=== PATIENT | female | born 1950 | race Caucasian/White ===

== ENCOUNTER 2016-07-23 08:52 | Day surgery (SDC) | payer BC ==
[~2016-07-23] VITALS: Ht 165.1 cm; Wt 85.9 kg
[2016-07-23 09:09] VITALS: BP 115/55; PULSE 66; RESP 20; TEMP 98.4; O2SAT 100
[2016-07-23] MEDS ORDERED: SODIUM CHLORIDE 5 ML FLUSH PRN IVF (09:30)
[2016-07-23] MEDS ORDERED: SODIUM CHLOR 0.9% 1000 ML IV SCH (09:30)
[2016-07-23] MEDS ORDERED: ONDA1TAB16 PO (09:32)
[2016-07-23] MEDS ORDERED: ENAL10TA PO (09:32)
[2016-07-23] MEDS ORDERED: THYR15 PO (09:32)
[2016-07-23] MEDS ORDERED: METF1000 PO (09:32)
[2016-07-23] MEDS ORDERED: CARV12.52 PO (09:32)
[2016-07-23] MEDS ORDERED: GLIM4TAB PO (09:32)
[2016-07-23] MEDS ORDERED: LANTUS2P SQ (09:32)
[2016-07-23] MEDS ORDERED: FURO1TAB60 PO (09:32)
[2016-07-23] MEDS ORDERED: CHLO12TA2 PO (09:32)
[2016-07-23] MEDS ORDERED: K-TA10TA PO (09:32)
[2016-07-23] MEDS ORDERED: OXYC15TA PO (09:32)
[2016-07-23] MEDS ORDERED: ESTR2TAB4 PO (09:32)
[2016-07-23] MEDS ORDERED: renexa PO (09:32)
[2016-07-23] MEDS ORDERED: DEXTROSE 50% IN WATER 50 ML SYRINGE ONE (10:13)
[2016-07-23] MEDS ORDERED: fentaNYL CITRATE 250 MCG/5 ML AMP ONE (10:22)
--- NOTE | 2016-07-23 12:23 | RADRPT ---
EXAM DATE/TIME: 07/23/2016 10:57 [facility] COMPARISON: No previous studies available for comparison. EXTERNAL COMPARISON : [facility], PET/CT Tumor, July 11, 2016CT Abdomen, TLI, 07/10/16. INDICATIONS : Liver mass. MEDICAL HISTORY : Carcinoma, pancreas. Anal cancer. Hypertension. CHF. Diabetic. SURGICAL HISTORY : Appendectomy. Hysterectomy. Anal tumor excision. ENCOUNTER: Initial ACUITY: 1 day PAIN SCORE: 3/10 LOCATION: Liver. AREA EVALUATED: Liver. FINDINGS/CONCLUSION: I was unsuccessful in localizing the lesion anteriorly in the left lobe of the liver for biopsy on [facility]. Enzo Richmond MD FACR on July 23, 2016 at 11:51 Board Certified Radiologist. This report was verified electronically.
--- NOTE | 2016-07-23 12:39 | RADRPT ---
EXAM DATE/TIME: 07/23/2016 10:47 [facility] COMPARISON: No previous studies available for comparison. INDICATIONS : Hypermetabolic liver lesion. ORAL CONTRAST: No oral contrast ingested. RADIATION DOSE: 30.95 CTDIvol (mGy) MEDICAL HISTORY : Pancreatic cancer, diabetes, hypertension SURGICAL HISTORY : Thyroidectomy. Hysterectomy. Appendectomy. ENCOUNTER: Initial ACUITY: 1 day PAIN SCALE: 0/10 LOCATION: Bilateral abdomen TECHNIQUE: Volumetric scanning of the abdomen was performed. Using automated exposure control and adjustment of the mA and/or kV according to patient size, radiation dose was kept as low as reasonably achievable to obtain optimal diagnostic quality images. FINDINGS: An attempt was made to localize the PET positive lesion anteriorly in the liver by CT and ultrasound. I was unsuccessful in locating this. Biliary stent remains in good position. Moderate splenic artery calcifications are evident. CONCLUSION: I can not localize the lesion by CT or ultrasound for biopsy. Enzo Richmond MD FACR on July 23, 2016 at 11:29 Board Certified Radiologist. This report was verified electronically.
[2016-07-23] MEDS ORDERED: SODIUM CHLORIDE 5 ML FLUSH BID IVF SCH (21:00)
[2016-07-24] MEDS ORDERED: RANO500 PO (18:36)
== END 2016-07-23 11:30 | disposition home or self-care (01) ==
LOC: HRAD 08:52 → HRIP 08:54 → EDSTATUS 09:00 → HRAD 11:30
PROVIDERS: ATTEND Internal Medicine
DX: R16.0 Hepatomegaly, not elsewhere classified (principal); I10 Essential (primary) hypertension; E11.9 Type 2 diabetes mellitus without complications
CPT/HCPCS: 74150; 76705; J3010

== ENCOUNTER 2016-07-25 06:06 | Day surgery (SDC) | payer BC ==
[~2016-07-25] VITALS: Ht 165.1 cm; Wt 86.8 kg
[~2016-07-25 06:06] MED LIST: CARV12.52 PO; CHLO12TA2 PO; ENAL10TA PO; ESTR2TAB4 PO; FURO1TAB60 PO; GLIM4TAB PO; K-TA10TA PO; LANTUS2P SQ; METF1000 PO; ONDA1TAB16 PO; OXYC15TA PO; RANO500 PO; THYR15 PO
[2016-07-25 06:50] VITALS: BP 120/51; PULSE 64; RESP 20; TEMP 98.2; O2SAT 94
[2016-07-25] MEDS ORDERED: VANCOMYCIN 1000 MG/NS 250 ML - implanted port/tunneled catheter IV SCH ×2 (07:30)
[2016-07-25] MEDS ORDERED: SODIUM CHLORIDE 0.9% 1000 ML IV SCH (07:30)
[2016-07-25] MEDS ORDERED: CHLORHEXIDINE GLUCONATE 2 % 1 PACK (2 CLOTHS) TOPICAL SCH (07:30)
[2016-07-25] MEDS ORDERED: ACETAMINOPHEN 325 MG TAB PO ONE (08:15)
[2016-07-25] MEDS ORDERED: LORazepam 2 MG/ML VIAL ONE ×2 (08:27→08:52)
[2016-07-25] MEDS ORDERED: fentaNYL CITRATE 250 MCG/5 ML AMP ONE (08:27)
[2016-07-25] MEDS ORDERED: LIDOCAINE 1%/EPINEPHrine 1:100,000 SOLN 20 ML VIAL ONE (08:45)
--- NOTE | 2016-07-25 09:23 | PD.RAD ---
Post Procedure Progress Note Pre Procedure Diagnosis: (1) Pancreatic cancer Post Procedure Diagnosis: (1) Pancreatic cancer Procedure Date: Jul 25, 2016 Supervising Radiologist: Sergei Zamudio Proceduralist/Assist: Anabel Jefferson, RT(R), Gayla Coh RT(R) Anesthesia: Local, Conscious Sedation Plan of Activity Patient to Unit: ROPU Patient Condition: Good See PACS Report for procedural detail/treatment Central Venous Access Device Procedure 1 Right Internal Jugular Tunneled Central Line Placement dual lumen Occitan: 9 Sergei Zamudio MD Jul 25, 2016 09:23
[2016-07-25 09:30] VITALS: BP 105/62; PULSE 65; RESP 18; TEMP 97.8; O2SAT 92
[2016-07-25] MEDS ORDERED: SODIUM CHLORIDE 0.9% FLUSH 5 ML FLUSH IVF PRN (09:30)
[2016-07-25 09:45] VITALS: BP 94/56; PULSE 67; RESP 16; O2SAT 93
[2016-07-25 10:15] VITALS: BP 101/51; PULSE 72; RESP 16; O2SAT 94
--- NOTE | 2016-07-25 10:39 | RADRPT ---
EXAM DATE/TIME: 07/25/2016 08:31 [facility] COMPARISON: No previous studies available for comparison. INDICATIONS : Patient with pancreatic cancer in need of Colbert catheter placement. MEDICAL HISTORY : CAD, HTN, HLD, CHF, Anal cancer, Peripheral neuropathy, Hypothyroidism, MO, Diabetes, Osteoarthritis, Pancreatic mass SURGICAL HISTORY : Cardiac cath, Pancreatic stent, Appendectomy, Colonoscopy, Thyroidectomy, Angioplasty X3, Athrectomy, Hysterectomy, Adenoidectomy ENCOUNTER: Initial ACUITY: 2 months PAIN SCORE: 5/10 LOCATION: Abdomen FLUORO TIME: 0.4 minutes SEDATION TIME: 30 minutes ACCESS: Right internal jugular vein SEDATION: 1.) 2.5 mg lorazepam (Ativan) IV 2.) 175 mcg fentanyl (Sublimaze) IV Prophylactic antibiotics were administered with appropriate pre-procedure timing. Vancomycin within 2 hours of procedure, Ancef (or alternative) within 1 hour of procedure. DEVICE: 1. 9F Dual lumen Colbert catheter PROCEDURE : 1. Ultrasound-guided puncture of the prescribed vein. 2. Fluoroscopic guidance. 3. Colbert catheter placement 4. Conscious sedation with continuous EKG and oximetry monitoring. The risks, benefits and alternatives to the procedure were explained and verbal and written consent w as obtained. The site was prepped in sterile fashion. Full sterile technique was used, including ca p, mask, sterile gloves and gown and a large sterile sheet. Hand hygiene and 2% chlorhexidine Betadi ne was utilized per protocol for cutaneous antisepsis with appropriate dry time for site. The skin a nd subcutaneous tissues were infiltrated with local anesthetic solution. With ultrasound and fluoroscopic guidance a dermatotomy was created in the supraclavicular region. A micropuncture set was used to access to the prescribed vein and serial dilatation was performed to a ccept a Colbert catheter. A subcutaneous tunnel was created and in antegrade fashion the catheter wa s pulled through the tunnel, cut to the appropriate length and place through the sheath. The cathete r was locked with heparin and sutured in place. Conscious sedation was performed with the prescribed dosages and duration as above. The patient tole rated the procedure well and there were no complications. EKG and oximetry remained stable throughou t the procedure. The patient was sent to post anesthesia recovery in stable condition. CONCLUSION: Uncomplicated Colbert catheter placement as above. Sergei Zamudio MD on July 25, 2016 at 10:37 Board Certified Radiologist. This report was verified electronically.
[2016-07-25 10:45] VITALS: BP 97/48; PULSE 76; RESP 16; O2SAT 94
[2016-07-26] MEDS ORDERED: SODIUM CHLORIDE 0.9% FLUSH 5 ML FLUSH IVF SCH (09:00)
== END 2016-07-25 11:30 | disposition home or self-care (01) ==
LOC: HRIP 06:06 → HROP 06:06
PROVIDERS: ATTEND Internal Medicine
DX: Z45.2 Encounter for adjustment and management of vascular access device (principal); C25.9 Malignant neoplasm of pancreas, unspecified; I25.10 Atherosclerotic heart disease of native coronary artery without angina pectoris; I10 Essential (primary) hypertension; E78.5 Hyperlipidemia, unspecified; E03.9 Hypothyroidism, unspecified; I50.9 Heart failure, unspecified; I25.2 Old myocardial infarction
CPT/HCPCS: 36558; 76937; 77001; C1751; J1642; J2060; J3010; J3370; J7030; J7050

== ENCOUNTER 2016-08-02 09:02 | Day surgery (SDC) | payer BC ==
[~2016-08-02] VITALS: Ht 167.6 cm; Wt 86.6 kg
[2016-08-02 09:21] VITALS: BP 125/62; PULSE 76; RESP 20; TEMP 99; O2SAT 93
[2016-08-02] MEDS ORDERED: SODIUM CHLOR 0.9% 1000 ML INJ 1,000 ML IV SCH (09:45)
--- NOTE | 2016-08-02 10:36 | RADRPT ---
EXAM DATE/TIME: 08/02/2016 10:08 [facility] COMPARISON: CT ABDOMEN W/O CONTRAST, July 23, 2016, 10:47. BROCK CATHETER PLACEMENT W/US, RIGHT, July, 8:31. INDICATIONS : check catheter position. MEDICAL HISTORY : Hypermetabolic liver mass. SURGICAL HISTORY : None. ENCOUNTER: Initial ACUITY: 1 day PAIN SCORE: 0/10 LOCATION: Right chest FINDINGS: A single AP erect portable view of the chest was obtained. This again demonstrates a right central ve nous catheter in place with the tip projected over the superior vena cava. There is no pneumothorax. There is mild patchy opacity at the left lung base. The left costophrenic angle appears blunted. The heart size is at the upper limits of normal with atherosclerotic changes in the aorta. There is no pe rihilar edema. The bony thorax is intact with mild scoliosis. CONCLUSION: 1. Right central venous line remains in place with the tip projected over the superior vena cava. 2. Mild patchy opacity at the left lung base with possible small left effusion. Jose Huerta MD on August 02, 2016 at 10:32 Board Certified Radiologist. This report was verified electronically.
== END 2016-08-02 11:00 | disposition home or self-care (01) ==
LOC: HROP 09:02 → HRIP 09:09 → HROP 11:00
PROVIDERS: ATTEND Internal Medicine
DX: Z45.2 Encounter for adjustment and management of vascular access device (principal); C25.9 Malignant neoplasm of pancreas, unspecified; R91.8 Other nonspecific abnormal finding of lung field
CPT/HCPCS: 71010

== ENCOUNTER 2016-08-16 16:42 | Inpatient (IN) | payer MEDICARE, BC ==
[~2016-08-16] VITALS: Ht 165.1 cm; Wt 82.4 kg
[2016-08-16] VITALS (11 sets, daily range): BP systolic 119–175; BP diastolic 67–92; PULSE 83–159; RESP 16–20; TEMP 98–98.8; O2SAT 97–100
[2016-08-16] MEDS ORDERED: SODIUM CHLORIDE 0.9% FLUSH 5 ML FLUSH IVF PRN (17:00)
[2016-08-16] MEDS ORDERED: SODIUM CHLORID 0.9% 500 ML INJ 500 ML IV ONE (17:00)
[2016-08-16] MEDS ORDERED: ONDANSETRON HCL 4 MG/2 ML VIAL IV PUSH ONE (17:00)
[2016-08-16] MEDS ORDERED: MORPHINE SULFATE 4 MG/ML INJ IV PUSH ONE (17:00)
[2016-08-16] MEDS ORDERED: DILTIAZEM HCL 25 MG/5 ML VIAL IV ONE (17:30)
[2016-08-16 17:38] LABS: WHITE BLOOD COUNT 0.5 TH/MM3 (4.0-11.0)
[2016-08-16 17:39] LABS: HEMATOCRIT 28.9 % (35.0-46.0); HEMO FLAGS AUTO DIFF; MEAN CELL VOLUME 95.7 FL (80.0-100.0); MEAN CORPUSCULAR HEMOGLOBIN 31.7 PG (27.0-34.0); MEAN CORPUSCULAR HGB CONC 33.1 % (32.0-36.0); PLATELET COUNT 42 TH/MM3 (150-450); RED BLOOD COUNT 3.02 MIL/MM3 (4.00-5.30); RED CELL DISTRIBUTION WIDTH 13.7 % (11.6-17.2)
[2016-08-16 17:43] LABS: ALKALINE PHOSPHATASE 90 U/L (45-117); ALT (GPT) 82 U/L (10-53); ANION GAP 17 MEQ/L (5-15); AST (GOT) 122 U/L (15-37); BLOOD UREA NITROGEN 33 MG/DL (7-18); CHLORIDE 95 MEQ/L (98-107); GLOMERULAR FILTRATION RATE 39 ML/MIN (>89); POTASSIUM 4.2 MEQ/L (3.5-5.1); SODIUM (NA) 132 MEQ/L (136-145); TOTAL BILIRUBIN ADULT 0.7 MG/DL (0.2-1.0)
[2016-08-16 18:04] LABS: BANDS 4 % (0-6); CORRECTED NUCLEATED RBC 4 /100 WBC (0-0); POLYS (SEG NEUTROPHILS) 24 % (16-70); WBC DIFF SAMPLE 25
[2016-08-16 18:05] LABS: PLATELET ESTIMATE SMEAR LOW (NORMAL); PLATELET MORPHOLOGY NORMAL (NORMAL); SCAN/DIFF FINAL DIFF MANUAL
[2016-08-16 18:09] LABS: NEUTROPHIL # MANUAL DIFF 0.1 TH/MM3 (1.8-7.7)
[2016-08-16] MEDS ORDERED: BISACODYL 10 MG SUPP PR PRN (18:30)
[2016-08-16] MEDS ORDERED: MAGNESIUM HYDROXIDE SUSP 30 ML CUP PO PRN (18:30)
[2016-08-16] MEDS ORDERED: ACETAMINOPHEN 325 MG TAB PO PRN (18:30)
[2016-08-16] MEDS ORDERED: GLUCAGON 1 MG/ML VIAL OTHER PRN (18:30)
[2016-08-16] MEDS ORDERED: ONDANSETRON HCL 4 MG/2 ML VIAL IVP PRN (18:30)
[2016-08-16] MEDS ORDERED: SENNOSIDES 8.6 MG TAB PO PRN (18:30)
[2016-08-16] MEDS ORDERED: DEXTROSE 50% IN WATER 50 ML VIAL(D50) IV PUSH PRN (18:30)
--- NOTE | 2016-08-16 18:43 | HHI.HP ---
HPI Service [facility] Primary Care Physician Raj Alonso Mai, MD Admission Diagnosis atrial fibrillation with rvr Diagnoses: Chief Complaint: intractable nausea/ vomiting, failure to thrive , palpitations, sob Travel History International Travel<30 Days: No Contact w/Intl Traveler <30 Da: No Traveled to Known Affected Are: No History of Present Illness 65-year-old female who has a history of pancreatic cancer who presents to the emergency department with generalized weakness that's been worsening over the past week, constant, described as difficulty exerting herself and difficulty eating and drinking. She also has intractable nausea and vomiting and is not able to keep anything down. She has a lot of pain in her mouth and in her throat and has ulcerations due to the chemotherapy so she's having difficulties with any PO intake. She was not able to take her meds. She does have a history of congestive heart failure and is followed by Dr. Maher. She's never been told she has atrial fibrillation before. She however feels palpitations at times but is not bothering her much. she also has sob associated. No chest pain. She had chemotherapy last on Saturday and then Saturday and Saturday she went into the infusion clinic and has been getting IV hydration but she's not feeling any better. She follows with Dr. Trinidad for her chemotherapy. 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 Anoscopy thousand and 10 Allergies: Coded Allergies: Versed (Verified Allergy, Severe, Hallucinations, 08/16/16) Tetracycline (Verified Allergy, Intermediate, Edema, 08/16/16) Ativan (Verified Allergy, Unknown, Irritation, 08/16/16) CRABBY Penicillin (Verified Allergy, Unknown, gi upset, 08/16/16) Nitroglycerin (Verified Adverse Reaction, Unknown, severe headache, ) resolved only with demerol Uncoded Allergies: all fenofibrate (Allergy, Severe, rhabdomyolysis, 07/23/16) all statin drugs (Allergy, Severe, rhabdomyolysis, 07/23/16) glue on tape and bandages (Allergy, Intermediate, Itching, 07/23/16) nylon and silk (Allergy, Intermediate, Rash, 07/23/16) skin inflames, festers and weeps, will not granulate stainless steel (Allergy, Intermediate, Rash, 07/23/16) lactose and whey (Allergy, Unknown, 07/23/16) pollen (Allergy, Unknown, 07/23/16) topical iodine, cortisone,antibiotics (Allergy, Unknown, scalds, blisters, 07/23/16) Family History Says she is adopted and doesn't know biological parents/siblings Social History Has a h/o smoking cigarettes quit in 1994. No illicit drug use or EtOH use. Physical Exam Vital Signs Vital Signs Date Time Temp Pulse Resp B/P Pulse Ox O2 Delivery O2 Flow Rate FiO2 08/16/16 18:11 112 18 135/75 100 Room Air 08/16/16 17:57 126 16 133/87 100 Room Air 08/16/16 17:32 83 08/16/16 17:19 146 16 149/92 99 Room Air 08/16/16 17:18 97 Room Air 08/16/16 16:57 98.0 159 20 158/84 100 08/16/16 16:48 98.2 157 18 175/89 98 Physical Exam GENERAL: This is a very pleasant 65 yo F, well-nourished, well-developed patient, in no apparent distress. SKIN: Pale. No rashes, ecchymoses or lesions. Cool and dry. HEAD: Atraumatic. Normocephalic. No temporal or scalp tenderness. EYES: Pupils equal round and reactive. Extraocular motions intact. No scleral icterus. No injection or drainage. ENT: Nose without bleeding, purulent drainage or septal hematoma. Throat without erythema, tonsillar hypertrophy or exudate. Uvula midline. Airway patent. NECK: Trachea midline. No JVD or lymphadenopathy. Supple, nontender, no meningeal signs. CARDIOVASCULAR: Irregular rate and rhythm without murmurs, gallops, or rubs. RESPIRATORY decreased breath sounds.No wheezes, rales, or rhonchi. GASTROINTESTINAL: Abdomen soft, non-tender, nondistended. No hepato-splenomegaly , or palpable masses. No guarding. MUSCULOSKELETAL: Extremities without clubbing, cyanosis. Trace LE edema. No joint tenderness, effusion, or edema noted. No calf tenderness. Negative Homans sign bilaterally. NEUROLOGICAL: Awake and alert. Cranial nerves II through XII intact. Motor and sensory grossly within normal limits. Five out of 5 muscle strength in all muscle groups. Normal speech. Laboratory Laboratory Tests Test 08/16/16 17:00 White Blood Count 0.5 Red Blood Count 3.02 Hemoglobin 9.6 Hematocrit 28.9 Mean Corpuscular Volume 95.7 Mean Corpuscular Hemoglobin 31.7 Mean Corpuscular Hemoglobin 33.1 Concent Red Cell Distribution Width 13.7 Platelet Count 42 Mean Platelet Volume 9.8 Neutrophils (%) (Auto) Lymphocytes (%) (Auto) Monocytes (%) (Auto) Eosinophils (%) (Auto) Basophils (%) (Auto) Neutrophils # (Auto) Lymphocytes # (Auto) Monocytes # (Auto) Eosinophils # (Auto) Basophils # (Auto) CBC Comment AUTO DIFF Differential Total Cells 25 Counted Neutrophils % (Manual) 24 Band Neutrophils % 4 Lymphocytes % 52 Monocytes % 20 Neutrophils # (Manual) 0.1 Nucleated Red Blood Cells 4 Differential Comment FINAL DIFF MANUAL Platelet Estimate LOW Platelet Morphology Comment NORMAL Red Cell Morphology Comment NORMAL Sodium Level 132 Potassium Level 4.2 Chloride Level 95 Carbon Dioxide Level 20.0 Anion Gap 17 Blood Urea Nitrogen 33 Creatinine 1.35 Estimat Glomerular Filtration 39 Rate Random Glucose 438 Calcium Level 8.2 Total Bilirubin 0.7 Aspartate Amino Transf 122 (AST/SGOT) Alanine Aminotransferase 82 (ALT/SGPT) Alkaline Phosphatase 90 B-Type Natriuretic Peptide 893 Total Protein 6.5 Albumin 1.9 Result Diagram: 08/16/16 1700 08/16/16 170 Assessment and Plan Assessment and Plan Very pleasant 65 yo female with PMH of pancreatic cancer, CHF came with complaints of sob, nausea, vomiting, failure to thrive Afib with RVR Intractable nausea/vomiting. Stomatitis. Dysphagia. Failure to thrive. Pancreatic cancer on chemo follows with Dr Coe hem/onc. Pancytopenia. but normal temp. No need of abx. Will place patient on neutropenic isolation RITCHIE on CKD CHF Received cardizem bolus in the ED. Started on cardizem drip. Place on cardizem drip. Turn cardizem drip off if HR < 90 sustained. Turn on cardizem drip if HR sustained > 110. Add cardizem PO Monitor on telemetry Patient with very low platelets of 42 and at high risk of bleeding. Avoid any anticoagulation. Dr Coe also consulted her hem/onc doctor. Consult her cardiology doctor Gunnar Keep K > 4 and Mag> 2 . Monitor lytes and replace. Gently IVF as patient with CHF doesn't appear with exacerbation at this time. consider 2D ECHO Will also check A1c pain meds per pain scale will add IV pain meds Will also consult GI for dysphagia BS in 400s on admission, say sshe was not able to take PO meds. On ISS continue home long acting insulin. Accuchecks. Chronic medical conditions appears coronary artery disease, diabetes type 2, heart attack/AL, hypothyroidism, peripheral neuropathy, arthritis. Restart home meds. Hold lasix DVT ppx with SCD/TEDs as PLT 42 on admission Code Status full code Discussed Condition With Patient, family at bedside, nurse, ED physician Physician Certification 2 Midnight Certification Type: Admission for Inpatient Services Order for Inpatient Services The services are ordered in accordance with Medicare regulations or non- Medicare payer requirements, as applicable. In the case of services not specified as inpatient-only, they are appropriately provided as inpatient services in accordance with the 2-midnight benchmark. Estimated LOS (days): 3 days is the estimated time the patient will need to remain in the hospital, assuming treatment plan goals are met and no additional complications. Post-Hospital Plan: Home Oanh Garner MD Aug 16, 2016 18:43
[2016-08-16] MEDS ORDERED: CHLORPHENIRAMINE 12 MG PO SCH (18:45)
--- NOTE | 2016-08-16 19:16 | PD ---
HPI Chief Complaint: GI Complaint Time Seen by Provider: 16:59 Travel History International Travel<30 days: No Contact w/Intl Traveler<30days: No Traveled to known affect area: No History of Present Illness HPI This is a 65-year-old female who has a history of pancreatic cancer who presents to the emergency department with generalized weakness that's been worsening over the past week, constant, described as difficulty exerting herself and difficulty eating and drinking. She's had some vomiting. She has a lot of pain in her mouth and in her throat and has ulcerations due to the chemotherapy so she's having difficulty keeping her medications down. She does have a history of congestive heart failure and is followed by Dr. Maher. She's never been told she has atrial fibrillation before. She had chemotherapy last on Saturday and then Saturday and Saturday she went into the infusion clinic and has been getting IV hydration but she's not feeling any better. She follows with Dr. Trinidad for her chemotherapy. PFS Past Medical History Cancer: Yes (pancreatic) Cardiovascular Problems: Yes Chemotherapy: Yes Diabetes: Yes Patient Takes Glucophage: No Endocrine: Yes (diabetes, pancreatic cancer) Gastrointestinal Disorders: No Genitourinary: No Hepatitis: No Hiatal Hernia: No Hypertension: Yes Immune Disorder: No Musculoskeletal: Yes (arthritis) Neurologic: Yes (diabetic neuropathy) Psychiatric: No Reproductive: No Respiratory: No Thyroid Disease: Yes (Thyroidectomy) Tetanus Vaccination: Unknown Past Surgical History Abdominal Surgery: Yes (total hysterectomy, appendectomy) AICD: No Cardiac Surgery: No Ear Surgery: No Endocrine Surgery: Yes (Thyroid) Eye Surgery: Yes (bilateral cataract) Genitourinary Surgery: No Gynecologic Surgery: Yes (hysterectomy) Joint Replacement: No Oral Surgery: No Pacemaker: No Thoracic Surgery: No Other Surgery: Yes Social History Alcohol Use: No Tobacco Use: No Substance Use: No Allergies-Medications (Allergen,Severity, Reaction): Coded Allergies: Versed (Verified Allergy, Severe, Hallucinations, 08/16/16) Tetracycline (Verified Allergy, Intermediate, Edema, 08/16/16) Ativan (Verified Allergy, Unknown, Irritation, 08/16/16) CRABBY Penicillin (Verified Allergy, Unknown, gi upset, 08/16/16) Nitroglycerin (Verified Adverse Reaction, Unknown, severe headache, ) resolved only with demerol Uncoded Allergies: all fenofibrate (Allergy, Severe, rhabdomyolysis, 07/23/16) all statin drugs (Allergy, Severe, rhabdomyolysis, 07/23/16) glue on tape and bandages (Allergy, Intermediate, Itching, 07/23/16) nylon and silk (Allergy, Intermediate, Rash, 07/23/16) skin inflames, festers and weeps, will not granulate stainless steel (Allergy, Intermediate, Rash, 07/23/16) lactose and whey (Allergy, Unknown, 07/23/16) pollen (Allergy, Unknown, 07/23/16) topical iodine, cortisone,antibiotics (Allergy, Unknown, scalds, blisters, 07/23/16) Reported Meds & Prescriptions Reported Meds & Active Scripts Active Reported Ranexa ER 12 HR (Ranolazine) 500 Mg Tab 500 Mg PO BID Chlorpheniramine 12 HR (Chlorpheniramine Maleate) 12 Mg Tab 12 Mg PO Q12H Ondansetron (Ondansetron HCl) 4 Mg Tab 4 Mg PO Q4HR PRN Oxycodone (Oxycodone HCl) 15 Mg Tab 15 Mg PO Q6H PRN Estrace (Estradiol) 2 Mg Tab 2 Mg PO DAILY K-Tab (Potassium Chloride) 10 Meq Tab 10 Meq PO DAILY Lasix (Furosemide) 40 Mg Tab 40 Mg PO DAILY Enalapril (Enalapril Maleate) 10 Mg Tab 10 Mg PO DAILY Carvedilol 12.5 Mg Tab 12.5 Mg PO BID Glimepiride 4 Mg Tab 4 Mg PO BIDAC Metformin (Metformin HCl) 1,000 Mg Tab 1,000 Mg PO BIDPC With meals Lantus Inj (Insulin Glargine) 100 Unit/Ml Inj 30 Units SQ HS [place] Thyroid (Thyroid) 15 Mg Tab 45 Mg PO BID Review of Systems Except as stated in HPI: all other systems reviewed are Neg Physical Exam Narrative GENERAL: Unwell-appearing. SKIN: Warm and dry. HEAD: Atraumatic. Normocephalic. EYES: Pupils equal and round. No injection or drainage. ENT: Dry mucous membranes with ulcerations along the base of the tongue NECK: Trachea midline. CARDIOVASCULAR: Tachycardic. No murmur appreciated. RESPIRATORY: Clear to auscultation. Breath sounds equal bilaterally. GASTROINTESTINAL: Abdomen soft, non-tender, nondistended. MUSCULOSKELETAL: No obvious deformities. NEUROLOGICAL: Awake and alert. No obvious cranial nerve deficits. Moving all extremities. PSYCHIATRIC: Appropriate mood and affect; insight and judgment normal. Data Data Last Documented VS Vital Signs Date Time Temp Pulse Resp B/P Pulse Ox O2 Delivery O2 Flow Rate FiO2 08/16/16 18:11 112 18 135/75 100 Room Air 08/16/16 16:57 98.0 Orders Complete Blood Count With Diff (08/16/16 16:59) Comprehensive Metabolic Panel (08/16/16 16:59) Iv Access Insert/Monitor (08/16/16 16:59) Ecg Monitoring (08/16/16 16:59) Oximetry (08/16/16 16:59) Sodium Chloride 0.9% Flush (Ns Flush) (08/16/16 17:00) Electrocardiogram (08/16/16 ) B-Type Natriuretic Peptide (08/16/16 16:59) Sodium Chlorid 0.9% 500 Ml Inj (Ns 500 M (08/16/16 17:00) Morphine Inj (Morphine Inj) (08/16/16 17:00) Ondansetron Inj (Zofran Inj) (08/16/16 17:00) Diltiazem Inj (Cardizem Inj) (08/16/16 17:30) Vital Signs (Adult) Q15MX4,Q4H (08/16/16 18:11) Shift Boss / Telemetry NOHEMI.Q8H (08/16/16 18:11) Cardiac Rhythm NOHEMI.Q8H (08/16/16 18:11) ^ Notify Dr: Other (08/16/16 18:11) Diltiazem Inj (Cardizem Inj) (08/16/16 18:15) Admit Order (Ed Use Only) (08/16/16 18:23) Labs Laboratory Tests Test 08/16/16 17:00 White Blood Count 0.5 TH/MM3 Red Blood Count 3.02 MIL/MM3 Hemoglobin 9.6 GM/DL Hematocrit 28.9 % Mean Corpuscular Volume 95.7 FL Mean Corpuscular Hemoglobin 31.7 PG Mean Corpuscular Hemoglobin 33.1 % Concent Red Cell Distribution Width 13.7 % Platelet Count 42 TH/MM3 Mean Platelet Volume 9.8 FL Neutrophils (%) (Auto) % Lymphocytes (%) (Auto) % Monocytes (%) (Auto) % Eosinophils (%) (Auto) % Basophils (%) (Auto) % Neutrophils # (Auto) TH/MM3 Lymphocytes # (Auto) TH/MM3 Monocytes # (Auto) TH/MM3 Eosinophils # (Auto) TH/MM3 Basophils # (Auto) TH/MM3 CBC Comment AUTO DIFF Differential Total Cells 25 Counted Neutrophils % (Manual) 24 % Band Neutrophils % 4 % Lymphocytes % 52 % Monocytes % 20 % Neutrophils # (Manual) 0.1 TH/MM3 Nucleated Red Blood Cells 4 /100 WBC Differential Comment FINAL DIFF MANUAL Platelet Estimate LOW Platelet Morphology Comment NORMAL Red Cell Morphology Comment NORMAL Sodium Level 132 MEQ/L Potassium Level 4.2 MEQ/L Chloride Level 95 MEQ/L Carbon Dioxide Level 20.0 MEQ/L Anion Gap 17 MEQ/L Blood Urea Nitrogen 33 MG/DL Creatinine 1.35 MG/DL Estimat Glomerular Filtration 39 ML/MIN Rate Random Glucose 438 MG/DL Calcium Level 8.2 MG/DL Total Bilirubin 0.7 MG/DL Aspartate Amino Transf 122 U/L (AST/SGOT) Alanine Aminotransferase 82 U/L (ALT/SGPT) Alkaline Phosphatase 90 U/L B-Type Natriuretic Peptide 893 PG/ML Total Protein 6.5 GM/DL Albumin 1.9 GM/DL [facility] Medical Decision Making Medical Screen Exam Complete: Yes Emergency Medical Condition: Yes Interpretation(s) EKG: Atrial fibrillation with RVR ANC is 140 Thrombocytopenia Hyponatremia Anion gap 17 BNP is a 93 Glucose is 438 Differential Diagnosis Dehydration, chemotherapy related vomiting, sepsis, anemia, thrombocytopenia Narrative Course This is a 65-year-old female who has a history congestive heart failure and pancreatic cancer on chemotherapy who presents to the emergency department with malaise and weakness. She is placed in a monitor and an IV was established. She was found to be in atrial fibrillation with RVR which is a new diagnosis for her. She was given 20 mg of diltiazem and started on a diltiazem infusion. Fluids were held as her BNP was elevated and she does have some pitting edema in the lower extremities. Patient was given pain control. She'll be admitted to the hospital for cardiac management and symptomatic management in that she can't keep down any of her home medications. Physician Communication Physician Communication Discussed with Dr. Carmichael Diagnosis Primary Impression: Atrial fibrillation with RVR Admitting Information Admitting Physician Requests: Admit Marilu Pollock MD Aug 16, 2016 19:16
[2016-08-16] MEDS: SODIUM CHLOR 0.9% 1000 ML INJ 1,000 ML IV SCH (20:02)
[2016-08-16] MEDS ORDERED: NALOXONE HCL 0.4 MG/ML AMP IV PRN (20:15)
[2016-08-16] MEDS ORDERED: HYDROmorphone HCL 2 MG TAB PO PRN (20:15)
[2016-08-16] MEDS: DILTIAZEM HCL 30 MG TAB PO SCH (21:18)
[2016-08-16] MEDS: INSULIN DETEMIR 100 UNITS/ML VIAL SQ SCH (21:18)
[2016-08-16] MEDS: SODIUM CHLORIDE 0.9% FLUSH 5 ML FLUSH FLUSH SCH (21:19)
[2016-08-16] MEDS: NYSTAT/DIPHENHY/LIDO MOUTHWASH (Adult) 120ML SWISH-SWAL SCH (21:19)
[2016-08-16] MEDS: INSULIN ASPART SUPPLEMENTAL SCALE SQ SCH (21:19)
[2016-08-16 22:17] LABS: HEMOGLOBIN A1a 1.4 %; HEMOGLOBIN A1b 2.7 %; HEMOGLOBIN Ao 76.7 %; HEMOGLOBIN LA1C 4.8 %; HEMOGLOBIN P3 7.7 %
[2016-08-16] MEDS: HYDROmorphone HCL PF 1 MG/ML VIAL IV PRN (23:32)
[2016-08-16] MEDS: SODIUM CHLORIDE 0.9% FLUSH 5 ML FLUSH FLUSH PRN (23:33)
[2016-08-17] VITALS (23 sets, daily range): BP systolic 119–126; BP diastolic 56–72; PULSE 87–130; RESP 16–20; TEMP 98–99; O2SAT 96–100
[2016-08-17] MEDS: PROCHLORPERAZINE 25 MG SUPP PR PRN (00:15)
[2016-08-17] MEDS: DILTIAZEM INJ 125 MG in SODIUM CHLORIDE 0.9% INJ 100 ML IV SCH ×3 (02:48→15:51)
[2016-08-17] MEDS: HYDROmorphone HCL PF 1 MG/ML VIAL IV PRN ×7 (03:26→21:30)
[2016-08-17 04:50] LABS: HEMATOCRIT 25.9 % (35.0-46.0); MEAN CELL VOLUME 94.2 FL (80.0-100.0); PLATELET COUNT 45 TH/MM3 (150-450); RED BLOOD COUNT 2.75 MIL/MM3 (4.00-5.30); RED CELL DISTRIBUTION WIDTH 13.7 % (11.6-17.2); WHITE BLOOD COUNT 0.8 TH/MM3 (4.0-11.0)
[2016-08-17 05:16] LABS: BICARBONATE 26.3 MEQ/L (21.0-32.0); MAGNESIUM 1.7 MG/DL (1.5-2.5); POTASSIUM 3.5 MEQ/L (3.5-5.1)
[2016-08-17 05:46] LABS: HEMO FLAGS AUTO DIFF
[2016-08-17] MEDS: SODIUM CHLOR 0.9% 1000 ML INJ 1,000 ML IV SCH ×3 (06:06→16:54)
[2016-08-17] MEDS: THYROID 15 MG TAB PO SCH ×2 (06:07→15:20)
[2016-08-17] MEDS: INSULIN ASPART SUPPLEMENTAL SCALE SQ SCH ×4 (06:52→21:00)
[2016-08-17 07:15] LABS: BANDS 22 % (0-6); CORRECTED NUCLEATED RBC 6 /100 WBC (0-0); METAMYELOCYTES 4 % (0-1); MYELOCYTES 6 % (0-0); POLYS (SEG NEUTROPHILS) 10 % (16-70); WBC DIFF SAMPLE 51
[2016-08-17 07:23] LABS: PLATELET ESTIMATE SMEAR LOW (NORMAL); PLATELET MORPHOLOGY NORMAL (NORMAL); SCAN/DIFF FINAL DIFF MANUAL
[2016-08-17 07:24] LABS: DOHLE BODIES PRESENT (NONE SEEN); TOXIC GRANULATION 1+ (NORMAL)
[2016-08-17 07:30] LABS: NEUTROPHIL # MANUAL DIFF 0.3 TH/MM3 (1.8-7.7)
[2016-08-17] MEDS: SODIUM CHLORIDE 0.9% FLUSH 5 ML FLUSH FLUSH SCH ×2 (09:00→21:30)
[2016-08-17] MEDS: NYSTAT/DIPHENHY/LIDO MOUTHWASH (Adult) 120ML SWISH-SWAL SCH ×4 (09:08→21:00)
[2016-08-17] MEDS: DILTIAZEM HCL 30 MG TAB PO SCH ×4 (09:08→21:30)
--- NOTE | 2016-08-17 10:09 | HHI.PR ---
Subjective Remarks Still with palpitations. on cardizem drip HR in 110s. Wean off cardizem drip. Plan for EGD postponed. Patient feesl tired. No n/v/d/. Says she was able to keep down jello. No fever or chills. Objective Vitals Vital Signs Date Time Temp Pulse Resp B/P Pulse Ox O2 Delivery O2 Flow Rate FiO2 08/17/16 08:00 117 08/17/16 06:00 102 08/17/16 05:00 103 08/17/16 04:00 110 08/17/16 03:00 99.0 108 16 119/68 100 08/17/16 03:00 99.0 108 16 119/68 100 08/17/16 03:00 112 08/17/16 02:00 120 08/17/16 01:00 116 08/17/16 00:00 130 08/17/16 00:00 113 08/16/16 23:30 98.8 108 18 125/72 100 08/16/16 21:23 99 08/16/16 21:00 87 18 119/67 99 Room Air 08/16/16 19:00 101 18 168/73 99 08/16/16 18:11 112 18 135/75 100 Room Air 08/16/16 17:57 126 16 133/87 100 Room Air 08/16/16 17:32 83 08/16/16 17:19 146 16 149/92 99 Room Air 08/16/16 17:18 97 Room Air 08/16/16 16:57 98.0 159 20 158/84 100 08/16/16 16:48 98.2 157 18 175/89 98 I/O 08/16/16 08/16/16 08/16/16 08/17/16 08/17/16 08/17/16 07:00 15:00 23:00 07:00 15:00 23:00 Intake Total 1432 ml Output Total 1 ml Balance 1431 ml Intake Oral 480 ml IV Total 952 ml Output Stool Total 1 ml # Voids 1 Result Diagram: 08/17/1640908/17/16409 Objective Remarks GENERAL: This is a very pleasant 65 yo F, well-nourished, well-developed patient, in no apparent distress. SKIN: Pale. No rashes, ecchymoses or lesions. Cool and dry. HEAD: Atraumatic. Normocephalic. No temporal or scalp tenderness. EYES: Pupils equal round and reactive. Extraocular motions intact. No scleral icterus. No injection or drainage. ENT: Nose without bleeding, purulent drainage or septal hematoma. Throat without erythema, tonsillar hypertrophy or exudate. Uvula midline. Airway patent. NECK: Trachea midline. No JVD or lymphadenopathy. Supple, nontender, no meningeal signs. CARDIOVASCULAR: Irregular rate and rhythm without murmurs, gallops, or rubs. RESPIRATORY decreased breath sounds.No wheezes, rales, or rhonchi. GASTROINTESTINAL: Abdomen soft, non-tender, nondistended. No hepato-splenomegaly , or palpable masses. No guarding. MUSCULOSKELETAL: Extremities without clubbing, cyanosis. Trace LE edema. No joint tenderness, effusion, or edema noted. No calf tenderness. Negative Homans sign bilaterally. NEUROLOGICAL: Awake and alert. Cranial nerves II through XII intact. Motor and sensory grossly within normal limits. Five out of 5 muscle strength in all muscle groups. Normal speech. A/P Assessment and Plan Very pleasant 65 yo female with PMH of pancreatic cancer, CHF came with complaints of sob, nausea, vomiting, failure to thrive Afib with RVR Intractable nausea/vomiting. Stomatitis. Dysphagia. Failure to thrive. Pancreatic cancer on chemo follows with Dr Coe hem/onc. Swallow evaluation. Pancytopenia. but normal temp. No need of abx. Will place patient on neutropenic isolation Severe protein calorie malnutrition. Prealbumin of 4. As above. Benefits Counselor consulted. RITCHIE on CKD CHF Received cardizem bolus in the ED. Started on cardizem drip. Place on cardizem drip. Turn cardizem drip off if HR < 90 sustained. Turn on cardizem drip if HR sustained > 110. Add cardizem PO Monitor on telemetry Patient with very low platelets of 42 and at high risk of bleeding. Avoid any anticoagulation. Dr Coe also consulted her hem/onc doctor. Consult her cardiology doctor Gunnar Keep K > 4 and Mag> 2 . Monitor lytes and replace. Gently IVF as patient with CHF doesn't appear with exacerbation at this time. consider 2D ECHO Will also check A1c pain meds per pain scale will add IV pain meds Consult GI for dysphagia. Hols EGD 08/17 as patient still on cardizem drip. BS in 400s on admission, say she was not able to take PO meds. On ISS continue home long acting insulin. Accuchecks. Chronic medical conditions appears at baseline coronary artery disease, diabetes type 2, heart attack/[place], hypothyroidism, peripheral neuropathy, arthritis. Restart home meds. Hold lasix DVT ppx with SCD/TEDs as PLT 42 on admission Code Status full code Discussed Condition With Patient, family at bedside, nurse, GI service. Oanh Garner MD Aug 17, 2016 10:09
--- NOTE | 2016-08-17 12:32 | PD.CONS ---
HPI History of Present Illness This is a 65 year old female who came to the ER for evaluation of shortness of breath, generalized weakness, and was found to have atrial fibrillation with RVR. She was placed on a Cardizem drip. She is still in A. fib although her rate has decreased from the 110's to high 80's, 90's. GI was consulted for severe odynophagia. She has a history of unresectable pancreatic adenocarcinoma. She was diagnosed in May 2018 by EUS with fine-needle biopsy. Pathology came back as invasive moderately differentiated adenocarcinoma. A PET scan in June 2016 revealed multiple nodules in the lungs. She is followed by Dr. Coe and has been receiving Abraxane and Gemzar. She last had this on August 06. She reports that after this dose she became very ill severe generalized weakness and she felt as if she was dehydrated. She has been having odynophagia since that time and reports that it has progressively been worsening and is now to the point that she is having a hard time taking even liquids. She denies any liquids or solids actually getting stuck in her esophagus but states that she has a severe pain when she tries to swallow anything. She also reports that she has sores on the inside of her mouth and that these are painful. She was started on Magic mouthwash and she states that this helps a little she still having significant discomfort with swallowing. She has associated nausea/vomiting. She also reports some epigastric discomfort described as a dull ache. She has lost about 25 lbs since April. She is followed by Dr. Phipps and reports that her last EGD was within the past two months. PFSH Past Medical History Pancreatic cancer, digestive heart failure, coronary artery disease, diabetes type 2, heart attack/[place], hypothyroidism, peripheral neuropathy, arthritis Unresectable pancreatic adenocarcinoma, stage IV Arthritis Congestive heart failure Coronary artery disease/TX Diabetes Hypothyroidism. 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 Coded Allergies: Versed (Verified Allergy, Severe, Hallucinations, 08/16/16) Tetracycline (Verified Allergy, Intermediate, Edema, 08/16/16) Ativan (Verified Allergy, Unknown, Irritation, 08/16/16) CRABBY Penicillin (Verified Allergy, Unknown, gi upset, 08/16/16) Nitroglycerin (Verified Adverse Reaction, Unknown, severe headache, ) resolved only with demerol Uncoded Allergies: all fenofibrate (Allergy, Severe, rhabdomyolysis, 07/23/16) all statin drugs (Allergy, Severe, rhabdomyolysis, 07/23/16) glue on tape and bandages (Allergy, Intermediate, Itching, 07/23/16) nylon and silk (Allergy, Intermediate, Rash, 07/23/16) skin inflames, festers and weeps, will not granulate stainless steel (Allergy, Intermediate, Rash, 07/23/16) lactose and whey (Allergy, Unknown, 07/23/16) pollen (Allergy, Unknown, 07/23/16) topical iodine, cortisone,antibiotics (Allergy, Unknown, scalds, blisters, 07/23/16) Medications Allergies Coded Allergies Type Severity Reaction Last Updated Verified Versed Allergy Severe Hallucinations 08/16/16 Yes Tetracycline Allergy Intermediate Edema 08/16/16 Yes Ativan Allergy Unknown Irritation 08/16/16 Yes Penicillin Allergy Unknown gi upset 08/16/16 Yes Nitroglycerin Adverse Reaction Unknown severe headache 08/16/16 Yes Uncoded Allergies Type Severity Reaction Last Updated Verified all fenofibrate Allergy Severe rhabdomyolysis 07/23/16 all statin drugs Allergy Severe rhabdomyolysis 07/23/16 glue on tape and bandages Allergy Intermediate Itching 07/23/16 nylon and silk Allergy Intermediate Rash 07/23/16 stainless steel Allergy Intermediate Rash 07/23/16 lactose and whey Allergy Unknown 07/23/16 pollen Allergy Unknown 07/23/16 topical iodine, cortisone,antibiotics Allergy Unknown scalds, blisters Active Scripts Medications Dose Route/Sig Days Date Category Dose Instructions Ranexa ER 12 HR (Ranolazine) 500 Mg Tab 500 Mg PO BID 07/24/16 Reported Chlorpheniramine 12 HR (Chlorpheniramine Maleate) 12 Mg Tab 12 Mg PO Q12H 07/23/16 Reported Ondansetron (Ondansetron HCl) 4 Mg Tab 4 Mg PO Q4HR PRN 07/23/16 Reported Oxycodone (Oxycodone HCl) 15 Mg Tab 15 Mg PO Q6H PRN 07/23/16 Reported Estrace (Estradiol) 2 Mg Tab 2 Mg PO DAILY 07/23/16 Reported K-Tab (Potassium Chloride) 10 Meq Tab 10 Meq PO DAILY 07/23/16 Reported Lasix (Furosemide) 40 Mg Tab 40 Mg PO DAILY 07/23/16 Reported Enalapril (Enalapril Maleate) 10 Mg Tab 10 Mg PO DAILY 07/23/16 Reported Carvedilol 12.5 Mg Tab 12.5 Mg PO BID 07/23/16 Reported Glimepiride 4 Mg Tab 4 Mg PO BIDAC 07/23/16 Reported Metformin (Metformin HCl) 1,000 Mg Tab 1,000 Mg PO BIDPC 07/23/16 Reported With meals Lantus Inj (Insulin Glargine) 100 Unit/Ml Inj 30 Units SQ HS 07/23/16 Reported [place] Thyroid (Thyroid) 15 Mg Tab 45 Mg PO BID 07/23/16 Reported Family History Says she is adopted and doesn't know biological parents/siblings Social History Has a h/o smoking cigarettes quit in 1994. No illicit drug use or EtOH use. Review of Systems Constitutional: COMPLAINS OF: Fatigue, Weight loss Ears, nose, mouth, throat: COMPLAINS OF: Hoarseness Respiratory: COMPLAINS OF: Shortness of breath, DENIES: Cough Cardiovascular: DENIES: Syncope Gastrointestinal: COMPLAINS OF: Abdominal pain, Nausea, Vomiting, Odynophagia, Heartburn, DENIES: Diarrhea, Difficulty Swallowing Musculoskeletal: COMPLAINS OF: Back pain Integumentary: DENIES: Abnormal pigmentation Hematologic/lymphatic: COMPLAINS OF: Bruising Neurologic: DENIES: Headache Psychiatric: DENIES: Confusion GI Exam Vitals I&O Vital Signs Date Time Temp Pulse Resp B/P Pulse Ox O2 Delivery O2 Flow Rate FiO2 08/17/16 12:02 94 08/17/16 11:18 98.0 95 18 120/70 98 08/17/16 11:15 95 08/17/16 08:00 117 08/17/16 06:00 102 08/17/16 05:00 103 08/17/16 04:00 110 08/17/16 03:00 99.0 108 16 119/68 100 08/17/16 03:00 99.0 108 16 119/68 100 08/17/16 03:00 112 08/17/16 02:00 120 08/17/16 01:00 116 08/17/16 00:00 130 08/17/16 00:00 113 2/23/17 23:30 98.8 108 18 125/72 100 08/16/16 21:23 99 08/16/16 21:00 87 18 119/67 99 Room Air 08/16/16 19:00 101 18 168/73 99 08/16/16 18:11 112 18 135/75 100 Room Air 08/16/16 17:57 126 16 133/87 100 Room Air 08/16/16 17:32 83 08/16/16 17:19 146 16 149/92 99 Room Air 08/16/16 17:18 97 Room Air 08/16/16 16:57 98.0 159 20 158/84 100 08/16/16 16:48 98.2 157 18 175/89 98 I/O 08/16/16 08/16/16 08/16/16 08/17/16 08/17/16 08/17/16 07:00 15:00 23:00 07:00 15:00 23:00 Intake Total 1432 ml Output Total 1 ml Balance 1431 ml Intake Oral 480 ml IV Total 952 ml Output Stool Total 1 ml # Voids 1 Laboratory Test 08/16/16 08/17/16 17:00 04:10 White Blood Count 0.5 TH/MM3 0.8 TH/MM3 Red Blood Count 3.02 MIL/MM3 2.75 MIL/MM3 Hemoglobin 9.6 GM/DL 8.8 GM/DL Hematocrit 28.9 % 25.9 % Mean Corpuscular Volume 95.7 FL 94.2 FL Mean Corpuscular Hemoglobin 31.7 PG 32.0 PG Mean Corpuscular Hemoglobin 33.1 % 34.0 % Concent Red Cell Distribution Width 13.7 % 13.7 % Platelet Count 42 TH/MM3 45 TH/MM3 Mean Platelet Volume 9.8 FL 9.3 FL Neutrophils (%) (Auto) % % Lymphocytes (%) (Auto) % % Monocytes (%) (Auto) % % Eosinophils (%) (Auto) % % Basophils (%) (Auto) % % Neutrophils # (Auto) TH/MM3 TH/MM3 Lymphocytes # (Auto) TH/MM3 TH/MM3 Monocytes # (Auto) TH/MM3 TH/MM3 Eosinophils # (Auto) TH/MM3 TH/MM3 Basophils # (Auto) TH/MM3 TH/MM3 CBC Comment AUTO DIFF AUTO DIFF Differential Total Cells 25 51 Counted Neutrophils % (Manual) 24 % 10 % Band Neutrophils % 4 % 22 % Lymphocytes % 52 % 27 % Monocytes % 20 % 31 % Neutrophils # (Manual) 0.1 TH/MM3 0.3 TH/MM3 Nucleated Red Blood Cells 4 /100 WBC 6 /100 WBC Differential Comment FINAL DIFF FINAL DIFF MANUAL MANUAL Platelet Estimate LOW LOW Platelet Morphology Comment NORMAL NORMAL Red Cell Morphology Comment NORMAL Sodium Level 132 MEQ/L 137 MEQ/L Potassium Level 4.2 MEQ/L 3.5 MEQ/L Chloride Level 95 MEQ/L 101 MEQ/L Carbon Dioxide Level 20.0 MEQ/L 26.3 MEQ/L Anion Gap 17 MEQ/L 10 MEQ/L Blood Urea Nitrogen 33 MG/DL 30 MG/DL Creatinine 1.35 MG/DL 1.19 MG/DL Estimat Glomerular Filtration 39 ML/MIN 45 ML/MIN Rate Random Glucose 438 MG/DL 250 MG/DL Hemoglobin A1c 7.6 % Calcium Level 8.2 MG/DL 7.7 MG/DL Total Bilirubin 0.7 MG/DL Aspartate Amino Transf 122 U/L (AST/SGOT) Alanine Aminotransferase 82 U/L (ALT/SGPT) Alkaline Phosphatase 90 U/L B-Type Natriuretic Peptide 893 PG/ML Total Protein 6.5 GM/DL Albumin 1.9 GM/DL Prealbumin 4 MG/DL Metamyelocytes 4 % Myelocytes 6 % Toxic Granulation 1+ Dohle Bodies PRESENT Magnesium Level 1.7 MG/DL Physical Examination HEENT: Normocephalic; atraumatic; no jaundice mild stomatitis NECK: Neck is supple, no JVD, no lymphadenopathy. CHEST: CTA CARDIAC: Irregular, on cardizem rate. ABDOMEN: Soft, nondistended, mild epigastric discomfort no hepatosplenomegaly; bowel sounds are present in all four quadrants. EXTREMITIES: No clubbing, cyanosis, or edema. SKIN: Normal; no rash; no jaundice. 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 Assessment and Plan Plan ASSESSMENT: - Severe odynophagia, nausea/vomiting. Pt currently receiving chemotherapy for pancreatic cancer (last dose 08/06). Pt has had pain in her esophagus/mouth since last chemotherapy dose. this has progressively worsening since that time and she is now having severe odynophagia- having a hard time taking even liquids. She is followed by Dr. Phipps for GI, last egd a few months ago. She will need further evaluation with EGD, but patient is not clear at this time for procedure- d/w Dr. Garner. Magic mouthwash. - Pancytopenia, likely secondary to chemotherapy. WBC 0.8, HH 8.8/25.9, Plt 45. - Stomatitis. - Metastatic pancreatic cancer. Dx May 2016. A PET scan in June 2016 revealed multiple nodules in the lungs. She is followed by Dr. Coe and has been receiving Abraxane and Gemzar. She last had this on August 06. - Atrial fibrillation with RVR. On cardizem gtt. Rate 90's. - RITCHIE, Hypothyroidism, peripheral neuropathy, CAD, CHF per primary PLAN: - Clear liquids, as tolerated - Cont. Magic Mouthwash - Add Protonix 40mg IV BID - Add Carafate 1 gram po TID-AC - Consider adding Nystatin if no improvement - Will need EGD once medically cleared - Supportive care - Further recommendations to follow based on results of above - Pt seen and examined by Dr. Downing and myself and this note is written on his behalf Gris Roberts Aug 17, 2016 12:32
[2016-08-17] MEDS ORDERED: FILGRASTIM INJ 480 MCG in DEXTROSE 5% IN WATER INJ 48.4 ML IV SCH ×2 (15:00)
[2016-08-17] MEDS: SUCRALFATE 1 GM/10 ML CUP PO SCH ×2 (15:20→21:30)
[2016-08-17] MEDS: PANTOPRAZOLE SODIUM 40 MG VIAL IV PUSH SCH ×2 (15:21→21:30)
[2016-08-17] MEDS: FLUCONAZOLE 100 MG PREMIX BAG 50 ML IV SCH (15:50)
--- NOTE | 2016-08-17 17:16 | EKG ---
Date Performed: 08/16/2016 Time Performed: 17:18:59 PTAGE: 65 years EKG: ATRIAL FIBRILLATION WITH RAPID VENTRICULAR RESPONSE MARKED LEFT AXIS DEVIATION POSSIBLE ANT ERIOR MYOCARDIAL INFARCTION ABNORMAL ECG NO PREVIOUS TRACING DOCTOR: Ev Johnson Interpretating Date/Time 08/17/2016 17:14:49
--- NOTE | 2016-08-17 18:02 | MB ---
cc: RUBINA MCKEON MD DATE OF CONSULTATION 08/17/16 HISTORY OF PRESENT ILLNESS Ms. Concepcion is a 65 year old white female, patient of Dr. Maher, with history of pancreatic cancer treated with chemotherapy. She has had generalized weakness including lower extremity weakness. She has had difficulty walking over the last week. She has been fatigued. She had difficult eating and drinking. She has nausea, vomiting, peripheral edema and mild dyspnea. She has not had any angina. She has not been able to take her medications. She complains of occasional palpitations. She had chemotherapy this week and also obtained IV hydration. PAST MEDICAL HISTORY 1. Pancreatic cancer 2. Congestive heart failure 3. Coronary artery disease 4. Type 2 diabetes mellitus 5. Myocardial infarction 6. Hypothyroidism 7. Peripheral neuropathy. 8. Arthritis 9. History of PTCA and stenting 10. Appendectomy 11. Tonsillectomy 12. thyroidectomy 13. Hysterectomy 14. Adenoidectomy 15. Squamous cell carcinoma of the anus ALLERGIES VERSED TETRACYCLINE ATIVAN PENICILLIN NITROGLYCERINE - SEVERE HEADACHE FENOFIBRATE STATIN MULTIPLE NON-MEDICAL ALLERGENS FAMILY HISTORY The patient is adopted and does not know her biologic parents. SOCIAL HISTORY The patient quit smoking in 1994. She drinks alcohol socially. REVIEW OF SYSTEMS Otherwise negative PHYSICAL EXAMINATION VITAL SIGNS: Blood pressure 126/72, pulse 95 and irregular. HEENT: Negative, 2+ carotid upstrokes, no bruits. LUNGS: Clear with decreased breath sounds HEART: irregular with no murmurs, rubs or gallops ABDOMEN: Soft, no bruits. EXTREMITIES: Without 1+ pitting pretibial edema, 1+ distal pulses. NEUROLOGIC: Grossly nonfocal. CARDIOLOGY STUDIES Electrocardiogram was reviewed and showed atrial fibrillation with rapid ventricular response, left axis, delayed R wave progression in precordial lead and mild interventricular conduction delay. telemetry shows atrial fibrillation with better controlled ventricular response. LABORATORY DATA Hemoglobin 8.8, potassium 3.5, creatinine 1.2, AST 122, ALT 82, BNP 893. DIAGNOSES 1. Atrial fibrillation with rapid ventricular response 2. Congestive heart failure, chronic, mild exacerbation 3. Pancreatic cancer, on chemotherapy 4. Coronary artery disease, history of coronary intervention 5. Diabetes mellitus DISPOSITION Ms. Concepcion will continue therapy with Diltiazem for rate control. Short- acting Diltiazem can be switched to long-acting Diltiazem. Her BNP was mildly elevated, but at this time there does not appear to be significant congestive heart failure exacerbation. We will obtain echocardiogram to evaluate her left ventricular function. I recommend to closely monitor her renal function. GI has been consulted for her nausea, vomiting and odynophagia. She will be monitored on telemetry. She will be scheduled for followup with Dr. Maher, her primary driller operator, in his office after discharge. MD CORAL Davis/ /4:09 PM /5:39 PM TORIE
[2016-08-17] MEDS: INSULIN DETEMIR 100 UNITS/ML VIAL SQ SCH (21:31)
[2016-08-18] VITALS (25 sets, daily range): BP systolic 106–126; BP diastolic 53–84; PULSE 76–92; RESP 18; TEMP 98.4–98.9; O2SAT 96–98
[2016-08-18] MEDS: HYDROmorphone HCL PF 1 MG/ML VIAL IV PRN ×7 (00:29→23:41)
[2016-08-18 05:23] LABS: HEMATOCRIT 27.7 % (35.0-46.0); MEAN CORPUSCULAR HEMOGLOBIN 32.1 PG (27.0-34.0); MEAN CORPUSCULAR HGB CONC 33.8 % (32.0-36.0); PLATELET COUNT 97 TH/MM3 (150-450); RED BLOOD COUNT 2.91 MIL/MM3 (4.00-5.30); RED CELL DISTRIBUTION WIDTH 13.8 % (11.6-17.2)
[2016-08-18] MEDS: THYROID 15 MG TAB PO SCH ×2 (05:27→16:26)
[2016-08-18] MEDS: DILTIAZEM INJ 125 MG in SODIUM CHLORIDE 0.9% INJ 100 ML IV SCH (05:27)
[2016-08-18] MEDS: SUCRALFATE 1 GM/10 ML CUP PO SCH ×4 (05:27→19:56)
[2016-08-18 05:47] LABS: MAGNESIUM 1.6 MG/DL (1.5-2.5); POTASSIUM 3.7 MEQ/L (3.5-5.1)
[2016-08-18 06:00] LABS: HEMO FLAGS AUTO DIFF
[2016-08-18 06:19] LABS: CALCIUM-PROTEIN CORRECTED 8.1 MG/DL (8.5-10.1)
[2016-08-18] MEDS: INSULIN ASPART SUPPLEMENTAL SCALE SQ SCH ×4 (06:19→20:06)
--- NOTE | 2016-08-18 06:39 | MB ---
cc: ELAINE MOONEY AWAIS DATE OF CONSULTATION: 08/17/2016 DATE OF : 1950 REASON FOR CONSULTATION: Patient with a history of unresectable pancreatic adenocarcinoma currently getting chemotherapy, presents with generalized weakness, dehydration, nausea and atrial fibrillation with rapid ventricular response. CHIEF COMPLAINT Weakness, nausea and oral pain. HISTORY OF PRESENT ILLNESS Presenting then is 55-year-old female who has a diagnosis of unresectable pancreatic adenocarcinoma. She was diagnosed with this malignancy in late 2015. She had presented with abnormal liver functions and jaundice. She was found to have a ill-defined mass in the head of the pancreas. She underwent MRCP the mass was 4.8 but 4.1 cm. The pancreatic duct was dilated. She underwent stenting of the pancreatic duct. She subsequently had an endoscopic ultrasound which confirmed this mass and subsequently a PET CT scan showed locally advanced disease. She also had adenopathy in the retroperitoneum as well as suspicious nodes in the in the lung. An attempt was CT-guided biopsy in mid June 2016 was unsuccessful, this was a liver biopsy. There was an intensive uptake of the second portal liver. On the PET CT scan. The patient is currently getting chemotherapy consisting of Abraxane and Gemzar. She has received one cycle of this treatment. She now presents with persistent nausea, dehydration, decreased oral intake oral sores. She was found to be in atrial fibrillation with rapid ventricular response in the emergency department and has been placed on Diltiazem. Cardiology has been consulted. She denies any fevers or chills. No cough or congestion. She does not have any abdominal pain. No diarrhea. She denies any lower extremity pain. REVIEW OF SYSTEMS A comprehensive 14-point review of systems was completed which is negative except as described in the HPI. PAST MEDICAL HISTORY 1. Advanced pancreatic adenocarcinoma 2. osteoarthritis 3. congestive heart failure 4. coronary artery disease 5. diabetes type 2 6. Hypothyroidism 7. peripheral neuropathy. PAST SURGICAL HISTORY Liver biopsy endoscopic ultrasound with biopsy angioplasty x3. Colonoscopy Cataract removal 2007 Squamous cell carcinoma of the anal rim is stage I in 1993 hysterectomy 1993 MEDICATIONS: [place] thyroid 40 mg p.o. b.i.d. Cardizem 30 mg p.o. q.i.d. Levemir injection 30 units Subcu q.h.s. Dilaudid 2 mg tablet p.o. q.4 h p.r.n. Roxicodone 50 mg tablet p.o. q.6 h p.r.n. Tylenol 650 1 tablet p.o. q.4 h p.r.n. Zofran 4 mg IV q.6 h p.r.n. Compazine 25 mg q.12 h p.r.n. Dulcolax 10 mg p.o. daily p.r.n. milk of magnesia 30 cc p.o. q.12 h Senna 17.2 mg p.o. q.12 h Diltiazem GTT. ALLERGIES ATIVAN PENICILLIN TETRACYCLINE VERSED FENOFIBRATE STATIN DRUGS K2 LACTOSE WHEY NYLON SILK POLLEN STAINLESS STEEL TOPICAL IODINE CORTISONE MULTIPLE ANTIBIOTICS. PHYSICAL EXAMINATION VITAL SIGNS: Blood pressure is 126/72, pulse is in the 90s, temperature is 98, respiratory rate is 18. IN GENERAL: Acutely ill patient in no apparent distress. Appears pale. HEAD, EYES, EARS, NOSE, AND THROAT: Pupils are equal, round, reactive to light. EOMI. No oral thrush is noted. There is grade 1 mucositis, oral pharyngeal erythema. NECK: The neck is supple. No JVD, no bruits. No lymphadenopathy. CHEST: The chest is clear to auscultation bilaterally. CARDIAC: S1-S2, tachycardiac. ABDOMEN: The abdomen is soft, nontender, nondistended. Bowel sounds are present. EXTREMITIES: Without any edema, erythema or cyanosis. SKIN: Without any petechiae lesion or bruises. NEUROLOGIC: No focal deficits. PSYCHIATRIC: Mood and affect is appropriate. LABORATORY DATA WBC is 0.8, hemoglobin is 8.8, platelet count is 45. Sodium is 137, potassium 3.5, chloride is 101, CO2 is 26.3, BUN is 30, creatinine is 1.19, magnesium is 1.7. BNP is 893, total protein is 6.5, albumin is 1.9. IMAGING STUDIES Chest x-ray was reviewed miles opacity in the left lung with a small effusion. No other acute findings. ASSESSMENT/PLAN This is a 65-year-old female with a diagnosis of advanced pancreatic adenocarcinoma who is currently getting chemotherapy consisting of cisplatin and Gemzar are she has completed one cycle of this treatment. She now presents with; 1. Nausea, vomiting and dehydration. I agree with antiemetics. She is currently on Zofran and Compazine continue IV hydration. 2. Atrial fibrillation with rapid ventricular response likely precipitated by acute dehydration and nausea and vomiting. She is currently on cardiogram GTT. Appreciate cardiology recommendations 3. Severe neutropenia with WBC of 0.8. We will continue daily Neupogen injections. I would have a low threshold for starting her on antibiotic, if she has a fever, or develops increased lethargy, I would recommend starting her on IV cefepime. Blood cultures to be drawn. 4. Anemia. Hemoglobin is 8.8, transfuse packed red blood cells to keep hemoglobin greater than 7.5, premedicate with Tylenol and Benadryl. 5. Thrombocytopenia with platelet count of 45,000 secondary to chemotherapy. Continue to monitor, no need for transfusion at this point. Transfusion threshold is platelet count of less then 10,000. 6. Acute renal failure. I suspect this is prerenal. continue IV hydration. 7. Severe malnutrition with albumin of 1.90. Obtain nutrition consult. supplement her diet with protein supplements such as Ensure or Boost t.i.d. with meals. Encourage oral intake. Thank you for allowing me to participate in the care of this patient. My colleague Dr. Mooney will see this patient over the weekend. MD ROBERTO Wood/marni /10:12 PM /6:08 AM TORIE
[2016-08-18] MEDS ORDERED: POTASSIUM PHOSPHATE INJ 15 MMOL in SODIUM CHLORIDE 0.9% INJ 150 ML IV ONE (09:00)
[2016-08-18] MEDS: PANTOPRAZOLE SODIUM 40 MG VIAL IV PUSH SCH ×2 (09:26→19:56)
[2016-08-18] MEDS: NYSTAT/DIPHENHY/LIDO MOUTHWASH (Adult) 120ML SWISH-SWAL SCH ×4 (09:26→20:07)
[2016-08-18] MEDS: DILTIAZEM HCL 30 MG TAB PO SCH ×4 (09:26→19:56)
[2016-08-18] MEDS: SODIUM CHLORIDE 0.9% FLUSH 5 ML FLUSH FLUSH SCH ×2 (09:27→19:56)
[2016-08-18] MEDS: SODIUM CHLOR 0.9% 1000 ML INJ 1,000 ML IV SCH ×2 (10:23→20:07)
[2016-08-18 11:01] LABS: BANDS 32 % (0-6); BLASTS 2 % (0-0); CORRECTED NUCLEATED RBC 8 /100 WBC (0-0); DOHLE BODIES PRESENT (NONE SEEN); EOSINOPHILS 3 % (0-4); METAMYELOCYTES 4 % (0-1); MYELOCYTES 3 % (0-0); NEUTROPHIL # MANUAL DIFF 3.9 TH/MM3 (1.8-7.7); POLYS (SEG NEUTROPHILS) 37 % (16-70); PROMYELOCYTES 1 % (0-0); TOXIC GRANULATION 2+ (NORMAL); WBC DIFF SAMPLE 100
[2016-08-18 11:02] LABS: PLATELET ESTIMATE SMEAR LOW (NORMAL); PLATELET MORPHOLOGY ENLARGED (NORMAL); SCAN/DIFF FINAL DIFF MANUAL
--- NOTE | 2016-08-18 11:02 | HHI.GIFU ---
Subjective Remarks Sitting on edge of bed. Feeling much better. States she still has intermittent painful swallowing, but much improved and is now able to get some purees down. States that she would like to have PEG tube placed at time of EGD for nutritional supplementation when she is not able to eat. Objective Vitals I&O Vital Signs Date Time Temp Pulse Resp B/P Pulse Ox O2 Delivery O2 Flow Rate FiO2 08/18/16 10:00 92 08/18/16 09:59 98.9 92 18 120/70 98 08/18/16 08:15 85 08/18/16 08:15 Room Air 08/18/16 06:00 88 08/18/16 05:00 86 08/18/16 04:00 98.9 84 18 118/67 96 08/18/16 04:00 Room Air 08/18/16 04:00 84 08/18/16 03:00 92 08/18/16 02:00 87 08/18/16 01:00 84 08/18/16 00:00 Room Air 08/18/16 00:00 83 08/18/16 00:00 98.6 84 18 106/53 97 08/17/16 23:00 87 08/17/16 22:00 93 08/17/16 21:00 92 08/17/16 20:00 88 08/17/16 20:00 99.0 88 20 124/56 98 08/17/16 18:02 95 08/17/16 17:06 98 08/17/16 16:38 96 08/17/16 15:34 98.0 95 18 126/72 98 08/17/16 15:10 93 08/17/16 14:50 95 08/17/16 13:31 92 08/17/16 12:02 94 08/17/16 11:18 98.0 95 18 120/70 98 08/17/16 11:15 95 I/O 08/17/16 08/17/16 08/17/16 08/18/16 08/18/16 08/18/16 07:00 15:00 23:00 07:00 15:00 23:00 Intake Total 1432 ml 2200 ml 1500 ml 100 ml Output Total 1 ml 1000 ml 900 ml Balance 1431 ml 1200 ml 600 ml 100 ml Intake Oral 480 ml 1100 ml 400 ml IV Total 952 ml 1100 ml 1100 ml 100 ml Output Urine Total 1000 ml 900 ml Stool Total 1 ml # Voids 3 # Bowel Movements 0 Laboratory Laboratory Tests Test 08/18/16 04:35 White Blood Count 5.0 Red Blood Count 2.91 Hemoglobin 9.4 Hematocrit 27.7 Mean Corpuscular Volume 95.0 Mean Corpuscular Hemoglobin 32.1 Mean Corpuscular Hemoglobin 33.8 Concent Red Cell Distribution Width 13.8 Platelet Count 97 Mean Platelet Volume 10.2 Neutrophils (%) (Auto) Lymphocytes (%) (Auto) Monocytes (%) (Auto) Eosinophils (%) (Auto) Basophils (%) (Auto) Neutrophils # (Auto) Lymphocytes # (Auto) Monocytes # (Auto) Eosinophils # (Auto) Basophils # (Auto) CBC Comment AUTO DIFF Sodium Level 141 Potassium Level 3.7 Chloride Level 105 Carbon Dioxide Level 27.0 Anion Gap 9 Blood Urea Nitrogen 29 Creatinine 1.11 Estimat Glomerular Filtration 49 Rate Random Glucose 203 Calcium Level 7.3 Protein Corrected Calcium 8.1 Phosphorus Level 1.2 Magnesium Level 1.6 B-Type Natriuretic Peptide 229 Total Protein 5.7 Physical Exam HEENT: Normocephalic; atraumatic; no jaundice. CHEST: CTA CARDIAC: Irregular, rate controlled ABDOMEN: Soft, nondistended, mild epigastric tenderness; no hepatosplenomegaly ; bowel sounds are present in all four quadrants. EXTREMITIES: No clubbing, cyanosis, or edema. SKIN: Normal; no rash; no jaundice. MEDICAL TRANSCRIPTION EDITOR: No focal deficits; alert and oriented times three. Assessment and Plan Plan ASSESSMENT: - Severe odynophagia, nausea/vomiting. Pt currently receiving chemotherapy for pancreatic cancer (last dose 08/06). Pt has had pain in her esophagus/mouth since last chemotherapy dose. this has progressively worsening since that time and she is now having severe odynophagia- having a hard time taking even liquids. She is followed by Dr. Phipps for GI, last egd a few months ago. Much improved with Magic Mouthwash, PPI, Carafate. She would like to have PEG tube placed at time of EGD for nutritional supplementation when she is not able to eat. D/W Dr. Garner, medically clear for procedure. - Pancytopenia, likely secondary to chemotherapy. WBC 11.1, HH 12.5/37, Plt 182. - Stomatitis. Magic mouthwash. - Metastatic pancreatic cancer. Dx May 2016. A PET scan in June 2016 revealed multiple nodules in the lungs. She is followed by Dr. Coe and has been receiving Abraxane and Gemzar. She last had this on August 06. - Atrial fibrillation with RVR. On cardizem gtt- down to 5mg. Rate 80's. - RITCHIE, Hypothyroidism, peripheral neuropathy, CAD, CHF per primary PLAN: - Plan for egd +/- dilatation with peg tube placement Saturday - Obtain consents - Puree diet as tolerated - NPO after MN Saturday night - Vanco financial service professional to EGD (allergy to PCN) - Cont. Magic Mouthwash - Cont. PPI - Cont. Carafate - Cont. Diflucan - Supportive care - D/W Dr. Garner, medically clear for endoscopy - Further recommendations to follow based on results of above - Pt seen and examined by Dr. Downing and myself and this note is written on his behalf Gris Roberts Aug 18, 2016 11:02
[2016-08-18] MEDS ORDERED: LORazepam 2 MG/ML VIAL IV PUSH SCH (11:15)
[2016-08-18] MEDS ORDERED: VANCOMYCIN INJ 500 MG in SODIUM CHLORIDE 0.9% INJ 100 ML IV SCH (11:15)
[2016-08-18] MEDS: ONDANSETRON HCL 4 MG/2 ML VIAL IVP SCH ×3 (12:00→23:41)
--- NOTE | 2016-08-18 12:21 | PD.ONC.PN ---
Subjective Subjective Remarks Afebrile overnight. The patient states she feels much better than she did on admission. Her RN her heart rate has been under control. She remains in Afib. She is asking about having a PEG tube placed for when she cannot eat in the future. Objective Data Date Time Temp Pulse Resp B/P Pulse Ox O2 Delivery O2 Flow Rate FiO2 08/18/16 12:06 80 08/18/16 11:39 90 08/18/16 10:00 92 08/18/16 09:59 98.9 92 18 120/70 98 08/18/16 08:15 85 08/18/16 08:15 Room Air 08/18/16 06:00 88 08/18/16 05:00 86 08/18/16 04:00 98.9 84 18 118/67 96 08/18/16 04:00 Room Air 08/18/16 04:00 84 08/18/16 03:00 92 08/18/16 02:00 87 08/18/16 01:00 84 08/18/16 00:00 Room Air 08/18/16 00:00 83 08/18/16 00:00 98.6 84 18 106/53 97 08/17/16 23:00 87 08/17/16 22:00 93 08/17/16 21:00 92 08/17/16 20:00 88 08/17/16 20:00 99.0 88 20 124/56 98 08/17/16 18:02 95 08/17/16 17:06 98 08/17/16 16:38 96 08/17/16 15:34 98.0 95 18 126/72 98 08/17/16 15:10 93 08/17/16 14:50 95 08/17/16 13:31 92 08/18/16 08/18/16 08/18/16 07:00 15:00 23:00 Intake Total 1500 ml 100 ml Output Total 900 ml Balance 600 ml 100 ml Result Diagram: 08/18/16 0435 08/18/16 0435 Laboratory Results Laboratory Tests Test 08/18/16 04:35 White Blood Count 5.0 TH/MM3 Red Blood Count 2.91 MIL/MM3 Hemoglobin 9.4 GM/DL Hematocrit 27.7 % Mean Corpuscular Volume 95.0 FL Mean Corpuscular Hemoglobin 32.1 PG Mean Corpuscular Hemoglobin 33.8 % Concent Red Cell Distribution Width 13.8 % Platelet Count 97 TH/MM3 Mean Platelet Volume 10.2 FL Neutrophils (%) (Auto) % Lymphocytes (%) (Auto) % Monocytes (%) (Auto) % Eosinophils (%) (Auto) % Basophils (%) (Auto) % Neutrophils # (Auto) TH/MM3 Lymphocytes # (Auto) TH/MM3 Monocytes # (Auto) TH/MM3 Eosinophils # (Auto) TH/MM3 Basophils # (Auto) TH/MM3 CBC Comment AUTO DIFF Differential Total Cells 100 Counted Neutrophils % (Manual) 37 % Band Neutrophils % 32 % Lymphocytes % 7 % Monocytes % 11 % Eosinophils % 3 % Neutrophils # (Manual) 3.9 TH/MM3 Metamyelocytes 4 % Myelocytes 3 % Promyelocytes 1 % Nucleated Red Blood Cells 8 /100 WBC Differential Comment FINAL DIFF MANUAL Blastocytes 2 % Toxic Granulation 2+ Dohle Bodies PRESENT Platelet Estimate LOW Platelet Morphology Comment ENLARGED Sodium Level 141 MEQ/L Potassium Level 3.7 MEQ/L Chloride Level 105 MEQ/L Carbon Dioxide Level 27.0 MEQ/L Anion Gap 9 MEQ/L Blood Urea Nitrogen 29 MG/DL Creatinine 1.11 MG/DL Estimat Glomerular Filtration 49 ML/MIN Rate Random Glucose 203 MG/DL Calcium Level 7.3 MG/DL Protein Corrected Calcium 8.1 MG/DL Phosphorus Level 1.2 MG/DL Magnesium Level 1.6 MG/DL B-Type Natriuretic Peptide 229 PG/ML Total Protein 5.7 GM/DL Administered Medications Medications (Trade) Dose Ordered Sig/Marilyn Route PRN Reason Start Time Stop Time Status Last Admin Dose Admin Diltiazem HCl 125 mg/Sodium Chloride 125 ml @ 0 mls/hr TITRATE IV 08/16/16 18:15 08/18/16 05:27 Sodium Chloride (NS 1000 ml Inj) 1,000 ml @ 100 mls/hr Q10H IV 08/16/16 18:23 08/17/16 16:54 IV Flush (NS Flush) 2 ml UNSCH PRN FLUSH FLUSH AFTER USING IV ACCESS 08/16/16 18:30 08/16/16 23:33 IV Flush (NS Flush) 2 ml BID FLUSH 08/16/16 21:00 08/18/16 09:27 Prochlorperazine (Compazine Supp) 25 mg Q12H PRN NM NAUSEA OR VOMITING 08/16/16 18:30 08/17/16 00:15 Diltiazem HCl (Cardizem) 30 mg QID PO 08/16/16 21:00 08/18/16 09:26 Insulin Detemir (Levemir Inj) 30 units HS SQ 08/16/16 21:00 08/17/16 21:31 Thyroid ([place] Thyroid) 45 mg BIDAC PO 08/17/16 07:00 08/18/16 05:27 Hydromorphone HCl (Dilaudid Pf Inj) 1 mg Q3H PRN IV BREAKTHROUGH PAIN 08/16/16 20:15 08/18/16 09:37 Multi-Ingredient Mouthwash/Gargle (Magic Mouthwash Adult Liq) 5 ml QID SWISH-SWAL 08/16/16 21:00 08/18/16 09:26 Pantoprazole Sodium (Protonix Inj) 40 mg Q12HR IV PUSH 08/17/16 12:45 08/18/16 09:26 Sucralfate 1 gm 1 gm ACHS PO 08/17/16 16:00 08/18/16 10:47 Filgrastim 480 mcg/Dextrose 50.0 ml @ 100 mls/hr DAILY@14 IV 08/17/16 15:00 08/17/16 15:49 Fluconazole/ Sodium Chloride 50 ml @ 50 mls/hr Q24H IV 08/17/16 15:00 08/17/16 15:50 Potassium Phosphate/Sodium Chloride (Potassium Phosphate Inj/NS Inj) 155 ml @ 38.75 mls/ hr ONCE ONCE IV 08/18/16 09:00 08/18/16 12:59 08/18/16 09:26 Objective Remarks GENERAL: Chronically ill appearing female, sitting on edge of bed in no distress. SKIN: Warm and dry. HEAD: Normocephalic. Lots of hair on bedding and in floor. EYES: No injection or drainage. NECK: Supple, trachea midline. CARDIOVASCULAR: +S1/S2. RESPIRATORY: Breath sounds equal bilaterally. No accessory muscle use. GASTROINTESTINAL: Abdomen soft, non-distended. EXTREMITIES: Bilateral 2+ pedal edema NEUROLOGICAL: No obvious focal deficit. Awake, alert, and oriented x3. Assessment/Plan Problem List: (1) Pancreatic cancer Status: Acute Plan: -- Being treated as an outpatient with Gemcitabine and Abraxane. -- Last dose of chemo was on 08/15/16 -- No longer neutropenic. -- Nausea under control Hx/ Workup: Ms. Concepcion was diagnosed with unresectable pancreatic adenocarcinoma Patient with a history of unresectable pancreatic adenocarcinoma in late 2015. A PET CT scan showed locally advanced disease with adenopathy in the retroperitoneum, focal uptake in the liver as well as some suspicious appearing nodes in the lung. She has recently completed cycle one of Gemzar and Abraxane. (2) Atrial fibrillation with RVR Status: Acute Plan: -- On diltiazem -- Rate controlled -- Cardiology following (3) Dysphagia Status: Acute Plan: -- Able to eat thickened/ pureed foods. -- GI consulted -- Plan for EGD on Saturday Assessment 65-year-old female with past medical history of unresectable pancreatic cancer admitted for dehydration, weakness and nausea/vomiting. Plan 1. Continue supportive care with anti-emetics, pain medications 2. GI to do endoscopy on Saturday 3. Pt no longer neutropenic; D/C Neupogen 4. Continue anti-arrhythmic medications per cardiology. 5. Labs in am. Attending Statement The exam, history, and the medical decision-making described in the above note were completed with the assistance of the mid-level provider. I reviewed and agree with the findings presented. I attest that I had a [id number] encounter with the patient on the same day, and personally performed and documented my assessment and findings in the medical record. Pt seen and examined. Noted response to thickened liquid, still vickers when swallow. Feel better from Afib RVR. EGD and PEG tube placement plan for Saturday. Continue support. Alopecia on going decline offer to have hair shave by nursing. Neutropenia resolved. Mild CRI follow. Tyra Chow Aug 18, 2016 12:21 Nasima Martino MD Aug 18, 2016 18:10
[2016-08-18] MEDS ORDERED: ONDANSETRON HCL 4 MG/2 ML VIAL IVP SCH (14:00)
--- NOTE | 2016-08-18 15:56 | HHI.PR ---
Subjective Remarks Last shortness of breath today. No palpitations denies chest pain able to eat applesauce today, less pain with swallowing. Plan for EGD on Saturday. Denies cough, no fever or chills. Did not have a bowel movement. Nausea vomiting subsided subsided, able to tolerate applesauce Objective Vitals Vital Signs Date Time Temp Pulse Resp B/P Pulse Ox O2 Delivery O2 Flow Rate FiO2 08/18/16 14:28 80 08/18/16 13:33 98.8 84 18 120/80 98 08/18/16 13:10 81 08/18/16 12:06 80 08/18/16 11:39 90 08/18/16 10:00 92 08/18/16 09:59 98.9 92 18 120/70 98 08/18/16 08:15 85 08/18/16 08:15 Room Air 08/18/16 06:00 88 08/18/16 05:00 86 08/18/16 04:00 98.9 84 18 118/67 96 08/18/16 04:00 Room Air 08/18/16 04:00 84 08/18/16 03:00 92 08/18/16 02:00 87 08/18/16 01:00 84 08/18/16 00:00 Room Air 08/18/16 00:00 83 08/18/16 00:00 98.6 84 18 106/53 97 08/17/16 23:00 87 08/17/16 22:00 93 08/17/16 21:00 92 08/17/16 20:00 88 08/17/16 20:00 99.0 88 20 124/56 98 08/17/16 18:02 95 08/17/16 17:06 98 08/17/16 16:38 96 I/O 08/17/16 08/17/16 08/17/16 08/18/16 08/18/16 08/18/16 06:59 14:59 22:59 06:59 14:59 22:59 Intake Total 1432 ml 2200 ml 1500 ml 100 ml Output Total 1 ml 1000 ml 900 ml Balance 1431 ml 1200 ml 600 ml 100 ml Intake Oral 480 ml 1100 ml 400 ml IV Total 952 ml 1100 ml 1100 ml 100 ml Output Urine Total 1000 ml 900 ml Stool Total 1 ml # Voids 3 # Bowel Movements 0 Result Diagram: 08/18/1643408/18/16434 Objective Remarks GENERAL: This is a very pleasant 65 yo F, well-nourished, well-developed patient, in no apparent distress. SKIN: Pale. No rashes, ecchymoses or lesions. Cool and dry. HEAD: Atraumatic. Normocephalic. No temporal or scalp tenderness. EYES: Pupils equal round and reactive. Extraocular motions intact. No scleral icterus. No injection or drainage. ENT: Nose without bleeding, purulent drainage or septal hematoma. Throat without erythema, tonsillar hypertrophy or exudate. Uvula midline. Airway patent. NECK: Trachea midline. No JVD or lymphadenopathy. Supple, nontender, no meningeal signs. CARDIOVASCULAR: Irregular rate and rhythm without murmurs, gallops, or rubs. RESPIRATORY decreased breath sounds.No wheezes, rales, or rhonchi. GASTROINTESTINAL: Abdomen soft, non-tender, nondistended. No hepato-splenomegaly , or palpable masses. No guarding. MUSCULOSKELETAL: Extremities without clubbing, cyanosis. Trace LE edema. No joint tenderness, effusion, or edema noted. No calf tenderness. Negative Homans sign bilaterally. NEUROLOGICAL: Awake and alert. Cranial nerves II through XII intact. Motor and sensory grossly within normal limits. Five out of 5 muscle strength in all muscle groups. Normal speech. A/P Assessment and Plan Very pleasant 65 yo female with PMH of pancreatic cancer, CHF came with complaints of sob, nausea, vomiting, failure to thrive Afib with RVR on admission. HR in 80s now Intractable nausea/vomiting. Stomatitis. Dysphagia. Failure to thrive. Pancreatic cancer on chemo follows with Dr Coe hem/onc. Swallow evaluation. Pancytopenia. but normal temp. No need of abx. Will place patient on neutropenic isolation Severe protein calorie malnutrition. Prealbumin of 4. As above. Kiln Cleaner consulted. RITCHIE on CKD CHF Received cardizem bolus in the ED. Started on cardizem drip. Place on cardizem drip. Turn cardizem drip off if HR < 90 sustained. Turn on cardizem drip if HR sustained > 110.Continue cardizem PO. Monitor on telemetry Patient with very low platelets of 42 and at high risk of bleeding. Avoid any anticoagulation. Dr Coe also consulted her hem/onc doctor. Consult her cardiology doctor Gunnar Keep K > 4 and Mag> 2 . Monitor lytes and replace. Gently IVF as patient with CHF doesn't appear with exacerbation at this time. consider 2D ECHO Will also check A1c pain meds per pain scale will add IV pain meds Consult GI for dysphagia.Plan for EGD on Saturday BS in 400s on admission, say she was not able to take PO meds. On ISS continue home long acting insulin. Accuchecks. Chronic medical conditions appears at baseline coronary artery disease, diabetes type 2, heart attack/[place], hypothyroidism, peripheral neuropathy, arthritis. Restart home meds. Hold lasix DVT ppx with SCD/TEDs as PLT 42 on admission Code Status full code Discussed Condition With Patient, family at bedside, nurse, GI service. Plan fopr EGD on Saturday . Patient is also asking for PEG tube. Oanh Garner MD Aug 18, 2016 15:56
[2016-08-18] MEDS: FLUCONAZOLE 100 MG PREMIX BAG 50 ML IV SCH (16:32)
[2016-08-18] MEDS: INSULIN DETEMIR 100 UNITS/ML VIAL SQ SCH (19:56)
[2016-08-18] MEDS: HYDROmorphone HCL 2 MG TAB PO PRN (20:06)
[2016-08-19] VITALS (24 sets, daily range): BP systolic 120–146; BP diastolic 56–80; PULSE 80–124; RESP 18–20; TEMP 98–98.8; O2SAT 96–100
[2016-08-19] MEDS: HYDROmorphone HCL PF 1 MG/ML VIAL IV PRN ×6 (03:15→23:29)
[2016-08-19 04:41] LABS: AUTOMATED NEUTROPHIL # 8.5 TH/MM3 (1.8-7.7); BASOPHIL % 0.2 % (0.0-2.0); EOSINOPHIL # 0.1 TH/MM3 (0-0.4); EOSINOPHIL % 0.7 % (0.0-4.0); HEMATOCRIT 26.1 % (35.0-46.0); LYMPH % 9.5 % (9.0-44.0); MEAN CELL VOLUME 95.7 FL (80.0-100.0); MEAN CORPUSCULAR HEMOGLOBIN 32.7 PG (27.0-34.0); MEAN CORPUSCULAR HGB CONC 34.1 % (32.0-36.0); MONO % 8.9 % (0.0-8.0); NEUT % 80.7 % (16.0-70.0); PLATELET COUNT 128 TH/MM3 (150-450); RED BLOOD COUNT 2.72 MIL/MM3 (4.00-5.30); RED CELL DISTRIBUTION WIDTH 14.1 % (11.6-17.2); WHITE BLOOD COUNT 10.6 TH/MM3 (4.0-11.0)
[2016-08-19 04:58] LABS: HEMO FLAGS AUTO DIFF
[2016-08-19 05:23] LABS: BICARBONATE 25.5 MEQ/L (21.0-32.0); POTASSIUM 3.7 MEQ/L (3.5-5.1)
[2016-08-19 05:43] LABS: CALCIUM-PROTEIN CORRECTED 7.3 MG/DL (8.5-10.1)
[2016-08-19] MEDS: ONDANSETRON HCL 4 MG/2 ML VIAL IVP SCH ×4 (05:58→23:29)
[2016-08-19] MEDS: SODIUM CHLOR 0.9% 1000 ML INJ 1,000 ML IV SCH ×3 (05:58→23:30)
[2016-08-19] MEDS: HYDROmorphone HCL 2 MG TAB PO PRN ×4 (05:58→23:29)
[2016-08-19] MEDS: SUCRALFATE 1 GM/10 ML CUP PO SCH ×4 (05:58→20:41)
[2016-08-19] MEDS: INSULIN ASPART SUPPLEMENTAL SCALE SQ SCH ×4 (05:59→20:47)
[2016-08-19] MEDS: THYROID 15 MG TAB PO SCH ×2 (05:59→16:23)
[2016-08-19 06:12] LABS: BANDS 4 % (0-6); METAMYELOCYTES 8 % (0-1); MYELOCYTES 6 % (0-0); NEUTROPHIL # MANUAL DIFF 9.4 TH/MM3 (1.8-7.7); POLYS (SEG NEUTROPHILS) 66 % (16-70); PROMYELOCYTES 5 % (0-0); WBC DIFF SAMPLE 100
[2016-08-19 06:13] LABS: PLATELET ESTIMATE SMEAR LOW (NORMAL); PLATELET MORPHOLOGY NORMAL (NORMAL); SCAN/DIFF FINAL DIFF MANUAL
[2016-08-19] MEDS ORDERED: CALCIUM CARBONATE 500 MG CHEWABLE TAB CHEW PRN (07:30)
--- NOTE | 2016-08-19 07:42 | HHI.PR ---
Subjective Remarks Paged by the nurse. Patient with critical level of Calcium, protein corrected. Replace by IV with Ca Gluconate. Patient denies palpitation, chest pain. Patient at the margin of the bed, says she feels improved. No n/v. C/o constipation. Less pain when she swallows, she is tolerating thick nectar diet. No fever or chills. denies chest pain. Still with epigastric pain. Patient with worsening LE edema. Objective Vitals Vital Signs Date Time Temp Pulse Resp B/P Pulse Ox O2 Delivery O2 Flow Rate FiO2 08/19/16 07:00 98.0 102 20 134/72 100 08/19/16 07:00 98 08/19/16 06:00 96 08/19/16 05:00 96 08/19/16 04:00 Room Air 08/19/16 04:00 86 08/19/16 04:00 98.1 86 18 121/56 98 08/19/16 03:00 86 08/19/16 02:00 82 08/19/16 01:00 80 08/19/16 00:00 Room Air 08/19/16 00:00 80 08/19/16 00:00 98.5 80 18 120/69 96 08/18/16 23:00 76 08/18/16 22:00 90 08/18/16 21:00 85 08/18/16 20:00 98.8 81 18 123/62 97 08/18/16 20:00 Room Air 08/18/16 20:00 81 08/18/16 19:59 96 21 08/18/16 18:18 88 08/18/16 17:21 81 08/18/16 16:19 98.4 88 18 126/84 96 08/18/16 16:14 88 08/18/16 15:57 82 08/18/16 14:28 80 08/18/16 13:33 98.8 84 18 120/80 98 08/18/16 13:10 81 08/18/16 12:06 80 08/18/16 11:39 90 08/18/16 10:00 92 08/18/16 09:59 98.9 92 18 120/70 98 08/18/16 08:15 85 08/18/16 08:15 Room Air I/O 2/25/17 2/08/18/16 08/19/16 08/19/16 08/19/16 06:59 14:59 22:59 06:59 14:59 22:59 Intake Total 1500 ml 100 ml 2240 ml 1900 ml Output Total 900 ml 1100 ml Balance 600 ml 100 ml 2240 ml 800 ml Intake Oral 400 ml 1000 ml 900 ml IV Total 1100 ml 100 ml 1240 ml 1000 ml Output Urine Total 900 ml 1100 ml # Voids 3 # Bowel Movements 0 0 Result Diagram: 08/19/1640108/19/16401 Objective Remarks GENERAL: This is a very pleasant 65 yo F, well-nourished, well-developed patient, in no apparent distress. SKIN: Pale. No rashes, ecchymoses or lesions. Cool and dry. HEAD: Atraumatic. Normocephalic. No temporal or scalp tenderness. EYES: Pupils equal round and reactive. Extraocular motions intact. No scleral icterus. No injection or drainage. ENT: Nose without bleeding, purulent drainage or septal hematoma. Throat without erythema, tonsillar hypertrophy or exudate. Uvula midline. Airway patent. NECK: Trachea midline. No JVD or lymphadenopathy. Supple, nontender, no meningeal signs. CARDIOVASCULAR: Irregular rate and rhythm without murmurs, gallops, or rubs. RESPIRATORY Decreased breath sounds.No wheezes, rales, or rhonchi. GASTROINTESTINAL: Abdomen soft, non-tender, nondistended. No hepato-splenomegaly , or palpable masses. No guarding. MUSCULOSKELETAL: Extremities without clubbing, cyanosis. 3+ LE edema. No joint tenderness, effusion, or edema noted. No calf tenderness. Negative Homans sign bilaterally. NEUROLOGICAL: Awake and alert. Cranial nerves II through XII intact. Motor and sensory grossly within normal limits. Five out of 5 muscle strength in all muscle groups. Normal speech. A/P Assessment and Plan Very pleasant 65 yo female with PMH of pancreatic cancer, CHF came with complaints of sob, nausea, vomiting, failure to thrive Afib with RVR on admission. HR in 80s now Intractable nausea/vomiting. Stomatitis. Dysphagia. Failure to thrive. Pancreatic cancer on chemo follows with Dr Coe hem/onc. Swallow evaluation. Pancytopenia. but normal temp. No need of abx. Will place patient on neutropenic isolation Severe protein calorie malnutrition. Prealbumin of 4. As above. Hitch Technician consulted. RITCHIE on CKD. Improving CHF Hypocalcemia with protein corrected calcium of 7.2 ( on 08/19) .Give calcium gluconate IV. Start tums 500 mg po bid Worsening 3+ LE edema. Hypoalbuminemia. Patient with low albumin of 1.9 . Will give one dose of lasix IV anf IV albumin. Will monitor kidney function Received cardizem bolus in the ED. Started on cardizem drip. Place on cardizem drip. Turn cardizem drip off if HR < 90 sustained. Turn on cardizem drip if HR sustained > 110.Continue cardizem PO. Monitor on telemetry Patient with very low platelets of 42 and at high risk of bleeding. Avoid any anticoagulation. Dr Coe also consulted her hem/onc doctor. Consult her cardiology doctor Gunnar Keep K > 4 and Mag> 2 . Monitor lytes and replace. Gently IVF as patient with CHF doesn't appear with exacerbation at this time. consider 2D ECHO Will also check A1c pain meds per pain scale will add IV pain meds Consult GI for dysphagia.Plan for EGD on Saturday BS in 400s on admission, say she was not able to take PO meds. On ISS continue home long acting insulin. Accuchecks. Chronic medical conditions appears at baseline coronary artery disease, diabetes type 2, heart attack/[place], hypothyroidism, peripheral neuropathy, arthritis. Restart home meds. PO lasix held DVT ppx with SCD/TEDs as PLT 42 on admission Code Status full code Discussed Condition With Patient, family at bedside, nurse, GI service. Plan fopr EGD on Saturday . Patient is also asking for PEG tube. Oanh Garner MD Aug 19, 2016 07:42
[2016-08-19] MEDS ORDERED: CALCIUM GLUCONATE INJ 1 GM in SODIUM CHLORIDE 0.9% INJ 100 ML IV ONE (08:00)
[2016-08-19] MEDS: DILTIAZEM HCL 30 MG TAB PO SCH ×4 (08:59→20:41)
[2016-08-19] MEDS: CALCIUM CARBONATE 500 MG CHEWABLE TAB CHEW SCH ×2 (08:59→20:42)
[2016-08-19] MEDS: PANTOPRAZOLE SODIUM 40 MG VIAL IV PUSH SCH ×2 (09:00→20:42)
[2016-08-19] MEDS: SODIUM CHLORIDE 0.9% FLUSH 5 ML FLUSH FLUSH SCH ×2 (09:01→20:42)
[2016-08-19] MEDS: NYSTAT/DIPHENHY/LIDO MOUTHWASH (Adult) 120ML SWISH-SWAL SCH ×4 (09:02→20:43)
[2016-08-19] MEDS ORDERED: ALBUMIN HUMAN 25% 25 GM/100 ML BAGP IV ONE (13:00)
[2016-08-19] MEDS ORDERED: FUROSEMIDE 40 MG/4 ML VIAL IV PUSH ONE (13:00)
[2016-08-19] MEDS: FLUCONAZOLE 100 MG PREMIX BAG 50 ML IV SCH (14:22)
--- NOTE | 2016-08-19 15:15 | HHI.GIFU ---
Subjective Remarks doing ok, no new complains, still not eating well, Objective Vitals I&O Vital Signs Date Time Temp Pulse Resp B/P Pulse Ox O2 Delivery O2 Flow Rate FiO2 08/19/16 14:00 98 08/19/16 13:00 102 08/19/16 12:00 92 08/19/16 11:00 98.3 105 20 125/80 98 08/19/16 11:00 88 08/19/16 10:04 98 21 08/19/16 10:00 93 08/19/16 09:00 106 08/19/16 08:00 93 08/19/16 07:00 98.0 102 20 134/72 100 08/19/16 07:00 98 08/19/16 06:00 96 08/19/16 05:00 96 08/19/16 04:00 Room Air 08/19/16 04:00 86 08/19/16 04:00 98.1 86 18 121/56 98 08/19/16 03:00 86 08/19/16 02:00 82 08/19/16 01:00 80 08/19/16 00:00 Room Air 08/19/16 00:00 80 08/19/16 00:00 98.5 80 18 120/69 96 08/18/16 23:00 76 08/18/16 22:00 90 08/18/16 21:00 85 08/18/16 20:00 98.8 81 18 123/62 97 08/18/16 20:00 Room Air 08/18/16 20:00 81 08/18/16 19:59 96 21 08/18/16 18:18 88 08/18/16 17:21 81 08/18/16 16:19 98.4 88 18 126/84 96 08/18/16 16:14 88 08/18/16 15:57 82 I/O 08/18/16 08/18/16 08/18/16 08/19/16 08/19/16 08/19/16 07:00 15:00 23:00 07:00 15:00 23:00 Intake Total 1500 ml 100 ml 2240 ml 1900 ml Output Total 900 ml 1100 ml Balance 600 ml 100 ml 2240 ml 800 ml Intake Oral 400 ml 1000 ml 900 ml IV Total 1100 ml 100 ml 1240 ml 1000 ml Output Urine Total 900 ml 1100 ml # Voids 3 # Bowel Movements 0 0 Laboratory Laboratory Tests Test 08/19/16 04:02 White Blood Count 10.6 Red Blood Count 2.72 Hemoglobin 8.9 Hematocrit 26.1 Mean Corpuscular Volume 95.7 Mean Corpuscular Hemoglobin 32.7 Mean Corpuscular Hemoglobin 34.1 Concent Red Cell Distribution Width 14.1 Platelet Count 128 Mean Platelet Volume 9.5 Neutrophils (%) (Auto) 80.7 Lymphocytes (%) (Auto) 9.5 Monocytes (%) (Auto) 8.9 Eosinophils (%) (Auto) 0.7 Basophils (%) (Auto) 0.2 Neutrophils # (Auto) 8.5 Lymphocytes # (Auto) 1.0 Monocytes # (Auto) 0.9 Eosinophils # (Auto) 0.1 Basophils # (Auto) 0.0 CBC Comment AUTO DIFF Differential Total Cells 100 Counted Neutrophils % (Manual) 66 Band Neutrophils % 4 Lymphocytes % 7 Monocytes % 4 Neutrophils # (Manual) 9.4 Metamyelocytes 8 Myelocytes 6 Promyelocytes 5 Differential Comment FINAL DIFF MANUAL Platelet Estimate LOW Platelet Morphology Comment NORMAL Red Cell Morphology Comment NORMAL Sodium Level 138 Potassium Level 3.7 Chloride Level 103 Carbon Dioxide Level 25.5 Anion Gap 10 Blood Urea Nitrogen 23 Creatinine 0.96 Estimat Glomerular Filtration 58 Rate Random Glucose 206 Calcium Level 6.5 Protein Corrected Calcium 7.3 Total Protein 5.4 Physical Exam HEENT: Normocephalic; atraumatic; no jaundice. CHEST: CTA CARDIAC: Irregular, rate controlled ABDOMEN: Soft, nondistended, mild epigastric tenderness; no hepatosplenomegaly ; bowel sounds are present in all four quadrants. EXTREMITIES: No clubbing, cyanosis, or edema. SKIN: Normal; no rash; no jaundice. LAW FIRM CONSULTANT: No focal deficits; alert and oriented times three. Assessment and Plan Plan ASSESSMENT: - Severe odynophagia, nausea/vomiting. Pt currently receiving chemotherapy for pancreatic cancer (last dose 08/06). Pt has had pain in her esophagus/mouth since last chemotherapy dose. this has progressively worsening since that time and she is now having severe odynophagia- having a hard time taking even liquids. She is followed by Dr. Phipps for GI, last egd a few months ago. Much improved with Magic Mouthwash, PPI, Carafate. She would like to have PEG tube placed at time of EGD for nutritional supplementation when she is not able to eat. D/W Dr. Garner, medically clear for procedure. - Pancytopenia, likely secondary to chemotherapy. WBC 11.1, HH 12.5/37, Plt 182. - Stomatitis. Magic mouthwash. - Metastatic pancreatic cancer. Dx May 2016. A PET scan in June 2016 revealed multiple nodules in the lungs. She is followed by Dr. Coe and has been receiving Abraxane and Gemzar. She last had this on August 06. - Atrial fibrillation with RVR. On cardizem gtt- down to 5mg. Rate 80's. - RITCHIE, Hypothyroidism, peripheral neuropathy, CAD, CHF per primary 2-- doing ok tolerating some liquid diet but not able to eat well. PLAN: - Plan for egd +/- dilatation with possible peg tube placement Saturday - Obtain consents - Puree diet as tolerated - NPO after MN Saturday night - Vanco construction executive to EGD (allergy to PCN) - Cont. Magic Mouthwash - Cont. PPI - Cont. Carafate - Cont. Diflucan - Supportive care - D/W Dr. Garner, medically clear for endoscopy Daniel Downing MD Aug 19, 2016 15:15
[2016-08-19] MEDS: INSULIN DETEMIR 100 UNITS/ML VIAL SQ SCH (20:42)
[2016-08-20] VITALS (22 sets, daily range): BP systolic 121–148; BP diastolic 68–82; PULSE 80–131; RESP 17–20; TEMP 98.1–99.9; O2SAT 97–100
[2016-08-20] MEDS: HYDROmorphone HCL PF 1 MG/ML VIAL IV PRN ×2 (03:39→20:56)
[2016-08-20 06:09] LABS: AUTOMATED NEUTROPHIL # 7.6 TH/MM3 (1.8-7.7); BASOPHIL % 0.2 % (0.0-2.0); EOSINOPHIL % 0.3 % (0.0-4.0); HEMATOCRIT 27.1 % (35.0-46.0); LYMPH % 8.3 % (9.0-44.0); LYMPHOCYTE # 0.8 TH/MM3 (1.0-4.8); MEAN CELL VOLUME 95.4 FL (80.0-100.0); MEAN CORPUSCULAR HEMOGLOBIN 31.5 PG (27.0-34.0); MEAN CORPUSCULAR HGB CONC 33.1 % (32.0-36.0); MONO % 9.8 % (0.0-8.0); NEUT % 81.4 % (16.0-70.0); PLATELET COUNT 149 TH/MM3 (150-450); RED BLOOD COUNT 2.84 MIL/MM3 (4.00-5.30); RED CELL DISTRIBUTION WIDTH 14.2 % (11.6-17.2); WHITE BLOOD COUNT 9.4 TH/MM3 (4.0-11.0)
[2016-08-20 06:10] LABS: HEMO FLAGS AUTO DIFF
[2016-08-20] MEDS: THYROID 15 MG TAB PO SCH ×2 (06:10→16:49)
[2016-08-20] MEDS: ONDANSETRON HCL 4 MG/2 ML VIAL IVP SCH ×3 (06:11→18:40)
[2016-08-20] MEDS: SUCRALFATE 1 GM/10 ML CUP PO SCH ×4 (06:11→20:55)
[2016-08-20 06:43] LABS: BICARBONATE 28.1 MEQ/L (21.0-32.0); CALCIUM-PROTEIN CORRECTED 7.7 MG/DL (8.5-10.1); MAGNESIUM 1.2 MG/DL (1.5-2.5); POTASSIUM 3.2 MEQ/L (3.5-5.1); TOTAL BILIRUBIN ADULT 0.4 MG/DL (0.2-1.0)
[2016-08-20] MEDS: INSULIN ASPART SUPPLEMENTAL SCALE SQ SCH ×4 (06:45→21:21)
[2016-08-20] MEDS: NYSTAT/DIPHENHY/LIDO MOUTHWASH (Adult) 120ML SWISH-SWAL SCH ×4 (07:45→21:50)
[2016-08-20] MEDS: PANTOPRAZOLE SODIUM 40 MG VIAL IV PUSH SCH ×2 (07:45→20:55)
[2016-08-20] MEDS: PROCHLORPERAZINE 25 MG SUPP PR PRN (07:46)
[2016-08-20] MEDS: SODIUM CHLORIDE 0.9% FLUSH 5 ML FLUSH FLUSH SCH ×2 (07:46→20:57)
[2016-08-20] MEDS: DILTIAZEM HCL 30 MG TAB PO SCH ×4 (07:46→20:56)
[2016-08-20] MEDS: CALCIUM CARBONATE 500 MG CHEWABLE TAB CHEW SCH ×2 (07:47→20:57)
[2016-08-20 08:09] LABS: BANDS 23 % (0-6); CORRECTED NUCLEATED RBC 1 /100 WBC (0-0); METAMYELOCYTES 9 % (0-1); MYELOCYTES 7 % (0-0); NEUTROPHIL # MANUAL DIFF 8.1 TH/MM3 (1.8-7.7); POLYS (SEG NEUTROPHILS) 47 % (16-70); WBC DIFF SAMPLE 100
[2016-08-20 08:10] LABS: PLATELET ESTIMATE SMEAR NORMAL (NORMAL); PLATELET MORPHOLOGY NORMAL (NORMAL); SCAN/DIFF FINAL DIFF MANUAL
[2016-08-20] MEDS: SODIUM CHLOR 0.9% 1000 ML INJ 1,000 ML IV SCH (09:51)
[2016-08-20] MEDS ORDERED: PROPOFOL 200 MG/20 ML AMP IV ONE (12:10)
[2016-08-20] MEDS ORDERED: VANCOMYCIN 500 MG VIAL IV ONE (12:20)
[2016-08-20] MEDS ORDERED: POTASSIUM PHOSPHATE INJ 30 MMOL in SODIUM CHLOR 0.9% 250 ML INJ 250 ML IV ONE ×5 (12:30→20:00)
[2016-08-20] MEDS ORDERED: ALBUMIN HUMAN 25% 25 GM/100 ML BAGP IV ONE ×2 (12:30→13:00)
[2016-08-20] MEDS ORDERED: POTASSIUM CHLORIDE 25 MEQ EFFERVESCENT TAB PO ONE (12:30)
[2016-08-20] MEDS ORDERED: FUROSEMIDE 40 MG/4 ML VIAL IV PUSH ONE (12:30)
[2016-08-20] MEDS ORDERED: POTASSIUM CHLOR 20 MEQ PREMIX 100 ML IV SCH (12:30)
--- NOTE | 2016-08-20 12:34 | HHI.PR ---
Subjective Remarks With LE edema. Says she fels much better after lasix yesterday. Patient reports sob has improved, feels very tired. No palpitations. She was nauseated in the morning and vomited once. She is NPO at this time as plan for EGD. No fever or chills. No palpitations, lightheadedness. Objective Vitals Vital Signs Date Time Temp Pulse Resp B/P Pulse Ox O2 Delivery O2 Flow Rate FiO2 08/20/16 11:00 99.4 90 20 147/72 100 08/20/16 11:00 108 08/20/16 11:00 99.4 90 20 147/72 100 08/20/16 10:00 97 08/20/16 09:00 107 08/20/16 08:00 92 08/20/16 07:15 99 Room Air 08/20/16 07:15 108 08/20/16 07:15 98.1 99 17 138/70 99 08/20/16 06:00 100 08/20/16 05:00 90 08/20/16 04:00 92 08/20/16 04:00 98.9 92 18 148/82 99 08/20/16 03:00 86 08/20/16 02:00 80 08/20/16 01:00 82 08/20/16 00:00 97 08/20/16 00:00 Room Air 08/20/16 00:00 98.4 97 20 121/77 97 08/19/16 23:00 110 08/19/16 22:00 84 08/19/16 21:00 106 08/19/16 20:00 112 08/19/16 20:00 98.5 112 20 146/70 98 08/19/16 18:00 124 08/19/16 17:00 100 08/19/16 16:00 116 08/19/16 15:00 92 08/19/16 15:00 98.8 103 18 130/71 98 08/19/16 14:00 98 08/19/16 13:00 102 I/O 08/19/16 08/19/16 08/19/16 08/20/16 08/20/16 08/20/16 07:00 15:00 23:00 07:00 15:00 23:00 Intake Total 1900 ml 6457 ml 1900 ml Output Total 1100 ml 1650 ml 1700 ml Balance 800 ml 4807 ml 200 ml Intake Oral 900 ml 900 ml 900 ml IV Total 1000 ml 5557 ml 1000 ml Output Urine Total 1100 ml 1650 ml 1700 ml # Bowel Movements 0 0 Result Diagram: 08/20/1650908/20/16509 Objective Remarks GENERAL: This is a very pleasant 65 yo F, well-nourished, well-developed patient, in no apparent distress. SKIN: Pale. No rashes, ecchymoses or lesions. Cool and dry. HEAD: Atraumatic. Normocephalic. No temporal or scalp tenderness. EYES: Pupils equal round and reactive. Extraocular motions intact. No scleral icterus. No injection or drainage. ENT: Nose without bleeding, purulent drainage or septal hematoma. Throat without erythema, tonsillar hypertrophy or exudate. Uvula midline. Airway patent. NECK: Trachea midline. No JVD or lymphadenopathy. Supple, nontender, no meningeal signs. CARDIOVASCULAR: Irregular rate and rhythm without murmurs, gallops, or rubs. RESPIRATORY Decreased breath sounds.No wheezes, rales, or rhonchi. GASTROINTESTINAL: Abdomen soft, non-tender, nondistended. No hepato-splenomegaly , or palpable masses. No guarding. MUSCULOSKELETAL: Extremities without clubbing, cyanosis. 3+ LE edema. No joint tenderness, effusion, or edema noted. No calf tenderness. Negative Homans sign bilaterally. NEUROLOGICAL: Awake and alert. Cranial nerves II through XII intact. Motor and sensory grossly within normal limits. Five out of 5 muscle strength in all muscle groups. Normal speech. A/P Assessment and Plan Very pleasant 65 yo female with PMH of pancreatic cancer, CHF came with complaints of sob, nausea, vomiting, failure to thrive Afib with RVR on admission. HR in 80s now Intractable nausea/vomiting. Stomatitis. Dysphagia. Failure to thrive. Pancreatic cancer on chemo follows with Dr Coe hem/onc. Swallow evaluation. Pancytopenia. but normal temp. No need of abx. Will place patient on neutropenic isolation Severe protein calorie malnutrition. Prealbumin of 4. As above. Spray Unit Feeder consulted. RITCHIE on CKD. Improving CHF Hypocalcemia with protein corrected calcium of 7.2 ( on 08/19) .Give calcium gluconate IV. Start tums 500 mg po bid Worsening 3+ LE edema. Hypoalbuminemia. Patient with low albumin of 1.9 . Will give one dose of lasix IV anf IV albumin. Will monitor kidney function. 08/20 give another dose of Lasix 40 IV and albumin today. Kidney function improved. Patient also with hypokalemia, hypophosphatemia and hypomagnesemia. Replaced by IF. Monitor and replce as indicated.Likely refeeding sdr. Still with hypocalcemia will give another Ca gluconate IV continue PO calcium carbonate PO. Plan for EGD 08/20 Received cardizem bolus in the ED. Started on cardizem drip. Place on cardizem drip. Turn cardizem drip off if HR < 90 sustained. Turn on cardizem drip if HR sustained > 110. Off cardizem drip. Continue cardizem PO, HR controlled. Monitor on telemetry. Monitor on telemetry Patient with very low platelets of 42 and at high risk of bleeding. Avoid any anticoagulation. Dr Coe also consulted her hem/onc doctor. Consult her cardiology doctor Gunnar Keep K > 4 and Mag> 2 . Monitor lytes and replace. Gently IVF as patient with CHF doesn't appear with exacerbation at this time. Will also check A1c pain meds per pain scale will add IV pain meds Consult GI for dysphagia.Plan for EGD on Saturday BS in 400s on admission, say she was not able to take PO meds. On ISS continue home long acting insulin. Accuchecks. Chronic medical conditions appears at baseline coronary artery disease, diabetes type 2, heart attack/AK, hypothyroidism, peripheral neuropathy, arthritis. Restart home meds. PO lasix held DVT ppx with SCD/TEDs as PLT 42 on admission Code Status full code Discussed Condition With Patient, family at bedside, nurse, GI service. Plan for EGD 08/20 . Patient is also asking/considering PEG tube. Oanh Garner MD Aug 20, 2016 12:34
--- NOTE | 2016-08-20 12:45 | PD.PROCEDR ---
GI Procedure REFERRING PHYSICIAN JENIFER PROCEDURE PERFORMED EGD with G J-tube placement INDICATION FOR PROCEDURE Nausea vomiting, pancreatic cancer PROCEDURE: The procedure, risks and benefits were discussed with Ms. Concepcion and informed consent was obtained. Anesthesia sedated her with Diprivan. She was placed in the left lateral decubitus position. EGD: The Pentax videoscope was introduced through the oropharynx and advanced to the second portion of the duodenum under direct visualization. Retroflexion was performed in the stomach. FINDINGS: The esophagus this was normal The stomach this was normal The duodenum this was normal Following the evaluation of the stomach and the duodenum the stomach was insufflated with air and the area of PEG placement was identified through indentation and transillumination the area was prepped and draped in usual fashion 5 cc of lidocaine were injected locally a small incision was made then an Angiocath was passed into the stomach through which a guidewire was passed this was retrieved with the scope into that a PEG tube was attached and pulled into place and thereafter secured in usual fashion then a Bard J-tube this was placed through the G-tube and positioned into the duodenum under endoscopic guidance The patient tolerated procedure well and there are no immediate complications ESTIMATED BLOOD LOSS: None SPECIMENS REMOVED: None COMPLICATIONS: None IMPRESSION: Normal EGD Successful GJ tube placement PLAN: 1. May use PEG tube for medications today 2. May start feeding tomorrow 3. May obtain nutritional consult for tube feeding 4. Flush tube with 50 cc of water every 4-6 hours 5. Always flush tube after feedings 6. Apply abdominal binder as necessary 7. Clamp G-tube after use and flush. Anmol Berrios MD Aug 20, 2016 12:45
[2016-08-20] MEDS ORDERED: CALCIUM GLUCONATE INJ 1 GM in SODIUM CHLORIDE 0.9% INJ 100 ML IV ONE (13:00)
[2016-08-20] MEDS: MAGNESIUM SULFATE 1 GM PREMIX 100 ML IV SCH ×2 (13:34→15:11)
--- NOTE | 2016-08-20 14:21 | PD.ONC.PN ---
Subjective Subjective Remarks Afebrile overnight. Patient having pain at site of PEG tube placement. She would like some ice to wet her lips and mouth. Objective Data Date Time Temp Pulse Resp B/P Pulse Ox O2 Delivery O2 Flow Rate FiO2 08/20/16 12:47 98.1 102 16 131/67 95 08/20/16 11:00 99.4 90 20 147/72 100 08/20/16 11:00 108 08/20/16 11:00 99.4 90 20 147/72 100 08/20/16 10:00 97 08/20/16 09:00 107 08/20/16 08:00 92 08/20/16 07:15 99 Room Air 08/20/16 07:15 108 08/20/16 07:15 98.1 99 17 138/70 99 08/20/16 06:00 100 08/20/16 05:00 90 08/20/16 04:00 92 08/20/16 04:00 98.9 92 18 148/82 99 08/20/16 03:00 86 08/20/16 02:00 80 08/20/16 01:00 82 08/20/16 00:00 97 08/20/16 00:00 Room Air 08/20/16 00:00 98.4 97 20 121/77 97 08/19/16 23:00 110 08/19/16 22:00 84 08/19/16 21:00 106 08/19/16 20:00 112 08/19/16 20:00 98.5 112 20 146/70 98 08/19/16 18:00 124 08/19/16 17:00 100 08/19/16 16:00 116 08/19/16 15:00 92 08/19/16 15:00 98.8 103 18 130/71 98 08/20/16 08/20/16 08/20/16 07:00 15:00 23:00 Intake Total 1900 ml 700 ml Output Total 1700 ml Balance 200 ml 700 ml Result Diagram: 08/20/16 0510 08/20/16 0510 Laboratory Results Laboratory Tests Test 08/20/16 05:10 White Blood Count 9.4 TH/MM3 Red Blood Count 2.84 MIL/MM3 Hemoglobin 9.0 GM/DL Hematocrit 27.1 % Mean Corpuscular Volume 95.4 FL Mean Corpuscular Hemoglobin 31.5 PG Mean Corpuscular Hemoglobin 33.1 % Concent Red Cell Distribution Width 14.2 % Platelet Count 149 TH/MM3 Mean Platelet Volume 8.7 FL Neutrophils (%) (Auto) 81.4 % Lymphocytes (%) (Auto) 8.3 % Monocytes (%) (Auto) 9.8 % Eosinophils (%) (Auto) 0.3 % Basophils (%) (Auto) 0.2 % Neutrophils # (Auto) 7.6 TH/MM3 Lymphocytes # (Auto) 0.8 TH/MM3 Monocytes # (Auto) 0.9 TH/MM3 Eosinophils # (Auto) 0.0 TH/MM3 Basophils # (Auto) 0.0 TH/MM3 CBC Comment AUTO DIFF Differential Total Cells 100 Counted Neutrophils % (Manual) 47 % Band Neutrophils % 23 % Lymphocytes % 8 % Monocytes % 6 % Neutrophils # (Manual) 8.1 TH/MM3 Metamyelocytes 9 % Myelocytes 7 % Nucleated Red Blood Cells 1 /100 WBC Differential Comment FINAL DIFF MANUAL Atypical Lymphocytes % Platelet Estimate NORMAL Platelet Morphology Comment NORMAL Basophilic Stippling FAINT Sodium Level 140 MEQ/L Potassium Level 3.2 MEQ/L Chloride Level 105 MEQ/L Carbon Dioxide Level 28.1 MEQ/L Anion Gap 7 MEQ/L Blood Urea Nitrogen 14 MG/DL Creatinine 0.94 MG/DL Estimat Glomerular Filtration 60 ML/MIN Rate Random Glucose 195 MG/DL Calcium Level 6.7 MG/DL Protein Corrected Calcium 7.7 MG/DL Phosphorus Level 1.1 MG/DL Magnesium Level 1.2 MG/DL Total Bilirubin 0.4 MG/DL Aspartate Amino Transf 27 U/L (AST/SGOT) Alanine Aminotransferase 38 U/L (ALT/SGPT) Alkaline Phosphatase 96 U/L Total Protein 5.2 GM/DL Albumin 1.8 GM/DL Administered Medications Medications (Trade) Dose Ordered Sig/Marilyn Route PRN Reason Start Time Stop Time Status Last Admin Dose Admin Diltiazem HCl 125 mg/Sodium Chloride 125 ml @ 0 mls/hr TITRATE IV 08/16/16 18:15 08/18/16 05:27 Sodium Chloride (NS 1000 ml Inj) 1,000 ml @ 100 mls/hr Q10H IV 08/16/16 18:23 08/20/16 09:51 IV Flush (NS Flush) 2 ml UNSCH PRN FLUSH FLUSH AFTER USING IV ACCESS 08/16/16 18:30 2/23/17 23:33 IV Flush (NS Flush) 2 ml BID FLUSH 08/16/16 21:00 08/20/16 07:46 Prochlorperazine (Compazine Supp) 25 mg Q12H PRN MA NAUSEA OR VOMITING 08/16/16 18:30 08/20/16 07:46 Diltiazem HCl (Cardizem) 30 mg QID PO 08/16/16 21:00 08/20/16 13:34 Insulin Detemir (Levemir Inj) 30 units HS SQ 08/16/16 21:00 08/19/16 20:42 Oxycodone HCl (Roxicodone) 15 mg Q6H PRN PO PAIN 1-5 08/16/16 18:45 08/20/16 06:10 Thyroid ([place] Thyroid) 45 mg BIDAC PO 08/17/16 07:00 08/20/16 06:10 Hydromorphone HCl (Dilaudid Pf Inj) 1 mg Q3H PRN IV BREAKTHROUGH PAIN 08/16/16 20:15 08/20/16 03:39 Hydromorphone HCl (Dilaudid) 2 mg Q4H PRN PO PAIN SCALE 6 TO 10 08/16/16 20:15 08/19/16 23:29 Multi-Ingredient Mouthwash/Gargle (Magic Mouthwash Adult Liq) 5 ml QID SWISH-SWAL 08/16/16 21:00 08/20/16 13:50 Pantoprazole Sodium (Protonix Inj) 40 mg Q12HR IV PUSH 08/17/16 12:45 08/20/16 07:45 Sucralfate 1 gm 1 gm ACHS PO 08/17/16 16:00 08/20/16 06:11 Fluconazole/ Sodium Chloride (Diflucan 100 Mg Premix Bag) 50 ml @ 50 mls/hr Q24H IV 08/17/16 15:00 08/19/16 14:22 Ondansetron HCl (Zofran Inj) 4 mg Q6H IVP 08/18/16 12:00 08/20/16 13:33 Calcium Carbonate 500 mg 500 mg Q12HR CHEW 08/19/16 09:00 08/19/16 20:42 Potassium Phosphate 30 mmol/ Sodium Chloride 260 ml @ 43.333 mls/ hr ONCE ONCE IV 08/20/16 12:30 08/20/16 18:29 08/20/16 13:51 Magnesium Sulfate/ Dextrose (Magnesium Sulfate 1 Gm Premix) 100 ml @ 100 mls/hr Q1H IV 08/20/16 13:00 08/20/16 14:59 08/20/16 13:34 Objective Remarks GENERAL: Middle aged female, sitting up on toilet next to bed. SKIN: Warm and dry. HEAD: Normocephalic. EYES: No injection or drainage. NECK: Supple, trachea midline. CARDIOVASCULAR: +S1/S2 RESPIRATORY: Breath sounds equal bilaterally. No accessory muscle use. GASTROINTESTINAL: Abdomen soft, non-tender, nondistended. PEG tube in place, clamped EXTREMITIES: No cyanosis MUSCULOSKELETAL: Adequate muscle tone. NEUROLOGICAL: No obvious focal deficit. Awake, alert, and oriented x3. Assessment/Plan Problem List: (1) Pancreatic cancer Status: Acute Plan: --diagnosed with unresectable pancreatic adenocarcinoma in late 2015. --PET CT scan showed locally advanced disease with adenopathy in the retroperitoneum, focal uptake in the liver as well as some suspicious appearing nodes in the lung. --recently completed cycle one of Gemzar and Abraxane on 08/15/16 (2) Atrial fibrillation with RVR Status: Acute Plan: -- On diltiazem -- Rate controlled -- Cardiology following (3) Dysphagia Status: Acute Plan: -- Able to eat thickened/ pureed foods. -- s/p PEG tube placement 08/20--java application developer recommends Glucerna 1.5-goal rate of 60 ml/hr, once GI clears to start using PEG tube Assessment 65-year-old female with unresectable pancreatic cancer admitted for dehydration , weakness and nausea/vomiting. Plan 1. s/p PEG tube placement, start tube feeds once cleared to start using PEG tube by GI 2. continue supportive care 3. monitor CBC Attending Statement The exam, history, and the medical decision-making described in the above note were completed with the assistance of the mid-level provider. I reviewed and agree with the findings presented. I attest that I had a [id number] encounter with the patient on the same day, and personally performed and documented my assessment and findings in the medical record. Remains weak. Poor oral intake. Start PEG tubes. replace electrolytes. Marilynn Jimenez Aug 20, 2016 14:21 Mauricio Coe MD Aug 20, 2016 22:49
[2016-08-20] MEDS: FLUCONAZOLE 100 MG PREMIX BAG 50 ML IV SCH (15:12)
[2016-08-20] MEDS: HYDROmorphone HCL 2 MG TAB PO PRN (16:49)
--- NOTE | 2016-08-20 18:24 | PD.CARD.PN ---
Subjective Subjective Remarks C/o abdominal discomfort, no CP, mild LE edema, no SOB Objective Medications Current Medications Medications (Trade) Dose Ordered Sig/Marilyn Route Start Time Stop Time Status Last Admin Diltiazem HCl 125 mg/Sodium Chloride 125 ml @ 0 mls/hr TITRATE IV 08/16/16 18:15 08/18/16 05:27 (NS 1000 ml Inj) 1,000 ml @ 100 mls/hr Q10H IV 08/16/16 18:23 08/20/16 09:51 (NS Flush) 2 ml UNSCH PRN FLUSH 08/16/16 18:30 08/16/16 23:33 (NS Flush) 2 ml BID FLUSH 08/16/16 21:00 08/20/16 07:46 (Tylenol) 650 mg Q4H PRN PO 08/16/16 18:30 (Compazine Supp) 25 mg Q12H PRN MS 08/16/16 18:30 08/20/16 07:46 (Dulcolax Supp) 10 mg DAILY PRN MS 08/16/16 18:30 (Milk Of Magnesia Liq) 30 ml Q12H PRN PO 08/16/16 18:30 (Senokot) 17.2 mg Q12H PRN PO 08/16/16 18:30 (Cardizem) 30 mg QID PO 08/16/16 21:00 08/20/16 13:34 (D50w (Vial) Inj) 25 ml UNSCH PRN IV PUSH 08/16/16 18:30 (Glucagon Inj) 1 mg UNSCH PRN OTHER 08/16/16 18:30 (Levemir Inj) 30 units HS SQ 08/16/16 21:00 08/19/16 20:42 (Roxicodone) 15 mg Q6H PRN PO 08/16/16 18:45 08/20/16 06:10 (Arjay Thyroid) 45 mg BIDAC PO 08/17/16 07:00 08/20/16 16:49 (Dilaudid Pf Inj) 1 mg Q3H PRN IV 08/16/16 20:15 08/20/16 03:39 (Dilaudid) 2 mg Q4H PRN PO 08/16/16 20:15 08/20/16 16:49 (Narcan Inj) 0.4 mg UNSCH PRN IV 08/16/16 20:15 (Magic Mouthwash Adult Liq) 5 ml QID SWISH-SWAL 08/16/16 21:00 08/20/16 13:50 (Protonix Inj) 40 mg Q12HR IV PUSH 08/17/16 12:45 08/20/16 07:45 Sucralfate 1 gm 1 gm ACHS PO 08/17/16 16:00 08/20/16 16:49 (Diflucan 100 Mg Premix Bag) 50 ml @ 50 mls/hr Q24H IV 08/17/16 15:00 08/20/16 15:12 (Zofran Inj) 4 mg Q6H IVP 08/18/16 12:00 08/20/16 13:33 (Tums Chew) 500 mg Q12HR CHEW 08/19/16 09:00 08/19/16 20:42 Calcium Carbonate 500 mg 500 mg Q2H PRN CHEW 08/19/16 07:30 (Potassium Phosphate Inj/NS 250 ml Inj) 260 ml @ 43.333 mls/ hr ONCE ONCE IV 08/20/16 12:30 08/20/16 18:29 08/20/16 13:51 Magnesium Oxide 400 mg 400 mg DAILY@11 PO 08/21/16 11:00 (Potassium Phosphate Inj/NS 250 ml Inj) 260 ml @ 43.333 mls/ hr ONCE ONCE IV 08/20/16 20:00 08/21/16 01:59 Vital Signs / I&O Vital Signs Date Time Temp Pulse Resp B/P Pulse Ox O2 Delivery O2 Flow Rate FiO2 08/20/16 16:00 97 08/20/16 15:00 98.6 102 20 124/81 97 08/20/16 15:00 131 08/20/16 14:00 100 08/20/16 13:10 115 18 120/65 95 08/20/16 12:55 99 18 126/67 94 08/20/16 12:47 98.1 102 16 131/67 95 08/20/16 11:00 99.4 90 20 147/72 100 08/20/16 11:00 108 08/20/16 11:00 99.4 90 20 147/72 100 08/20/16 10:00 97 08/20/16 09:00 107 08/20/16 08:00 92 08/20/16 07:15 99 Room Air 08/20/16 07:15 108 08/20/16 07:15 98.1 99 17 138/70 99 08/20/16 06:00 100 08/20/16 05:00 90 08/20/16 04:00 92 08/20/16 04:00 98.9 92 18 148/82 99 08/20/16 03:00 86 08/20/16 02:00 80 08/20/16 01:00 82 08/20/16 00:00 97 08/20/16 00:00 Room Air 08/20/16 00:00 98.4 97 20 121/77 97 08/19/16 23:00 110 08/19/16 22:00 84 08/19/16 21:00 106 08/19/16 20:00 112 08/19/16 20:00 98.5 112 20 146/70 98 I/O 08/19/16 08/19/16 08/19/16 08/20/16 08/20/16 08/20/16 07:00 15:00 23:00 07:00 15:00 23:00 Intake Total 1900 ml 6457 ml 1900 ml 700 ml Output Total 1100 ml 1650 ml 1700 ml Balance 800 ml 4807 ml 200 ml 700 ml Intake Oral 900 ml 900 ml 900 ml IV Total 1000 ml 5557 ml 1000 ml Other 700 ml Output Urine Total 1100 ml 1650 ml 1700 ml # Voids 2 1 # Bowel Movements 0 0 2 Physical Exam GENERAL: SKIN: Warm and dry. HEAD: Normocephalic. EYES: No scleral icterus. No injection or drainage. NECK: Supple, trachea midline. No JVD or lymphadenopathy. CARDIOVASCULAR: iregular rate and rhythm without murmurs, gallops, or rubs. RESPIRATORY: Breath sounds equal bilaterally. No accessory muscle use. GASTROINTESTINAL: Abdomen soft MUSCULOSKELETAL: No cyanosis, mild edema. Laboratory Laboratory Tests Test 08/20/16 05:10 White Blood Count 9.4 TH/MM3 Red Blood Count 2.84 MIL/MM3 Hemoglobin 9.0 GM/DL Hematocrit 27.1 % Mean Corpuscular Volume 95.4 FL Mean Corpuscular Hemoglobin 31.5 PG Mean Corpuscular Hemoglobin 33.1 % Concent Red Cell Distribution Width 14.2 % Platelet Count 149 TH/MM3 Mean Platelet Volume 8.7 FL Neutrophils (%) (Auto) 81.4 % Lymphocytes (%) (Auto) 8.3 % Monocytes (%) (Auto) 9.8 % Eosinophils (%) (Auto) 0.3 % Basophils (%) (Auto) 0.2 % Neutrophils # (Auto) 7.6 TH/MM3 Lymphocytes # (Auto) 0.8 TH/MM3 Monocytes # (Auto) 0.9 TH/MM3 Eosinophils # (Auto) 0.0 TH/MM3 Basophils # (Auto) 0.0 TH/MM3 CBC Comment AUTO DIFF Differential Total Cells 100 Counted Neutrophils % (Manual) 47 % Band Neutrophils % 23 % Lymphocytes % 8 % Monocytes % 6 % Neutrophils # (Manual) 8.1 TH/MM3 Metamyelocytes 9 % Myelocytes 7 % Nucleated Red Blood Cells 1 /100 WBC Differential Comment FINAL DIFF MANUAL Atypical Lymphocytes % Platelet Estimate NORMAL Platelet Morphology Comment NORMAL Basophilic Stippling FAINT Sodium Level 140 MEQ/L Potassium Level 3.2 MEQ/L Chloride Level 105 MEQ/L Carbon Dioxide Level 28.1 MEQ/L Anion Gap 7 MEQ/L Blood Urea Nitrogen 14 MG/DL Creatinine 0.94 MG/DL Estimat Glomerular Filtration 60 ML/MIN Rate Random Glucose 195 MG/DL Calcium Level 6.7 MG/DL Protein Corrected Calcium 7.7 MG/DL Phosphorus Level 1.1 MG/DL Magnesium Level 1.2 MG/DL Total Bilirubin 0.4 MG/DL Aspartate Amino Transf 27 U/L (AST/SGOT) Alanine Aminotransferase 38 U/L (ALT/SGPT) Alkaline Phosphatase 96 U/L Total Protein 5.2 GM/DL Albumin 1.8 GM/DL Assessment and Plan Problem List: (1) Atrial fibrillation with RVR (2) Pancreatic cancer (3) CAD (coronary artery disease) (4) CHF (congestive heart failure) Assessment and Plan Edema improved. Rate controlled, continue diltiazem. Had EGD today, well tolerated. Continue monitoring on telemetry. Problem Qualifiers (1) CHF (congestive heart failure): Kishore Fiore MD Aug 20, 2016 18:24
[2016-08-20] MEDS: INSULIN DETEMIR 100 UNITS/ML VIAL SQ SCH (20:56)
[2016-08-21] VITALS (29 sets, daily range): BP systolic 118–158; BP diastolic 66–86; PULSE 84–124; RESP 16; TEMP 98.3–99.7; O2SAT 94–100
[2016-08-21] MEDS: SODIUM CHLOR 0.9% 1000 ML INJ 1,000 ML IV SCH ×3 (00:18→18:23)
[2016-08-21] MEDS: ONDANSETRON HCL 4 MG/2 ML VIAL IVP SCH ×5 (00:18→23:01)
[2016-08-21] MEDS: HYDROmorphone HCL PF 1 MG/ML VIAL IV PRN ×6 (00:27→22:33)
[2016-08-21] MEDS: SUCRALFATE 1 GM/10 ML CUP PO SCH ×4 (05:43→22:32)
[2016-08-21] MEDS: THYROID 15 MG TAB PO SCH ×2 (05:44→14:45)
[2016-08-21] MEDS: INSULIN ASPART SUPPLEMENTAL SCALE SQ SCH ×4 (06:11→22:31)
[2016-08-21 06:14] LABS: AUTOMATED NEUTROPHIL # 6.5 TH/MM3 (1.8-7.7); BASOPHIL % 0.2 % (0.0-2.0); EOSINOPHIL % 0.1 % (0.0-4.0); LYMPH % 6.3 % (9.0-44.0); LYMPHOCYTE # 0.5 TH/MM3 (1.0-4.8); MEAN CELL VOLUME 93.8 FL (80.0-100.0); MEAN CORPUSCULAR HEMOGLOBIN 32.3 PG (27.0-34.0); MEAN CORPUSCULAR HGB CONC 34.4 % (32.0-36.0); MONO % 14.2 % (0.0-8.0); NEUT % 79.2 % (16.0-70.0); PLATELET COUNT 140 TH/MM3 (150-450); RED BLOOD COUNT 2.66 MIL/MM3 (4.00-5.30); WHITE BLOOD COUNT 8.2 TH/MM3 (4.0-11.0)
[2016-08-21 06:26] LABS: BICARBONATE 30.2 MEQ/L (21.0-32.0); MAGNESIUM 1.1 MG/DL (1.5-2.5)
[2016-08-21 06:29] LABS: POTASSIUM 2.7 MEQ/L (3.5-5.1)
[2016-08-21 06:31] LABS: HEMO FLAGS AUTO DIFF
[2016-08-21] MEDS ORDERED: POTASSIUM CHLORIDE 25 MEQ EFFERVESCENT TAB PO ONE (06:45)
[2016-08-21] MEDS ORDERED: MAGNESIUM SULFATE 1 GM PREMIX 100 ML IV ONE ×2 (06:45→16:45)
[2016-08-21 07:39] LABS: BANDS 22 % (0-6); DOHLE BODIES PRESENT (NONE SEEN); METAMYELOCYTES 2 % (0-1); MYELOCYTES 5 % (0-0); NEUTROPHIL # MANUAL DIFF 6.9 TH/MM3 (1.8-7.7); POLYS (SEG NEUTROPHILS) 55 % (16-70); TOXIC GRANULATION 1+ (NORMAL); WBC DIFF SAMPLE 100
[2016-08-21 07:40] LABS: CALCIUM-PROTEIN CORRECTED 6.7 MG/DL (8.5-10.1); PLATELET ESTIMATE SMEAR LOW (NORMAL); PLATELET MORPHOLOGY NORMAL (NORMAL); SCAN/DIFF FINAL DIFF MANUAL
--- NOTE | 2016-08-21 07:51 | HHI.PR ---
Subjective Remarks With severe electrolyte abnormalities, replaced by IV and GJ tube. Plan to start tube feeding today. Patient says she feels much better today. Has LE edema. Denies chest pain or palpitations. No n/v/d/c. Tolerates. Objective Vitals Vital Signs Date Time Temp Pulse Resp B/P Pulse Ox O2 Delivery O2 Flow Rate FiO2 08/21/16 06:00 122 08/21/16 05:00 98 08/21/16 04:00 102 08/21/16 03:30 99.1 101 144/78 97 08/21/16 03:00 110 08/21/16 02:00 94 08/21/16 01:00 116 08/21/16 00:40 99.7 96 142/66 98 08/21/16 00:00 102 08/20/16 23:00 109 08/20/16 22:00 94 08/20/16 21:00 112 08/20/16 20:00 108 08/20/16 19:00 99.9 111 144/68 100 08/20/16 19:00 Room Air 08/20/16 19:00 114 08/20/16 18:00 106 08/20/16 17:00 116 08/20/16 16:00 97 08/20/16 15:00 98.6 102 20 124/81 97 08/20/16 15:00 131 08/20/16 14:00 100 08/20/16 13:10 115 18 120/65 95 08/20/16 12:55 99 18 126/67 94 08/20/16 12:47 98.1 102 16 131/67 95 08/20/16 11:00 99.4 90 20 147/72 100 08/20/16 11:00 108 08/20/16 11:00 99.4 90 20 147/72 100 08/20/16 10:00 97 08/20/16 09:00 107 08/20/16 08:00 92 I/O 08/20/16 08/20/16 08/20/16 08/21/16 08/21/16 08/21/16 07:00 15:00 23:00 07:00 15:00 23:00 Intake Total 1900 ml 700 ml 2921 ml 680 ml Output Total 1700 ml 2300 ml 1150 ml Balance 200 ml 700 ml 621 ml -470 ml Intake Oral 900 ml 120 ml 480 ml IV Total 1000 ml 2501 ml Tube Irrigant 200 ml Other 700 ml 300 ml Output Urine Total 1700 ml 2300 ml 1150 ml # Voids 2 1 # Bowel Movements 0 2 Result Diagram: 08/21/1644408/21/16444 Objective Remarks GENERAL: This is a very pleasant 65 yo F, well-nourished, well-developed patient, in no apparent distress. SKIN: Pale. No rashes, ecchymoses or lesions. Cool and dry. HEAD: Atraumatic. Normocephalic. No temporal or scalp tenderness. EYES: Pupils equal round and reactive. Extraocular motions intact. No scleral icterus. No injection or drainage. ENT: Nose without bleeding, purulent drainage or septal hematoma. Throat without erythema, tonsillar hypertrophy or exudate. Uvula midline. Airway patent. NECK: Trachea midline. No JVD or lymphadenopathy. Supple, nontender, no meningeal signs. CARDIOVASCULAR: Irregular rate and rhythm without murmurs, gallops, or rubs. RESPIRATORY Decreased breath sounds.No wheezes, rales, or rhonchi. GASTROINTESTINAL: Abdomen soft, non-tender, nondistended. No hepato-splenomegaly , or palpable masses. No guarding. MUSCULOSKELETAL: Extremities without clubbing, cyanosis. 3+ LE edema. No joint tenderness, effusion, or edema noted. No calf tenderness. Negative Homans sign bilaterally. NEUROLOGICAL: Awake and alert. Cranial nerves II through XII intact. Motor and sensory grossly within normal limits. Five out of 5 muscle strength in all muscle groups. Normal speech. Procedures S/p EGD and GJ tube placement by Dr Berrios 08/20 A/P Assessment and Plan Very pleasant 65 yo female with PMH of pancreatic cancer, CHF came with complaints of sob, nausea, vomiting, failure to thrive Intractable nausea/vomiting. Stomatitis. Dysphagia. Failure to thrive. Pancreatic cancer on chemo follows with Dr Coe hem/onc. Swallow evaluation. Pancytopenia. but normal temp. No need of abx. Will place patient on neutropenic isolation Severe protein calorie malnutrition. Prealbumin of 4. As above. Contract Agent consulted. RITCHIE on CKD. Improved . DC IVF CHF Sevre electrolytes deficiency. Hypokalemia, hypomagnesemia, hypocalcemia. hypophosphatemia. Monitor and replace. Refeeding sdr Hypocalcemia with protein corrected calcium of 7.2 ( on 08/19) .Give calcium gluconate IV. Start tums 500 mg po bid Worsening 3+ LE edema. Hypoalbuminemia. Patient with low albumin of 1.9 . Will give one dose of lasix IV and IV albumin. Will monitor kidney function. 08/20 give another dose of Lasix 40 IV and albumin today. Kidney function improved. Patient also with hypokalemia, hypophosphatemia and hypomagnesemia. Replaced by IF. Monitor and replce as indicated.Likely refeeding sdr. Still with hypocalcemia will give another Ca gluconate IV continue PO calcium carbonate PO. 08/21 Still with hypocalcemia will give another Ca gluconate IV continue PO calcium carbonate PO. S/p EGD and GJ tube placement by Dr Berrios 08/20 Consulted GI for dysphagia. S/p EGD on Sunday 08/20 with normal EGD and s/p successful GJ tube placement Consult dietary for feeding tube recommendations Flush tube with 50 cc of water every 4-6 hours. Always flush tube after feedings. Apply abdominal binder as necessary. Clamp G-tube after use and flush. Afib with RVR on admission. HR in 80s now Received cardizem bolus in the ED. Started on cardizem drip. Place on cardizem drip. Turn cardizem drip off if HR < 90 sustained. Turn on cardizem drip if HR sustained > 110. Off cardizem drip. Continue cardizem PO, HR controlled. Monitor on telemetry. Monitor on telemetry Patient with very low platelets of 42 and at high risk of bleeding. Avoid any anticoagulation. Dr Coe also consulted her hem/onc doctor. Consult her cardiology doctor Gunnar Keep K > 4 and Mag> 2 . Monitor lytes and replace. DC IVF, kidney function improved, not with chf exacerbation Pain meds per pain scale will add IV pain meds With Diabetes uncontrolled, A1c 7.6. BS in 400s on admission, say she was not able to take PO meds. On ISS continue home long acting insulin. Accuchecks. Chronic medical conditions appears at baseline coronary artery disease, diabetes type 2, heart attack/[place], hypothyroidism, peripheral neuropathy, arthritis. Restart home meds. PO lasix held DVT ppx with SCD/TEDs as PLT 42 on admission Code Status full code Discussed Condition With Patient, nurse, GI service. Oanh Garner MD Aug 21, 2016 07:51
[2016-08-21] MEDS ORDERED: FUROSEMIDE 40 MG/4 ML VIAL IV PUSH ONE (08:00)
[2016-08-21] MEDS ORDERED: POTASSIUM CL 40 MEQ/30 ML LIQ UDC PO ONE (08:00)
[2016-08-21] MEDS ORDERED: ALBUMIN HUMAN 25% 25 GM/100 ML BAGP IV ONE (08:00)
[2016-08-21] MEDS: MAGNESIUM SULFATE 1 GM PREMIX 100 ML IV SCH ×2 (09:00→13:14)
[2016-08-21] MEDS: PANTOPRAZOLE SODIUM 40 MG VIAL IV PUSH SCH ×2 (09:35→22:31)
[2016-08-21] MEDS: CALCIUM CARBONATE 500 MG CHEWABLE TAB CHEW SCH ×2 (09:36→22:32)
[2016-08-21] MEDS: DILTIAZEM HCL 30 MG TAB PO SCH ×4 (09:36→22:32)
[2016-08-21] MEDS: MAGNESIUM OXIDE 400 MG TAB PO SCH ×2 (09:36→22:32)
[2016-08-21] MEDS: SODIUM CHLORIDE 0.9% FLUSH 5 ML FLUSH FLUSH SCH ×2 (09:36→21:00)
[2016-08-21] MEDS: NYSTAT/DIPHENHY/LIDO MOUTHWASH (Adult) 120ML SWISH-SWAL SCH ×4 (09:36→22:33)
[2016-08-21] MEDS: POTASSIUM CHLOR 20 MEQ PREMIX 100 ML IV SCH ×2 (09:38→11:48)
[2016-08-21] MEDS ORDERED: CALCIUM GLUCONATE INJ 1 GM in SODIUM CHLORIDE 0.9% INJ 100 ML IV ONE (10:00)
[2016-08-21] MEDS ORDERED: MAGNESIUM OXIDE 400 MG TAB PO SCH (11:00)
--- NOTE | 2016-08-21 12:09 | PD.ONC.PN ---
Subjective Subjective Remarks Tmax 99.7 overnight. Patient feeling tired today. She still has some pain in her left abdomen at site of GJ tube placement. Objective Data Date Time Temp Pulse Resp B/P Pulse Ox O2 Delivery O2 Flow Rate FiO2 08/21/16 11:04 98.3 106 16 118/69 100 08/21/16 09:00 105 08/21/16 08:01 98 Room Air 08/21/16 08:01 99.7 95 16 158/69 98 08/21/16 08:00 112 08/21/16 07:00 105 08/21/16 06:00 122 08/21/16 05:00 98 08/21/16 04:00 102 08/21/16 03:30 99.1 101 144/78 97 08/21/16 03:00 110 08/21/16 02:00 94 08/21/16 01:00 116 08/21/16 00:40 99.7 96 142/66 98 08/21/16 00:00 102 08/20/16 23:00 109 08/20/16 22:00 94 08/20/16 21:00 112 08/20/16 20:00 108 08/20/16 19:00 99.9 111 144/68 100 08/20/16 19:00 Room Air 08/20/16 19:00 114 08/20/16 18:00 106 08/20/16 17:00 116 08/20/16 16:00 97 08/20/16 15:00 98.6 102 20 124/81 97 08/20/16 15:00 131 08/20/16 14:00 100 08/20/16 13:10 115 18 120/65 95 08/20/16 12:55 99 18 126/67 94 08/20/16 12:47 98.1 102 16 131/67 95 Result Diagram: 08/21/16 0445 08/21/16 0445 Laboratory Results Laboratory Tests Test 08/21/16 04:45 White Blood Count 8.2 TH/MM3 Red Blood Count 2.66 MIL/MM3 Hemoglobin 8.6 GM/DL Hematocrit 25.0 % Mean Corpuscular Volume 93.8 FL Mean Corpuscular Hemoglobin 32.3 PG Mean Corpuscular Hemoglobin 34.4 % Concent Red Cell Distribution Width 14.0 % Platelet Count 140 TH/MM3 Mean Platelet Volume 8.5 FL Neutrophils (%) (Auto) 79.2 % Lymphocytes (%) (Auto) 6.3 % Monocytes (%) (Auto) 14.2 % Eosinophils (%) (Auto) 0.1 % Basophils (%) (Auto) 0.2 % Neutrophils # (Auto) 6.5 TH/MM3 Lymphocytes # (Auto) 0.5 TH/MM3 Monocytes # (Auto) 1.2 TH/MM3 Eosinophils # (Auto) 0.0 TH/MM3 Basophils # (Auto) 0.0 TH/MM3 CBC Comment AUTO DIFF Differential Total Cells 100 Counted Neutrophils % (Manual) 55 % Band Neutrophils % 22 % Lymphocytes % 4 % Monocytes % 12 % Neutrophils # (Manual) 6.9 TH/MM3 Metamyelocytes 2 % Myelocytes 5 % Differential Comment FINAL DIFF MANUAL Toxic Granulation 1+ Dohle Bodies PRESENT Platelet Estimate LOW Platelet Morphology Comment NORMAL Sodium Level 140 MEQ/L Potassium Level 2.7 MEQ/L Chloride Level 103 MEQ/L Carbon Dioxide Level 30.2 MEQ/L Anion Gap 7 MEQ/L Blood Urea Nitrogen 10 MG/DL Creatinine 0.86 MG/DL Estimat Glomerular Filtration 66 ML/MIN Rate Random Glucose 121 MG/DL Calcium Level 5.7 MG/DL Protein Corrected Calcium 6.7 MG/DL Phosphorus Level 3.4 MG/DL Magnesium Level 1.1 MG/DL Total Protein 4.9 GM/DL Administered Medications Medications (Trade) Dose Ordered Sig/Marilyn Route PRN Reason Start Time Stop Time Status Last Admin Dose Admin Diltiazem HCl 125 mg/Sodium Chloride 125 ml @ 0 mls/hr TITRATE IV 08/16/16 18:15 08/18/16 05:27 Sodium Chloride (NS 1000 ml Inj) 1,000 ml @ 100 mls/hr Q10H IV 08/16/16 18:23 08/21/16 09:36 IV Flush (NS Flush) 2 ml UNSCH PRN FLUSH FLUSH AFTER USING IV ACCESS 08/16/16 18:30 08/16/16 23:33 IV Flush (NS Flush) 2 ml BID FLUSH 08/16/16 21:00 08/21/16 09:36 Prochlorperazine (Compazine Supp) [address] NAUSEA OR VOMITING 08/16/16 18:30 08/20/16 07:46 Diltiazem HCl (Cardizem) 30 mg QID PO 08/16/16 21:00 08/21/16 09:36 Insulin Detemir (Levemir Inj) 30 units HS SQ 08/16/16 21:00 08/20/16 20:56 Oxycodone HCl (Roxicodone) 15 mg Q6H PRN PO PAIN 1-5 08/16/16 18:45 08/20/16 06:10 Thyroid ([place]andler Thyroid) 45 mg BIDAC PO 08/17/16 07:00 08/21/16 05:44 Hydromorphone HCl (Dilaudid Pf Inj) 1 mg Q3H PRN IV BREAKTHROUGH PAIN 08/16/16 20:15 08/21/16 09:45 Hydromorphone HCl (Dilaudid) 2 mg Q4H PRN PO PAIN SCALE 6 TO 10 08/16/16 20:15 08/20/16 16:49 Multi-Ingredient Mouthwash/Gargle (Magic Mouthwash Adult Liq) 5 ml QID SWISH-SWAL 08/16/16 21:00 08/21/16 09:36 Pantoprazole Sodium (Protonix Inj) 40 mg Q12HR IV PUSH 08/17/16 12:45 08/21/16 09:35 Sucralfate 1 gm 1 gm ACHS PO 08/17/16 16:00 08/21/16 11:48 Fluconazole/ Sodium Chloride (Diflucan 100 Mg Premix Bag) 50 ml @ 50 mls/hr Q24H IV 08/17/16 15:00 08/20/16 15:12 Ondansetron HCl (Zofran Inj) 4 mg Q6H IVP 08/18/16 12:00 08/21/16 11:48 Calcium Carbonate (Tums Chew) 500 mg Q12HR CHEW 08/19/16 09:00 08/21/16 09:36 Magnesium Oxide (Mag-Ox) 400 mg BID PO 08/21/16 09:00 08/26/16 08:59 08/21/16 09:36 Objective Remarks GENERAL: Pleasant female, lying supine in bed. SKIN: Warm and dry. HEAD: Normocephalic. EYES: No injection or drainage. NECK: Supple, trachea midline. CARDIOVASCULAR: +S1/S2 RESPIRATORY: Breath sounds equal bilaterally. No accessory muscle use. GASTROINTESTINAL: Abdomen soft, non-tender, nondistended. GJ tube clamped. abdominal binder in place. EXTREMITIES: No cyanosis MUSCULOSKELETAL: Adequate muscle tone. NEUROLOGICAL: No obvious focal deficit. Awake, alert, and oriented x3. Assessment/Plan Problem List: (1) Pancreatic cancer Status: Acute Plan: --diagnosed with unresectable pancreatic adenocarcinoma in late 2015. --PET CT scan showed locally advanced disease with adenopathy in the retroperitoneum, focal uptake in the liver as well as some suspicious appearing nodes in the lung. --recently completed cycle one of Gemzar and Abraxane on 08/15/16 (2) Atrial fibrillation with RVR Status: Acute Plan: -- On Cardizem -- Cardiology following (3) Dysphagia Status: Acute Plan: -- Able to eat thickened/ pureed foods. -- s/p PEG tube placement 08/20--filling hand recommends Glucerna 1.5-goal rate of 60 ml/hr, once GI clears to start using PEG tube Assessment 65-year-old female with unresectable pancreatic cancer admitted for dehydration , weakness and nausea/vomiting. Plan 1. continue supportive care 2. monitor CBC, CMP 3. start tube feeding per dietary and GI Attending Statement The exam, history, and the medical decision-making described in the above note were completed with the assistance of the mid-level provider. I reviewed and agree with the findings presented. I attest that I had a [id number] encounter with the patient on the same day, and personally performed and documented my assessment and findings in the medical record. Nausea better. Has pain around the feeding tube site. Improvement in oral ulcers. Malnutritioned, Starting tube feeds. Able to tolerate soft foods/ liquids today. Start Megace. Marilynn Jimenez Aug 21, 2016 12:09 Mauricio Coe MD Aug 21, 2016 23:43
--- NOTE | 2016-08-21 14:21 | HHI.GIFU ---
Subjective Remarks Patient is sitting up on edge of bed, reports pain in the lUQ area due to PEG tube, but PEG has been used with no problem, site looks good. Patient reports nausea, but no vomiting. (Екатерина Rivas) Objective Vitals I&O Vital Signs Date Time Temp Pulse Resp B/P Pulse Ox O2 Delivery O2 Flow Rate FiO2 08/21/16 13:15 94 21 08/21/16 13:00 112 08/21/16 12:00 98 08/21/16 11:04 98.3 106 16 118/69 100 08/21/16 11:00 124 08/21/16 10:00 124 08/21/16 09:00 105 08/21/16 08:01 98 Room Air 08/21/16 08:01 99.7 95 16 158/69 98 08/21/16 08:00 112 08/21/16 07:00 105 08/21/16 06:00 122 08/21/16 05:00 98 08/21/16 04:00 102 08/21/16 03:30 99.1 101 144/78 97 08/21/16 03:00 110 08/21/16 02:00 94 08/21/16 01:00 116 08/21/16 00:40 99.7 96 142/66 98 08/21/16 00:00 102 08/20/16 23:00 109 08/20/16 22:00 94 08/20/16 21:00 112 08/20/16 20:00 108 08/20/16 19:00 99.9 111 144/68 100 08/20/16 19:00 Room Air 08/20/16 19:00 114 08/20/16 18:00 106 08/20/16 17:00 116 08/20/16 16:00 97 08/20/16 15:00 98.6 102 20 124/81 97 08/20/16 15:00 131 I/O 08/20/16 08/20/16 08/20/16 08/21/16 08/21/16 08/21/16 07:00 15:00 23:00 07:00 15:00 23:00 Intake Total 1900 ml 700 ml 2921 ml 680 ml Output Total 1700 ml 2300 ml 1150 ml Balance 200 ml 700 ml 621 ml -470 ml Intake Oral 900 ml 120 ml 480 ml IV Total 1000 ml 2501 ml Tube Irrigant 200 ml Other 700 ml 300 ml Output Urine Total 1700 ml 2300 ml 1150 ml # Voids 2 1 # Bowel Movements 0 2 Laboratory Laboratory Tests Test 08/21/16 04:45 White Blood Count 8.2 Red Blood Count 2.66 Hemoglobin 8.6 Hematocrit 25.0 Mean Corpuscular Volume 93.8 Mean Corpuscular Hemoglobin 32.3 Mean Corpuscular Hemoglobin 34.4 Concent Red Cell Distribution Width 14.0 Platelet Count 140 Mean Platelet Volume 8.5 Neutrophils (%) (Auto) 79.2 Lymphocytes (%) (Auto) 6.3 Monocytes (%) (Auto) 14.2 Eosinophils (%) (Auto) 0.1 Basophils (%) (Auto) 0.2 Neutrophils # (Auto) 6.5 Lymphocytes # (Auto) 0.5 Monocytes # (Auto) 1.2 Eosinophils # (Auto) 0.0 Basophils # (Auto) 0.0 CBC Comment AUTO DIFF Differential Total Cells 100 Counted Neutrophils % (Manual) 55 Band Neutrophils % 22 Lymphocytes % 4 Monocytes % 12 Neutrophils # (Manual) 6.9 Metamyelocytes 2 Myelocytes 5 Differential Comment FINAL DIFF MANUAL Toxic Granulation 1+ Dohle Bodies PRESENT Platelet Estimate LOW Platelet Morphology Comment NORMAL Sodium Level 140 Potassium Level 2.7 Chloride Level 103 Carbon Dioxide Level 30.2 Anion Gap 7 Blood Urea Nitrogen 10 Creatinine 0.86 Estimat Glomerular Filtration 66 Rate Random Glucose 121 Calcium Level 5.7 Protein Corrected Calcium 6.7 Phosphorus Level 3.4 Magnesium Level 1.1 Total Protein 4.9 Physical Exam HEENT: Normocephalic; atraumatic; no jaundice. CHEST: CTA CARDIAC: Irregular, rate controlled ABDOMEN: Soft, nondistended, mild epigastric tenderness; no hepatosplenomegaly ; bowel sounds are present in all four quadrants. PEG EXTREMITIES: No clubbing, cyanosis, or edema. SKIN: Normal; no rash; no jaundice. [employer]HICLE: No focal deficits; alert and oriented times three. (Екатерина Rivas) Assessment and Plan Plan ASSESSMENT: - Severe odynophagia, nausea/vomiting. S/P EGD/PEG (08/20/16), tolerating ok, some nausea and pain, eating small amount by mouth Pt currently receiving chemotherapy for pancreatic cancer (last dose 08/06). Pt has had pain in her esophagus/mouth since last chemotherapy dose. this has progressively worsening since that time and she is now having severe odynophagia- having a hard time taking even liquids. - Pancytopenia, likely secondary to chemotherapy. - Stomatitis. Improving Magic mouthwash. - Metastatic pancreatic cancer. Dx May 2016. A PET scan in June 2016 revealed multiple nodules in the lungs. She is followed by Dr. Coe and has been receiving Abraxane and Gemzar. She last had this on August 06. - Atrial fibrillation with RVR. rate improving - RITCHIE, Hypothyroidism, peripheral neuropathy, CAD, CHF per primary PLAN: - Puree diet as tolerated - TF per dietary recommendation (Glucerna 1.5-goal rate of 60 ml/hr to provide 2160) - Cont. Magic Mouthwash - Cont. PPI - Cont. Carafate - Cont. Diflucan - Supportive care - Patient seen and examined by Dr. Berrios and myself and this note is written on his behalf. (Екатерина Rivas) Physician Comments Patient seen and examined Agree with above Continue with current supportive care Monitor labs Continue with current pain management pain should dissipate over the next 2-4 days PEG site clean Continue to use PEG (Anmol Berrios MD) Екатерина Rivas Aug 21, 2016 14:21 Anmol Berrios MD Aug 21, 2016 20:02
[2016-08-21] MEDS: FLUCONAZOLE 100 MG PREMIX BAG 50 ML IV SCH (14:43)
--- NOTE | 2016-08-21 16:10 | PD.CARD.PN ---
Subjective Subjective Remarks No CP or SOB, still c/o abd pain Objective Medications Current Medications Medications (Trade) Dose Ordered Sig/Marilyn Route Start Time Stop Time Status Last Admin Diltiazem HCl 125 mg/Sodium Chloride 125 ml @ 0 mls/hr TITRATE IV 08/16/16 18:15 08/18/16 05:27 (NS 1000 ml Inj) 1,000 ml @ 100 mls/hr Q10H IV 08/16/16 18:23 08/21/16 09:36 (NS Flush) 2 ml UNSCH PRN FLUSH 08/16/16 18:30 08/16/16 23:33 (NS Flush) 2 ml BID FLUSH 08/16/16 21:00 08/21/16 09:36 (Tylenol) 650 mg Q4H PRN PO 08/16/16 18:30 (Compazine Supp) 25 mg Q12H PRN LA 08/16/16 18:30 08/20/16 07:46 (Dulcolax Supp) 10 mg DAILY PRN LA 08/16/16 18:30 (Milk Of Magnesia Liq) 30 ml Q12H PRN PO 08/16/16 18:30 (Senokot) 17.2 mg Q12H PRN PO 08/16/16 18:30 (Cardizem) 30 mg QID PO 08/16/16 21:00 08/21/16 13:14 (D50w (Vial) Inj) 25 ml UNSCH PRN IV PUSH 08/16/16 18:30 (Glucagon Inj) 1 mg UNSCH PRN OTHER 08/16/16 18:30 (Levemir Inj) 30 units HS SQ 08/16/16 21:00 08/20/16 20:56 (Roxicodone) 15 mg Q6H PRN PO 08/16/16 18:45 08/20/16 06:10 ([place] Thyroid) 45 mg BIDAC PO 08/17/16 07:00 08/21/16 14:45 (Dilaudid Pf Inj) 1 mg Q3H PRN IV 08/16/16 20:15 08/21/16 13:19 (Dilaudid) 2 mg Q4H PRN PO 08/16/16 20:15 08/20/16 16:49 (Narcan Inj) 0.4 mg UNSCH PRN IV 08/16/16 20:15 (Magic Mouthwash Adult Liq) 5 ml QID SWISH-SWAL 08/16/16 21:00 08/21/16 13:14 (Protonix Inj) 40 mg Q12HR IV PUSH 08/17/16 12:45 08/21/16 09:35 Sucralfate 1 gm 1 gm ACHS PO 08/17/16 16:00 08/21/16 11:48 (Diflucan 100 Mg Premix Bag) 50 ml @ 50 mls/hr Q24H IV 08/17/16 15:00 08/21/16 14:43 (Zofran Inj) 4 mg Q6H IVP 08/18/16 12:00 08/21/16 11:48 (Tums Chew) 500 mg Q12HR CHEW 08/19/16 09:00 08/21/16 09:36 (Tums Chew) 500 mg Q2H PRN CHEW 08/19/16 07:30 (Mag-Ox) 400 mg BID PO 08/21/16 09:00 08/26/16 08:59 08/21/16 09:36 Vital Signs / I&O Vital Signs Date Time Temp Pulse Resp B/P Pulse Ox O2 Delivery O2 Flow Rate FiO2 08/21/16 15:00 98.6 84 16 144/86 100 08/21/16 15:00 112 08/21/16 14:00 102 08/21/16 13:15 94 21 08/21/16 13:00 112 08/21/16 12:00 98 08/21/16 11:04 98.3 106 16 118/69 100 08/21/16 11:00 124 08/21/16 10:00 124 08/21/16 09:00 105 08/21/16 08:01 98 Room Air 08/21/16 08:01 99.7 95 16 158/69 98 08/21/16 08:00 112 08/21/16 07:00 105 08/21/16 06:00 122 08/21/16 05:00 98 08/21/16 04:00 102 08/21/16 03:30 99.1 101 144/78 97 08/21/16 03:00 110 08/21/16 02:00 94 08/21/16 01:00 116 08/21/16 00:40 99.7 96 142/66 98 08/21/16 00:00 102 08/20/16 23:00 109 08/20/16 22:00 94 08/20/16 21:00 112 08/20/16 20:00 108 08/20/16 19:00 99.9 111 144/68 100 08/20/16 19:00 Room Air 08/20/16 19:00 114 08/20/16 18:00 106 08/20/16 17:00 116 I/O 08/20/16 08/20/16 08/20/16 08/21/16 08/21/16 08/21/16 07:00 15:00 23:00 07:00 15:00 23:00 Intake Total 1900 ml 700 ml 2921 ml 680 ml Output Total 1700 ml 2300 ml 1150 ml Balance 200 ml 700 ml 621 ml -470 ml Intake Oral 900 ml 120 ml 480 ml IV Total 1000 ml 2501 ml Tube Irrigant 200 ml Other 700 ml 300 ml Output Urine Total 1700 ml 2300 ml 1150 ml # Voids 2 1 # Bowel Movements 0 2 Physical Exam GENERAL: SKIN: Warm and dry. HEAD: Normocephalic. EYES: No scleral icterus. No injection or drainage. NECK: Supple, trachea midline. No JVD or lymphadenopathy. CARDIOVASCULAR: iregular rate and rhythm without murmurs, gallops, or rubs. RESPIRATORY: Breath sounds equal bilaterally. No accessory muscle use. GASTROINTESTINAL: Abdomen soft MUSCULOSKELETAL: No cyanosis, mild edema. Laboratory Laboratory Tests Test 08/21/16 04:45 White Blood Count 8.2 TH/MM3 Red Blood Count 2.66 MIL/MM3 Hemoglobin 8.6 GM/DL Hematocrit 25.0 % Mean Corpuscular Volume 93.8 FL Mean Corpuscular Hemoglobin 32.3 PG Mean Corpuscular Hemoglobin 34.4 % Concent Red Cell Distribution Width 14.0 % Platelet Count 140 TH/MM3 Mean Platelet Volume 8.5 FL Neutrophils (%) (Auto) 79.2 % Lymphocytes (%) (Auto) 6.3 % Monocytes (%) (Auto) 14.2 % Eosinophils (%) (Auto) 0.1 % Basophils (%) (Auto) 0.2 % Neutrophils # (Auto) 6.5 TH/MM3 Lymphocytes # (Auto) 0.5 TH/MM3 Monocytes # (Auto) 1.2 TH/MM3 Eosinophils # (Auto) 0.0 TH/MM3 Basophils # (Auto) 0.0 TH/MM3 CBC Comment AUTO DIFF Differential Total Cells 100 Counted Neutrophils % (Manual) 55 % Band Neutrophils % 22 % Lymphocytes % 4 % Monocytes % 12 % Neutrophils # (Manual) 6.9 TH/MM3 Metamyelocytes 2 % Myelocytes 5 % Differential Comment FINAL DIFF MANUAL Toxic Granulation 1+ Dohle Bodies PRESENT Platelet Estimate LOW Platelet Morphology Comment NORMAL Sodium Level 140 MEQ/L Potassium Level 2.7 MEQ/L Chloride Level 103 MEQ/L Carbon Dioxide Level 30.2 MEQ/L Anion Gap 7 MEQ/L Blood Urea Nitrogen 10 MG/DL Creatinine 0.86 MG/DL Estimat Glomerular Filtration 66 ML/MIN Rate Random Glucose 121 MG/DL Calcium Level 5.7 MG/DL Protein Corrected Calcium 6.7 MG/DL Phosphorus Level 3.4 MG/DL Magnesium Level 1.1 MG/DL Total Protein 4.9 GM/DL Assessment and Plan Problem List: (1) Atrial fibrillation with RVR (2) Pancreatic cancer (3) CAD (coronary artery disease) (4) CHF (congestive heart failure) Assessment and Plan Edema improving. A fib rate controlled, continue diltiazem. C/o abd pain, GI following. Continue monitoring on telemetry. Problem Qualifiers (1) CHF (congestive heart failure): Kishore Fiore MD Aug 21, 2016 16:10
[2016-08-21] MEDS: INSULIN DETEMIR 100 UNITS/ML VIAL SQ SCH (22:33)
[2016-08-22] VITALS (17 sets, daily range): BP systolic 117–129; BP diastolic 76–78; PULSE 96–131; RESP 18–20; TEMP 98.1–98.7; O2SAT 98–100
[2016-08-22] MEDS: PROCHLORPERAZINE 25 MG SUPP PR PRN (02:42)
[2016-08-22] MEDS: HYDROmorphone HCL PF 1 MG/ML VIAL IV PRN ×4 (02:43→23:40)
[2016-08-22] MEDS: THYROID 15 MG TAB PO SCH ×2 (05:58→16:00)
[2016-08-22] MEDS: ONDANSETRON HCL 4 MG/2 ML VIAL IVP SCH ×4 (05:59→23:40)
[2016-08-22] MEDS: SODIUM CHLOR 0.9% 1000 ML INJ 1,000 ML IV SCH ×2 (05:59→14:23)
[2016-08-22] MEDS: SUCRALFATE 1 GM/10 ML CUP PO SCH ×4 (05:59→21:30)
[2016-08-22] MEDS: INSULIN ASPART SUPPLEMENTAL SCALE SQ SCH ×4 (06:23→21:00)
[2016-08-22] MEDS: MEGESTROL ACETATE SUSP 400 MG/10 ML CUP PO SCH (09:00)
[2016-08-22] MEDS: CALCIUM CARBONATE 500 MG CHEWABLE TAB CHEW SCH ×2 (09:51→21:31)
[2016-08-22] MEDS: HYDROmorphone HCL 2 MG TAB PO PRN ×2 (09:52→21:32)
[2016-08-22] MEDS: DILTIAZEM HCL 30 MG TAB PO SCH ×4 (09:52→21:32)
[2016-08-22] MEDS: MAGNESIUM OXIDE 400 MG TAB PO SCH ×2 (09:52→21:32)
[2016-08-22] MEDS: PANTOPRAZOLE SODIUM 40 MG VIAL IV PUSH SCH ×2 (09:53→21:31)
[2016-08-22] MEDS: NYSTAT/DIPHENHY/LIDO MOUTHWASH (Adult) 120ML SWISH-SWAL SCH ×4 (09:54→21:33)
[2016-08-22] MEDS: SODIUM CHLORIDE 0.9% FLUSH 5 ML FLUSH FLUSH SCH ×2 (09:54→21:31)
[2016-08-22 11:05] LABS: AUTOMATED NEUTROPHIL # 7.8 TH/MM3 (1.8-7.7); BASOPHIL % 0.1 % (0.0-2.0); EOSINOPHIL % 0.1 % (0.0-4.0); HEMATOCRIT 24.5 % (35.0-46.0); LYMPHOCYTE # 0.6 TH/MM3 (1.0-4.8); MEAN CELL VOLUME 94.4 FL (80.0-100.0); MEAN CORPUSCULAR HEMOGLOBIN 32.4 PG (27.0-34.0); MEAN CORPUSCULAR HGB CONC 34.4 % (32.0-36.0); MONO % 12.3 % (0.0-8.0); NEUT % 81.5 % (16.0-70.0); PLATELET COUNT 147 TH/MM3 (150-450); RED BLOOD COUNT 2.59 MIL/MM3 (4.00-5.30); RED CELL DISTRIBUTION WIDTH 14.2 % (11.6-17.2); WHITE BLOOD COUNT 9.5 TH/MM3 (4.0-11.0)
[2016-08-22 11:08] LABS: HEMO FLAGS AUTO DIFF
--- NOTE | 2016-08-22 11:13 | HHI.PR ---
Subjective Remarks At the margin of the bed. Says she feel tolerated and she did have diarrhea today. LE edema is getting worse. Has some sob, no n/v. Denies chest pain or palpitations. No fever or chills, no cough. Objective Vitals Vital Signs Date Time Temp Pulse Resp B/P Pulse Ox O2 Delivery O2 Flow Rate FiO2 08/22/16 06:00 102 08/22/16 05:00 100 08/22/16 04:00 100 08/22/16 03:00 98.1 117 129/76 100 08/22/16 03:00 123 08/22/16 02:00 112 08/22/16 01:00 96 08/22/16 00:00 112 08/21/16 23:00 110 08/21/16 23:00 98.6 101 145/78 99 08/21/16 22:00 112 08/21/16 21:00 100 08/21/16 20:00 120 08/21/16 19:00 Room Air 08/21/16 19:00 98.4 99 146/83 97 08/21/16 19:00 114 08/21/16 18:00 109 08/21/16 17:00 114 08/21/16 16:00 95 08/21/16 15:00 98.6 84 16 144/86 100 08/21/16 15:00 112 08/21/16 14:00 102 08/21/16 13:15 94 21 08/21/16 13:00 112 08/21/16 12:00 98 I/O 08/21/16 08/21/16 08/21/16 08/22/16 08/22/16 08/22/16 07:00 15:00 23:00 07:00 15:00 23:00 Intake Total 680 ml 350 ml 1540 ml Output Total 1150 ml 2300 ml Balance -470 ml -1950 ml 1540 ml Intake Oral 480 ml 350 ml 240 ml IV Total 1000 ml Tube Irrigant 200 ml 300 ml Output Urine Total 1150 ml 2300 ml # Bowel Movements 2 Result Diagram: 08/21/165 08/21/165 Objective Remarks GENERAL: This is a very pleasant 65 yo F, well-nourished, well-developed patient, in no apparent distress. SKIN: Pale. No rashes, ecchymoses or lesions. Cool and dry. HEAD: Atraumatic. Normocephalic. No temporal or scalp tenderness. EYES: Pupils equal round and reactive. Extraocular motions intact. No scleral icterus. No injection or drainage. ENT: Nose without bleeding, purulent drainage or septal hematoma. Throat without erythema, tonsillar hypertrophy or exudate. Uvula midline. Airway patent. NECK: Trachea midline. No JVD or lymphadenopathy. Supple, nontender, no meningeal signs. CARDIOVASCULAR: Irregular rate and rhythm without murmurs, gallops, or rubs. RESPIRATORY Decreased breath sounds.No wheezes, rales, or rhonchi. GASTROINTESTINAL: Abdomen soft, non-tender, nondistended. No hepato-splenomegaly , or palpable masses. No guarding. MUSCULOSKELETAL: Extremities without clubbing, cyanosis. 3+ LE edema. No joint tenderness, effusion, or edema noted. No calf tenderness. Negative Homans sign bilaterally. NEUROLOGICAL: Awake and alert. Cranial nerves II through XII intact. Motor and sensory grossly within normal limits. Five out of 5 muscle strength in all muscle groups. Normal speech. Procedures S/p EGD and GJ tube placement by Dr Berrios 08/20 A/P Assessment and Plan Very pleasant 65 yo female with PMH of pancreatic cancer, CHF came with complaints of sob, nausea, vomiting, failure to thrive Intractable nausea/vomiting. Stomatitis. Dysphagia. Failure to thrive. Pancreatic cancer on chemo follows with Dr Coe hem/onc. Swallow evaluation. Pancytopenia. but normal temp. No need of abx. Will place patient on neutropenic isolation Severe protein calorie malnutrition. Prealbumin of 4. As above. Thread Grinder consulted. RITCHIE on CKD. Improved . DC IVF CHF Sevre electrolytes deficiency. Hypokalemia, hypomagnesemia, hypocalcemia. hypophosphatemia. Monitor and replace. Refeeding sdr Hypocalcemia with protein corrected calcium of 7.2 ( on 08/19) .Give calcium gluconate IV. Start tums 500 mg po bid Worsening 3+ LE edema. Hypoalbuminemia. Patient with low albumin of 1.9 . Will give one dose of lasix IV and IV albumin. Will monitor kidney function. 08/20 give another dose of Lasix 40 IV and albumin today. Kidney function improved. Patient also with hypokalemia, hypophosphatemia and hypomagnesemia. Replaced by IF. Monitor and replce as indicated.Likely refeeding sdr. Still with hypocalcemia will give another Ca gluconate IV continue PO calcium carbonate PO. 08/21 Still with hypocalcemia will give another Ca gluconate IV continue PO calcium carbonate PO. S/p EGD and GJ tube placement by Dr Berrios 08/20 Consulted GI for dysphagia. S/p EGD on Sunday 08/20 with normal EGD and s/p successful GJ tube placement Consult dietary for feeding tube recommendations Flush tube with 50 cc of water every 4-6 hours. Always flush tube after feedings. Apply abdominal binder as necessary. Clamp G-tube after use and flush. 08/22: Patient with increased LE edema and sob. Will check CXR. Will start lasix and albumin IV scheduled. Afib with RVR on admission. HR in 80s now Received cardizem bolus in the ED. Started on cardizem drip. Place on cardizem drip. Turn cardizem drip off if HR < 90 sustained. Turn on cardizem drip if HR sustained > 110. Off cardizem drip. Continue cardizem PO, HR controlled. Monitor on telemetry. Monitor on telemetry Patient with very low platelets of 42 and at high risk of bleeding. Avoid any anticoagulation. Dr Coe also consulted her hem/onc doctor. Consult her cardiology doctor Gunnar Keep K > 4 and Mag> 2 . Monitor lytes and replace. DC IVF, kidney function improved, not with chf exacerbation Pain meds per pain scale will add IV pain meds With Diabetes uncontrolled, A1c 7.6. BS in 400s on admission, say she was not able to take PO meds. On ISS continue home long acting insulin. Accuchecks. Chronic medical conditions appears at baseline coronary artery disease, diabetes type 2, heart attack/AL, hypothyroidism, peripheral neuropathy, arthritis. Restart home meds. PO lasix held DVT ppx with SCD/TEDs as PLT 42 on admission Code Status full code Discussed Condition With Patient, nurse, GI service. Oanh Garner MD Aug 22, 2016 11:13
[2016-08-22] MEDS ORDERED: POTASSIUM CHLORIDE 25 MEQ EFFERVESCENT TAB PO ONE (11:15)
[2016-08-22 11:26] LABS: BICARBONATE 24.1 MEQ/L (21.0-32.0); MAGNESIUM 1.1 MG/DL (1.5-2.5); POTASSIUM 3.4 MEQ/L (3.5-5.1); TOTAL BILIRUBIN ADULT 0.4 MG/DL (0.2-1.0)
--- NOTE | 2016-08-22 11:27 | PD.ONC.PN ---
Subjective Subjective Remarks Afebrile overnight. Patient continues to have some pain in her stomach. TF have not yet been started. Pain is controlled when she receives PO pain meds. She is passing gas and stool. Objective Data Date Time Temp Pulse Resp B/P Pulse Ox O2 Delivery O2 Flow Rate FiO2 08/22/16 06:00 102 08/22/16 05:00 100 08/22/16 04:00 100 08/22/16 03:00 98.1 117 129/76 100 08/22/16 03:00 123 08/22/16 02:00 112 08/22/16 01:00 96 08/22/16 00:00 112 08/21/16 23:00 110 08/21/16 23:00 98.6 101 145/78 99 08/21/16 22:00 112 08/21/16 21:00 100 08/21/16 20:00 120 08/21/16 19:00 Room Air 08/21/16 19:00 98.4 99 146/83 97 08/21/16 19:00 114 08/21/16 18:00 109 08/21/16 17:00 114 08/21/16 16:00 95 08/21/16 15:00 98.6 84 16 144/86 100 08/21/16 15:00 112 08/21/16 14:00 102 08/21/16 13:15 94 21 08/21/16 13:00 112 08/21/16 12:00 98 08/22/16 08/22/16 08/22/16 07:00 15:00 23:00 Intake Total 1540 ml Balance 1540 ml Result Diagram: 08/22/16 1030 08/21/16 0445 Laboratory Results Laboratory Tests Test 08/22/16 10:30 White Blood Count 9.5 TH/MM3 Red Blood Count 2.59 MIL/MM3 Hemoglobin 8.4 GM/DL Hematocrit 24.5 % Mean Corpuscular Volume 94.4 FL Mean Corpuscular Hemoglobin 32.4 PG Mean Corpuscular Hemoglobin 34.4 % Concent Red Cell Distribution Width 14.2 % Platelet Count 147 TH/MM3 Mean Platelet Volume 8.1 FL Neutrophils (%) (Auto) 81.5 % Lymphocytes (%) (Auto) 6.0 % Monocytes (%) (Auto) 12.3 % Eosinophils (%) (Auto) 0.1 % Basophils (%) (Auto) 0.1 % Neutrophils # (Auto) 7.8 TH/MM3 Lymphocytes # (Auto) 0.6 TH/MM3 Monocytes # (Auto) 1.2 TH/MM3 Eosinophils # (Auto) 0.0 TH/MM3 Basophils # (Auto) 0.0 TH/MM3 CBC Comment AUTO DIFF Administered Medications Medications (Trade) Dose Ordered Sig/Marilyn Route PRN Reason Start Time Stop Time Status Last Admin Dose Admin Diltiazem HCl 125 mg/Sodium Chloride 125 ml @ 0 mls/hr TITRATE IV 08/16/16 18:15 08/18/16 05:27 Sodium Chloride (NS 1000 ml Inj) 1,000 ml @ 100 mls/hr Q10H IV 08/16/16 18:23 08/22/16 05:59 IV Flush (NS Flush) 2 ml UNSCH PRN FLUSH FLUSH AFTER USING IV ACCESS 08/16/16 18:30 08/16/16 23:33 IV Flush (NS Flush) 2 ml BID FLUSH 08/16/16 21:00 08/22/16 09:54 Prochlorperazine (Compazine Supp) 25 mg Q12H PRN NM NAUSEA OR VOMITING 08/16/16 18:30 08/22/16 02:42 Diltiazem HCl (Cardizem) 30 mg QID PO 08/16/16 21:00 08/22/16 09:52 Insulin Detemir (Levemir Inj) 30 units HS SQ 08/16/16 21:00 08/21/16 22:33 Oxycodone HCl (Roxicodone) 15 mg Q6H PRN PO PAIN 1-5 08/16/16 18:45 08/20/16 06:10 Thyroid ([place] Thyroid) 45 mg BIDAC PO 08/17/16 07:00 08/22/16 05:58 Hydromorphone HCl (Dilaudid Pf Inj) 1 mg Q3H PRN IV BREAKTHROUGH PAIN 08/16/16 20:15 08/22/16 02:43 Hydromorphone HCl (Dilaudid) 2 mg Q4H PRN PO PAIN SCALE 6 TO 10 08/16/16 20:15 08/22/16 09:52 Multi-Ingredient Mouthwash/Gargle (Magic Mouthwash Adult Liq) 5 ml QID SWISH-SWAL 08/16/16 21:00 08/22/16 09:54 Pantoprazole Sodium (Protonix Inj) 40 mg Q12HR IV PUSH 08/17/16 12:45 08/22/16 09:53 Sucralfate 1 gm 1 gm ACHS PO 08/17/16 16:00 08/22/16 05:59 Fluconazole/ Sodium Chloride (Diflucan 100 Mg Premix Bag) 50 ml @ 50 mls/hr Q24H IV 08/17/16 15:00 08/21/16 14:43 Ondansetron HCl (Zofran Inj) 4 mg Q6H IVP 08/18/16 12:00 08/22/16 05:59 Calcium Carbonate (Tums Chew) 500 mg Q12HR CHEW 08/19/16 09:00 08/22/16 09:51 Magnesium Oxide (Mag-Ox) 400 mg BID PO 08/21/16 09:00 08/26/16 08:59 08/22/16 09:52 Megestrol Acetate (Megace Liq) 400 mg DAILY PO 08/22/16 09:00 08/22/16 09:00 Objective Remarks GENERAL: Pleasant female, lying in bed in nad. SKIN: Warm and dry. HEAD: Normocephalic. EYES: No injection or drainage. NECK: Supple, trachea midline. CARDIOVASCULAR: +S1/S2 RESPIRATORY: Breath sounds equal bilaterally. No accessory muscle use. GASTROINTESTINAL: Abdomen with GJ tube clamped, mildly distended. +bowel sounds EXTREMITIES: No cyanosis MUSCULOSKELETAL: Adequate muscle tone. NEUROLOGICAL: No obvious focal deficit. Awake, alert, and oriented x3. Assessment/Plan Problem List: (1) Pancreatic cancer Status: Acute Plan: --diagnosed with unresectable pancreatic adenocarcinoma in late 2015. --PET CT scan showed locally advanced disease with adenopathy in the retroperitoneum, focal uptake in the liver as well as some suspicious appearing nodes in the lung. --recently completed cycle one of Gemzar and Abraxane on 08/15/16 (2) Atrial fibrillation with RVR Status: Acute Plan: -- On Cardizem -- Cardiology following (3) Dysphagia Status: Acute Plan: -- Able to eat thickened/ pureed foods. 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 Plan 1. plan for follow up in clinic once discharged 2. supportive care 3. tube feeding per GI Attending Statement The exam, history, and the medical decision-making described in the above note were completed with the assistance of the mid-level provider. I reviewed and agree with the findings presented. I attest that I had a [id number] encounter with the patient on the same day, and personally performed and documented my assessment and findings in the medical record. Marilynn Jimenez Aug 22, 2016 11:27 Mauricio Coe MD Aug 22, 2016 23:47
[2016-08-22 11:29] LABS: CALCIUM-PROTEIN CORRECTED 6.1 MG/DL (8.5-10.1)
[2016-08-22 11:47] LABS: BANDS 17 % (0-6); CORRECTED NUCLEATED RBC 1 /100 WBC (0-0); METAMYELOCYTES 1 % (0-1); MYELOCYTES 3 % (0-0); NEUTROPHIL # MANUAL DIFF 8.1 TH/MM3 (1.8-7.7); PLATELET ESTIMATE SMEAR LOW (NORMAL); PLATELET MORPHOLOGY NORMAL (NORMAL); POLYS (SEG NEUTROPHILS) 64 % (16-70); SCAN/DIFF FINAL DIFF MANUAL; WBC DIFF SAMPLE 100
[2016-08-22] MEDS: POTASSIUM CHLORIDE 25 MEQ EFFERVESCENT TAB PO SCH ×2 (12:10→21:33)
[2016-08-22] MEDS: ALBUMIN HUMAN 25% 25 GM/100 ML BAGP IV SCH ×2 (12:11→23:39)
[2016-08-22] MEDS: FLUCONAZOLE 100 MG PREMIX BAG 50 ML IV SCH (14:52)
--- NOTE | 2016-08-22 16:49 | HHI.GIFU ---
Subjective Remarks Patient is sitting up in chair feeling better, still with some abdomen pain, some nausea, but no vomiting, she tells she is getting TF through gravity ( Екатерина Rivas) Objective Vitals I&O Vital Signs Date Time Temp Pulse Resp B/P Pulse Ox O2 Delivery O2 Flow Rate FiO2 08/22/16 12:25 18 08/22/16 06:00 102 08/22/16 05:00 100 08/22/16 04:00 100 08/22/16 03:00 98.1 117 129/76 100 08/22/16 03:00 123 08/22/16 02:00 112 08/22/16 01:00 96 08/22/16 00:00 112 08/21/16 23:00 110 08/21/16 23:00 98.6 101 145/78 99 08/21/16 22:00 112 08/21/16 21:00 100 08/21/16 20:00 120 08/21/16 19:00 Room Air 08/21/16 19:00 98.4 99 146/83 97 08/21/16 19:00 114 08/21/16 18:00 109 08/21/16 17:00 114 I/O 08/21/16 08/21/16 08/21/16 08/22/16 08/22/16 08/22/16 07:00 15:00 23:00 07:00 15:00 23:00 Intake Total 680 ml 350 ml 1540 ml Output Total 1150 ml 2300 ml Balance -470 ml -1950 ml 1540 ml Intake Oral 480 ml 350 ml 240 ml IV Total 1000 ml Tube Irrigant 200 ml 300 ml Output Urine Total 1150 ml 2300 ml # Bowel Movements 2 Laboratory Laboratory Tests Test 08/22/16 10:30 White Blood Count 9.5 Red Blood Count 2.59 Hemoglobin 8.4 Hematocrit 24.5 Mean Corpuscular Volume 94.4 Mean Corpuscular Hemoglobin 32.4 Mean Corpuscular Hemoglobin 34.4 Concent Red Cell Distribution Width 14.2 Platelet Count 147 Mean Platelet Volume 8.1 Neutrophils (%) (Auto) 81.5 Lymphocytes (%) (Auto) 6.0 Monocytes (%) (Auto) 12.3 Eosinophils (%) (Auto) 0.1 Basophils (%) (Auto) 0.1 Neutrophils # (Auto) 7.8 Lymphocytes # (Auto) 0.6 Monocytes # (Auto) 1.2 Eosinophils # (Auto) 0.0 Basophils # (Auto) 0.0 CBC Comment AUTO DIFF Differential Total Cells 100 Counted Neutrophils % (Manual) 64 Band Neutrophils % 17 Lymphocytes % 6 Monocytes % 9 Neutrophils # (Manual) 8.1 Metamyelocytes 1 Myelocytes 3 Nucleated Red Blood Cells 1 Differential Comment FINAL DIFF MANUAL Platelet Estimate LOW Platelet Morphology Comment NORMAL Sodium Level 137 Potassium Level 3.4 Chloride Level 103 Carbon Dioxide Level 24.1 Anion Gap 10 Blood Urea Nitrogen 8 Creatinine 0.80 Estimat Glomerular Filtration 72 Rate Random Glucose 85 Calcium Level 5.3 Protein Corrected Calcium 6.1 Phosphorus Level 1.5 Magnesium Level 1.1 Total Bilirubin 0.4 Aspartate Amino Transf 34 (AST/SGOT) Alanine Aminotransferase 27 (ALT/SGPT) Alkaline Phosphatase 115 Total Protein 5.0 Albumin 2.0 Physical Exam HEENT: Normocephalic; atraumatic; no jaundice. CHEST: CTA CARDIAC: Irregular, rate controlled ABDOMEN: Soft, nondistended, mild epigastric tenderness; no hepatosplenomegaly ; bowel sounds are present in all four quadrants. PEG EXTREMITIES: No clubbing, cyanosis, or edema. SKIN: Normal; no rash; no jaundice. SPECIAL EDUCATION PROFESSIONAL: No focal deficits; alert and oriented times three. (Екатерина Rivas) Assessment and Plan Plan ASSESSMENT: - Severe odynophagia, nausea/vomiting. S/P EGD/PEG (08/20/16), tolerating ok, some nausea and pain, eating small amount by mouth Pt currently receiving chemotherapy for pancreatic cancer (last dose 08/06). Pt has had pain in her esophagus/mouth since last chemotherapy dose. this has progressively worsening since that time and she is now having severe odynophagia- having a hard time taking even liquids. - Pancytopenia, likely secondary to chemotherapy. - Stomatitis. Improving Magic mouthwash. - Metastatic pancreatic cancer. Dx May 2016. A PET scan in June 2016 revealed multiple nodules in the lungs. She is followed by Dr. Coe and has been receiving Abraxane and Gemzar. She last had this on August 06. - Atrial fibrillation with RVR. rate improving - RITCHIE, Hypothyroidism, peripheral neuropathy, CAD, CHF per primary PLAN: - Puree diet as tolerated - TF per dietary recommendation (Glucerna 1.5-goal rate of 60 ml/hr to provide 2160) - Cont. Magic Mouthwash - Cont. PPI - Cont. Carafate - Cont. Diflucan - Gi will sign off, please reconsult as needed - Patient seen and examined by Dr. Berrios and myself and this note is written on his behalf. (Екатерина Rivas) Physician Comments Patient seen and examined Agree with above Continue with current supportive care Monitor labs GI will sign off at this point please reconsult as needed (Anmol Berrios MD) Екатериан Rivas Aug 22, 2016 16:49 Anmol Berrios MD Aug 22, 2016 17:06
--- NOTE | 2016-08-22 17:49 | PD.CARD.PN ---
Subjective Subjective Remarks No CP or SOB, abd pain improving Objective Medications Current Medications Medications (Trade) Dose Ordered Sig/Marilyn Route Start Time Stop Time Status Last Admin Diltiazem HCl 125 mg/Sodium Chloride 125 ml @ 0 mls/hr TITRATE IV 08/16/16 18:15 08/18/16 05:27 (NS 1000 ml Inj) 1,000 ml @ 100 mls/hr Q10H IV 08/16/16 18:23 08/22/16 14:23 (NS Flush) 2 ml UNSCH PRN FLUSH 08/16/16 18:30 08/16/16 23:33 (NS Flush) 2 ml BID FLUSH 08/16/16 21:00 08/22/16 09:54 (Tylenol) 650 mg Q4H PRN PO 08/16/16 18:30 (Compazine Supp) 25 mg Q12H PRN NM 08/16/16 18:30 08/22/16 02:42 (Dulcolax Supp) 10 mg DAILY PRN NM 08/16/16 18:30 (Milk Of Magnesia Liq) 30 ml Q12H PRN PO 08/16/16 18:30 (Senokot) 17.2 mg Q12H PRN PO 08/16/16 18:30 (Cardizem) 30 mg QID PO 08/16/16 21:00 08/22/16 13:30 (D50w (Vial) Inj) 25 ml UNSCH PRN IV PUSH 08/16/16 18:30 (Glucagon Inj) 1 mg UNSCH PRN OTHER 08/16/16 18:30 (Levemir Inj) 30 units HS SQ 08/16/16 21:00 08/21/16 22:33 (Roxicodone) 15 mg Q6H PRN PO 08/16/16 18:45 08/20/16 06:10 ([place] Thyroid) 45 mg BIDAC PO 08/17/16 07:00 08/22/16 05:58 (Dilaudid Pf Inj) 1 mg Q3H PRN IV 08/16/16 20:15 08/22/16 14:52 (Dilaudid) 2 mg Q4H PRN PO 08/16/16 20:15 08/22/16 09:52 (Narcan Inj) 0.4 mg UNSCH PRN IV 08/16/16 20:15 (Magic Mouthwash Adult Liq) 5 ml QID SWISH-SWAL 08/16/16 21:00 08/22/16 13:30 (Protonix Inj) 40 mg Q12HR IV PUSH 08/17/16 12:45 08/22/16 09:53 Sucralfate 1 gm 1 gm ACHS PO 08/17/16 16:00 08/22/16 12:11 (Diflucan 100 Mg Premix Bag) 50 ml @ 50 mls/hr Q24H IV 08/17/16 15:00 08/22/16 14:52 (Zofran Inj) 4 mg Q6H IVP 08/18/16 12:00 08/22/16 12:10 (Tums Chew) 500 mg Q12HR CHEW 08/19/16 09:00 08/22/16 09:51 (Tums Chew) 500 mg Q2H PRN CHEW 08/19/16 07:30 (Mag-Ox) 400 mg BID PO 08/21/16 09:00 08/26/16 08:59 08/22/16 09:52 (Megace Liq) 400 mg DAILY PO 08/22/16 09:00 08/22/16 09:00 (Albumin 25% Inj) 25 gm Q12H IV 08/22/16 11:15 08/22/16 12:11 (Lasix Inj) 40 mg BID@09,18 IV PUSH 08/22/16 18:00 (K-Lyte Cl Eff) 25 meq Q12HR PO 08/22/16 11:15 08/22/16 12:10 Vital Signs / I&O Vital Signs Date Time Temp Pulse Resp B/P Pulse Ox O2 Delivery O2 Flow Rate FiO2 08/22/16 12:25 18 08/22/16 06:00 102 08/22/16 05:00 100 08/22/16 04:00 100 08/22/16 03:00 98.1 117 129/76 100 08/22/16 03:00 123 08/22/16 02:00 112 08/22/16 01:00 96 08/22/16 00:00 112 08/21/16 23:00 110 08/21/16 23:00 98.6 101 145/78 99 08/21/16 22:00 112 08/21/16 21:00 100 08/21/16 20:00 120 08/21/16 19:00 Room Air 08/21/16 19:00 98.4 99 146/83 97 08/21/16 19:00 114 08/21/16 18:00 109 I/O 08/21/16 08/21/16 08/21/16 08/22/16 08/22/16 08/22/16 07:00 15:00 23:00 07:00 15:00 23:00 Intake Total 680 ml 350 ml 1540 ml Output Total 1150 ml 2300 ml Balance -470 ml -1950 ml 1540 ml Intake Oral 480 ml 350 ml 240 ml IV Total 1000 ml Tube Irrigant 200 ml 300 ml Output Urine Total 1150 ml 2300 ml # Bowel Movements 2 Physical Exam GENERAL: SKIN: Warm and dry. HEAD: Normocephalic. EYES: No scleral icterus. No injection or drainage. NECK: Supple, trachea midline. No JVD or lymphadenopathy. CARDIOVASCULAR: iregular rate and rhythm without murmurs, gallops, or rubs. RESPIRATORY: Breath sounds equal bilaterally. No accessory muscle use. GASTROINTESTINAL: Abdomen soft MUSCULOSKELETAL: No cyanosis, mild edema. Laboratory Laboratory Tests Test 08/22/16 10:30 White Blood Count 9.5 TH/MM3 Red Blood Count 2.59 MIL/MM3 Hemoglobin 8.4 GM/DL Hematocrit 24.5 % Mean Corpuscular Volume 94.4 FL Mean Corpuscular Hemoglobin 32.4 PG Mean Corpuscular Hemoglobin 34.4 % Concent Red Cell Distribution Width 14.2 % Platelet Count 147 TH/MM3 Mean Platelet Volume 8.1 FL Neutrophils (%) (Auto) 81.5 % Lymphocytes (%) (Auto) 6.0 % Monocytes (%) (Auto) 12.3 % Eosinophils (%) (Auto) 0.1 % Basophils (%) (Auto) 0.1 % Neutrophils # (Auto) 7.8 TH/MM3 Lymphocytes # (Auto) 0.6 TH/MM3 Monocytes # (Auto) 1.2 TH/MM3 Eosinophils # (Auto) 0.0 TH/MM3 Basophils # (Auto) 0.0 TH/MM3 CBC Comment AUTO DIFF Differential Total Cells 100 Counted Neutrophils % (Manual) 64 % Band Neutrophils % 17 % Lymphocytes % 6 % Monocytes % 9 % Neutrophils # (Manual) 8.1 TH/MM3 Metamyelocytes 1 % Myelocytes 3 % Nucleated Red Blood Cells 1 /100 WBC Differential Comment FINAL DIFF MANUAL Platelet Estimate LOW Platelet Morphology Comment NORMAL Sodium Level 137 MEQ/L Potassium Level 3.4 MEQ/L Chloride Level 103 MEQ/L Carbon Dioxide Level 24.1 MEQ/L Anion Gap 10 MEQ/L Blood Urea Nitrogen 8 MG/DL Creatinine 0.80 MG/DL Estimat Glomerular Filtration 72 ML/MIN Rate Random Glucose 85 MG/DL Calcium Level 5.3 MG/DL Protein Corrected Calcium 6.1 MG/DL Phosphorus Level 1.5 MG/DL Magnesium Level 1.1 MG/DL Total Bilirubin 0.4 MG/DL Aspartate Amino Transf 34 U/L (AST/SGOT) Alanine Aminotransferase 27 U/L (ALT/SGPT) Alkaline Phosphatase 115 U/L Total Protein 5.0 GM/DL Albumin 2.0 GM/DL Assessment and Plan Problem List: (1) Atrial fibrillation with RVR (2) Pancreatic cancer (3) CAD (coronary artery disease) (4) CHF (congestive heart failure) Assessment and Plan A fib rate controlled, continue diltiazem. GI following. Abd pain improving. Continue monitoring on telemetry. Increase activity. Problem Qualifiers (1) CHF (congestive heart failure): iKshore Fiore MD Aug 22, 2016 17:49
[2016-08-22] MEDS: FUROSEMIDE 40 MG/4 ML VIAL IV PUSH SCH (19:10)
[2016-08-22] MEDS: INSULIN DETEMIR 100 UNITS/ML VIAL SQ SCH (21:31)
[2016-08-23] VITALS (29 sets, daily range): BP systolic 111–149; BP diastolic 66–94; PULSE 96–148; RESP 18–28; TEMP 97.8–98.9; O2SAT 95–100
[2016-08-23] MEDS: SODIUM CHLOR 0.9% 1000 ML INJ 1,000 ML IV SCH ×3 (00:23→20:23)
[2016-08-23] MEDS: THYROID 15 MG TAB PO SCH ×2 (05:02→16:19)
[2016-08-23] MEDS: SUCRALFATE 1 GM/10 ML CUP PO SCH ×4 (05:02→20:54)
[2016-08-23] MEDS: ONDANSETRON HCL 4 MG/2 ML VIAL IVP SCH ×3 (05:03→17:53)
[2016-08-23] MEDS: INSULIN ASPART SUPPLEMENTAL SCALE SQ SCH ×4 (05:06→20:54)
[2016-08-23 06:42] LABS: AUTOMATED NEUTROPHIL # 7.8 TH/MM3 (1.8-7.7); BASOPHIL % 0.3 % (0.0-2.0); EOSINOPHIL % 0.1 % (0.0-4.0); HEMATOCRIT 23.1 % (35.0-46.0); LYMPH % 9.4 % (9.0-44.0); LYMPHOCYTE # 0.9 TH/MM3 (1.0-4.8); MEAN CELL VOLUME 94.8 FL (80.0-100.0); MEAN CORPUSCULAR HEMOGLOBIN 32.5 PG (27.0-34.0); MEAN CORPUSCULAR HGB CONC 34.3 % (32.0-36.0); MONO % 11.4 % (0.0-8.0); NEUT % 78.8 % (16.0-70.0); PLATELET COUNT 152 TH/MM3 (150-450); RED BLOOD COUNT 2.44 MIL/MM3 (4.00-5.30); RED CELL DISTRIBUTION WIDTH 14.4 % (11.6-17.2); WHITE BLOOD COUNT 9.9 TH/MM3 (4.0-11.0)
[2016-08-23 06:43] LABS: HEMO FLAGS AUTO DIFF
[2016-08-23] MEDS: HYDROmorphone HCL PF 1 MG/ML VIAL IV PRN ×5 (06:50→19:52)
[2016-08-23 06:56] LABS: BICARBONATE 24.8 MEQ/L (21.0-32.0); POTASSIUM 3.6 MEQ/L (3.5-5.1)
[2016-08-23] MEDS ORDERED: POTASSIUM PHOSPHATE INJ 30 MMOL in SODIUM CHLOR 0.9% 250 ML INJ 250 ML IV ONE (08:00)
[2016-08-23] MEDS: SODIUM CHLORIDE 0.9% FLUSH 5 ML FLUSH FLUSH SCH ×2 (09:00→20:53)
[2016-08-23] MEDS: MAGNESIUM SULFATE 1 GM PREMIX 100 ML IV SCH ×2 (09:00→09:15)
[2016-08-23 09:12] LABS: BANDS 12 % (0-6); EOSINOPHILS 1 % (0-4); METAMYELOCYTES 3 % (0-1); MYELOCYTES 3 % (0-0); NEUTROPHIL # MANUAL DIFF 8.1 TH/MM3 (1.8-7.7); PLATELET ESTIMATE SMEAR NORMAL (NORMAL); PLATELET MORPHOLOGY NORMAL (NORMAL); POLYS (SEG NEUTROPHILS) 64 % (16-70); SCAN/DIFF FINAL DIFF MANUAL; WBC DIFF SAMPLE 100
[2016-08-23] MEDS: FUROSEMIDE 40 MG/4 ML VIAL IV PUSH SCH ×2 (09:16→17:52)
[2016-08-23] MEDS: MEGESTROL ACETATE SUSP 400 MG/10 ML CUP PO SCH (09:17)
[2016-08-23] MEDS: PANTOPRAZOLE SODIUM 40 MG VIAL IV PUSH SCH ×2 (09:17→20:54)
[2016-08-23] MEDS: POTASSIUM CHLORIDE 25 MEQ EFFERVESCENT TAB PO SCH ×2 (09:17→20:55)
[2016-08-23] MEDS: MAGNESIUM OXIDE 400 MG TAB PO SCH ×2 (09:17→20:55)
[2016-08-23] MEDS: DILTIAZEM HCL 30 MG TAB PO SCH (09:17)
[2016-08-23] MEDS: CALCIUM CARBONATE 500 MG CHEWABLE TAB CHEW SCH ×2 (09:17→20:55)
[2016-08-23] MEDS: NYSTAT/DIPHENHY/LIDO MOUTHWASH (Adult) 120ML SWISH-SWAL SCH ×4 (09:18→20:54)
--- NOTE | 2016-08-23 12:23 | PD.ONC.PN ---
Subjective Subjective Remarks Afebrile overnight. Patient had tube feeds started yesterday. This am she vomited some of her tube feeds, but states she feels a bit better now, and is tolerating the tube feeds at 40cc/hr. Objective Data Date Time Temp Pulse Resp B/P Pulse Ox O2 Delivery O2 Flow Rate FiO2 08/23/16 10:00 118 08/23/16 09:00 106 08/23/16 08:15 98 08/23/16 07:45 135 08/23/16 07:45 99 Room Air 08/23/16 07:45 98.7 133 18 136/87 99 08/23/16 07:20 18 08/23/16 06:00 139 08/23/16 05:00 148 08/23/16 04:00 98.9 132 20 121/84 96 08/23/16 04:00 Room Air 08/23/16 04:00 135 08/23/16 03:00 116 08/23/16 02:00 120 08/23/16 01:00 136 08/23/16 00:00 Room Air 08/23/16 00:00 98.6 120 20 129/78 100 08/23/16 00:00 128 08/22/16 23:00 104 08/22/16 22:32 20 08/22/16 22:00 130 08/22/16 21:00 118 08/22/16 20:00 98.6 128 20 128/78 98 08/22/16 20:00 Room Air 08/22/16 20:00 131 08/22/16 19:00 124 08/22/16 18:11 106 08/22/16 17:00 116 08/22/16 16:40 98.6 127 18 128/76 100 08/22/16 16:40 119 08/23/16 08/23/16 08/23/16 06:59 14:59 22:59 Intake Total 2370 ml Output Total 1200 ml 550 ml Balance 1170 ml -550 ml Result Diagram: 08/23/160 08/23/16 0440 Laboratory Results Laboratory Tests Test 08/23/16 08/23/16 04:40 08:55 White Blood Count 9.9 TH/MM3 Red Blood Count 2.44 MIL/MM3 Hemoglobin 7.9 GM/DL Hematocrit 23.1 % Mean Corpuscular Volume 94.8 FL Mean Corpuscular Hemoglobin 32.5 PG Mean Corpuscular Hemoglobin 34.3 % Concent Red Cell Distribution Width 14.4 % Platelet Count 152 TH/MM3 Mean Platelet Volume 8.1 FL Neutrophils (%) (Auto) 78.8 % Lymphocytes (%) (Auto) 9.4 % Monocytes (%) (Auto) 11.4 % Eosinophils (%) (Auto) 0.1 % Basophils (%) (Auto) 0.3 % Neutrophils # (Auto) 7.8 TH/MM3 Lymphocytes # (Auto) 0.9 TH/MM3 Monocytes # (Auto) 1.1 TH/MM3 Eosinophils # (Auto) 0.0 TH/MM3 Basophils # (Auto) 0.0 TH/MM3 CBC Comment AUTO DIFF Differential Total Cells 100 Counted Neutrophils % (Manual) 64 % Band Neutrophils % 12 % Lymphocytes % 8 % Monocytes % 9 % Eosinophils % 1 % Neutrophils # (Manual) 8.1 TH/MM3 Metamyelocytes 3 % Myelocytes 3 % Differential Comment FINAL DIFF MANUAL Platelet Estimate NORMAL Platelet Morphology Comment NORMAL Red Cell Morphology Comment NORMAL Sodium Level 139 MEQ/L Potassium Level 3.6 MEQ/L Chloride Level 106 MEQ/L Carbon Dioxide Level 24.8 MEQ/L Anion Gap 8 MEQ/L Blood Urea Nitrogen 9 MG/DL Creatinine 0.80 MG/DL Estimat Glomerular Filtration 72 ML/MIN Rate Random Glucose 46 MG/DL Calcium Level 5.2 MG/DL Protein Corrected Calcium 6.0 MG/DL Phosphorus Level 1.3 MG/DL Magnesium Level 1.0 MG/DL Total Protein 5.1 GM/DL Blood Type O POSITIVE Antibody Screen NEGATIVE Crossmatch Leukocyte-Reduced Red Blood Cells Blood Bank Comment Administered Medications Medications (Trade) Dose Ordered Sig/Marilyn Route PRN Reason Start Time Stop Time Status Last Admin Dose Admin Diltiazem HCl 125 mg/Sodium Chloride 125 ml @ 0 mls/hr TITRATE IV 08/16/16 18:15 08/18/16 05:27 Sodium Chloride (NS 1000 ml Inj) 1,000 ml @ 100 mls/hr Q10H IV 08/16/16 18:23 08/23/16 10:23 IV Flush (NS Flush) 2 ml UNSCH PRN FLUSH FLUSH AFTER USING IV ACCESS 08/16/16 18:30 08/16/16 23:33 IV Flush (NS Flush) 2 ml BID FLUSH 08/16/16 21:00 08/23/16 09:00 Prochlorperazine (Compazine Supp) 25 mg Q12H PRN TN NAUSEA OR VOMITING 08/16/16 18:30 08/22/16 02:42 Diltiazem HCl (Cardizem) 30 mg QID PO 08/16/16 21:00 08/23/16 09:17 Dextrose (D50w (Vial) Inj) 25 ml UNSCH PRN IV PUSH HYPOGLYCEMIA-SEE COMMENTS 08/16/16 18:30 08/23/16 05:03 Insulin Detemir (Levemir Inj) 30 units HS SQ 08/16/16 21:00 08/22/16 21:31 Oxycodone HCl (Roxicodone) 15 mg Q6H PRN PO PAIN 1-5 08/16/16 18:45 08/20/16 06:10 Thyroid ([place] Thyroid) 45 mg BIDAC PO 08/17/16 07:00 08/23/16 05:02 Hydromorphone HCl (Dilaudid Pf Inj) 1 mg Q3H PRN IV BREAKTHROUGH PAIN 08/16/16 20:15 08/23/16 09:24 Hydromorphone HCl (Dilaudid) 2 mg Q4H PRN PO PAIN SCALE 6 TO 10 08/16/16 20:15 08/22/16 21:32 Multi-Ingredient Mouthwash/Gargle (Magic Mouthwash Adult Liq) 5 ml QID SWISH-SWAL 08/16/16 21:00 08/23/16 09:18 Pantoprazole Sodium (Protonix Inj) 40 mg Q12HR IV PUSH 08/17/16 12:45 08/23/16 09:17 Sucralfate 1 gm 1 gm ACHS PO 08/17/16 16:00 08/23/16 05:02 Fluconazole/ Sodium Chloride (Diflucan 100 Mg Premix Bag) 50 ml @ 50 mls/hr Q24H IV 08/17/16 15:00 08/22/16 14:52 Ondansetron HCl (Zofran Inj) 4 mg Q6H IVP 08/18/16 12:00 08/23/16 05:03 Calcium Carbonate (Tums Chew) 500 mg Q12HR CHEW 08/19/16 09:00 08/23/16 09:17 Magnesium Oxide (Mag-Ox) 400 mg BID PO 08/21/16 09:00 08/26/16 08:59 08/23/16 09:17 Megestrol Acetate (Megace Liq) 400 mg DAILY PO 08/22/16 09:00 08/23/16 09:17 Albumin Human (Albumin 25% Inj) 25 gm Q12H IV 08/22/16 11:15 08/22/16 23:39 Furosemide (Lasix Inj) 40 mg BID@,18 IV PUSH 08/22/16 18:00 08/23/16 09:16 Potassium Bicarb/ Potassium Chloride 25 meq 25 meq Q12HR PO 08/22/16 11:15 08/23/16 09:17 Potassium Phosphate/Sodium Chloride (Potassium Phosphate Inj/NS 250 ml Inj) 260 ml @ 43.333 mls/ hr ONCE ONCE IV 08/23/16 08:00 08/23/16 13:59 08/23/16 11:06 Objective Remarks GENERAL: Middle aged female, sitting up in bed in [facility]. SKIN: Warm and dry. HEAD: Normocephalic. EYES: No injection or drainage. NECK: Supple, trachea midline. CARDIOVASCULAR: +S1/S2 RESPIRATORY: Breath sounds equal bilaterally. No accessory muscle use. GASTROINTESTINAL: Abdomen mildly distended. receiving TF @ 40cc/hour EXTREMITIES: No cyanosis MUSCULOSKELETAL: Adequate muscle tone. NEUROLOGICAL: awake and alert, normal speech. Assessment/Plan Problem List: (1) Pancreatic cancer Status: Acute Plan: --diagnosed with unresectable pancreatic adenocarcinoma in late 2015. --PET CT scan showed locally advanced disease with adenopathy in the retroperitoneum, focal uptake in the liver as well as some suspicious appearing nodes in the lung. --recently completed cycle one of Gemzar and Abraxane on 08/15/16 (2) Atrial fibrillation with RVR Status: Acute Plan: -- On PO Cardizem -- Cardiology following (3) Dysphagia Status: Acute Plan: -- Able to eat thickened/ pureed foods. -- s/p G-J tube placement 08/20--currently on Glucerna 1.5-goal @ 40cc/hour Assessment 65-year-old female with unresectable pancreatic cancer admitted for dehydration , weakness and nausea/vomiting. Plan 1. continue tube feeds 2. supportive care Attending Statement The exam, history, and the medical decision-making described in the above note were completed with the assistance of the mid-level provider. I reviewed and agree with the findings presented. I attest that I had a [id number] encounter with the patient on the same day, and personally performed and documented my assessment and findings in the medical record. C/o pain around the PEG site Acute Anemia/weakness: Transfuse 2 units of pRBC Hyomagnesemia/Hypophosphatemia: replace Mag and Phos Hypocalcemia: replace calcium Afib with rate in the 120s today: inform cardiology and adjust Cardizem. O2 sats ok/no dyspnea. consider CTA to r/o PTE which could be driving Afib with RVR. get doppler U/S LE Transition to Oral pain meds d/w Marilynn Patiño Aug 23, 2016 12:20 Mauricio Coe MD Aug 23, 2016 21:13
[2016-08-23] MEDS ORDERED: DILTIAZEM HCL 30 MG TAB PO SCH (13:00)
[2016-08-23] MEDS: ALBUMIN HUMAN 25% 25 GM/100 ML BAGP IV SCH ×2 (13:08→23:35)
[2016-08-23] MEDS: SODIUM CHLORIDE 0.9% FLUSH 5 ML FLUSH FLUSH PRN ×2 (13:09→17:53)
--- NOTE | 2016-08-23 15:06 | HHI.PR ---
Subjective Remarks Follow up for dysphagia, atrial fibrillation with RVR, pancreatic cancer. Patient is currently doing well. Tolerating PEG tube feeds well. No fever or chills. Her heart rate continues to be above 100. Denies any chest pain, shortness of breath. Objective Vitals Vital Signs Date Time Temp Pulse Resp B/P Pulse Ox O2 Delivery O2 Flow Rate FiO2 08/23/16 14:09 119 08/23/16 13:30 97.9 128 18 111/72 97 08/23/16 13:29 118 08/23/16 13:24 18 08/23/16 13:24 18 08/23/16 12:31 97.8 133 18 130/83 98 08/23/16 12:30 143 08/23/16 12:16 98.1 128 18 117/66 99 08/23/16 11:25 137 08/23/16 11:25 98.9 145 18 116/66 95 08/23/16 10:00 118 08/23/16 09:00 106 08/23/16 08:15 98 08/23/16 07:45 135 08/23/16 07:45 99 Room Air 08/23/16 07:45 98.7 133 18 136/87 99 08/23/16 06:00 139 08/23/16 05:00 148 08/23/16 04:00 98.9 132 20 121/84 96 08/23/16 04:00 Room Air 08/23/16 04:00 135 08/23/16 03:00 116 08/23/16 02:00 120 08/23/16 01:00 136 08/23/16 00:00 Room Air 08/23/16 00:00 98.6 120 20 129/78 100 08/23/16 00:00 128 08/22/16 23:00 104 08/22/16 22:32 20 08/22/16 22:00 130 08/22/16 21:00 118 08/22/16 20:00 98.6 128 20 128/78 98 08/22/16 20:00 Room Air 08/22/16 20:00 131 08/22/16 19:00 124 08/22/16 18:11 106 08/22/16 17:00 116 08/22/16 16:40 98.6 127 18 128/76 100 08/22/16 16:40 119 I/O 08/22/16 08/22/16 08/22/16 08/23/16 08/23/16 08/23/16 07:00 15:00 23:00 07:00 15:00 23:00 Intake Total 1540 ml 720 ml 2370 ml Output Total 0 ml 1200 ml 550 ml Balance 1540 ml 720 ml 1170 ml -550 ml Intake Oral 240 ml 720 ml 720 ml IV Total 1000 ml 1200 ml Tube Feeding 400 ml Tube Irrigant 300 ml 50 ml Output Urine Total 1200 ml Emesis 550 ml Tube Feeding Residual Discard 0 ml # Voids 3 3 # Bowel Movements 2 2 0 Result Diagram: 08/23/1643908/23/16439 Objective Remarks GENERAL: Alert, oriented 3, NAD. SKIN: Warm and dry. HEAD: Normocephalic. EYES: No scleral icterus. No injection or drainage. NECK: Supple, trachea midline. No JVD or lymphadenopathy. CARDIOVASCULAR: Regular rate and rhythm without murmurs, gallops, or rubs. RESPIRATORY: Breath sounds equal bilaterally. No accessory muscle use. GASTROINTESTINAL: Abdomen soft, somewhat tender to palpation on the upper left quadrant, nondistended. MUSCULOSKELETAL: No cyanosis. 2+ edema in lower extremities. BACK: Nontender without obvious deformity. No CVA tenderness. Procedures S/p EGD and GJ tube placement by Dr Berrios 08/20 A/P Assessment and Plan Ms. Concepcion is a 65-year-old female with a history of unresectable pancreatic cancer who presented to the emergency department on 08/16/2016 with generalized weakness and dysphagia. She complained off intractable nausea and vomiting. She was found to have atrial fibrillation with RVR in the emergency department. - Pancreatic cancer, unresectable - Intractable nausea and vomiting - Dysphagia - Failure to thrive - s/p G-J tube placement 08/20--currently on Glucerna 1.5-goal @ 40cc/hour. - Oncology following. - Discussed with patient about hospice, palliative care. 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 At this point, she is not ready to discuss hospice. - Atrial fibrillation with RVR - [id number] score 3 (female, age 65, DM). - Continue Cardizem drip and Cardizem 60 mg every 6 hours. We'll try to wean off Cardizem drip. - Start metoprolol 25 mg twice a day. - Patient needs anticoagulation. Patient's platelet count has improved from 42K on 08/16/2016 to 152K on 08/23/2016. - Will discuss with patient as well as cardiology regarding anticoagulation. Apixaban 5 mg twice a day would be an option. - Acute kidney injury - improved Creatinine 1.35 --> 0.80. - Diabetes mellitus - Currently on Levemir 30 units daily at bedtime, sliding scale insulin. - Patient's blood glucose has been mostly below 100 in the last 24 hours. - Reduce Levemir to 20 units daily at bedtime. - Hypothyroidism - continue [place] thyroid 45 mg by mouth twice a day. Full code. SCDs. Ana Le DO Aug 23, 2016 3:05 pm
--- NOTE | 2016-08-23 15:08 | PD.CARD.PN ---
Subjective Subjective Remarks No CP or SOB, still c/o abd pain Objective Medications Current Medications Medications (Trade) Dose Ordered Sig/Marilyn Route Start Time Stop Time Status Last Admin Diltiazem HCl 125 mg/Sodium Chloride 125 ml @ 0 mls/hr TITRATE IV 08/16/16 18:15 08/18/16 05:27 (NS 1000 ml Inj) 1,000 ml @ 100 mls/hr Q10H IV 08/16/16 18:23 08/23/16 10:23 (NS Flush) 2 ml UNSCH PRN FLUSH 08/16/16 18:30 08/23/16 13:09 (NS Flush) 2 ml BID FLUSH 08/16/16 21:00 08/23/16 09:00 (Tylenol) 650 mg Q4H PRN PO 08/16/16 18:30 08/23/16 12:13 (Compazine Supp) 25 mg Q12H PRN ME 08/16/16 18:30 08/22/16 02:42 (Dulcolax Supp) 10 mg DAILY PRN ME 08/16/16 18:30 (Milk Of Magnesia Liq) 30 ml Q12H PRN PO 08/16/16 18:30 (Senokot) 17.2 mg Q12H PRN PO 08/16/16 18:30 (D50w (Vial) Inj) 25 ml UNSCH PRN IV PUSH 08/16/16 18:30 08/23/16 05:03 (Glucagon Inj) 1 mg UNSCH PRN OTHER 08/16/16 18:30 (Levemir Inj) 30 units HS SQ 08/16/16 21:00 08/22/16 21:31 (Roxicodone) 15 mg Q6H PRN PO 08/16/16 18:45 08/20/16 06:10 ([place] Thyroid) 45 mg BIDAC PO 08/17/16 07:00 08/23/16 05:02 (Dilaudid Pf Inj) 1 mg Q3H PRN IV 08/16/16 20:15 08/23/16 13:09 (Dilaudid) 2 mg Q4H PRN PO 08/16/16 20:15 08/22/16 21:32 (Narcan Inj) 0.4 mg UNSCH PRN IV 2/23/17 20:15 (Magic Mouthwash Adult Liq) 5 ml QID SWISH-SWAL 08/16/16 21:00 08/23/16 13:07 (Protonix Inj) 40 mg Q12HR IV PUSH 08/17/16 12:45 08/23/16 09:17 Sucralfate 1 gm 1 gm ACHS PO 08/17/16 16:00 08/23/16 13:08 (Diflucan 100 Mg Premix Bag) 50 ml @ 50 mls/hr Q24H IV 08/17/16 15:00 08/22/16 14:52 (Zofran Inj) 4 mg Q6H IVP 08/18/16 12:00 08/23/16 13:08 (Tums Chew) 500 mg Q12HR CHEW 08/19/16 09:00 08/23/16 09:17 (Tums Chew) 500 mg Q2H PRN CHEW 08/19/16 07:30 (Mag-Ox) 400 mg BID PO 08/21/16 09:00 08/26/16 08:59 08/23/16 09:17 (Megace Liq) 400 mg DAILY PO 08/22/16 09:00 08/23/16 09:17 (Albumin 25% Inj) 25 gm Q12H IV 08/22/16 11:15 08/23/16 13:08 (Lasix Inj) 40 mg BID@09,18 IV PUSH 08/22/16 18:00 08/23/16 09:16 (K-Lyte Cl Eff) 25 meq Q12HR PO 08/22/16 11:15 08/23/16 09:17 (Cardizem) 60 mg Q6HR PO 08/23/16 18:00 (Lopressor) 25 mg Q12HR PEG 08/23/16 21:00 Vital Signs / I&O Vital Signs Date Time Temp Pulse Resp B/P Pulse Ox O2 Delivery O2 Flow Rate FiO2 08/23/16 14:09 119 08/23/16 13:30 97.9 128 18 111/72 97 08/23/16 13:29 118 08/23/16 13:24 18 08/23/16 13:24 18 08/23/16 12:31 97.8 133 18 130/83 98 08/23/16 12:30 143 08/23/16 12:16 98.1 128 18 117/66 99 08/23/16 11:25 137 08/23/16 11:25 98.9 145 18 116/66 95 08/23/16 10:00 118 08/23/16 09:00 106 08/23/16 08:15 98 08/23/16 07:45 135 08/23/16 07:45 99 Room Air 08/23/16 07:45 98.7 133 18 136/87 99 08/23/16 06:00 139 08/23/16 05:00 148 08/23/16 04:00 98.9 132 20 121/84 96 08/23/16 04:00 Room Air 08/23/16 04:00 135 08/23/16 03:00 116 08/23/16 02:00 120 08/23/16 01:00 136 08/23/16 00:00 Room Air 08/23/16 00:00 98.6 120 20 129/78 100 08/23/16 00:00 128 08/22/16 23:00 104 08/22/16 22:32 20 08/22/16 22:00 130 08/22/16 21:00 118 08/22/16 20:00 98.6 128 20 128/78 98 08/22/16 20:00 Room Air 08/22/16 20:00 131 08/22/16 19:00 124 08/22/16 18:11 106 08/22/16 17:00 116 08/22/16 16:40 98.6 127 18 128/76 100 08/22/16 16:40 119 I/O 08/22/16 08/22/16 08/22/16 08/23/16 08/23/16 08/23/16 07:00 15:00 23:00 07:00 15:00 23:00 Intake Total 1540 ml 720 ml 2370 ml Output Total 0 ml 1200 ml 550 ml Balance 1540 ml 720 ml 1170 ml -550 ml Intake Oral 240 ml 720 ml 720 ml IV Total 1000 ml 1200 ml Tube Feeding 400 ml Tube Irrigant 300 ml 50 ml Output Urine Total 1200 ml Emesis 550 ml Tube Feeding Residual Discard 0 ml # Voids 3 3 # Bowel Movements 2 2 0 Physical Exam GENERAL: SKIN: Warm and dry. HEAD: Normocephalic. EYES: No scleral icterus. No injection or drainage. NECK: Supple, trachea midline. No JVD or lymphadenopathy. CARDIOVASCULAR: irregular rate and rhythm without murmurs, gallops, or rubs. RESPIRATORY: Breath sounds equal bilaterally. No accessory muscle use. GASTROINTESTINAL: Abdomen soft MUSCULOSKELETAL: No cyanosis, mild edema. Laboratory Laboratory Tests Test 08/23/16 08/23/16 04:40 08:55 White Blood Count 9.9 TH/MM3 Red Blood Count 2.44 MIL/MM3 Hemoglobin 7.9 GM/DL Hematocrit 23.1 % Mean Corpuscular Volume 94.8 FL Mean Corpuscular Hemoglobin 32.5 PG Mean Corpuscular Hemoglobin 34.3 % Concent Red Cell Distribution Width 14.4 % Platelet Count 152 TH/MM3 Mean Platelet Volume 8.1 FL Neutrophils (%) (Auto) 78.8 % Lymphocytes (%) (Auto) 9.4 % Monocytes (%) (Auto) 11.4 % Eosinophils (%) (Auto) 0.1 % Basophils (%) (Auto) 0.3 % Neutrophils # (Auto) 7.8 TH/MM3 Lymphocytes # (Auto) 0.9 TH/MM3 Monocytes # (Auto) 1.1 TH/MM3 Eosinophils # (Auto) 0.0 TH/MM3 Basophils # (Auto) 0.0 TH/MM3 CBC Comment AUTO DIFF Differential Total Cells 100 Counted Neutrophils % (Manual) 64 % Band Neutrophils % 12 % Lymphocytes % 8 % Monocytes % 9 % Eosinophils % 1 % Neutrophils # (Manual) 8.1 TH/MM3 Metamyelocytes 3 % Myelocytes 3 % Differential Comment FINAL DIFF MANUAL Platelet Estimate NORMAL Platelet Morphology Comment NORMAL Red Cell Morphology Comment NORMAL Sodium Level 139 MEQ/L Potassium Level 3.6 MEQ/L Chloride Level 106 MEQ/L Carbon Dioxide Level 24.8 MEQ/L Anion Gap 8 MEQ/L Blood Urea Nitrogen 9 MG/DL Creatinine 0.80 MG/DL Estimat Glomerular Filtration 72 ML/MIN Rate Random Glucose 46 MG/DL Calcium Level 5.2 MG/DL Protein Corrected Calcium 6.0 MG/DL Phosphorus Level 1.3 MG/DL Magnesium Level 1.0 MG/DL Total Protein 5.1 GM/DL Blood Type O POSITIVE Antibody Screen NEGATIVE Crossmatch Leukocyte-Reduced Red Blood Cells Blood Bank Comment Assessment and Plan Problem List: (1) Atrial fibrillation with RVR (2) Pancreatic cancer (3) CAD (coronary artery disease) (4) CHF (congestive heart failure) Assessment and Plan A fib rate increased, increase PO diltiazem and titrate, wean off IV diltiazem. GI following. Abdominal pain improving, PEG in place. Continue monitoring on telemetry. Increase activity. Problem Qualifiers (1) CHF (congestive heart failure): Kishore Fiore MD Aug 23, 2016 15:08
[2016-08-23] MEDS: FLUCONAZOLE 100 MG PREMIX BAG 50 ML IV SCH (15:42)
[2016-08-23] MEDS: DILTIAZEM HCL 60 MG TAB PO SCH (17:52)
[2016-08-23] MEDS: METOPROLOL TARTRATE 25 MG TAB PEG SCH (20:56)
[2016-08-23] MEDS ORDERED: INSULIN DETEMIR 100 UNITS/ML VIAL SQ SCH (21:00)
[2016-08-23] MEDS ORDERED: CALCIUM CHLORIDE INJ 1 GM in DEXTROSE 5% IN WATER 100ML INJ 100 ML IV ONE ×2 (22:00)
[2016-08-23] MEDS ORDERED: POTASSIUM CHLORIDE 25 MEQ EFFERVESCENT TAB PO ONE (22:15)
[2016-08-23] MEDS ORDERED: FUROSEMIDE 40 MG/4 ML VIAL IV PUSH ONE (22:15)
[2016-08-24] VITALS (15 sets, daily range): BP systolic 108–129; BP diastolic 55–85; PULSE 79–118; RESP 18–20; TEMP 97.9–98.7; O2SAT 95–96
[2016-08-24] MEDS: ONDANSETRON HCL 4 MG/2 ML VIAL IVP SCH ×3 (00:18→10:55)
[2016-08-24] MEDS: DILTIAZEM HCL 60 MG TAB PO SCH ×3 (00:18→10:55)
[2016-08-24] MEDS ORDERED: ENOXAPARIN SODIUM 80 MG/0.8 ML SYRINGE SQ ONE (00:30)
--- NOTE | 2016-08-24 00:34 | RADRPT ---
EXAM DATE/TIME: 08/24/2016 00:19 [facility] COMPARISON: CHEST SINGLE AP, August 02, 2016, 10:08. INDICATIONS : Shortness of breath. MEDICAL HISTORY : Hypermetabolic liver mass. SURGICAL HISTORY : None. ENCOUNTER: Initial ACUITY: 1 day PAIN SCORE: 0/10 LOCATION: Bilateral chest FINDINGS: Diffuse parenchymal opacity present, mainly on the right. Cardiac contours are grossly stable with fatoumata rderline heart size. CONCLUSION: Diffuse right lung infiltrate Jono Torres MD on August 24, 2016 at 0:32 Board Certified Radiologist. This report was verified electronically.
[2016-08-24] MEDS: HYDROmorphone HCL PF 1 MG/ML VIAL IV PRN ×6 (00:39→16:39)
[2016-08-24 01:42] LABS: AUTOMATED NEUTROPHIL # 13.1 TH/MM3 (1.8-7.7); BASOPHIL % 0.3 % (0.0-2.0); HEMATOCRIT 31.9 % (35.0-46.0); LYMPH % 6.2 % (9.0-44.0); LYMPHOCYTE # 0.9 TH/MM3 (1.0-4.8); MEAN CELL VOLUME 90.6 FL (80.0-100.0); MEAN CORPUSCULAR HEMOGLOBIN 30.3 PG (27.0-34.0); MEAN CORPUSCULAR HGB CONC 33.4 % (32.0-36.0); MONO % 5.5 % (0.0-8.0); PLATELET COUNT 172 TH/MM3 (150-450); RED BLOOD COUNT 3.52 MIL/MM3 (4.00-5.30); RED CELL DISTRIBUTION WIDTH 16.9 % (11.6-17.2); WHITE BLOOD COUNT 14.9 TH/MM3 (4.0-11.0)
[2016-08-24 01:43] LABS: HEMO FLAGS AUTO DIFF
[2016-08-24 02:08] LABS: BICARBONATE 27.2 MEQ/L (21.0-32.0); POTASSIUM 4.7 MEQ/L (3.5-5.1); TOTAL BILIRUBIN ADULT 0.7 MG/DL (0.2-1.0)
[2016-08-24 02:13] LABS: CALCIUM-PROTEIN CORRECTED 7.3 MG/DL (8.5-10.1)
[2016-08-24] MEDS ORDERED: LEVOFLOXACIN ORAL SOLN 2500 MG/100 ML BOTTLE TUBE ONE (02:15)
[2016-08-24 02:21] LABS: PLATELET ESTIMATE SMEAR NORMAL (NORMAL); PLATELET MORPHOLOGY NORMAL (NORMAL); SCAN/DIFF AUTO DIFF CONFIRMED
[2016-08-24 02:22] LABS: TOXIC GRANULATION 1+ (NORMAL)
[2016-08-24] MEDS ORDERED: CALCIUM GLUCONATE 10% 1 GM/10 ML VIAL IV PUSH ONE (04:30)
[2016-08-24 04:50] LABS: MAGNESIUM 1.4 MG/DL (1.5-2.5)
[2016-08-24] MEDS ORDERED: CALCIUM GLUCONATE INJ 2 GM in DEXTROSE 5% IN WATER 100ML INJ 100 ML IV ONE ×2 (05:00)
[2016-08-24] MEDS: INSULIN ASPART SUPPLEMENTAL SCALE SQ SCH ×3 (06:38→16:06)
[2016-08-24] MEDS: THYROID 15 MG TAB PO SCH ×2 (06:38→15:33)
[2016-08-24] MEDS: SUCRALFATE 1 GM/10 ML CUP PO SCH ×3 (06:38→15:23)
[2016-08-24] MEDS ORDERED: MAGNESIUM SULFATE 1 GM PREMIX 100 ML IV ONE (08:00)
[2016-08-24] MEDS: MEGESTROL ACETATE SUSP 400 MG/10 ML CUP PO SCH (08:37)
[2016-08-24] MEDS: CALCIUM CARBONATE 500 MG CHEWABLE TAB CHEW SCH (08:38)
[2016-08-24] MEDS: MAGNESIUM OXIDE 400 MG TAB PO SCH (08:38)
[2016-08-24] MEDS: POTASSIUM CHLORIDE 25 MEQ EFFERVESCENT TAB PO SCH (08:38)
[2016-08-24] MEDS: PANTOPRAZOLE SODIUM 40 MG VIAL IV PUSH SCH (08:39)
[2016-08-24] MEDS: SODIUM CHLORIDE 0.9% FLUSH 5 ML FLUSH FLUSH SCH (08:40)
[2016-08-24] MEDS: FUROSEMIDE 40 MG/4 ML VIAL IV PUSH SCH (08:40)
[2016-08-24] MEDS: NYSTAT/DIPHENHY/LIDO MOUTHWASH (Adult) 120ML SWISH-SWAL SCH ×2 (08:42→13:00)
[2016-08-24] MEDS: METOPROLOL TARTRATE 25 MG TAB PEG SCH (08:55)
[2016-08-24] MEDS ORDERED: LEVOFLOXACIN ORAL SOLN 2500 MG/100 ML BOTTLE TUBE SCH (09:00)
[2016-08-24] MEDS: HYDROmorphone HCL 2 MG TAB PO PRN ×2 (10:55→15:53)
[2016-08-24] MEDS: ALBUMIN HUMAN 25% 25 GM/100 ML BAGP IV SCH (11:06)
--- NOTE | 2016-08-24 13:06 | RADRPT ---
EXAM DATE/TIME: 08/24/2016 11:32 [facility] COMPARISON: No previous studies available for comparison. INDICATIONS : Bilateral leg swelling. MEDICAL HISTORY : Carcinoma, pancreas. Myocardial infarction. Hypercholesterolemia. Squamous cell carcinoma. CHF. Thyr oid disease. Odynophagia. Chest pain. Afib. HTN. Dyspnea. Ulcer. GERD. Chronic renal disease. Diabete s. Anxiety. SURGICAL HISTORY : Coronary artery stent.Tonsillectomy. Hysterectomy.Appendectomy. Angioplasty. Atherectomy. Thyroidecto my. Adenoidectomy. Chemotherapy. Blood transfusions. ENCOUNTER: Initial ACUITY: 1 day PAIN SCORE: 7/10 LOCATION: Bilateral leg. TECHNIQUE: Venous ultrasound of the left and right leg was performed from the inguinal ligament to the proximal calf. Real-time, color Doppler and spectral tracing, compression and augmentation techniques were us ed. FINDINGS: RIGHT LEG: There is normal compressibility of the deep venous system from the inguinal region to the proximal ca lf. No echogenic clot is seen in the lumen of the common femoral, femoral, popliteal, and posterior tibial veins. There is a normal response of the venous system to proximal and distal augmentation an d respiration. LEFT LEG: There is normal compressibility of the deep venous system from the inguinal region to the proximal ca lf. No echogenic clot is seen in the lumen of the common femoral, femoral, popliteal, and posterior tibial veins. There is a normal response of the venous system to proximal and distal augmentation an d respiration. CONCLUSION: Negative for deep venous thrombosis. Enzo Richmond MD FACR on August 24, 2016 at 12:55 Board Certified Radiologist. This report was verified electronically.
--- NOTE | 2016-08-24 13:29 | HHI.FF ---
Face to Face Verification Diagnosis: (1) Pancreatic cancer (2) Atrial fibrillation with RVR (3) CHF (congestive heart failure) Physical Therapy Order: Evaluate and Treat, Improve ambulation, Strength and gait training Home Health Nursing Order: Signs/symptoms of disease process CHF education Medication education-adverse effect Nursing assessment with vital signs I have seen patient Olesya Concepcion on 08/24/16. My clinical findings support the need for the requested home health care services because: Patient has SOB Deconditioned w/ increased weakness Limited ability to care for self Need for psychosocial assistance High risk of falls Infection w/ risk of complications I certify that my clinical findings support that this patient is homebound because: Impaired cognitive ability/safety Unsteady gait/balance Unsafe to leave home unassisted Need for psychosocial assistance Unable to use public transportation Ana Le DO Aug 24, 2016 1:29 pm
--- NOTE | 2016-08-24 13:33 | PD.ONC.PN ---
Subjective Subjective Remarks Afebrile overnight. Pt sitting up on side of bed eating lunch. She states she just filled out paperwork for some home health. She is asking about going home. Per RN her heart rate has been controlled in the 80's today. Objective Data Date Time Temp Pulse Resp B/P Pulse Ox O2 Delivery O2 Flow Rate FiO2 08/24/16 13:00 85 08/24/16 12:03 96 08/24/16 11:54 18 08/24/16 11:54 18 08/24/16 11:00 82 08/24/16 11:00 98.0 89 18 115/55 96 08/24/16 10:08 83 08/24/16 08:15 96 08/24/16 08:15 98.5 96 18 127/83 96 08/24/16 08:15 88 08/24/16 06:00 82 08/24/16 05:00 91 08/24/16 04:00 96 08/24/16 03:00 110 08/24/16 03:00 98.7 108 20 129/85 95 08/24/16 02:00 108 08/24/16 01:00 118 08/24/16 00:00 118 08/23/16 23:00 120 08/23/16 23:00 99 Nasal Cannula 2.00 08/23/16 23:00 97.8 114 28 149/94 99 08/23/16 22:00 116 08/23/16 21:00 112 08/23/16 20:00 98.3 106 20 132/87 96 08/23/16 20:00 112 08/23/16 20:00 96 Room Air 08/23/16 19:00 102 08/23/16 18:05 98.3 96 18 117/79 97 08/23/16 18:03 100 08/23/16 17:11 114 08/23/16 16:10 98.2 98 18 126/78 99 08/23/16 15:48 98.8 104 20 126/78 97 08/23/16 15:48 104 08/23/16 15:43 98.8 104 18 126/78 97 08/23/16 14:09 119 08/23/16 13:30 97.9 128 18 111/72 97 08/23/16 13:29 118 08/23/16 13:24 18 Result Diagram: 08/24/16 0120 08/24/16 0120 Laboratory Results Laboratory Tests Test 08/23/16 08/24/16 22:36 01:20 D-Dimer Quantitative (PE/DVT) 2.44 MG/L FEU White Blood Count 14.9 TH/MM3 Red Blood Count 3.52 MIL/MM3 Hemoglobin 10.7 GM/DL Hematocrit 31.9 % Mean Corpuscular Volume 90.6 FL Mean Corpuscular Hemoglobin 30.3 PG Mean Corpuscular Hemoglobin 33.4 % Concent Red Cell Distribution Width 16.9 % Platelet Count 172 TH/MM3 Mean Platelet Volume 7.9 FL Neutrophils (%) (Auto) 88.0 % Lymphocytes (%) (Auto) 6.2 % Monocytes (%) (Auto) 5.5 % Eosinophils (%) (Auto) 0.0 % Basophils (%) (Auto) 0.3 % Neutrophils # (Auto) 13.1 TH/MM3 Lymphocytes # (Auto) 0.9 TH/MM3 Monocytes # (Auto) 0.8 TH/MM3 Eosinophils # (Auto) 0.0 TH/MM3 Basophils # (Auto) 0.0 TH/MM3 CBC Comment AUTO DIFF Differential Comment AUTO DIFF CONFIRMED Toxic Granulation 1+ Platelet Estimate NORMAL Platelet Morphology Comment NORMAL Sodium Level 136 MEQ/L Potassium Level 4.7 MEQ/L Chloride Level 100 MEQ/L Carbon Dioxide Level 27.2 MEQ/L Anion Gap 9 MEQ/L Blood Urea Nitrogen 15 MG/DL Creatinine 1.19 MG/DL Estimat Glomerular Filtration 45 ML/MIN Rate Random Glucose 177 MG/DL Calcium Level 6.9 MG/DL Protein Corrected Calcium 7.3 MG/DL Phosphorus Level 2.7 MG/DL Magnesium Level 1.4 MG/DL Total Bilirubin 0.7 MG/DL Aspartate Amino Transf 32 U/L (AST/SGOT) Alanine Aminotransferase 26 U/L (ALT/SGPT) Alkaline Phosphatase 132 U/L Total Protein 6.3 GM/DL Albumin 3.4 GM/DL Imaging Studies Last 24 hours Impressions Lower Extremity Ultrasound 08/24/16 0000 Signed Impressions: Service Date/Time: Wednesday, August 24, 2016 11:32 - CONCLUSION: Negative for deep venous thrombosis. Enzo Richmond MD FACR Chest X-Ray 08/24/16 0000 Signed Impressions: Service Date/Time: Wednesday, August 24, 2016 00:19 - CONCLUSION: Diffuse right lung infiltrate Jono Torres MD Administered Medications Medications (Trade) Dose Ordered Sig/Marilyn Route PRN Reason Start Time Stop Time Status Last Admin Dose Admin Diltiazem HCl/ Sodium Chloride (Cardizem Inj/NS Inj) 125 ml @ 0 mls/hr TITRATE IV 08/16/16 18:15 08/18/16 05:27 IV Flush (NS Flush) 2 ml UNSCH PRN FLUSH FLUSH AFTER USING IV ACCESS 08/16/16 18:30 08/23/16 17:53 IV Flush (NS Flush) 2 ml BID FLUSH 08/16/16 21:00 08/24/16 08:40 Acetaminophen (Tylenol) 650 mg Q4H PRN PO TEMP > 100.4 08/16/16 18:30 08/23/16 12:13 Prochlorperazine (Compazine Supp) 25 mg Q12H PRN OK NAUSEA OR VOMITING 08/16/16 18:30 08/22/16 02:42 Dextrose (D50w (Vial) Inj) 25 ml UNSCH PRN IV PUSH HYPOGLYCEMIA-SEE COMMENTS 08/16/16 18:30 08/23/16 05:03 Oxycodone HCl (Roxicodone) 15 mg Q6H PRN PO PAIN 1-5 08/16/16 18:45 08/20/16 06:10 Thyroid ([place] Thyroid) 45 mg BIDAC PO 08/17/16 07:00 08/24/16 06:38 Hydromorphone HCl (Dilaudid Pf Inj) 1 mg Q3H PRN IV BREAKTHROUGH PAIN 08/16/16 20:15 08/24/16 10:55 Hydromorphone HCl (Dilaudid) 2 mg Q4H PRN PO PAIN SCALE 6 TO 10 08/16/16 20:15 08/24/16 10:55 Multi-Ingredient Mouthwash/Gargle (Magic Mouthwash Adult Liq) 5 ml QID SWISH-SWAL 08/16/16 21:00 08/24/16 13:00 Pantoprazole Sodium (Protonix Inj) 40 mg Q12HR IV PUSH 08/17/16 12:45 08/24/16 08:39 Sucralfate 1 gm 1 gm ACHS PO 08/17/16 16:00 08/24/16 11:06 Fluconazole/ Sodium Chloride (Diflucan 100 Mg Premix Bag) 50 ml @ 50 mls/hr Q24H IV 08/17/16 15:00 08/23/16 15:42 Ondansetron HCl (Zofran Inj) 4 mg Q6H IVP 08/18/16 12:00 08/24/16 10:55 Calcium Carbonate (Tums Chew) 500 mg Q12HR CHEW 08/19/16 09:00 08/24/16 08:38 Magnesium Oxide (Mag-Ox) 400 mg BID PO 08/21/16 09:00 08/26/16 08:59 08/24/16 08:38 Megestrol Acetate (Megace Liq) 400 mg DAILY PO 08/22/16 09:00 08/24/16 08:37 Albumin Human (Albumin 25% Inj) 25 gm Q12H IV 08/22/16 11:15 08/24/16 11:06 Furosemide (Lasix Inj) 40 mg BID@,18 IV PUSH 08/22/16 18:00 08/24/16 08:40 Potassium Bicarb/ Potassium Chloride (K-Lyte Cl Eff) 25 meq Q12HR PO 08/22/16 11:15 08/24/16 08:38 Diltiazem HCl (Cardizem) 60 mg Q6HR PO 08/23/16 18:00 08/24/16 10:55 Metoprolol Tartrate (Lopressor) 25 mg Q12HR PEG 08/23/16 21:00 08/24/16 08:55 Insulin Detemir (Levemir Inj) 20 units HS SQ 08/23/16 21:00 08/23/16 20:56 Levofloxacin (Levaquin Liq) 750 mg DAILY TUBE 08/24/16 09:00 08/24/16 09:00 Objective Remarks GENERAL: Older female, sitting up in bed eating lunch. SKIN: Warm and dry. HEAD: Normocephalic. +Alopecia. EYES: No injection or drainage. NECK: Supple, trachea midline. CARDIOVASCULAR: +S1/S2. RESPIRATORY: Breath sounds equal bilaterally. No accessory muscle use. GASTROINTESTINAL: Abdomen mildly distended. TF on hold. She is tolerating po intake. EXTREMITIES: No cyanosis NEUROLOGICAL: A&Ox3. Normal speech. Assessment/Plan Problem List: (1) Pancreatic cancer Status: Acute Plan: --diagnosed with unresectable pancreatic adenocarcinoma in late 2016. --PET CT scan showed locally advanced disease with adenopathy in the retroperitoneum, focal uptake in the liver as well as some suspicious appearing nodes in the lung. --recently completed cycle one of Gemzar and Abraxane on 08/15/16 (2) Atrial fibrillation with RVR Status: Acute Plan: -- On PO Cardizem -- Cardiology following (3) Dysphagia Status: Acute Plan: -- Able to eat thickened/ pureed foods. -- s/p G-J tube placement 08/20--currently on Glucerna 1.5-goal @ 40cc/hour Assessment 65-year-old female with unresectable pancreatic cancer admitted for dehydration , weakness and nausea/vomiting. Plan 1. Monitor CBC, electrolytes. 2. Continue calcium carbonate for calcium replacement. 3. US negative for DVT. 4. If doing well OK for D/C tomorrow from oncology standpoint. Attending Statement The exam, history, and the medical decision-making described in the above note were completed with the assistance of the mid-level provider. I reviewed and agree with the findings presented. I attest that I had a [id number] encounter with the patient on the same day, and personally performed and documented my assessment and findings in the medical record. Tyra Chow Aug 24, 2016 13:33 Mauricio Coe MD Aug 25, 2016 00:21
--- NOTE | 2016-08-24 13:48 | PD.CARD.PN ---
Subjective Subjective Remarks No CP of SOB, still w mild abd pain, rate controlled Objective Medications Current Medications Medications (Trade) Dose Ordered Sig/Marilyn Route Start Time Stop Time Status Last Admin (Cardizem Inj/NS Inj) 125 ml @ 0 mls/hr TITRATE IV 08/16/16 18:15 08/18/16 05:27 (NS Flush) 2 ml UNSCH PRN FLUSH 08/16/16 18:30 08/23/16 17:53 (NS Flush) 2 ml BID FLUSH 08/16/16 21:00 08/24/16 08:40 (Tylenol) 650 mg Q4H PRN PO 08/16/16 18:30 08/23/16 12:13 (Compazine Supp) 25 mg Q12H PRN IL 08/16/16 18:30 08/22/16 02:42 (Dulcolax Supp) 10 mg DAILY PRN IL 08/16/16 18:30 (Milk Of Magnesia Liq) 30 ml Q12H PRN PO 08/16/16 18:30 (Senokot) 17.2 mg Q12H PRN PO 08/16/16 18:30 (D50w (Vial) Inj) 25 ml UNSCH PRN IV PUSH 08/16/16 18:30 08/23/16 05:03 (Glucagon Inj) 1 mg UNSCH PRN OTHER 08/16/16 18:30 (Roxicodone) 15 mg Q6H PRN PO 08/16/16 18:45 08/20/16 06:10 ([place] Thyroid) 45 mg BIDAC PO 08/17/16 07:00 08/24/16 06:38 (Dilaudid Pf Inj) 1 mg Q3H PRN IV 08/16/16 20:15 08/24/16 13:28 (Dilaudid) 2 mg Q4H PRN PO 08/16/16 20:15 08/24/16 10:55 (Narcan Inj) 0.4 mg UNSCH PRN IV 08/16/16 20:15 (Magic Mouthwash Adult Liq) 5 ml QID SWISH-SWAL 08/16/16 21:00 08/24/16 13:00 (Protonix Inj) 40 mg Q12HR IV PUSH 08/17/16 12:45 08/24/16 08:39 Sucralfate 1 gm 1 gm ACHS PO 08/17/16 16:00 08/24/16 11:06 (Diflucan 100 Mg Premix Bag) 50 ml @ 50 mls/hr Q24H IV 08/17/16 15:00 08/23/16 15:42 (Zofran Inj) 4 mg Q6H IVP 08/18/16 12:00 08/24/16 10:55 (Tums Chew) 500 mg Q12HR CHEW 08/19/16 09:00 08/24/16 08:38 (Tums Chew) 500 mg Q2H PRN CHEW 08/19/16 07:30 (Mag-Ox) 400 mg BID PO 08/21/16 09:00 08/26/16 08:59 08/24/16 08:38 (Megace Liq) 400 mg DAILY PO 08/22/16 09:00 08/24/16 08:37 (Albumin 25% Inj) 25 gm Q12H IV 08/22/16 11:15 08/24/16 11:06 (Lasix Inj) 40 mg BID@09,18 IV PUSH 08/22/16 18:00 08/24/16 08:40 (K-Lyte Cl Eff) 25 meq Q12HR PO 08/22/16 11:15 08/24/16 08:38 (Cardizem) 60 mg Q6HR PO 08/23/16 18:00 08/24/16 10:55 (Lopressor) 25 mg Q12HR PEG 08/23/16 21:00 08/24/16 08:55 (Levemir Inj) 20 units HS SQ 08/23/16 21:00 08/23/16 20:56 (Levaquin Liq) 750 mg DAILY TUBE 08/24/16 09:00 08/24/16 09:00 Vital Signs / I&O Vital Signs Date Time Temp Pulse Resp B/P Pulse Ox O2 Delivery O2 Flow Rate FiO2 08/24/16 13:00 85 08/24/16 12:03 96 08/24/16 11:54 18 08/24/16 11:54 18 08/24/16 11:00 82 08/24/16 11:00 98.0 89 18 115/55 96 08/24/16 10:08 83 3/3/17 08:15 96 08/24/16 08:15 98.5 96 18 127/83 96 08/24/16 08:15 88 08/24/16 06:00 82 08/24/16 05:00 91 08/24/16 04:00 96 08/24/16 03:00 110 08/24/16 03:00 98.7 108 20 129/85 95 08/24/16 02:00 108 08/24/16 01:00 118 08/24/16 00:00 118 08/23/16 23:00 120 08/23/16 23:00 99 Nasal Cannula 2.00 08/23/16 23:00 97.8 114 28 149/94 99 08/23/16 22:00 116 08/23/16 21:00 112 08/23/16 20:00 98.3 106 20 132/87 96 08/23/16 20:00 112 08/23/16 20:00 96 Room Air 08/23/16 19:00 102 08/23/16 18:05 98.3 96 18 117/79 97 08/23/16 18:03 100 08/23/16 17:11 114 08/23/16 16:10 98.2 98 18 126/78 99 08/23/16 15:48 98.8 104 20 126/78 97 08/23/16 15:48 104 08/23/16 15:43 98.8 104 18 126/78 97 08/23/16 14:09 119 I/O 08/23/16 08/23/16 08/23/16 08/24/16 08/24/16 08/24/16 07:00 15:00 23:00 07:00 15:00 23:00 Intake Total 2370 ml 2268 ml 2022 ml Output Total 1200 ml 550 ml 3200 ml Balance 1170 ml -550 ml 2268 ml -1178 ml Intake Oral 720 ml 680 ml 480 ml IV Total 1200 ml 442 ml 401 ml Tube Feeding 400 ml 240 ml TPN/PPN 646 ml Packed Cells 500 ml 701 ml Tube Irrigant 50 ml 200 ml Output Urine Total 1200 ml 3200 ml Emesis 550 ml # Voids 3 3 # Bowel Movements 0 0 0 Physical Exam GENERAL: SKIN: Warm and dry. HEAD: Normocephalic. EYES: No scleral icterus. No injection or drainage. NECK: Supple, trachea midline. No JVD or lymphadenopathy. CARDIOVASCULAR: irregular rate and rhythm without murmurs, gallops, or rubs. RESPIRATORY: Breath sounds equal bilaterally. No accessory muscle use. GASTROINTESTINAL: Abdomen soft MUSCULOSKELETAL: No cyanosis, mild edema. Laboratory Laboratory Tests Test 08/23/16 08/24/16 22:36 01:20 D-Dimer Quantitative (PE/DVT) 2.44 MG/L FEU White Blood Count 14.9 TH/MM3 Red Blood Count 3.52 MIL/MM3 Hemoglobin 10.7 GM/DL Hematocrit 31.9 % Mean Corpuscular Volume 90.6 FL Mean Corpuscular Hemoglobin 30.3 PG Mean Corpuscular Hemoglobin 33.4 % Concent Red Cell Distribution Width 16.9 % Platelet Count 172 TH/MM3 Mean Platelet Volume 7.9 FL Neutrophils (%) (Auto) 88.0 % Lymphocytes (%) (Auto) 6.2 % Monocytes (%) (Auto) 5.5 % Eosinophils (%) (Auto) 0.0 % Basophils (%) (Auto) 0.3 % Neutrophils # (Auto) 13.1 TH/MM3 Lymphocytes # (Auto) 0.9 TH/MM3 Monocytes # (Auto) 0.8 TH/MM3 Eosinophils # (Auto) 0.0 TH/MM3 Basophils # (Auto) 0.0 TH/MM3 CBC Comment AUTO DIFF Differential Comment AUTO DIFF CONFIRMED Toxic Granulation 1+ Platelet Estimate NORMAL Platelet Morphology Comment NORMAL Sodium Level 136 MEQ/L Potassium Level 4.7 MEQ/L Chloride Level 100 MEQ/L Carbon Dioxide Level 27.2 MEQ/L Anion Gap 9 MEQ/L Blood Urea Nitrogen 15 MG/DL Creatinine 1.19 MG/DL Estimat Glomerular Filtration 45 ML/MIN Rate Random Glucose 177 MG/DL Calcium Level 6.9 MG/DL Protein Corrected Calcium 7.3 MG/DL Phosphorus Level 2.7 MG/DL Magnesium Level 1.4 MG/DL Total Bilirubin 0.7 MG/DL Aspartate Amino Transf 32 U/L (AST/SGOT) Alanine Aminotransferase 26 U/L (ALT/SGPT) Alkaline Phosphatase 132 U/L Total Protein 6.3 GM/DL Albumin 3.4 GM/DL Imaging Last Impressions Lower Extremity Ultrasound 08/24/16 0000 Signed Impressions: Service Date/Time: Wednesday, August 24, 2016 11:32 - CONCLUSION: Negative for deep venous thrombosis. Enzo Richmond MD FACR Chest X-Ray 08/24/16 0000 Signed Impressions: Service Date/Time: Wednesday, August 24, 2016 00:19 - CONCLUSION: Diffuse right lung infiltrate Jono Torres MD Assessment and Plan Problem List: (1) Atrial fibrillation with RVR (2) Pancreatic cancer (3) CAD (coronary artery disease) (4) CHF (congestive heart failure) Assessment and Plan A fib rate controlled, continue PO diltiazem. GI following. Abdominal pain improving, PEG in place. OK to discharge from cardiac standpoint. F/u w Dr. Maher, her primary residential instructor. Problem Qualifiers (1) CHF (congestive heart failure): Kishore Fiore MD Aug 24, 2016 13:48
[2016-08-24] MEDS ORDERED: LEVA750T PO (14:38)
[2016-08-24] MEDS ORDERED: PROT40TA PO (14:38)
[2016-08-24] MEDS ORDERED: MEGE40SU PO (14:38)
[2016-08-24] MEDS ORDERED: DILT-64 PO (14:38)
[2016-08-24] MEDS ORDERED: MAGN400T2 PO (14:38)
[2016-08-24] MEDS ORDERED: MAGICADU2 SWISH-SWAL (14:38)
--- NOTE | 2016-08-24 14:46 | HHI.DS ---
Discharge Summary Admission Date Aug 16, 2016 at 6:24 pm Discharge Date: Aug 24, 2016 Admitting Diagnosis atrial fibrillation with rvr (1) Pancreatic cancer ICD Code: C25.9 Diagnosis: Principal (2) Atrial fibrillation with RVR ICD Code: I48.91 Diagnosis: Principal (3) Dysphagia ICD Code: R13.10 Diagnosis: Principal Procedures S/p EGD and GJ tube placement by Dr Berrios 08/20 Brief History - From Admission 65-year-old female who has a history of pancreatic cancer who presents to the emergency department with generalized weakness that's been worsening over the past week, constant, described as difficulty exerting herself and difficulty eating and drinking. She also has intractable nausea and vomiting and is not able to keep anything down. She has a lot of pain in her mouth and in her throat and has ulcerations due to the chemotherapy so she's having difficulties with any PO intake. She was not able to take her meds. She does have a history of congestive heart failure and is followed by Dr. Maher. She's never been told she has atrial fibrillation before. She however feels palpitations at times but is not bothering her much. she also has sob associated. No chest pain. She had chemotherapy last on Saturday and then Saturday and Saturday she went into the infusion clinic and has been getting IV hydration but she's not feeling any better. She follows with Dr. Trinidad for her chemotherapy. CBC/BMP: 08/24/16 0120 08/24/16 0120 Significant Findings Laboratory Tests Test 08/22/16 08/23/16 08/23/16 08/24/16 10:30 04:40 22:36 01:20 Red Blood Count 2.59 MIL/MM3 2.44 MIL/MM3 3.52 MIL/MM3 (4.00-5.30) (4.00-5.30) (4.00-5.30) Hemoglobin 8.4 GM/DL 7.9 GM/DL 10.7 GM/DL (11.6-15.3) (11.6-15.3) (11.6-15.3) Hematocrit 24.5 % 23.1 % 31.9 % (35.0-46.0) (35.0-46.0) (35.0-46.0) Platelet Count 147 TH/MM3 (150-450) Neutrophils (%) (Auto) 81.5 % 78.8 % 88.0 % (16.0-70.0) (16.0-70.0) (16.0-70.0) Lymphocytes (%) (Auto) 6.0 % 6.2 % (9.0-44.0) (9.0-44.0) Monocytes (%) (Auto) 12.3 % 11.4 % (0.0-8.0) (0.0-8.0) Neutrophils # (Auto) 7.8 TH/MM3 7.8 TH/MM3 13.1 TH/MM3 (1.8-7.7) (1.8-7.7) (1.8-7.7) Lymphocytes # (Auto) 0.6 TH/MM3 0.9 TH/MM3 0.9 TH/MM3 (1.0-4.8) (1.0-4.8) (1.0-4.8) Monocytes # (Auto) 1.2 TH/MM3 1.1 TH/MM3 (0-0.9) (0-0.9) Band Neutrophils % 17 % (0-6) 12 % (0-6) Lymphocytes % 6 % (9-44) 8 % (9-44) Monocytes % 9 % (0-8) 9 % (0-8) Neutrophils # (Manual) 8.1 TH/MM3 8.1 TH/MM3 (1.8-7.7) (1.8-7.7) Myelocytes 3 % (0-0) 3 % (0-0) Nucleated Red Blood Cells 1 /100 WBC (0-0) Platelet Estimate LOW (NORMAL) Potassium Level 3.4 MEQ/L (3.5-5.1) Estimat Glomerular Filtration 72 ML/MIN (>89) 72 ML/MIN (>89) 45 ML/MIN (>89) Rate Calcium Level 5.3 MG/DL 5.2 MG/DL 6.9 MG/DL (8.5-10.1) (8.5-10.1) (8.5-10.1) Protein Corrected Calcium 6.1 MG/DL 6.0 MG/DL 7.3 MG/DL (8.5-10.1) (8.5-10.1) (8.5-10.1) Phosphorus Level 1.5 MG/DL 1.3 MG/DL (2.5-4.9) (2.5-4.9) Magnesium Level 1.1 MG/DL 1.0 MG/DL 1.4 MG/DL (1.5-2.5) (1.5-2.5) (1.5-2.5) Total Protein 5.0 GM/DL 5.1 GM/DL 6.3 GM/DL (6.4-8.2) (6.4-8.2) (6.4-8.2) Albumin 2.0 GM/DL (3.4-5.0) Metamyelocytes 3 % (0-1) Random Glucose 46 MG/DL 177 MG/DL (74-106) (74-106) D-Dimer Quantitative (PE/DVT) 2.44 MG/L FEU (0.00-0.50) White Blood Count 14.9 TH/MM3 (4.0-11.0) Toxic Granulation 1+ (NORMAL) Creatinine 1.19 MG/DL (0.50-1.00) Alkaline Phosphatase 132 U/L (45-117) Imaging Last Impressions Lower Extremity Ultrasound 08/24/16 Signed Impressions: Service Date/Time: Wednesday, August 24, 2016 11:32 - CONCLUSION: Negative for deep venous thrombosis. Enzo Richmond MD FACR Chest X-Ray 08/24/16 Signed Impressions: Service Date/Time: Wednesday, August 24, 2016 00:19 - CONCLUSION: Diffuse right lung infiltrate Jono Torres MD PE at Discharge GENERAL: Alert, oriented 3, NAD. SKIN: Warm and dry. HEAD: Normocephalic. EYES: No scleral icterus. No injection or drainage. NECK: Supple, trachea midline. No JVD or lymphadenopathy. CARDIOVASCULAR: Regular rate and rhythm without murmurs, gallops, or rubs. RESPIRATORY: Breath sounds equal bilaterally. No accessory muscle use. GASTROINTESTINAL: Abdomen soft, somewhat tender to palpation on the upper left quadrant, nondistended. MUSCULOSKELETAL: No cyanosis. 2+ edema in lower extremities. BACK: Nontender without obvious deformity. No CVA tenderness. Pt update on day of discharge Patient is doing well. No acute concerns. Discussed with Oncology, Cardiology - all are okay with patient's discharge today. Hospital Course Ms. Concepcion is a 65-year-old female with a history of unresectable pancreatic cancer who presented to the emergency department on 08/16/2016 with generalized weakness and dysphagia. She complained off intractable nausea and vomiting. She was found to have atrial fibrillation with RVR in the emergency department. - Pancreatic cancer, unresectable - Intractable nausea and vomiting - Dysphagia - Failure to thrive - s/p G-J tube placement 08/20--currently on Glucerna 1.5-goal @ 40cc/hour. Currently tolerating by mouth diet well. She does not want to continue tube feeding at home. - Oncology following and cleared for discharge today 08/24/2016. - Discussed with patient about hospice, palliative care. 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 At this point, she is not ready to discuss hospice. - Atrial fibrillation with RVR - [id number] score 3 (female, age 65, DM). - Continue Cardizem drip and Cardizem 60 mg every 6 hours. Cardizem ER 40 mg daily on discharge. -Continue metoprolol 25 mg twice a day. - Patient needs anticoagulation. Patient's platelet count has improved from 42K on 08/16/2016 to 152K on 08/23/2016. -Discussed with patient and sr risk management consultant. Based on my discussion with sr risk management consultant, we decided to start patient on 2.5 mg apixaban 3 times a day. Patient can discuss with her primary sr risk management consultant in the outpatient setting and consider increasing the dose to 5 mg twice a day. - Acute kidney injury - improved Creatinine 1.35 --> 0.80. - Diabetes mellitus - Currently on Levemir 30 units daily at bedtime, sliding scale insulin. - Patient's blood glucose was low on Levemir 30 units. Thus we reduced to 20 units daily at bedtime in the hospital. -Continue Levemir to 25 units daily at bedtime on discharge. Increase dosage gradually depending on AM blood glucose. - Hypothyroidism - continue [place] thyroid 45 mg by mouth twice a day. Full code. Patient is being discharged home with home health. Pt Condition on Discharge: Good Discharge Disposition: Disch w/ Home Health Serv Discharge Time: > 30 minutes Discharge Instructions DIET: Follow Instructions for: Heart Healthy Diet Speech Therapy-Diet Recommends: Other Activities you can perform: Regular-No Restrictions Follow up Referrals: Oncology - 10 Days with Mauricio Coe MD PCP Follow-up - 1 Week New Medications: Clonazepam (Clonazepam) 0.5 Mg Tab 0.5 MG PO TID PRN ANXIETY AND/OR INSOMNIA #90 Ref 0 TAB Diltiazem CD 24 HR (Diltiazem CD 24 HR) 240 Mg Caper 240 MG PO DAILY #30 Ref 0 CAP Levofloxacin (Levaquin) 750 Mg Tab 750 MG PO DAILY Infection #5 Ref 0 TAB Magnesium Oxide (Magnesium Oxide) 400 Mg Tab 400 MG PO DAILY Nutritional Supplement #10 Ref 0 TAB Pantoprazole (Protonix) 40 Mg Tab 40 MG PO DAILY Reflux #30 Ref 0 TAB Megestrol Liq (Megestrol Liq) 40 Mg/Ml Susp 400 MG PO DAILY appetite Days 30 BOTTLE Ffxkgozy-Vfqnqrlwjmesobd-Yxqfmtprw Liq (Magic Mouthwash Adult Liq) 120 Ml Susp 5 ML SWISH-SWAL QID Infection Days 10 ML Changed Medications: Insulin Glargine Inj (Lantus Inj) 100 Unit/Ml Inj 25 UNITS SQ HS Gradually increase if AM blood glucose remain high. Blood Sugar Management Days 30 BOTTLE (Changed from: 30 UNITS) Continued Medications: Carvedilol (Carvedilol) 12.5 Mg Tab 12.5 MG PO BID #60 Ref 0 TAB Chlorpheniramine 12 HR (Chlorpheniramine 12 HR) 12 Mg Tab 12 MG PO Q12H Allergies Ref 0 TAB Enalapril (Enalapril) 10 Mg Tab 10 MG PO DAILY #30 Ref 0 TAB Estradiol (Estrace) 2 Mg Tab 2 MG PO DAILY Estrogen Supplements #30 Ref 0 TAB Furosemide (Lasix) 40 Mg Tab 40 MG PO DAILY #30 Ref 0 TAB Glimepiride (Glimepiride) 4 Mg Tab 4 MG PO BIDAC Blood Sugar Management #60 Ref 0 TAB Metformin (Metformin) 1,000 Mg Tab 1000 MG PO BIDPC With meals Blood Sugar Management #60 Ref 0 TAB Ondansetron (Ondansetron) 4 Mg Tab 4 MG PO Q4HR PRN NAUSEA Oxycodone (Oxycodone) 15 Mg Tab 15 MG PO Q6H PRN PAIN Ref 0 TAB Potassium Chloride ER (K-Tab) 10 Meq Tab 10 MEQ PO DAILY Electrolyte Replacement #30 Ref 0 TAB Ranolazine ER 12 HR (Ranexa ER 12 HR) 500 Mg Tab 500 MG PO BID Chest Pain #60 Ref 0 TAB Thyroid ([place] Thyroid) 15 Mg Tab 45 MG PO BID Thyroid Supplement #30 Ref 0 TAB Ana Le DO Aug 24, 2016 2:46 pm
[2016-08-24] MEDS ORDERED: CLON0.5T PO (14:52)
[2016-08-24] MEDS: FLUCONAZOLE 100 MG PREMIX BAG 50 ML IV SCH (15:23)
[2016-08-24] MEDS ORDERED: LANTUS2P SQ (16:59)
--- NOTE | 2016-08-29 08:24 | PQ ---
Physician Query Response Document PATIENT: HILARIO GEIGER : 1950 ADMIT DATE: 08/16/2016 6:24 PM DISCH DATE: 08/24/2016 5:17 PM RESPONDING PROVIDER #: lupe QUERY TEXT: CHF Acuity and Type Congestive Heart Failure is documented in the Medical Record. Please document the type and acuity (in cludes probable or suspected) Such as: Type: -- Systolic -- Diastolic -- Combined -- Other, please specify Acuity: -- Acute -- Chronic -- Acute on chronic -- Other, please specify PLEASE CALL SILVER AT EX #[id number] FOR QUESTIONS- THANKS The patient's Clinical Indicators include: Assessment and Plan CHF Gently IVF as patient with CHF doesn't appear with exacerbation at this time. consider 2D ECHO [id number] ON 08/16/16 MVW=[id number] ON 08/18/16 LASIX ADMINISTERED Query created by: Silver Lora on 08/23/2016 3:40 PM RESPONSE TEXT: Acute on chronic combined congestive heart failure. Electronically signed by: Christopher Le DO 08/29/2016 8:20 AM
== END 2016-08-24 17:17 | disposition home health service (06) | DRG 308 ==
LOC: NEPC 16:42 → NEDA 18:24 → HCIS 23:10
PROVIDERS: ADMIT Hospitalist; ATTEND Hospitalist
PROC: 0DHA3UZ Insertion of Feeding Device into Jejunum, Percutaneous Approach (ICD-10-PCS; principal; 2016-08-20 11:40)
PROC: 0DJ08ZZ Inspection of Upper Intestinal Tract, Via Natural or Artificial Opening Endoscopic (ICD-10-PCS; 2016-08-20 11:40)
DX: I48.91 Unspecified atrial fibrillation (principal); D61.810 Antineoplastic chemotherapy induced pancytopenia; E43 Unspecified severe protein-calorie malnutrition; N17.9 Acute kidney failure, unspecified; C78.02 Secondary malignant neoplasm of left lung; C78.01 Secondary malignant neoplasm of right lung; C25.9 Malignant neoplasm of pancreas, unspecified; E11.22 Type 2 diabetes mellitus with diabetic chronic kidney disease; E11.42 Type 2 diabetes mellitus with diabetic polyneuropathy; E11.65 Type 2 diabetes mellitus with hyperglycemia; Z79.4 Long term (current) use of insulin; Z79.84 Long term (current) use of oral hypoglycemic drugs; E83.42 Hypomagnesemia; E87.1 Hypo-osmolality and hyponatremia; E83.39 Other disorders of phosphorus metabolism; E83.51 Hypocalcemia; R62.7 Adult failure to thrive; R13.10 Dysphagia, unspecified; I50.9 Heart failure, unspecified; T45.1X5A Adverse effect of antineoplastic and immunosuppressive drugs, initial encounter; K12.1 Other forms of stomatitis; R11.2 Nausea with vomiting, unspecified; E86.0 Dehydration; E87.6 Hypokalemia; E03.9 Hypothyroidism, unspecified; I25.10 Atherosclerotic heart disease of native coronary artery without angina pectoris; I25.2 Old myocardial infarction; Z95.5 Presence of coronary angioplasty implant and graft; M19.90 Unspecified osteoarthritis, unspecified site; Z85.048 Personal history of other malignant neoplasm of rectum, rectosigmoid junction, and anus; Z68.30 Body mass index [BMI] 30.0-30.9, adult; I12.9 Hypertensive chronic kidney disease with stage 1 through stage 4 chronic kidney disease, or unspecified chronic kidney disease; N18.9 Chronic kidney disease, unspecified; Z87.891 Personal history of nicotine dependence
CPT/HCPCS: 36430; 36591; 71010; 80048; 80053; 82948; 83036; 83735; 83880; 84100; 84134; 84155; 85007; 85025; 85027; 85379; 86850; 86900; 86901; 86920; 93005; 93970; 96360; 96361; 96365; 96372; 96374; 96375; C9113; J0610; J1100; J1170; J1442; J1450; J1626; J1642; J1650; J1815; J1940; J2270; J2405; J3010; J3370; J3475; J3480; J7030; J7040; J7050; P9016; P9047

== ENCOUNTER 2016-08-25 10:27 | Inpatient (IN) | payer MEDICARE, BC ==
[2016-08-25] VITALS (8 sets, daily range): BP systolic 98–120; BP diastolic 58–82; PULSE 83–114; RESP 16–20; TEMP 97.4–98.2; O2SAT 93–100
[~2016-08-25] VITALS: Ht 165.1 cm; Wt 95.3 kg
[~2016-08-25 10:27] MED LIST changes: +CLON0.5T PO; +DILT-64 PO; +LEVA750T PO; +MAGICADU2 SWISH-SWAL; +MAGN400T2 PO; +MEGE40SU PO; +PROT40TA PO
--- NOTE | 2016-08-25 10:47 | PD ---
HPI Chief Complaint: Abdominal Pain Time Seen by Provider: 10:40 Travel History International Travel<30 days: No Contact w/Intl Traveler<30days: No Traveled to known affect area: No History of Present Illness HPI 65-year-old female with history of pancreatic cancer on chemotherapy, treated by oncologist Sisi Jeffrey, CHF, recently admitted to the hospital for Sisi cuevas with RVR and generalized weakness, discharged yesterday, returns today with generalized weakness, shortness of breath, and feeling as though she was discharged to soon. The patient reports that she herself decided that she was ready to go home yesterday. She is having abdominal pain which is epigastric which is usual for her with her pancreatic CA. She reports that she is able to eat and drink. No chest pain. She is having dyspnea at rest, worse with exertion. No fever. The patient reports that she is unable to care for herself at home. PFSH Past Medical History Anxiety: Yes Depression: No Heart Rhythm Problems: Yes (AFIB NEW ONSET) Cancer: Yes (PANCREATIC) Cardiovascular Problems: Yes (CHF) High Cholesterol: Yes Chemotherapy: Yes Chest Pain: Yes Congestive Heart Failure: Yes Diabetes: Yes Endocrine: Yes Gastrointestinal Disorders: No GERD: Yes Genitourinary: No Hepatitis: No Hiatal Hernia: No Hypertension: Yes Immune Disorder: No Musculoskeletal: No Neurologic: No Psychiatric: Yes (DURING FIRST MARRIAGE LONG TIME AGO) Reproductive: No Respiratory: No Radiation Therapy: No Thyroid Disease: Yes Ulcer: Yes ?: Not Past Surgical History Abdominal Surgery: Yes AICD: No Arteriovenous Shunt: No Cardiac Surgery: Yes Ear Surgery: No Endocrine Surgery: Yes Eye Surgery: No Genitourinary Surgery: No Gynecologic Surgery: Yes Insulin Pump: No Joint Replacement: No Oral Surgery: No Pacemaker: No Thoracic Surgery: No Other Surgery: Yes Social History Alcohol Use: No Tobacco Use: No Substance Use: No Allergies-Medications (Allergen,Severity, Reaction): Coded Allergies: Versed (Verified Allergy, Severe, Hallucinations, 08/25/16) Tetracycline (Verified Allergy, Intermediate, Edema, 08/25/16) Ativan (Verified Allergy, Unknown, Irritation, 08/25/16) CRABBY Penicillin (Verified Allergy, Unknown, gi upset, 08/25/16) Nitroglycerin (Verified Adverse Reaction, Unknown, severe headache, 08/25/16 ) resolved only with demerol Uncoded Allergies: all fenofibrate (Allergy, Severe, rhabdomyolysis, 07/23/16) all statin drugs (Allergy, Severe, rhabdomyolysis, 07/23/16) glue on tape and bandages (Allergy, Intermediate, Itching, 07/23/16) nylon and silk (Allergy, Intermediate, Rash, 07/23/16) skin inflames, festers and weeps, will not granulate stainless steel (Allergy, Intermediate, Rash, 07/23/16) lactose and whey (Allergy, Unknown, 07/23/16) pollen (Allergy, Unknown, 07/23/16) topical iodine, cortisone,antibiotics (Allergy, Unknown, scalds, blisters, 07/23/16) Reported Meds & Prescriptions Reported Meds & Active Scripts Active Lantus Inj (Insulin Glargine) 100 Unit/Ml Inj 25 Units SQ HS 30 Days Gradually increase if AM blood glucose remain high. Clonazepam 0.5 Mg Tab 0.5 Mg PO TID PRN Magnesium Oxide 400 Mg Tab 400 Mg PO DAILY Protonix (Pantoprazole Sodium) 40 Mg Tab 40 Mg PO DAILY Magic Mouthwash Adult Liq (Multi-Ingredient Mouthwash/Gargle) 120 Ml Susp 5 Ml SWISH-SWAL QID 10 Days Megestrol Liq (Megestrol Acetate) 40 Mg/Ml Susp 400 Mg PO DAILY 30 Days Levaquin (Levofloxacin) 750 Mg Tab 750 Mg PO DAILY Diltiazem CD 24 HR 240 Mg Caper 240 Mg PO DAILY Reported Ranexa ER 12 HR (Ranolazine) 500 Mg Tab 500 Mg PO BID Chlorpheniramine 12 HR (Chlorpheniramine Maleate) 12 Mg Tab 12 Mg PO Q12H PRN Ondansetron (Ondansetron HCl) 4 Mg Tab 4 Mg PO Q4HR PRN Oxycodone (Oxycodone HCl) 15 Mg Tab 15 Mg PO Q6H PRN Estrace (Estradiol) 2 Mg Tab 2 Mg PO DAILY K-Tab (Potassium Chloride) 10 Meq Tab 10 Meq PO DAILY Lasix (Furosemide) 40 Mg Tab 40 Mg PO DAILY Enalapril (Enalapril Maleate) 10 Mg Tab 10 Mg PO DAILY Carvedilol 12.5 Mg Tab 12.5 Mg PO BID Glimepiride 4 Mg Tab 4 Mg PO BIDAC Metformin (Metformin HCl) 1,000 Mg Tab 1,000 Mg PO BIDPC With meals [place] Thyroid (Thyroid) 15 Mg Tab 45 Mg PO BID Review of Systems Except as stated in HPI: all other systems reviewed are Neg Physical Exam Narrative GENERAL: Well-developed, well-nourished, overweight, slightly tachypneic, speaking full sentences SKIN: Warm and dry. HEAD: Atraumatic. Normocephalic. EYES: Pupils equal and round. No scleral icterus. No injection or drainage. ENT: Mucous membranes pink and moist. NECK: Trachea midline. No JVD. CARDIOVASCULAR: Irregularly irregular, tachycardic, rate 114. RESPIRATORY: No accessory muscle use. Bilateral rales.. Breath sounds equal bilaterally. GASTROINTESTINAL: Abdomen soft, nondistended. Moderate epigastric tenderness without peritoneal signs. MUSCULOSKELETAL: No obvious deformities. No clubbing. No cyanosis. Moderate bilateral lower extremity edema. NEUROLOGICAL: Awake and alert. No obvious cranial nerve deficits. Motor grossly within normal limits. Normal speech. PSYCHIATRIC: Appropriate mood and affect; insight and judgment normal. Data Data Last Documented VS Vital Signs Date Time Temp Pulse Resp B/P Pulse Ox O2 Delivery O2 Flow Rate FiO2 08/25/16 12:40 83 18 98/60 98 Nasal Cannula 2 08/25/16 10:29 97.4 Orders Complete Blood Count With Diff (08/25/16 10:43) Comprehensive Metabolic Panel (08/25/16 10:43) B-Type Natriuretic Peptide (08/25/16 10:43) Act Partial Throm Time (Ptt) (08/25/16 10:43) Prothrombin Time / Inr (Pt) (08/25/16 10:43) Ckmb (Isoenzyme) Profile (08/25/16 10:43) Troponin I (08/25/16 10:43) Iv Access Insert/Monitor (08/25/16 10:43) Electrocardiogram (08/25/16 10:43) Ecg Monitoring (08/25/16 10:43) Oximetry (08/25/16 10:43) Oxygen Administration (08/25/16 10:43) Chest, Single Ap (08/25/16 10:43) Sodium Chloride 0.9% Flush (Ns Flush) (08/25/16 10:45) Furosemide Inj (Lasix Inj) (08/25/16 12:30) Calcium Gluconate Inj (Calcium Gluconate (08/25/16 12:30) Labs Laboratory Tests Test 08/25/16 11:10 White Blood Count 13.7 TH/MM3 Red Blood Count 3.36 MIL/MM3 Hemoglobin 10.3 GM/DL Hematocrit 30.6 % Mean Corpuscular Volume 91.0 FL Mean Corpuscular Hemoglobin 30.7 PG Mean Corpuscular Hemoglobin 33.7 % Concent Red Cell Distribution Width 16.4 % Platelet Count 191 TH/MM3 Mean Platelet Volume 8.6 FL Neutrophils (%) (Auto) 87.6 % Lymphocytes (%) (Auto) 7.1 % Monocytes (%) (Auto) 5.1 % Eosinophils (%) (Auto) 0.0 % Basophils (%) (Auto) 0.2 % Neutrophils # (Auto) 12.0 TH/MM3 Lymphocytes # (Auto) 1.0 TH/MM3 Monocytes # (Auto) 0.7 TH/MM3 Eosinophils # (Auto) 0.0 TH/MM3 Basophils # (Auto) 0.0 TH/MM3 CBC Comment AUTO DIFF Differential Total Cells 100 Counted Neutrophils % (Manual) 81 % Band Neutrophils % 4 % Lymphocytes % 6 % Monocytes % 4 % Neutrophils # (Manual) 12.3 TH/MM3 Metamyelocytes 2 % Myelocytes 3 % Differential Comment FINAL DIFF MANUAL Platelet Estimate NORMAL Platelet Morphology Comment NORMAL Red Cell Morphology Comment NORMAL Prothrombin Time 16.6 SEC Prothromb Time International 1.5 RATIO Ratio Activated Partial 40.7 SEC Thromboplast Time Sodium Level 133 MEQ/L Potassium Level 4.8 MEQ/L Chloride Level 98 MEQ/L Carbon Dioxide Level 25.5 MEQ/L Anion Gap 10 MEQ/L Blood Urea Nitrogen 19 MG/DL Creatinine 1.35 MG/DL Estimat Glomerular Filtration 39 ML/MIN Rate Random Glucose 214 MG/DL Calcium Level 6.7 MG/DL Protein Corrected Calcium 7.4 MG/DL Total Bilirubin 0.8 MG/DL Aspartate Amino Transf 19 U/L (AST/SGOT) Alanine Aminotransferase 21 U/L (ALT/SGPT) Alkaline Phosphatase 137 U/L Total Creatine Kinase 76 U/L Troponin I 0.03 NG/ML B-Type Natriuretic Peptide 767 PG/ML Total Protein 5.6 GM/DL Albumin 2.6 GM/DL [facility] Medical Decision Making Medical Screen Exam Complete: Yes Emergency Medical Condition: Yes Medical Record Reviewed: Yes Differential Diagnosis ACS, pulmonary edema, CHF, A. fib with RVR, metabolic abnormality, anemia, failure to thrive, pneumonia, pneumothorax, PE Narrative Course Vital signs reviewed. CBC shows WBC 13.7, hemoglobin 10.3, hematocrit 30.6, platelets 191, neutrophils 87%. CMP is remarkable for BUN 19, creatinine 1.35, GFR 39, random glucose 214, protein cracked a calcium 7.4. BNP is 767. Chest x-ray: Slight blunting of the right costophrenic sulcus suggesting small right pleural effusion, otherwise no acute finding is identified. Patient was given 40 mg of IV Lasix and 1 g of IV calcium. She tells me that she feels too weak and is unable to care for self at home. Because of this and above metabolic abnormalities as well as CHF, the patient will be admitted for overnight observation. Case discussed with Dr. Le who is familiar with the patient and will admit the patient to his service. Diagnosis Primary Impression: CHF (congestive heart failure) Qualified Code: I50.9 - Congestive heart failure, unspecified congestive heart failure chronicity, unspecified congestive heart failure type Additional Impressions: Hypocalcemia Renal insufficiency Abdominal pain Qualified Code: R10.9 - Abdominal pain, unspecified location Generalized weakness Admitting Information Admitting Physician Requests: Observation Masood Husain MD Aug 25, 2016 10:47 Masood Husain MD Aug 25, 2016 10:47
--- NOTE | 2016-08-25 11:10 | RADRPT ---
EXAM DATE/TIME: 08/25/2016 10:55 [facility] COMPARISON: CHEST SINGLE AP, August 02, 2016, 10:08. CHEST SINGLE AP, August 24, 2016, 0:19. INDICATIONS : Shortness of breath. MEDICAL HISTORY : Hypermetabolic liver mass. SURGICAL HISTORY : None. ENCOUNTER: Initial ACUITY: 1 day PAIN SCORE: 0/10 LOCATION: chest FINDINGS: Portable AP view of the chest demonstrates cardiac silhouette size at the upper limits for normal. Ri ght IJ line tip is in the SVC. Lungs are underinflated and there is slight blunting of the right cost ophrenic sulcus. No pneumothorax or consolidation is visualized. Bones demonstrate no acute abnormali ty. CONCLUSION: Slight blunting of the right costophrenic sulcus suggesting small right pleural effusion. Otherwise, no acute finding is identified. Jono Balderrama MD on August 25, 2016 at 11:07 Board Certified Radiologist. This report was verified electronically.
[2016-08-25 11:24] LABS: BASOPHIL % 0.2 % (0.0-2.0); HEMATOCRIT 30.6 % (35.0-46.0); LYMPH % 7.1 % (9.0-44.0); MEAN CORPUSCULAR HEMOGLOBIN 30.7 PG (27.0-34.0); MEAN CORPUSCULAR HGB CONC 33.7 % (32.0-36.0); MONO % 5.1 % (0.0-8.0); NEUT % 87.6 % (16.0-70.0); PLATELET COUNT 191 TH/MM3 (150-450); RED BLOOD COUNT 3.36 MIL/MM3 (4.00-5.30); RED CELL DISTRIBUTION WIDTH 16.4 % (11.6-17.2); WHITE BLOOD COUNT 13.7 TH/MM3 (4.0-11.0)
[2016-08-25 11:31] LABS: HEMO FLAGS AUTO DIFF
[2016-08-25 11:35] LABS: APTT (PATIENT) 40.7 SEC (24.3-30.1); INTERNATIONAL NORMALIZED RATIO 1.5 RATIO; PROTHROMBIN TIME - PATIENT 16.6 SEC (9.8-11.6)
[2016-08-25 11:43] LABS: BICARBONATE 25.5 MEQ/L (21.0-32.0); POTASSIUM 4.8 MEQ/L (3.5-5.1)
[2016-08-25 11:47] LABS: TOTAL BILIRUBIN ADULT 0.8 MG/DL (0.2-1.0)
[2016-08-25 11:55] LABS: CALCIUM-PROTEIN CORRECTED 7.4 MG/DL (8.5-10.1)
[2016-08-25 12:16] LABS: BANDS 4 % (0-6); METAMYELOCYTES 2 % (0-1); MYELOCYTES 3 % (0-0); NEUTROPHIL # MANUAL DIFF 12.3 TH/MM3 (1.8-7.7); POLYS (SEG NEUTROPHILS) 81 % (16-70); WBC DIFF SAMPLE 100
[2016-08-25 12:17] LABS: PLATELET ESTIMATE SMEAR NORMAL (NORMAL); PLATELET MORPHOLOGY NORMAL (NORMAL); SCAN/DIFF FINAL DIFF MANUAL
[2016-08-25] MEDS ORDERED: CALCIUM GLUCONATE INJ 1 GM in DEXTROSE 5% IN WATER 100ML INJ 100 ML IV ONE ×4 (12:30→13:45)
[2016-08-25] MEDS ORDERED: FUROSEMIDE 40 MG/4 ML VIAL IV PUSH ONE (12:30)
[2016-08-25] MEDS ORDERED: ONDANSETRON HCL 4 MG/2 ML VIAL IVP PRN (13:00)
[2016-08-25] MEDS ORDERED: PROCHLORPERAZINE 25 MG SUPP PR PRN (13:00)
[2016-08-25] MEDS ORDERED: METOCLOPRAMIDE HCL 10 MG/2 ML VIAL IV PUSH PRN (13:00)
[2016-08-25] MEDS ORDERED: ACETAMINOPHEN 325 MG TAB PO PRN (13:00)
[2016-08-25] MEDS ORDERED: MAGNESIUM HYDROXIDE SUSP 30 ML CUP PO PRN (13:00)
[2016-08-25] MEDS ORDERED: NALOXONE HCL 0.4 MG/ML AMP IV PRN (13:00)
--- NOTE | 2016-08-25 13:20 | HHI.HP ---
[facility] Primary Care Physician Raj Alonso Mai, MD Admission Diagnosis CHF, hypocalcemia, renal insufficiency, abdominal pain Diagnoses: Travel History International Travel<30 Days: No Contact w/Intl Traveler <30 Da: No Traveled to Known Affected Are: No Past Family Social History Allergies: Coded Allergies: Versed (Verified Allergy, Severe, Hallucinations, 08/25/16) Tetracycline (Verified Allergy, Intermediate, Edema, 08/25/16) Ativan (Verified Allergy, Unknown, Irritation, 08/25/16) CRABBY Penicillin (Verified Allergy, Unknown, gi upset, 08/25/16) Nitroglycerin (Verified Adverse Reaction, Unknown, severe headache, 08/25/16 ) resolved only with demerol Uncoded Allergies: all fenofibrate (Allergy, Severe, rhabdomyolysis, 07/23/16) all statin drugs (Allergy, Severe, rhabdomyolysis, 07/23/16) glue on tape and bandages (Allergy, Intermediate, Itching, 07/23/16) nylon and silk (Allergy, Intermediate, Rash, 07/23/16) skin inflames, festers and weeps, will not granulate stainless steel (Allergy, Intermediate, Rash, 07/23/16) lactose and whey (Allergy, Unknown, 07/23/16) pollen (Allergy, Unknown, 07/23/16) topical iodine, cortisone,antibiotics (Allergy, Unknown, scalds, blisters, 07/23/16) Physical Exam Vital Signs Vital Signs Date Time Temp Pulse Resp B/P Pulse Ox O2 Delivery O2 Flow Rate FiO2 08/25/16 12:40 83 18 98/60 98 Nasal Cannula 2 08/25/16 10:47 98 Nasal Cannula 2 08/25/16 10:44 87 16 120/82 96 Nasal Cannula 2 08/25/16 10:39 96 16 120/82 96 08/25/16 10:29 97.4 114 20 106/64 95 Physical Exam GENERAL: This is a well-nourished, well-developed patient, in no apparent distress. SKIN: No rashes, ecchymoses or lesions. Cool and dry. HEAD: Atraumatic. Normocephalic. No temporal or scalp tenderness. EYES: Pupils equal round and reactive. Extraocular motions intact. No scleral icterus. No injection or drainage. ENT: Nose without bleeding, purulent drainage or septal hematoma. Throat without erythema, tonsillar hypertrophy or exudate. Uvula midline. Airway patent. NECK: Trachea midline. No JVD or lymphadenopathy. Supple, nontender, no meningeal signs. CARDIOVASCULAR: Regular rate and rhythm without murmurs, gallops, or rubs. RESPIRATORY: Clear to auscultation. Breath sounds equal bilaterally. No wheezes , rales, or rhonchi. GASTROINTESTINAL: Abdomen soft, non-tender, nondistended. No hepato-splenomegaly , or palpable masses. No guarding. MUSCULOSKELETAL: Extremities without clubbing, cyanosis, or edema. No joint tenderness, effusion, or edema noted. No calf tenderness. Negative Homans sign bilaterally. NEUROLOGICAL: Awake and alert. Cranial nerves II through XII intact. Motor and sensory grossly within normal limits. Five out of 5 muscle strength in all muscle groups. Normal speech. Laboratory Laboratory Tests Test 08/25/16 11:10 White Blood Count 13.7 Red Blood Count 3.36 Hemoglobin 10.3 Hematocrit 30.6 Mean Corpuscular Volume 91.0 Mean Corpuscular Hemoglobin 30.7 Mean Corpuscular Hemoglobin 33.7 Concent Red Cell Distribution Width 16.4 Platelet Count 191 Mean Platelet Volume 8.6 Neutrophils (%) (Auto) 87.6 Lymphocytes (%) (Auto) 7.1 Monocytes (%) (Auto) 5.1 Eosinophils (%) (Auto) 0.0 Basophils (%) (Auto) 0.2 Neutrophils # (Auto) 12.0 Lymphocytes # (Auto) 1.0 Monocytes # (Auto) 0.7 Eosinophils # (Auto) 0.0 Basophils # (Auto) 0.0 CBC Comment AUTO DIFF Differential Total Cells 100 Counted Neutrophils % (Manual) 81 Band Neutrophils % 4 Lymphocytes % 6 Monocytes % 4 Neutrophils # (Manual) 12.3 Metamyelocytes 2 Myelocytes 3 Differential Comment FINAL DIFF MANUAL Platelet Estimate NORMAL Platelet Morphology Comment NORMAL Red Cell Morphology Comment NORMAL Prothrombin Time 16.6 Prothromb Time International 1.5 Ratio Activated Partial 40.7 Thromboplast Time Sodium Level 133 Potassium Level 4.8 Chloride Level 98 Carbon Dioxide Level 25.5 Anion Gap 10 Blood Urea Nitrogen 19 Creatinine 1.35 Estimat Glomerular Filtration 39 Rate Random Glucose 214 Calcium Level 6.7 Protein Corrected Calcium 7.4 Total Bilirubin 0.8 Aspartate Amino Transf 19 (AST/SGOT) Alanine Aminotransferase 21 (ALT/SGPT) Alkaline Phosphatase 137 Total Creatine Kinase 76 Troponin I 0.03 B-Type Natriuretic Peptide 767 Total Protein 5.6 Albumin 2.6 Result Diagram: 08/25/16 1110 08/25/16 1110 Ana Le DO Aug 25, 2016 1:20 pm
[2016-08-25] MEDS ORDERED: oxyCODONE/ACETAMINOPHEN 7.5 MG/325 MG TAB PO PRN (13:30)
--- NOTE | 2016-08-25 13:31 | HHI.HP ---
HPI Service [facility] Primary Care Physician Raj Alonso Mai, MD Admission Diagnosis CHF, hypocalcemia, renal insufficiency, abdominal pain Diagnoses: Chief Complaint: Abdominal pain, shortness of breath, nausea. Travel History International Travel<30 Days: No Contact w/Intl Traveler <30 Da: No Traveled to Known Affected Are: No History of Present Illness Ms. Concepcion is a pleasant 65 year old female with a history of unresectable pancreatic cancer, Afib who presents to the ED one day after being discharged with generalized weakness, shortness of breath, left sided abdominal pain. Patient was recently admitted on 08/16/2016 and discharged on 08/24/2016 from the hospital - she was admitted for generalized weakness, dysphagia. Patient had intractable nausea, vomiting in the recent admission. She also developed Afib with RVR and her rate was controlled. After discussing with cardiology and Oncology, patient was discharged home with home health. Ms. Concepcion felt that she could take care of herself with help of the neighbors. However, now she feels that it would be better for her to stay at the hospital longer and possibly go to a rehab. She denies any chest pain, fever, chills. Review of Systems ROS Limitations: Other (Negative except as noted in the HPI. ) Past Family Social History Past Medical History Pancreatic cancer, digestive heart failure, coronary artery disease, diabetes type 2, heart attack/AR, hypothyroidism, peripheral neuropathy, arthritis, Atrial fibrillation. 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 Clonazepam 0.5 Mg Tab 0.5 Mg PO TID PRN Magnesium Oxide 400 Mg Tab 400 Mg PO DAILY Protonix (Pantoprazole Sodium) 40 Mg Tab 40 Mg PO DAILY Magic Mouthwash Adult Liq (Multi-Ingredient Mouthwash/Gargle) 120 Ml Susp 5 Ml SWISH-SWAL QID 10 Days Megestrol Liq (Megestrol Acetate) 40 Mg/Ml Susp 400 Mg PO DAILY 30 Days Levaquin (Levofloxacin) 750 Mg Tab 750 Mg PO DAILY Diltiazem CD 24 HR 240 Mg Caper 240 Mg PO DAILY Reported Ranexa ER 12 HR (Ranolazine) 500 Mg Tab 500 Mg PO BID Chlorpheniramine 12 HR (Chlorpheniramine Maleate) 12 Mg Tab 12 Mg PO Q12H PRN Ondansetron (Ondansetron HCl) 4 Mg Tab 4 Mg PO Q4HR PRN Oxycodone (Oxycodone HCl) 15 Mg Tab 15 Mg PO Q6H PRN Estrace (Estradiol) 2 Mg Tab 2 Mg PO DAILY K-Tab (Potassium Chloride) 10 Meq Tab 10 Meq PO DAILY Lasix (Furosemide) 40 Mg Tab 40 Mg PO DAILY Enalapril (Enalapril Maleate) 10 Mg Tab 10 Mg PO DAILY Carvedilol 12.5 Mg Tab 12.5 Mg PO BID Glimepiride 4 Mg Tab 4 Mg PO BIDAC Metformin (Metformin HCl) 1,000 Mg Tab 1,000 Mg PO BIDPC With meals Okay Thyroid (Thyroid) 15 Mg Tab 45 Mg PO BID Allergies: Coded Allergies: Versed (Verified Allergy, Severe, Hallucinations, 08/25/16) Tetracycline (Verified Allergy, Intermediate, Edema, 08/25/16) Ativan (Verified Allergy, Unknown, Irritation, 08/25/16) CRABBY Penicillin (Verified Allergy, Unknown, gi upset, 08/25/16) Nitroglycerin (Verified Adverse Reaction, Unknown, severe headache, 08/25/16 ) resolved only with demerol Uncoded Allergies: all fenofibrate (Allergy, Severe, rhabdomyolysis, 07/23/16) all statin drugs (Allergy, Severe, rhabdomyolysis, 07/23/16) glue on tape and bandages (Allergy, Intermediate, Itching, 07/23/16) nylon and silk (Allergy, Intermediate, Rash, 07/23/16) skin inflames, festers and weeps, will not granulate stainless steel (Allergy, Intermediate, Rash, 07/23/16) lactose and whey (Allergy, Unknown, 07/23/16) pollen (Allergy, Unknown, 07/23/16) topical iodine, cortisone,antibiotics (Allergy, Unknown, scalds, blisters, 07/23/16) Family History Patient was adopted. Social History Has a h/o smoking cigarettes quit in 1994. No illicit drug use or EtOH use. Physical Exam Vital Signs Vital Signs Date Time Temp Pulse Resp B/P Pulse Ox O2 Delivery O2 Flow Rate FiO2 08/25/16 12:40 83 18 98/60 98 Nasal Cannula 2 08/25/16 10:47 98 Nasal Cannula 2 08/25/16 10:44 87 16 120/82 96 Nasal Cannula 2 08/25/16 10:39 96 16 120/82 96 08/25/16 10:29 97.4 114 20 106/64 95 Physical Exam GENERAL: This is a well-nourished, well-developed patient, in no apparent distress. SKIN: No rashes, ecchymoses or lesions. Warm and dry. HEAD: Atraumatic. Normocephalic. No temporal or scalp tenderness. EYES: Pupils equal round and reactive. No injection or drainage. ENT: Nose without bleeding, purulent drainage or septal hematoma. Airway patent. NECK: Trachea midline. No lymphadenopathy. Supple, nontender, no meningeal signs. CARDIOVASCULAR: Regular rate and rhythm without murmurs, gallops, or rubs. No JVD. Mild bibasilar crackles. RESPIRATORY: Clear to auscultation. Breath sounds equal bilaterally. No wheezes , rales, or rhonchi. GASTROINTESTINAL: Abdomen soft, non-tender, nondistended. No guarding. MUSCULOSKELETAL: Extremities without clubbing, cyanosis. 1+ edema in lower extremities. NEUROLOGICAL: Awake and alert. Cranial nerves II through XII intact. No focal neurological deficits. Normal speech. Laboratory Laboratory Tests Test 08/25/16 11:10 White Blood Count 13.7 Red Blood Count 3.36 Hemoglobin 10.3 Hematocrit 30.6 Mean Corpuscular Volume 91.0 Mean Corpuscular Hemoglobin 30.7 Mean Corpuscular Hemoglobin 33.7 Concent Red Cell Distribution Width 16.4 Platelet Count 191 Mean Platelet Volume 8.6 Neutrophils (%) (Auto) 87.6 Lymphocytes (%) (Auto) 7.1 Monocytes (%) (Auto) 5.1 Eosinophils (%) (Auto) 0.0 Basophils (%) (Auto) 0.2 Neutrophils # (Auto) 12.0 Lymphocytes # (Auto) 1.0 Monocytes # (Auto) 0.7 Eosinophils # (Auto) 0.0 Basophils # (Auto) 0.0 CBC Comment AUTO DIFF Differential Total Cells 100 Counted Neutrophils % (Manual) 81 Band Neutrophils % 4 Lymphocytes % 6 Monocytes % 4 Neutrophils # (Manual) 12.3 Metamyelocytes 2 Myelocytes 3 Differential Comment FINAL DIFF MANUAL Platelet Estimate NORMAL Platelet Morphology Comment NORMAL Red Cell Morphology Comment NORMAL Prothrombin Time 16.6 Prothromb Time International 1.5 Ratio Activated Partial 40.7 Thromboplast Time Sodium Level 133 Potassium Level 4.8 Chloride Level 98 Carbon Dioxide Level 25.5 Anion Gap 10 Blood Urea Nitrogen 19 Creatinine 1.35 Estimat Glomerular Filtration 39 Rate Random Glucose 214 Calcium Level 6.7 Protein Corrected Calcium 7.4 Total Bilirubin 0.8 Aspartate Amino Transf 19 (AST/SGOT) Alanine Aminotransferase 21 (ALT/SGPT) Alkaline Phosphatase 137 Total Creatine Kinase 76 Troponin I 0.03 B-Type Natriuretic Peptide 767 Total Protein 5.6 Albumin 2.6 Result Diagram: 08/25/16 1110 08/25/16 1110 Imaging Last Impressions Chest X-Ray 08/25/16 1043 Signed Impressions: Service Date/Time: Thursday, August 25, 2016 10:55 - CONCLUSION: Slight blunting of the right costophrenic sulcus suggesting small right pleural effusion. Otherwise, no acute finding is identified. Jono Balderrama MD Assessment and Plan Assessment and Plan Ms. Concepcion is a 65-year-old female with a history of unresectable pancreatic cancer who presented to the emergency department today 08/25/2016 with generalized weakness, shortness of breath, nausea. She was discharged from the hospital on 08/24/2016 with home health after being treated for intractable nausea , vomiting, dysphagia as well as Afib with RVR. During previous hospitalization , we discussed hospice but patient is not ready for palliative care or hospice discussion. - Pancreatic cancer, unresectable - Recent history of dysphagia, intractable nausea vomiting. - Intractable abdominal pain - left sided. - Patient underwent G-J tube placement in the previous admission. She was on tube feed but started to tolerate oral feeding well - She did not want to continue tube feed on discharge. - Patient declined to discuss with palliative care or hospice team. - Continue Oxycodone, Dilaudid PRN. - Probable exacerbation of CHF - BNP is elevated - 767. She received 40mg IV lasix in the ED. BP is borderline, we will hold off using Lasix IV today. - We can likely continue Lasix IV tomorrow again if BP permits. - Acute kidney injury - Creatinine 1.35. Baseline is below 0.80. - With proper diuresis, kidney perfusion may improve. Will continue to monitor. - Hypocalcemia - Hypomagnesemia - Calcium replaced in the ED with 1 g of Calcium Gluconate IV. - Will replace Magnesium with IV 2g as magnesium deficiency can cause hypocalcemia. - Atrial fibrillation with RVR - [id number] score 3 (female, age 65, DM). - Continue Cardizem CD PO 240mg Qday. - Continue Carvedilol but reduce dose from 12.5mg BID to 6.25mg BID with holding parameters. - Patient wanted to discuss with her primary mold hoister after discharge. - However, based on my discussion with cardiology during last hospitalization , we will start patient on Apixaban 2.5mg BID. - Diabetes mellitus - Continue Levemir 25 units QHS, sliding scale insulin. - If needed, we can add pre-meal coverage as well. Goal BS 140-180 while in the hospital. - Hypothyroidism - continue Okay thyroid 45 mg by mouth twice a day. - GERD - Protonix 40mg Qday. Full code. Apixaban 2.5mg BID. Physician Certification 2 Midnight Certification Type: Admission for Inpatient Services Order for Inpatient Services The services are ordered in accordance with Medicare regulations or non- Medicare payer requirements, as applicable. In the case of services not specified as inpatient-only, they are appropriately provided as inpatient services in accordance with the 2-midnight benchmark. Estimated LOS (days): 2 days is the estimated time the patient will need to remain in the hospital, assuming treatment plan goals are met and no additional complications. Post-Hospital Plan: [facility] Ana Le DO Aug 25, 2016 13:31
[2016-08-25] MEDS: HYDROmorphone HCL PF 1 MG/ML VIAL IV PUSH PRN ×2 (13:54→21:21)
[2016-08-25] MEDS: clonazePAM 0.5 MG TAB PO PRN ×2 (15:43→21:18)
[2016-08-25] MEDS ORDERED: GLUCAGON 1 MG/ML VIAL OTHER PRN (15:45)
[2016-08-25] MEDS: NYSTAT/DIPHENHY/LIDO MOUTHWASH (Adult) 120ML SWISH-SWAL SCH ×2 (18:00→21:19)
[2016-08-25] MEDS: INSULIN ASPART SUPPLEMENTAL SCALE SQ SCH ×2 (18:05→21:19)
[2016-08-25] MEDS ORDERED: CARVEDILOL 12.5 MG TAB PO SCH (21:00)
[2016-08-25] MEDS ORDERED: INSULIN DETEMIR 100 UNITS/ML VIAL SQ SCH (21:00)
[2016-08-25] MEDS: RANOLAZINE 500 MG EXTENDED RELEASE TAB PO SCH (21:18)
[2016-08-25] MEDS: SODIUM CHLORIDE 0.9% FLUSH 5 ML FLUSH FLUSH SCH (21:18)
[2016-08-25] MEDS: THYROID 15 MG TAB PO SCH (21:18)
[2016-08-25] MEDS: MAGNESIUM SULFATE 1 GM PREMIX 100 ML IV SCH ×2 (22:49→23:57)
[2016-08-26] VITALS (8 sets, daily range): BP systolic 108–116; BP diastolic 58–73; PULSE 72–120; RESP 18–19; TEMP 98–98.2; O2SAT 94–99
[2016-08-26] MEDS: HYDROmorphone HCL PF 1 MG/ML VIAL IV PUSH PRN ×4 (02:34→21:44)
[2016-08-26 04:45] LABS: AUTOMATED NEUTROPHIL # 10.9 TH/MM3 (1.8-7.7); BASOPHIL # 0.1 TH/MM3 (0-0.2); BASOPHIL % 0.8 % (0.0-2.0); EOSINOPHIL % 0.1 % (0.0-4.0); HEMATOCRIT 31.9 % (35.0-46.0); LYMPH % 11.6 % (9.0-44.0); LYMPHOCYTE # 1.5 TH/MM3 (1.0-4.8); MEAN CELL VOLUME 91.2 FL (80.0-100.0); MEAN CORPUSCULAR HEMOGLOBIN 30.3 PG (27.0-34.0); MEAN CORPUSCULAR HGB CONC 33.2 % (32.0-36.0); MONO % 5.4 % (0.0-8.0); NEUT % 82.1 % (16.0-70.0); PLATELET COUNT 248 TH/MM3 (150-450); WHITE BLOOD COUNT 13.3 TH/MM3 (4.0-11.0)
[2016-08-26 04:49] LABS: HEMO FLAGS AUTO DIFF
[2016-08-26] MEDS: clonazePAM 0.5 MG TAB PO PRN ×3 (05:08→21:42)
[2016-08-26 05:25] LABS: BANDS 1 % (0-6); CORRECTED NUCLEATED RBC 1 /100 WBC (0-0); MYELOCYTES 1 % (0-0); NEUTROPHIL # MANUAL DIFF 11.4 TH/MM3 (1.8-7.7); POLYS (SEG NEUTROPHILS) 84 % (16-70); WBC DIFF SAMPLE 100
[2016-08-26 05:26] LABS: PLATELET ESTIMATE SMEAR NORMAL (NORMAL); PLATELET MORPHOLOGY NORMAL (NORMAL); SCAN/DIFF FINAL DIFF MANUAL
[2016-08-26 05:31] LABS: POTASSIUM 4.8 MEQ/L (3.5-5.1)
[2016-08-26 05:47] LABS: CALCIUM-PROTEIN CORRECTED 7.9 MG/DL (8.5-10.1)
[2016-08-26] MEDS: INSULIN ASPART SUPPLEMENTAL SCALE SQ SCH ×4 (06:09→21:43)
[2016-08-26] MEDS ORDERED: CALCIUM GLUCONATE INJ 1 GM in SODIUM CHLORIDE 0.9% INJ 100 ML IV ONE (07:30)
[2016-08-26] MEDS: SODIUM CHLORIDE 0.9% FLUSH 5 ML FLUSH FLUSH SCH ×2 (08:12→21:41)
[2016-08-26] MEDS: MAGNESIUM SULFATE 1 GM PREMIX 100 ML IV SCH ×2 (08:12→10:39)
[2016-08-26] MEDS: SODIUM CHLORIDE 0.9% FLUSH 5 ML FLUSH FLUSH PRN ×2 (08:12→17:09)
[2016-08-26] MEDS: SODIUM CHLORIDE 0.9% FLUSH 5 ML FLUSH IVF PRN ×2 (08:12→17:09)
[2016-08-26] MEDS: THYROID 15 MG TAB PO SCH ×2 (08:13→21:41)
[2016-08-26] MEDS: PANTOPRAZOLE SOD 40 MG DELAYED RELEASE TAB PO SCH (08:13)
[2016-08-26] MEDS: MEGESTROL ACETATE SUSP 400 MG/10 ML CUP PO SCH (08:13)
[2016-08-26] MEDS: ENALAPRIL MALEATE 10 MG TAB PO SCH (08:13)
[2016-08-26] MEDS: FUROSEMIDE 20 MG/2 ML VIAL IV PUSH SCH ×2 (08:13→17:09)
[2016-08-26] MEDS: ESTRADIOL 1 MG TAB PO SCH (08:13)
[2016-08-26] MEDS: CARVEDILOL 6.25 MG TAB PO SCH ×2 (08:13→21:00)
[2016-08-26] MEDS: MAGNESIUM OXIDE 400 MG TAB PO SCH ×2 (08:13→21:41)
[2016-08-26] MEDS: RANOLAZINE 500 MG EXTENDED RELEASE TAB PO SCH ×2 (08:13→21:41)
[2016-08-26] MEDS: DILTIAZEM-CD 240 MG CAP ER PO SCH (08:14)
[2016-08-26] MEDS: APIXABAN 2.5 MG TABLET PO SCH ×2 (08:14→21:42)
[2016-08-26] MEDS: POTASSIUM CHLORIDE 10 MEQ CONTROLLED RELEASE TAB PO SCH (08:14)
[2016-08-26] MEDS: CALCIUM CARBONATE 1.25 GM (CA 500 MG) TAB PO SCH ×2 (08:14→21:42)
[2016-08-26] MEDS ORDERED: CARVEDILOL 12.5 MG TAB PO SCH (09:00)
[2016-08-26] MEDS: NYSTAT/DIPHENHY/LIDO MOUTHWASH (Adult) 120ML SWISH-SWAL SCH ×4 (09:16→21:43)
--- NOTE | 2016-08-26 10:35 | HHI.PR ---
Subjective Remarks Patient at the margin of the bed appears with mild sob. Says she feels tired, No n/v/d. Complaints of constipation. Did tolerate dinner. No fever or chills. No chest pain. No lightheadedness and no palpitations. Pain is controlled by meds. Feels somehow improved today. Still with LE edema. Replace electrolytes today. Objective Vitals Vital Signs Date Time Temp Pulse Resp B/P Pulse Ox O2 Delivery O2 Flow Rate FiO2 08/26/16 09:16 16 08/26/16 03:13 98.0 110 19 108/60 98 08/26/16 00:05 98.0 120 19 108/63 99 08/25/16 20:31 98.2 94 18 104/58 96 08/25/16 20:00 93 08/25/16 20:00 103 08/25/16 17:15 18 08/25/16 15:16 97.6 84 18 109/60 97 08/25/16 13:41 99 16 108/68 100 Nasal Cannula 2 08/25/16 12:40 83 18 98/60 98 Nasal Cannula 2 08/25/16 10:47 98 Nasal Cannula 2 08/25/16 10:44 87 16 120/82 96 Nasal Cannula 2 08/25/16 10:39 96 16 120/82 96 08/25/16 10:29 97.4 114 20 106/64 95 I/O 08/25/16 08/25/16 08/25/16 08/26/16 08/26/16 08/26/16 07:00 15:00 23:00 07:00 15:00 23:00 Intake Total 680 ml Balance 680 ml Intake Oral 480 ml IV Total 200 ml # Voids 3 Result Diagram: 08/26/16 0430 08/26/16 0430 Imaging Last Impressions Chest X-Ray 08/25/16 1043 Signed Impressions: Service Date/Time: Thursday, August 25, 2016 10:55 - CONCLUSION: Slight blunting of the right costophrenic sulcus suggesting small right pleural effusion. Otherwise, no acute finding is identified. Jono Balderrama MD Objective Remarks GENERAL: This is a pleasant well-nourished, well-developed patient, chronically ill appearing, in no apparent distress. SKIN: Pale. No rashes, ecchymoses or lesions. Warm and dry. Thin scarce hair, loosing hair. HEAD: Atraumatic. Normocephalic. No temporal or scalp tenderness. EYES: Pupils equal round and reactive. No injection or drainage. ENT: Nose without bleeding, purulent drainage or septal hematoma. Airway patent. NECK: Trachea midline. No lymphadenopathy. Supple, nontender, no meningeal signs. CARDIOVASCULAR: Regular rate and rhythm without murmurs, gallops, or rubs. No JVD. Mild bibasilar crackles. RESPIRATORY: Mils sob. Clear to auscultation. Breath sounds equal bilaterally. No wheezes, rales, or rhonchi. GASTROINTESTINAL: Abdomen soft, non-tender, nondistended. No guarding. MUSCULOSKELETAL: Extremities without clubbing, cyanosis. 1+ edema in lower extremities. NEUROLOGICAL: Awake and alert. Cranial nerves II through XII intact. No focal neurological deficits. Normal speech. A/P Assessment and Plan Ms. Concepcion is a 65-year-old female with a history of unresectable pancreatic cancer who presented to the emergency department on 08/25/2016 with generalized weakness, shortness of breath, nausea. She was discharged from the hospital on 08/24/2016 with home health after being treated for intractable nausea , vomiting, dysphagia as well as Afib with RVR. During previous hospitalization , possibility if hospice care was discussed with the patient but patient is not ready for palliative care or hospice discussion. Pancreatic cancer, unresectable Recent history of dysphagia, intractable nausea vomiting. Improving. Intractable abdominal pain - left sided. Patient underwent G-J tube placement in the previous admission. She was on tube feed but started to tolerate oral feeding well She did not want to continue tube feed on discharge. Patient declined to discuss with palliative care or hospice team. Continue Oxycodone, Dilaudid PRN. Probable exacerbation of CHF BNP is elevated - 767. She received 40mg IV lasix in the ED on admission Continue Lasix IV 20 mg today monitor kidney function and BP. Will give albumin IV as BP into a lower side and patietn wilth LE edema. Monitor I&Os. Acute kidney injury Creatinine 1.35 on admission. Baseline is below 0.80. With proper diuresis, kidney perfusion may improve. Will continue to monitor. Hypocalcemia Hypomagnesemia Calcium replaced in the ED with 1 g of Calcium Gluconate IV. Received Magnesium with IV 2g as magnesium deficiency can cause hypocalcemia. Still with low prot corrected Ca. Will give another calcium gluconate 1mg IV today and mag supplement. Also start PO Ca gluiuconate and mag ox Atrial fibrillation with RVR [id number] score 3 (female, age 65, DM). Continue Cardizem CD PO 240mg Qday. Continue Carvedilol, dose decreased from 12.5mg BID to 6.25mg BID with holding parameters. Continue Apixaban 2.5mg BID. Diabetes mellitus Continue Levemir 25 units QHS, sliding scale insulin. f needed, we can add pre-meal coverage as well. Goal BS 140-180 while in the hospital. Hypothyroidism - continue [place] thyroid 45 mg by mouth twice a day. GERD - Protonix 40mg Qday. Full code. DVT ppx: Apixaban 2.5mg BID. Discussed with the patient and the nurse. Oanh Garner MD Aug 26, 2016 10:35
[2016-08-26] MEDS ORDERED: FUROSEMIDE 40 MG/4 ML VIAL IV PUSH ONE (10:45)
[2016-08-26] MEDS ORDERED: ALBUMIN HUMAN 25% 25 GM/100 ML BAGP IV ONE (10:45)
--- NOTE | 2016-08-26 14:24 | EKG ---
Date Performed: 08/25/2016 Time Performed: 11:05:22 PTAGE: 65 years EKG: ATRIAL FIBRILLATION MARKED LEFT AXIS DEVIATION POSSIBLE ANTERIOR MYOCARDIAL INFARCTION ABNO RMAL ECG Compared to prior tracing no significant change PREVIOUS TRACING : 08/16/2016 17.18 DOCTOR: Chai Ontiveros Interpretating Date/Time 08/26/2016 14:22:55
[2016-08-26] MEDS ORDERED: MAGNESIUM OXIDE 400 MG TAB PO SCH (21:00)
[2016-08-26] MEDS: INSULIN DETEMIR 100 UNITS/ML VIAL SQ SCH (21:43)
[2016-08-27] MEDS: HYDROmorphone HCL PF 1 MG/ML VIAL IV PUSH PRN ×2 (01:49→10:09)
[2016-08-27] MEDS: THYROID 15 MG TAB PO SCH ×2 (06:04→21:59)
[2016-08-27] MEDS: INSULIN ASPART SUPPLEMENTAL SCALE SQ SCH ×4 (06:05→21:00)
[2016-08-27 06:22] VITALS: BP 124/85; PULSE 98; RESP 18; TEMP 98.1; O2SAT 95
[2016-08-27 06:42] LABS: AUTOMATED NEUTROPHIL # 9.6 TH/MM3 (1.8-7.7); BASOPHIL # 0.1 TH/MM3 (0-0.2); BASOPHIL % 0.5 % (0.0-2.0); EOSINOPHIL % 0.1 % (0.0-4.0); HEMATOCRIT 31.5 % (35.0-46.0); LYMPH % 13.6 % (9.0-44.0); LYMPHOCYTE # 1.7 TH/MM3 (1.0-4.8); MEAN CELL VOLUME 91.5 FL (80.0-100.0); MEAN CORPUSCULAR HEMOGLOBIN 30.8 PG (27.0-34.0); MEAN CORPUSCULAR HGB CONC 33.6 % (32.0-36.0); MONO % 7.3 % (0.0-8.0); NEUT % 78.5 % (16.0-70.0); PLATELET COUNT 290 TH/MM3 (150-450); RED BLOOD COUNT 3.44 MIL/MM3 (4.00-5.30); RED CELL DISTRIBUTION WIDTH 16.1 % (11.6-17.2); WHITE BLOOD COUNT 12.2 TH/MM3 (4.0-11.0)
[2016-08-27 06:45] LABS: HEMO FLAGS AUTO DIFF
[2016-08-27 06:53] LABS: BICARBONATE 28.1 MEQ/L (21.0-32.0); MAGNESIUM 2.2 MG/DL (1.5-2.5); POTASSIUM 5.2 MEQ/L (3.5-5.1)
[2016-08-27 07:54] LABS: BANDS 1 % (0-6); BASOPHILS 1 % (0-2); METAMYELOCYTES 1 % (0-1); MYELOCYTES 1 % (0-0); NEUTROPHIL # MANUAL DIFF 9.5 TH/MM3 (1.8-7.7); POLYS (SEG NEUTROPHILS) 75 % (16-70); WBC DIFF SAMPLE 100
[2016-08-27 07:55] LABS: PLATELET ESTIMATE SMEAR NORMAL (NORMAL); PLATELET MORPHOLOGY NORMAL (NORMAL); SCAN/DIFF FINAL DIFF MANUAL
[2016-08-27] MEDS: NYSTAT/DIPHENHY/LIDO MOUTHWASH (Adult) 120ML SWISH-SWAL SCH ×4 (09:00→21:59)
[2016-08-27] MEDS: SODIUM CHLORIDE 0.9% FLUSH 5 ML FLUSH FLUSH SCH (09:00)
--- NOTE | 2016-08-27 10:00 | HHI.PR ---
Subjective Remarks Follow-up for shortness breath. The patient continues to complain of shortness breath, fatigue with activity, and lower extremity swelling; although symptoms appear to be slowly improving. She did walk a short distance with PT today. She states her appetite continues to improve, eating at least half her meals. No nausea, vomiting overnight. Passing flatness, no BM for 4 days. Chronic abdominal distention. She has had discomfort with PEG tube since placed. She feels like she rushed her last hospital discharge and went home too soon. She would still like to go home with [facility]; discussed plan of care after discharge at length, the patient understands hospice and SNF are still options. Abdominal pain is controlled by home Dilaudid. Good urine output. She reports Compazine works better than Zofran for occasional nausea. Objective Vitals Vital Signs Date Time Temp Pulse Resp B/P Pulse Ox O2 Delivery O2 Flow Rate FiO2 08/27/16 06:22 98.1 98 18 124/85 95 08/26/16 23:46 98.2 107 19 111/73 95 08/26/16 20:00 80 08/26/16 19:48 98.0 80 18 116/62 94 08/26/16 16:51 16 08/26/16 16:19 72 18 109/58 95 08/26/16 12:22 16 08/26/16 12:20 97 08/26/16 12:18 111 I/O 08/26/16 08/26/16 08/26/16 08/27/16 08/27/16 08/27/16 07:00 15:00 23:00 07:00 15:00 23:00 Intake Total 680 ml 480 ml Balance 680 ml 480 ml Intake Oral 480 ml 480 ml IV Total 200 ml # Voids 3 3 1 Result Diagram: 08/27/16 0610 08/27/16 0610 Imaging Last Impressions Chest X-Ray 08/25/16 1043 Signed Impressions: Service Date/Time: Thursday, August 25, 2016 10:55 - CONCLUSION: Slight blunting of the right costophrenic sulcus suggesting small right pleural effusion. Otherwise, no acute finding is identified. Jono Balderrama MD Objective Remarks GENERAL: Pleasant. Chronically ill appearing. Well-developed well-nourished. In no acute distress. SKIN: Warm and dry.Thin scarce hair, loosing hair. Port in place on right chest wall. HEENT: Normocephalic. Pupils equal and round. Mucous membranes pink and moist. CARDIOVASCULAR: Regular rate and rhythm. No murmur appreciated. RESPIRATORY: No accessory muscle use. Clear to auscultation. Breath sounds equal bilaterally. GASTROINTESTINAL: Abdomen soft, non-tender, mildly distended distended. Bowel sounds x4. PEG tube in place. MUSCULOSKELETAL: No obvious deformities. No clubbing or cyanosis. 1+ lower external edema. NEUROLOGICAL: Awake and alert. No focal neurological deficits. Moves upper and lower extremities spontaneously. Normal speech. PSYCHIATRIC: Appropriate mood and affect; insight and judgment normal. A/P Assessment and Plan Ms. Concepcion is a 65-year-old female with a history of unresectable pancreatic cancer who presented to the emergency department on 08/25/2016 with generalized weakness, shortness of breath, nausea. She was discharged from the hospital on 08/24/2016 with home health after being treated for intractable nausea , vomiting, dysphagia as well as Afib with RVR. During previous hospitalization , possibility if hospice care was discussed with the patient but patient is not ready for palliative care or hospice discussion. Pancreatic cancer, unresectable Recent history of dysphagia, intractable nausea vomiting. Improving. Intractable abdominal pain - left sided. Patient underwent G-J tube placement in the previous admission. She was on tube feed but started to tolerate oral feeding well She did not want to continue tube feed on discharge. Consult dietitian for calorie count. Patient declined to discuss with palliative care or hospice team at this time. Continue Oxycodone, Dilaudid PRN. PT evaluated the patient, [facility] vs SNF, patient leaning towards [facility] at this time. D/W case management. Acute exacerbation of chronic systolic CHF BNP elevated 767, improving 551 Diuresing with IV Lasix, creatinine increasing, change to by mouth. Monitor kidney function and BP. Given albumin IV as BP into a lower side and continued LE edema. Monitor I&Os. CHEY hose for edema. Acute kidney injury Creatinine 1.35 on admission. Baseline is below 0.80. Creatinine slowly increasing, decreased diuresis Hypocalcemia Hypomagnesemia Calcium replaced with IV Calcium Gluconate x2. Received Magnesium with IV 2g as magnesium deficiency can cause hypocalcemia. Started PO Ca gluconate and mag ox Calcium improved today. Atrial fibrillation with RVR [id number] score 3 (female, age 65, DM). Continue Cardizem CD PO 240mg Qday. Continue Carvedilol, dose decreased from 12.5mg BID to 6.25mg BID with holding parameters. Continue Apixaban 2.5mg BID. Diabetes mellitus With episode of hypoglycemia Decreased Levemir to 20 units QHS, with good effect. Sliding scale insulin. Hypothyroidism - continue [place] thyroid 45 mg by mouth twice a day. GERD - Protonix 40mg Qday. Full code. DVT ppx: Apixaban 2.5mg BID. Discharge Planning Possible discharge in 12 days of patient continues to improve Antonio Cummins Aug 27, 2016 10:00
[2016-08-27] MEDS: ESTRADIOL 1 MG TAB PO SCH (10:09)
[2016-08-27] MEDS: MEGESTROL ACETATE SUSP 400 MG/10 ML CUP PO SCH (10:09)
[2016-08-27] MEDS: clonazePAM 0.5 MG TAB PO PRN (10:10)
[2016-08-27] MEDS: APIXABAN 2.5 MG TABLET PO SCH ×2 (10:10→21:44)
[2016-08-27] MEDS: CALCIUM CARBONATE 1.25 GM (CA 500 MG) TAB PO SCH ×2 (10:10→21:45)
[2016-08-27] MEDS: RANOLAZINE 500 MG EXTENDED RELEASE TAB PO SCH ×2 (10:10→21:45)
[2016-08-27] MEDS: ENALAPRIL MALEATE 10 MG TAB PO SCH (10:10)
[2016-08-27] MEDS: DILTIAZEM-CD 240 MG CAP ER PO SCH (10:10)
[2016-08-27] MEDS: POTASSIUM CHLORIDE 10 MEQ CONTROLLED RELEASE TAB PO SCH (10:10)
[2016-08-27] MEDS: MAGNESIUM OXIDE 400 MG TAB PO SCH ×2 (10:10→21:44)
[2016-08-27] MEDS: CARVEDILOL 6.25 MG TAB PO SCH ×2 (10:10→21:43)
[2016-08-27] MEDS: PANTOPRAZOLE SOD 40 MG DELAYED RELEASE TAB PO SCH (10:11)
[2016-08-27 12:13] VITALS: BP 104/63; PULSE 105; RESP 17; TEMP 98.1; O2SAT 95
[2016-08-27 14:42] VITALS: BP 89/54; PULSE 102; RESP 18; TEMP 98; O2SAT 100
[2016-08-27] MEDS ORDERED: PROCHLORPERAZINE MALEATE 5 MG TAB PO PRN (15:00)
[2016-08-27] MEDS ORDERED: FUROSEMIDE 20 MG TAB PO SCH (18:00)
[2016-08-27 19:50] VITALS: BP 106/70; PULSE 85; RESP 18; TEMP 97.9; O2SAT 99
[2016-08-27] MEDS: INSULIN DETEMIR 100 UNITS/ML VIAL SQ SCH (21:00)
[2016-08-27] MEDS: DOCUSATE SODIUM 100 MG CAP PO SCH (21:44)
[2016-08-28] VITALS (7 sets, daily range): BP systolic 92–122; BP diastolic 53–70; PULSE 66–96; RESP 16–19; TEMP 96.5–98.5; O2SAT 94–100
[2016-08-28] MEDS: THYROID 15 MG TAB PO SCH ×2 (05:03→22:50)
[2016-08-28] MEDS: INSULIN ASPART SUPPLEMENTAL SCALE SQ SCH ×4 (05:04→22:07)
[2016-08-28] MEDS: SODIUM CHLORIDE 0.9% FLUSH 5 ML FLUSH FLUSH PRN (05:11)
[2016-08-28] MEDS: SODIUM CHLORIDE 0.9% FLUSH 5 ML FLUSH IVF PRN (05:16)
[2016-08-28] MEDS: SODIUM CHLORIDE 0.9% FLUSH 5 ML FLUSH FLUSH SCH ×3 (06:24→21:53)
[2016-08-28] MEDS: DILTIAZEM-CD 240 MG CAP ER PO SCH (06:34)
[2016-08-28 06:45] LABS: BICARBONATE 27.9 MEQ/L (21.0-32.0); POTASSIUM 5.1 MEQ/L (3.5-5.1)
[2016-08-28] MEDS: NYSTAT/DIPHENHY/LIDO MOUTHWASH (Adult) 120ML SWISH-SWAL SCH ×4 (09:00→21:51)
[2016-08-28] MEDS: DOCUSATE SODIUM 100 MG CAP PO SCH ×2 (09:49→21:51)
[2016-08-28] MEDS: CALCIUM CARBONATE 1.25 GM (CA 500 MG) TAB PO SCH ×2 (09:49→21:51)
[2016-08-28] MEDS: CARVEDILOL 6.25 MG TAB PO SCH ×2 (09:49→21:51)
[2016-08-28] MEDS: POTASSIUM CHLORIDE 10 MEQ CONTROLLED RELEASE TAB PO SCH (09:49)
[2016-08-28] MEDS: PANTOPRAZOLE SOD 40 MG DELAYED RELEASE TAB PO SCH (09:49)
[2016-08-28] MEDS: MEGESTROL ACETATE SUSP 400 MG/10 ML CUP PO SCH (09:50)
[2016-08-28] MEDS: APIXABAN 2.5 MG TABLET PO SCH ×2 (09:50→21:51)
[2016-08-28] MEDS: MAGNESIUM OXIDE 400 MG TAB PO SCH ×2 (09:50→21:51)
[2016-08-28] MEDS: ENALAPRIL MALEATE 10 MG TAB PO SCH (09:50)
[2016-08-28] MEDS: RANOLAZINE 500 MG EXTENDED RELEASE TAB PO SCH ×2 (10:11→21:51)
[2016-08-28] MEDS: ESTRADIOL 1 MG TAB PO SCH (10:11)
--- NOTE | 2016-08-28 15:39 | HHI.PR ---
Subjective Remarks Follow-up heart failure. Improving shortness of breath able to ambulate in the hallway. She has significant bilateral lower extremity edema with worsening renal function and borderline hypotension. Patient wants to leave and continue aggressive treatment. He does not want hospice or palliative care consult at this time. Discussed with RN Objective Vitals Vital Signs Date Time Temp Pulse Resp B/P Pulse Ox O2 Delivery O2 Flow Rate FiO2 08/28/16 12:00 98.5 71 16 92/55 99 08/28/16 08:00 98.4 96 17 122/53 94 08/28/16 04:00 97.1 88 18 120/67 96 08/28/16 03:19 83 08/28/16 00:00 97.8 87 19 119/58 96 08/27/16 19:50 97.9 85 18 106/70 99 I/O 08/27/16 08/27/16 08/27/16 08/28/16 08/28/16 08/28/16 07:00 15:00 23:00 07:00 15:00 23:00 Intake Total 480 ml 240 ml 1440 ml Output Total 100 ml 600 ml Balance 480 ml 140 ml 840 ml Intake Oral 480 ml 240 ml 1440 ml IV Total 0 ml Output Urine Total 100 ml 600 ml Bladder Scan Volume Amount 545 ml 395 ml # Voids 2 2 # Bowel Movements 0 0 Result Diagram: 08/27/16 0610 08/28/16 0503 Imaging Last Impressions Chest X-Ray 08/25/16 1043 Signed Impressions: Service Date/Time: Thursday, August 25, 2016 10:55 - CONCLUSION: Slight blunting of the right costophrenic sulcus suggesting small right pleural effusion. Otherwise, no acute finding is identified. Jono Baledrrama MD Objective Remarks GENERAL: Pleasant. Chronically ill appearing. Well-developed well-nourished. In no acute distress. SKIN: Warm and dry.Thin scarce hair, loosing hair. Port in place on right chest wall. HEENT: Normocephalic. Pupils equal and round. Mucous membranes pink and moist. CARDIOVASCULAR: Regular rate and rhythm. No murmur appreciated. RESPIRATORY: No accessory muscle use. Clear to auscultation. Breath sounds equal bilaterally. GASTROINTESTINAL: Abdomen soft, non-tender, mildly distended distended. Bowel sounds x4. PEG tube in place. MUSCULOSKELETAL: No obvious deformities. No clubbing or cyanosis. Lower extremity extremity pitting edema NEUROLOGICAL: Awake and alert. No focal neurological deficits. Moves upper and lower extremities spontaneously. Normal speech. PSYCHIATRIC: Appropriate mood and affect; insight and judgment normal. A/P Problem List: (1) CHF (congestive heart failure) ICD Code: I50.9 Status: Acute (2) Pancreatic cancer ICD Code: C25.9 Status: Acute Assessment and Plan Ms. Concepcion is a 65-year-old female with a history of unresectable pancreatic cancer who presented to the emergency department on 08/25/2016 with generalized weakness, shortness of breath, nausea. She was discharged from the hospital on 08/24/2016 with home health after being treated for intractable nausea , vomiting, dysphagia as well as Afib with RVR. During previous hospitalization , possibility if hospice care was discussed with the patient but patient is not ready for palliative care or hospice discussion. Pancreatic cancer, unresectable Recent history of dysphagia, intractable nausea vomiting. Improving. Intractable abdominal pain - left sided. Patient underwent G-J tube placement in the previous admission. She was on tube feed but started to tolerate oral feeding well She did not want to continue tube feed on discharge. Consulted dietitian for calorie count. Patient declined to discuss with palliative care or hospice team at this time. Continue Oxycodone, Dilaudid PRN. PT evaluated the patient, [facility] vs SNF, patient leaning towards [facility] at this time. D/W case management. Acute exacerbation of chronic systolic CHF BNP elevated 767, improving 551 Diuresing with IV Lasix on hold secondary to increasing creatinine levels Monitor kidney function and BP. Consider albumin IV as BP into a lower side and continued LE edema. Consult nephrology for assistance Monitor I&Os. CHEY horowitz for edema. Acute kidney injury Creatinine 1.35 on admission. Baseline is below 0.80. Creatinine slowly increasing, diuresis on hold Hypocalcemia Hypomagnesemia Calcium replaced with IV Calcium Gluconate x2. Received Magnesium with IV 2g as magnesium deficiency can cause hypocalcemia. Started PO Ca gluconate and mag ox Calcium improved today. Atrial fibrillation with RVR [id number] score 3 (female, age 65, DM). Continue Cardizem CD PO 240mg Qday. Continue Carvedilol, dose decreased from 12.5mg BID to 6.25mg BID with holding parameters. Continue Apixaban 2.5mg BID. Diabetes mellitus With episode of hypoglycemia Decreased Levemir to 20 units QHS, with good effect. Sliding scale insulin. No hyperglycemic switch to diabetic diet Hypothyroidism - continue [place] thyroid 45 mg by mouth twice a day. GERD - Protonix 40mg Qday. Full code. DVT ppx: Apixaban 2.5mg BID. Discharge Planning Not ready for discharge Problem Qualifiers (1) CHF (congestive heart failure): Qualified Code: I50.9 - Congestive heart failure, unspecified congestive heart failure chronicity, unspecified congestive heart failure type Syd Dave MD Aug 28, 2016 15:39
[2016-08-28] MEDS: HYDROmorphone HCL PF 1 MG/ML VIAL IV PUSH PRN (18:25)
--- NOTE | 2016-08-28 20:49 | MB ---
cc: CYNTHIA WHATLEY MD DATE OF CONSULTATION 08/28/16 REASON FOR CONSULTATION Elevated BUN and creatinine for evaluation. HISTORY OF PRESENT ILLNESS This is a 65-year-old female with past medical history of ischemic heart disease, congestive heart failure, chronic kidney disease with history of acute kidney injury, generalized anasarca, recent diagnosis of pancreatic cancer who was admitted with shortness of breath, generalized edema and abdominal pain. I was called to see the patient because of elevated BUN and creatinine. The patient has history of acute kidney injury and the creatinine was as high as 1.6. This is more than two weeks ago and then it improves around 0.8-0.9 and then now it started going up again. The patient has history of congestive heart failure and according to her, she has ejection fraction of 40%. I do not have any echo here in the computer. She has been following with Dr. 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 She has been diagnosed with pancreatic cancer and has been following with oncology and, according to her, she was given chemotherapy and after the chemotherapy she has decreased appetite and she has some blisters on her mouth and painful eating and swallowing, but she feels better now and feels like she can eat more. She is currently on caloric count. She mainly came here for shortness of breath and generalized edema and, according to her, she has not seen any significant improvement in that. She denies any nausea or vomiting. There is no history of diarrhea. No dysuria, hematuria or difficulty in passing urine. PAST MEDICAL HISTORY 1. History of pancreatic cancer, 2. Ischemic heart disease, 3. Diabetes mellitus, 4. Congestive heart failure, 5. Hypothyroidism, 6. Atrial fibrillation, 7. History of acute kidney injury with possible chronic kidney disease. PAST SURGICAL HISTORY 1. Tonsillectomy, 2. Hysterectomy 3. Squamous-cell carcinoma of anal area 4. Cardiac catheterization with stent placement. REVIEW OF SYSTEMS The patient has generalized weakness, feeling tired. She has shortness of breath, especially on exertion and on lying flat. Occasionally has mild cough which is mainly dry. There is no chest pain. No palpitation. No nausea or vomiting. Her appetite is not very good. She has difficulty in swallowing and has burning in the mouth. She denies any dysuria, hematuria or difficulty in passing urine. There is no history of diarrhea. SOCIAL HISTORY The patient is . She stopped smoking in 1994. There is no history of heavy alcoholism. FAMILY HISTORY Noncontributory. ALLERGIES She has multiple drug allergies including VERSED TETRACYCLINE ATIVAN PENICILLIN NITROGLYCERINE MEDICATIONS Currently she is on following medications 1. Coreg 6.25 mg b.i.d. 2. Eliquis 2.5 mg b.i.d. 3. 500 mg b.i.d. 4. [place] Thyroid 45 mg b.i.d. 5. Colace 100 mg b.i.d. 6. Diltiazem 240 mg once a day, 7. Estradiol 2 mg daily. 8. Megace 400 mg once a day. 9. Protonix 40 mg once a day, 10. Beatrice Ciel 10 mEq daily. 11. Insulin detemir 20 mg daily, 12. OsCal 500 mg q. 12-hour. 13. Magnesium oxide 400 mg q.12 h 14. Magic mouth wash. 15. Insulin as per sliding scale. 16. Zofran as needed. 17. Tylenol as needed. 18. Compazine as needed 19. Narcan as needed. PHYSICAL EXAMINATION GENERAL: The patient is awake, alert. She is sitting in the bed not in acute distress. VITAL SIGNS: Last blood pressure is 110/70, temperature 96.5, oxygen saturation 99-100% on room air. HEENT: Pupils equal., reacting to light. Nonicteric sclerae, conjunctivae pale. NECK: Supple. JVD is slightly elevated. LUNGS: The patient has bilateral decreased air entry with occasional wheezing. HEART: S1, S2 regular rhythm. ABDOMEN: Distended, soft, lax. There is some abdominal wall edema. EXTREMITIES: She has bilateral 3+ edema. LABORATORY DATA WBC count is at 12.2, hemoglobin 10.6, platelet count 219, neutrophils 78.5%. Sodium 134. Potassium 5.1, chloride 97, bicarb 27.9, BUN 26, creatinine 1.78, glucose 193. Calcium is 8.1. Albumin 2.6, total protein 6.1, BNP is 481, INR is 1.5. Urinalysis not done. IMAGING STUDIES The patient had chest x-ray done which shows blunting of costophrenic angle. Otherwise no acute findings. CT scan was done on July 23 and it shows non-localization of lesion by the CT ultrasound for biopsy. ASSESSMENT/PLAN 1. Acute kidney injury 2. Generalized anasarca. 3. Ischemic heart disease and congestive heart failure 4. Pancreatic cancer. 5. Atrial fibrillation 6. Diabetes mellitus The patient has multiple comorbid conditions and she possibly has underlying diabetic nephropathy with low albumin. I will check the urinalysis to see if he has any proteinuria. She needs to get diuresed. I will start her on IV Bumex and also IV albumin and try to keep her in negative fluid balance and watch the BUN and creatinine closely. Thank you for the consultation and I will follow the patient while she is in the hospital. MD GOYO Toribio/ /6:43 PM /8:27 PM
[2016-08-28] MEDS: ALBUMIN HUMAN 25% 25 GM/100 ML BAGP IV SCH (21:52)
[2016-08-28] MEDS: BUMETANIDE INJ 1 MG/4 ML VIAL IV PUSH SCH (21:53)
[2016-08-28] MEDS: INSULIN DETEMIR 100 UNITS/ML VIAL SQ SCH (22:07)
[2016-08-28 22:39] LABS: BACTERIA, URINE OCC /hpf; BLOOD, URINE NEG (NEG); GLUCOSE,URINE NEG (NEG); HYALINE CAST, URINE 5 /lpf (RARE); KETONE, URINE NEG (NEG); NITRITE,URINE NEG (NEG); PH, URINE 6.5 (5.0-8.5); SQUAMOUS EPITHELIAL CELL URINE 8 /hpf (0-5); URINE COLOR YELLOW (YELLW/STRAW)
[2016-08-28 22:40] LABS: COMMENT (UR) CULT NOT INDICATED; CULTURE IF INDICATED CULT NOT INDICATED
--- NOTE | 2016-08-28 23:59 | RADRPT ---
EXAM DATE/TIME: 08/28/2016 23:02 [facility] COMPARISON: CT ABDOMEN W/O CONTRAST, July 23, 2016, 10:47. EXTERNAL COMPARISON : [facility], CT ABDOMEN, W CONTRAST, July 10, 2016 INDICATIONS : Increased BUN/creatinine. MEDICAL HISTORY : Congestive heart failure. Myocardial infarction. Hypercholesterolemia. Carcinoma, pancreas. Thyroid d isease. Chest pain. Afib. Ulcer. GERD. Chronic renal disease. Diabetes. Anxiety. SURGICAL HISTORY : Tonsillectomy. Appendectomy. Hysterectomy. Thyroidectomy. Blood transfusions. PEG Tube. ENCOUNTER: Initial ACUITY: 1 day PAIN SCORE: 0/10 LOCATION: Bilateral flank MEASUREMENTS: RIGHT KIDNEY: 10.7 x 5.2 x 5.2 cm LEFT KIDNEY: 10.8 x 5.0 x 5.8 cm FINDINGS: RIGHT KIDNEY: Renal cortex is normal in thickness and echotexture. No hydronephrosis, stone, or mass. LEFT KIDNEY: Renal cortex is normal in thickness and echotexture. No hydronephrosis, stone, or mass. BLADDER: Within normal limits given the degree of distension. CONCLUSION: Negative exam. Both kidneys are sonographically intact. Vijay Goodrich MD on August 28, 2016 at 23:56 Board Certified Radiologist. This report was verified electronically.
[2016-08-29] VITALS (7 sets, daily range): BP systolic 110–128; BP diastolic 54–75; PULSE 63–96; RESP 18–21; TEMP 96.9–97.7; O2SAT 94–100
[2016-08-29] MEDS: SODIUM CHLORIDE 0.9% FLUSH 5 ML FLUSH FLUSH PRN (06:21)
[2016-08-29] MEDS: THYROID 15 MG TAB PO SCH ×2 (06:21→21:38)
[2016-08-29] MEDS: ALBUMIN HUMAN 25% 25 GM/100 ML BAGP IV SCH ×2 (06:21→16:46)
[2016-08-29] MEDS: INSULIN ASPART SUPPLEMENTAL SCALE SQ SCH ×4 (06:31→21:00)
[2016-08-29 06:58] LABS: AUTOMATED NEUTROPHIL # 8.8 TH/MM3 (1.8-7.7); BASOPHIL # 0.1 TH/MM3 (0-0.2); BASOPHIL % 0.6 % (0.0-2.0); EOSINOPHIL % 0.1 % (0.0-4.0); LYMPH % 12.8 % (9.0-44.0); LYMPHOCYTE # 1.5 TH/MM3 (1.0-4.8); MEAN CELL VOLUME 91.6 FL (80.0-100.0); MEAN CORPUSCULAR HEMOGLOBIN 30.4 PG (27.0-34.0); MEAN CORPUSCULAR HGB CONC 33.2 % (32.0-36.0); MONO % 10.1 % (0.0-8.0); NEUT % 76.4 % (16.0-70.0); PLATELET COUNT 254 TH/MM3 (150-450); RED BLOOD COUNT 2.84 MIL/MM3 (4.00-5.30); RED CELL DISTRIBUTION WIDTH 16.1 % (11.6-17.2); WHITE BLOOD COUNT 11.5 TH/MM3 (4.0-11.0)
[2016-08-29 07:00] LABS: HEMO FLAGS AUTO DIFF
[2016-08-29 07:21] LABS: BICARBONATE 27.3 MEQ/L (21.0-32.0); MAGNESIUM 2.3 MG/DL (1.5-2.5); POTASSIUM 5.5 MEQ/L (3.5-5.1)
[2016-08-29 08:33] LABS: BANDS 3 % (0-6); METAMYELOCYTES 1 % (0-1); MYELOCYTES 2 % (0-0); PLATELET ESTIMATE SMEAR NORMAL (NORMAL); POLYS (SEG NEUTROPHILS) 81 % (16-70); WBC DIFF SAMPLE 100
[2016-08-29] MEDS: MEGESTROL ACETATE SUSP 400 MG/10 ML CUP PO SCH (08:33)
[2016-08-29 08:34] LABS: PLATELET MORPHOLOGY NORMAL (NORMAL); SCAN/DIFF FINAL DIFF MANUAL
[2016-08-29] MEDS: MAGNESIUM OXIDE 400 MG TAB PO SCH ×2 (08:34→21:33)
[2016-08-29] MEDS: POTASSIUM CHLORIDE 10 MEQ CONTROLLED RELEASE TAB PO SCH (08:34)
[2016-08-29] MEDS: DILTIAZEM-CD 240 MG CAP ER PO SCH (08:35)
[2016-08-29] MEDS: CARVEDILOL 6.25 MG TAB PO SCH ×2 (08:35→21:00)
[2016-08-29] MEDS: DOCUSATE SODIUM 100 MG CAP PO SCH ×2 (08:36→21:00)
[2016-08-29] MEDS: CALCIUM CARBONATE 1.25 GM (CA 500 MG) TAB PO SCH ×2 (08:36→21:33)
[2016-08-29] MEDS: RANOLAZINE 500 MG EXTENDED RELEASE TAB PO SCH ×2 (08:37→21:33)
[2016-08-29] MEDS: ESTRADIOL 1 MG TAB PO SCH (08:37)
[2016-08-29] MEDS: APIXABAN 2.5 MG TABLET PO SCH ×2 (08:38→21:37)
[2016-08-29] MEDS: PANTOPRAZOLE SOD 40 MG DELAYED RELEASE TAB PO SCH (08:39)
[2016-08-29] MEDS: NYSTAT/DIPHENHY/LIDO MOUTHWASH (Adult) 120ML SWISH-SWAL SCH ×4 (08:39→21:34)
[2016-08-29] MEDS: BUMETANIDE INJ 1 MG/4 ML VIAL IV PUSH SCH ×2 (08:40→21:35)
[2016-08-29] MEDS: SODIUM CHLORIDE 0.9% FLUSH 5 ML FLUSH FLUSH SCH ×2 (08:41→21:37)
--- NOTE | 2016-08-29 10:33 | PD.CONS ---
Consult Service Palliative Care Consult Requested By [facility] Primary Care Physician Raj Alonso Mai, MD Reason for Consultation a. To assist with evaluation and management of symptoms including: Pain, anxiety, dyspnea. Fatigue, nausea b. To assist medical decision maker(s) with: better understanding of current medical conditions; weighing benefits/burdens of medical treatment options; making medical treatment decisions. HPI History of Present Illness This is a 65-year-old woman was recently diagnosed with metastatic pancreatic cancer. She has a past medical history of coronary artery disease status post stent placement, hypertension, and CHF and EF of 40%, hyperlipidemia , as well as also diabetes on metformin and Lantus. It was first identified that there was "something brewing" last summer during a cardiology workup. Diagnostics were done and she was sent [facility], and subsequently had a hospital admission to [facility]. She was lost to medical follow-up until she became more symptomatic with band like pain across the abdomen and decrease in appetite. She was referred by her primary care physician, Dr. Crain to see Dr. Patterson, who subsequently consulted Dr. Coe oncology in [place]. She underwent an MRCP revealing a heterogeneous ill-defined mass, measuring 4.8 x 4.1 cm., in the head of the pancreas. It was determined to be unresectable. There was dilation of the pancreatic duct in the region of the body and tail. The pancreatic duct measured 9 mm. There was marked atrophy of the body and tail of pancreas. The SMA was in close proximity to the mass but not involved. He was also found to be in close approximation to the confluence to the portal vein. The MRCP also identified a pre-Caval lymph node and measuring 19 x 13 mm. the patient was referred to Dr. Young for an EUS. The 4 x 8 x 4.1 cm mass was causing compression of the pancreatic duct and common bile duct. Both were dilated during the procedure. During this time, patient was significantly jaundiced. She underwent a PET/CT scan which showed a 9 mm nodule in the left lung; a separate 6-7 mm nodule in the right lower lobe; an 8 mm nodule in the lingula; a 4-5 mm nodule in superior segment of the right upper lobe and a very tiny 4 mm nodule in the right lower lobe. The one in the left lower lobe had mild SUV uptake. There was also an intense uptake in the segment 4 of the liver corresponding to lobe. The SUV was 4.7, which is suspicious for metastatic disease.. Uptake was also noted in the pancreatic head with an SUV of 5.8. Also identified 2 lymph nodes at the level of the retroperitoneum, the largest 1.4 centimeters and the second had an SUV of 3.8, which is also suspicious for metastatic disease.. She tells me that last summer she had no significant problems with nausea. appetite or fatigue. She has been active and has a Rottweiler named "Kenyatta" who is a therapy dog. They would go to nursing [facility], [facility], and the hospice care center in [place]. She was started on systemic chemotherapy with Dr. Coe - using Abraxane and Gemzar. Patient states that the chemotherapy was "rough on her" and at one point wanted to give up. However, she ended up in the hospital with nausea, vomiting and dehydration resulting in A. fib RVR.. She was also found to have neutropenia with WBC of 0.8 , thrombocytopenia with a platelet count of 45,000, acute renal injury, malnutrition with an albumin of 1.9. This was after 1 treatment cycle. She has difficulty with eating and swallowing due to sores in her mouth and esophagus. She had a PEG tube placed on 08/20 and was tolerating feedings via gravity. Her symptoms improved and she was discharged on August 24. However, she returned on August 25 with complaints of weakness, shortness of breath, and feeling as though she was discharged to soon. The patient reports that she herself decided that she was ready to go home yesterday. She is having dyspnea at rest, worse with exertion. She is having abdominal pain which is epigastric which is usual for her with her pancreatic CA. PEG tube was replaced for a PEJ tube on 08/25/16 At the time of my visit, she was sitting up in the chair at the bedside with her significant other, Saranya. She was without oxygen. However, as we commenced to talking. She asked that the oxygen be put on. She appears tired and she is noted to have significant anasarca. When I asked her what her understanding was of her disease. She is able to tell me that she has pancreatic cancer and that she has undergone chemotherapy with it. It was very difficult and at one time, wanted to give up. But now that she has had a break from it. Is wanting to restart treatment again. She tells me that she does not want to or to live like this, but rather wants to be able to enjoy life as she did before. She has a dog, a Rottweiler named Kenyatta, a therapy dog that she is very fond of and she is not ready to leave her significant other, Pepe. With regards to goals of care. She does have a healthcare surrogate, as well as living will in place. However, she is clear that she wants to be a full code at this point. Discussed with her, her definition of quality of life and at what point she may consider or want to consider hospice. Her prior on hospice services with liver and pancreatic cancer. She states that at the end. She wants to be comfortable. However, at this point in time, she is wanting to pursue more aggressive measures. Don is present for the conversation. Function/Cognitive Trajectory Functionally, she is debilitated due to the anasarca as well as dyspnea and malnutrition. She is having some cognitive intercept with loss of words and thoughts. She is also noted to have osteoarthritis of both knees with an unsteady gait. She would certainly require home care if she were to go home, although should also be appropriate for nursing home rehabilitation. Review of Systems ROS Limitations: Clinical Condition, Other (pain, anxiety) Constitutional: COMPLAINS OF: Change in appetite, Generalized weakness Endocrine: DENIES: Heat/cold intolerance, Polydipsia, Polyuria, Polyphagia Eyes: DENIES: Blurred vision Ears, nose, mouth, throat: COMPLAINS OF: Oral lesions, Throat pain, Odynophagia , DENIES: Hearing loss, Running Nose Respiratory: COMPLAINS OF: Cough, Shortness of breath, DENIES: Sputum production Cardiovascular: COMPLAINS OF: Palpitations, Dyspnea on Exertion, Lower Extremity Edema, DENIES: Chest pain Gastrointestinal: COMPLAINS OF: Abdominal pain, Constipation, Nausea, Vomiting , DENIES: Dyspepsia or heartburn Musculoskeletal: COMPLAINS OF: Joint pain, Back pain Integumentary: DENIES: Non-healing sores Hematologic/Lymphatics: DENIES: Bruising, Prolonged bleed w/ proced Neurologic: COMPLAINS OF: Localized weakness, Poor Balance Psychiatric: COMPLAINS OF: Anxiety Past Family Social History Coded Allergies: Versed (Verified Allergy, Severe, Hallucinations, 3/4/17) Tetracycline (Verified Allergy, Intermediate, Edema, 08/25/16) Ativan (Verified Allergy, Unknown, Irritation, 08/25/16) CRABBY Penicillin (Verified Allergy, Unknown, gi upset, 08/25/16) Nitroglycerin (Verified Adverse Reaction, Unknown, severe headache, 08/25/16 ) resolved only with demerol Uncoded Allergies: all fenofibrate (Allergy, Severe, rhabdomyolysis, 07/23/16) all statin drugs (Allergy, Severe, rhabdomyolysis, 07/23/16) glue on tape and bandages (Allergy, Intermediate, Itching, 07/23/16) nylon and silk (Allergy, Intermediate, Rash, 07/23/16) skin inflames, festers and weeps, will not granulate stainless steel (Allergy, Intermediate, Rash, 07/23/16) lactose and whey (Allergy, Unknown, 07/23/16) pollen (Allergy, Unknown, 07/23/16) topical iodine, cortisone,antibiotics (Allergy, Unknown, scalds, blisters, 07/23/16) Past Medical History Pancreatic cancer, digestive heart failure, coronary artery disease, diabetes type 2, heart attack/MO, hypothyroidism, peripheral neuropathy, arthritis, Atrial fibrillation. Mucositis from chemotherapy . 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 Reported Medications Lantus Inj (Insulin Glargine) 100 Unit/Ml Inj 25 Units SQ HS 30 Days Gradually increase if AM blood glucose remain high. Clonazepam 0.5 Mg Tab 0.5 Mg PO TID PRN Magnesium Oxide 400 Mg Tab 400 Mg PO DAILY Protonix (Pantoprazole Sodium) 40 Mg Tab 40 Mg PO DAILY Magic Mouthwash Adult Liq (Multi-Ingredient Mouthwash/Gargle) 120 Ml Susp 5 Ml SWISH-SWAL QID 10 Days Megestrol Liq (Megestrol Acetate) 40 Mg/Ml Susp 400 Mg PO DAILY 30 Days Levaquin (Levofloxacin) 750 Mg Tab 750 Mg PO DAILY Diltiazem CD 24 HR 240 Mg Caper 240 Mg PO DAILY Ranexa ER 12 HR (Ranolazine) 500 Mg Tab 500 Mg PO BID Chlorpheniramine 12 HR (Chlorpheniramine Maleate) 12 Mg Tab 12 Mg PO Q12H PRN Ondansetron (Ondansetron HCl) 4 Mg Tab 4 Mg PO Q4HR PRN Oxycodone (Oxycodone HCl) 15 Mg Tab 15 Mg PO Q6H PRN Estrace (Estradiol) 2 Mg Tab 2 Mg PO DAILY K-Tab (Potassium Chloride) 10 Meq Tab 10 Meq PO DAILY Lasix (Furosemide) 40 Mg Tab 40 Mg PO DAILY Enalapril (Enalapril Maleate) 10 Mg Tab 10 Mg PO DAILY Carvedilol 12.5 Mg Tab 12.5 Mg PO BID Glimepiride 4 Mg Tab 4 Mg PO BIDAC Metformin (Metformin HCl) 1,000 Mg Tab 1,000 Mg PO BIDPC With meals [place] Thyroid (Thyroid) 15 Mg Tab 45 Mg PO BID . Current Medications Medications (Trade) Dose Ordered Sig/Marilyn Route Start Time Stop Time Status Last Admin (NS Flush) 2 ml UNSCH PRN IVF 08/25/16 10:45 08/28/16 05:16 (NS Flush) 2 ml UNSCH PRN FLUSH 08/25/16 13:00 08/29/16 06:21 (NS Flush) 2 ml BID FLUSH 08/25/16 21:00 08/29/16 08:41 (Tylenol) 650 mg Q4H PRN PO 08/25/16 13:00 (Zofran Inj) 4 mg Q6H PRN IVP 08/25/16 13:00 08/25/16 15:44 (Reglan Inj) 5 mg Q6H PRN IV PUSH 08/25/16 13:00 (Compazine Supp) 25 mg Q12H PRN [place] 08/25/16 13:00 (Dulcolax Supp) 10 mg DAILY PRN [place] 08/25/16 13:00 (Milk Of Magnesia Liq) 30 ml Q12H PRN PO 08/25/16 13:00 (Narcan Inj) 0.4 mg UNSCH PRN IV 08/25/16 13:00 (Dilaudid Pf Inj) 0.5 mg Q4H PRN IV PUSH 08/25/16 13:30 08/28/16 18:25 (KlonoPIN) 0.5 mg TID PRN PO 08/25/16 15:30 08/27/16 10:10 (Cardizem Cd) 240 mg DAILY PO 08/26/16 09:00 08/29/16 08:35 (Estradiol) 2 mg DAILY PO 08/26/16 09:00 08/29/16 08:37 (Megace Liq) 400 mg DAILY PO 08/26/16 09:00 08/29/16 08:33 (Magic Mouthwash Adult Liq) 5 ml QID SWISH-SWAL 08/25/16 18:00 08/29/16 08:39 (Roxicodone) 15 mg Q6H PRN PO 08/25/16 15:30 08/29/16 06:35 (Protonix) 40 mg DAILY PO 08/26/16 09:00 08/29/16 08:39 (KCl) 10 meq DAILY PO 08/26/16 09:00 08/29/16 08:34 (Ranexa) 500 mg BID PO 08/25/16 21:00 08/29/16 08:37 (D50w (Vial) Inj) 25 ml UNSCH PRN IV PUSH 08/25/16 15:45 (Glucagon Inj) 1 mg UNSCH PRN OTHER 08/25/16 15:45 (Eliquis) 2.5 mg BID PO 08/26/16 09:00 08/29/16 08:38 (Coreg) 6.25 mg BID PO 08/26/16 09:00 08/29/16 08:35 (Oscal) 500 mg Q12HR PO 08/26/16 09:00 08/29/16 08:36 (Mag-Ox) 400 mg Q12HR PO 08/26/16 09:00 08/29/16 08:34 (Levemir Inj) 20 units HS SQ 08/26/16 21:00 08/28/16 22:07 ([place] Thyroid) 45 mg BID@06,21 PO 08/26/16 21:00 08/29/16 06:21 (Colace) 100 mg BID PO 08/27/16 21:00 08/29/16 08:36 (Lasix) 20 mg BID@09,18 PO 08/27/16 18:00 Hold (Compazine) 5 mg Q6H PRN PO 08/27/16 15:00 (Albumin 25% Inj) 25 gm Q12H IV 08/28/16 19:00 08/29/16 06:21 (Bumex Inj) 2 mg Q12HR IV PUSH 08/28/16 21:00 08/29/16 08:40 Family History Patient was adopted. Has no family history. Substance Use Tobacco: Quit smoking 21 years ago Alcohol: Rare use of alcohol Prescription med abuse: Denies Illicits: Denies . Psychosocial History She is retired, with no children. She does have a significant other that she lives with. Name,. Pepe Leo [phone] . Spiritual/Cultural Factors She has her own spiritual belief system. She is not affiliated with any jainism. . Living Will: Copy in medical record Health Care Surrogate: Copy in medical record Health Care Surrogate(s): Pepe Leo [phone] . Significant other Documented care wishes: She is cleared today to indicate that she would like to have CPR in the event her heart was stopped as well as intubation in the event she was to have respiratory failure. She does have a health care surrogate appointed.Name,. Pepe Leo [phone] . Ethical and Legal Issues None identified Physical Exam Vital Signs Date Time Temp Pulse Resp B/P Pulse Ox O2 Delivery O2 Flow Rate FiO2 08/29/16 08:00 97.7 75 21 110/56 95 08/29/16 04:00 97.0 63 18 120/60 95 08/29/16 00:00 96.9 67 18 114/54 96 08/28/16 20:00 98.0 83 18 117/59 96 08/28/16 20:00 74 08/28/16 16:00 96.5 66 16 101/70 100 08/28/16 12:00 98.5 71 16 92/55 99 08/28/16 08/29/16 19:00 07:00 Intake Total 1440 ml 800 ml Output Total 600 ml 750 ml Balance 840 ml 50 ml Intake Oral 1440 ml 600 ml IV Total 0 ml Albumin 200 ml Output Urine Total 600 ml 750 ml # Bowel Movements 0 0 Exam CONSTITUTIONAL/GENERAL: This is an adequately nourished patient, with mildly labored breathing, anasarca, in no overt distress. TUBES/LINES/DRAINS: PEJ tube, right IJ, nasal cannula, SKIN: No jaundice, rashes, or lesions. Ecchymoses on upper extremities. No wounds seen anteriorly. Skin temperature appropriate. Not diaphoretic. HEAD: Atraumatic. Normocephalic. EYES: Pupils equal and round and reactive. Extraocular motions intact. No scleral icterus. No injection or drainage. Fundi not examined. ENT: Hearing grossly normal. Nose without bleeding or purulent drainage. Throat / mouth with visible erythema, NECK: Trachea midline. Supple, nontender. No palpable thyroid enlargement or nodularity. CARDIOVASCULAR: Regular rate and rhythm without murmurs, gallops, or rubs. No JVD. Peripheral pulses symmetric. Bilateral lower extremity edema RESPIRATORY/CHEST: Symmetric, unlabored respirations. Scattered Coarse Breath sounds does not clear with cough GASTROINTESTINAL: Abdomen soft,tender level 5\\10, distended. Unable to palpate masses. Bowel sounds present. GENITOURINARY: Without palpable bladder distension. MUSCULOSKELETAL: Extremities with weeping BLE edema. No joint tenderness or effusion noted. No calf tenderness. No mottling or clubbing. LYMPHATICS: No palpable cervical or supraclavicular adenopathy. NEUROLOGICAL: Awake and alert. Thought process is slow. She forgets words, which was going to say. Motor and sensory grossly within normal limits. Follows commands. Moves all extremities. PSYCHIATRIC: Intermittent anxiety, no obvious depression; no apparent hallucinations or other psychotic thought process. Diagnostic Tests Laboratory Laboratory Tests Test 08/27/16 08/28/16 08/28/16 08/29/16 06:10 05:03 22:10 06:25 White Blood Count 12.2 TH/MM3 11.5 TH/MM3 (4.0-11.0) (4.0-11.0) Red Blood Count 3.44 MIL/MM3 2.84 MIL/MM3 (4.00-5.30) (4.00-5.30) Hemoglobin 10.6 GM/DL 8.6 GM/DL (11.6-15.3) (11.6-15.3) Hematocrit 31.5 % 26.0 % (35.0-46.0) (35.0-46.0) Mean Corpuscular Volume 91.5 FL 91.6 FL (80.0-100.0) (80.0-100.0) Mean Corpuscular Hemoglobin 30.8 PG 30.4 PG (27.0-34.0) (27.0-34.0) Mean Corpuscular Hemoglobin 33.6 % 33.2 % Concent (32.0-36.0) (32.0-36.0) Red Cell Distribution Width 16.1 % 16.1 % (11.6-17.2) (11.6-17.2) Platelet Count 290 TH/MM3 254 TH/MM3 (150-450) (150-450) Mean Platelet Volume 8.4 FL 8.1 FL (7.0-11.0) (7.0-11.0) Neutrophils (%) (Auto) 78.5 % 76.4 % (16.0-70.0) (16.0-70.0) Lymphocytes (%) (Auto) 13.6 % 12.8 % (9.0-44.0) (9.0-44.0) Monocytes (%) (Auto) 7.3 % (0.0-8.0) 10.1 % (0.0-8.0) Eosinophils (%) (Auto) 0.1 % (0.0-4.0) 0.1 % (0.0-4.0) Basophils (%) (Auto) 0.5 % (0.0-2.0) 0.6 % (0.0-2.0) Neutrophils # (Auto) 9.6 TH/MM3 8.8 TH/MM3 (1.8-7.7) (1.8-7.7) Lymphocytes # (Auto) 1.7 TH/MM3 1.5 TH/MM3 (1.0-4.8) (1.0-4.8) Monocytes # (Auto) 0.9 TH/MM3 1.2 TH/MM3 (0-0.9) (0-0.9) Eosinophils # (Auto) 0.0 TH/MM3 0.0 TH/MM3 (0-0.4) (0-0.4) Basophils # (Auto) 0.1 TH/MM3 0.1 TH/MM3 (0-0.2) (0-0.2) CBC Comment AUTO DIFF AUTO DIFF Differential Total Cells 100 100 Counted Neutrophils % (Manual) 75 % (16-70) 81 % (16-70) Band Neutrophils % 1 % (0-6) 3 % (0-6) Lymphocytes % 11 % (9-44) 8 % (9-44) Monocytes % 10 % (0-8) 5 % (0-8) Basophils % 1 % (0-2) Neutrophils # (Manual) 9.5 TH/MM3 10.0 TH/MM3 (1.8-7.7) (1.8-7.7) Metamyelocytes 1 % (0-1) 1 % (0-1) Myelocytes 1 % (0-0) 2 % (0-0) Differential Comment FINAL DIFF FINAL DIFF MANUAL MANUAL Platelet Estimate NORMAL NORMAL (NORMAL) (NORMAL) Platelet Morphology Comment NORMAL NORMAL (NORMAL) (NORMAL) Red Cell Morphology Comment NORMAL (NORMAL) Sodium Level 136 MEQ/L 134 MEQ/L 133 MEQ/L (136-145) (136-145) (136-145) Potassium Level 5.2 MEQ/L 5.1 MEQ/L 5.5 MEQ/L (3.5-5.1) (3.5-5.1) (3.5-5.1) Chloride Level 98 MEQ/L 97 MEQ/L 96 MEQ/L (98-107) (98-107) (98-107) Carbon Dioxide Level 28.1 MEQ/L 27.9 MEQ/L 27.3 MEQ/L (21.0-32.0) (21.0-32.0) (21.0-32.0) Anion Gap 10 MEQ/L (5-15) 9 MEQ/L (5-15) 10 MEQ/L (5-15) Blood Urea Nitrogen 23 MG/DL (7-18) 26 MG/DL (7-18) 33 MG/DL (7-18) Creatinine 1.63 MG/DL 1.78 MG/DL 1.97 MG/DL (0.50-1.00) (0.50-1.00) (0.50-1.00) Estimat Glomerular Filtration 32 ML/MIN (>89) 29 ML/MIN (>89) 25 ML/MIN (>89) Rate Random Glucose 86 MG/DL 193 MG/DL 136 MG/DL (74-106) (74-106) (74-106) Calcium Level 8.0 MG/DL 8.1 MG/DL 8.4 MG/DL (8.5-10.1) (8.5-10.1) (8.5-10.1) Magnesium Level 2.2 MG/DL 2.3 MG/DL (1.5-2.5) (1.5-2.5) B-Type Natriuretic Peptide 551 PG/ML 481 PG/ML (0-100) (0-100) Urine Color YELLOW (YELLW/STRAW) Urine Turbidity CLEAR (CLEAR) Urine pH 6.5 (5.0-8.5) Urine Specific [place] 1.014 (1.002-1.035) Urine Protein TRACE mg/dL (NEG-TRACE) Urine Glucose (UA) NEG mg/dL (NEG) Urine Ketones NEG mg/dL (NEG) Urine Occult Blood NEG (NEG) Urine Nitrite NEG (NEG) Urine Bilirubin NEG (NEG) Urine Urobilinogen LESS THAN 2.0 MG/DL (LESS THAN 2.0) Urine Leukocyte Esterase NEG (NEG) Urine WBC 1 /hpf (0-5) Urine Squamous Epithelial 8 /hpf (0-5) Cells Urine Bacteria OCC /hpf (NONE) Urine Hyaline Casts 5 /lpf (RARE) Microscopic Urinalysis Comment CULT NOT INDICATED Result Diagram: 08/29/16 0625 08/29/16 0625 Imaging Last 72 hours Impressions Renal Ultrasound 08/28/16 0000 Signed Impressions: Service Date/Time: Sunday, August 28, 2016 23:02 - CONCLUSION: Negative exam. Both kidneys are sonographically intact. Vijay Goodrich MD Procedures PEG to PEJ tube 08/25/16 Patient/Family Conference Present at Family Conference: Significant other / [facility] [phone] . Family Conference Location: Bedside Issues Discussed: * Palliative care role, purpose, approach * Additional medical, psychosocial, and spiritual history * Patients general health, functional status, and cognitive changes in the months leading up to the current hospitalization * Patient/family understanding of the current medical problems * Patient/family understanding of prognosis * Patients goals of care as best understood from advance directives and/or conversations and/or values * Current medical treatment options and benefits/burdens of those options * Likely scenarios comparing ongoing aggressive care with a transition to comfort measures only * Questions answered to the best of my ability * Palliative care contact information provided Assessment and Plan Disease Oriented Problem List: (1) Dysphagia Comment: Mucositis from chemotherapy. Improving. Able to tolerate some food and liquid (2) Pancreatic cancer Comment: Widely metastatic to lungs, liver, retroperitoneum (3) CAD (coronary artery disease) (4) CHF (congestive heart failure) Comment: Anasarca evident with hypo-albuminuria (5) Atrial fibrillation with RVR Comment: Controlled with medication (6) Chronic kidney disease (CKD) Comment: With acute kidney injury. GFR is trending down (7) Constipation Comment: States no BM in 10 days Symptom Scale: (1) Abdominal pain 0-10 Scale: 6 (2) Pain 0-10 Scale: 6 (3) Weakness 0-10 Scale: 9 (4) Anxiety 0-10 Scale: 8 (5) Shortness of breath Comment: with extension, talking or anxiety (6) Fatigue (7) Dysphagia Pertinent Non-Medical Issues Psychosocial: She is retired, many years, has significant other, Pepe Leo [phone] Spiritual: Legal:None evident Ethical issues impacting care: None evident. Important Contacts Pepe Leo [phone]. Prognosis Prognosis is guarded. Patient has advanced metastatic pancreatic cancer. She poorly tolerated the first round of chemotherapy developing nausea, vomiting, mucositis, dehydration, which subsequently led to atrial fibrillation and acute kidney injury with metabolic imbalances. Also, neutropenia with thrombocytopenia. At this point, she wants to remain hopeful and continue chemotherapy. However, hospice is a reasonable alternative . Code Status: Full Code Plan Decision Maker: Pepe Verasbeverley [phone] [facility] Code Status: Full code Family Discussion: Reviewed. Patient's understanding of her disease process , as well as her personal goals which are to get better and resume lifestyle that is active. Reviewed advanced directives Symptoms: Pain, anxiety, dyspnea, weakness Palliative care phone number provided - will follow during hospital stay. Thank you for the opportunity to participate in the care of Ms. Concepcion. Attestation To help prompt me to consider important information that might be impacting today's encounter and assessment, information from prior notes written by myself or my colleagues may have been "brought forward" into today's note. My signature on this note, however, is an attestation that I personally performed the exam, history, and/or decision-making noted today, and, unless otherwise indicated, the interactions with patient, family, and staff as well as the review of records all occurred today. I also attest that the listed assessment and stated plan reflect my best clinical judgment today based on the combination of historical information, prior notes, and today's exam/ interactions. When time spent is documented, it refers only to time spent today by the signer, or if indicated, combined time spent today by collaborating physician/nurse practitioner. Shefali Pichardo Aug 29, 2016 10:33 am
--- NOTE | 2016-08-29 11:04 | HHI.FF ---
Face to Face Verification Diagnosis: (1) Pancreatic cancer Physical Therapy Order: Evaluate and Treat, Improve ambulation, Strength and gait training Home Health Nursing Order: Medical education Signs/symptoms of disease process CHF education Nursing assessment with vital signs I have seen patient Olesya Concepcion on 08/29/16. My clinical findings support the need for the requested home health care services because: Patient has SOB I certify that my clinical findings support that this patient is homebound because: Unsafe to leave home unassisted Syd Dave MD Aug 29, 2016 11:04
--- NOTE | 2016-08-29 11:59 | HHI.PR ---
Subjective Remarks Follow-up anasarca. States she is diuresing on IV Bumex. Complains of left lower extremity pain appears to have cellulitis. Discussed with RN and significant other Objective Vitals Vital Signs Date Time Temp Pulse Resp B/P Pulse Ox O2 Delivery O2 Flow Rate FiO2 08/29/16 08:00 97.7 75 21 110/56 95 08/29/16 04:00 97.0 63 18 120/60 95 08/29/16 00:00 96.9 67 18 114/54 96 08/28/16 20:00 98.0 83 18 117/59 96 08/28/16 20:00 74 08/28/16 16:00 96.5 66 16 101/70 100 08/28/16 12:00 98.5 71 16 92/55 99 I/O 08/28/16 08/28/16 08/28/16 08/29/16 08/29/16 08/29/16 07:00 15:00 23:00 07:00 15:00 23:00 Intake Total 240 ml 1440 ml 480 ml 320 ml Output Total 100 ml 600 ml 500 ml 250 ml Balance 140 ml 840 ml -20 ml 70 ml Intake Oral 240 ml 1440 ml 480 ml 120 ml IV Total 0 ml Albumin 200 ml Output Urine Total 100 ml 600 ml 500 ml 250 ml Bladder Scan Volume Amount 545 ml 395 ml # Bowel Movements 0 0 0 0 Result Diagram: 08/29/16 0625 08/29/16 0625 Imaging Last Impressions Renal Ultrasound 08/28/16 0000 Signed Impressions: Service Date/Time: Sunday, August 28, 2016 23:02 - CONCLUSION: Negative exam. Both kidneys are sonographically intact. Vijay Goodrich MD Chest X-Ray 08/25/16 1043 Signed Impressions: Service Date/Time: Thursday, August 25, 2016 10:55 - CONCLUSION: Slight blunting of the right costophrenic sulcus suggesting small right pleural effusion. Otherwise, no acute finding is identified. Jono Balderrama MD Objective Remarks GENERAL: Pleasant. Chronically ill appearing. Well-developed well-nourished. In no acute distress. SKIN: Warm and dry.Thin scarce hair, loosing hair. Port in place on right chest wall. HEENT: Normocephalic. Pupils equal and round. Mucous membranes pink and moist. CARDIOVASCULAR: Regular rate and rhythm. No murmur appreciated. RESPIRATORY: No accessory muscle use. Clear to auscultation. Breath sounds equal bilaterally. GASTROINTESTINAL: Abdomen soft, non-tender, mildly distended distended. Bowel sounds x4. PEG tube in place. MUSCULOSKELETAL: No obvious deformities. No clubbing or cyanosis. Lower extremity extremity pitting edema with cellulitis left distal leg NEUROLOGICAL: Awake and alert. No focal neurological deficits. Moves upper and lower extremities spontaneously. Normal speech. PSYCHIATRIC: Appropriate mood and affect; insight and judgment normal. A/P Problem List: (1) CHF (congestive heart failure) ICD Code: I50.9 Status: Acute (2) Pancreatic cancer ICD Code: C25.9 Status: Acute Assessment and Plan Ms. Concepcion is a 65-year-old female with a history of unresectable pancreatic cancer who presented to the emergency department on 08/25/2016 with generalized weakness, shortness of breath, nausea. She was discharged from the hospital on 08/24/2016 with home health after being treated for intractable nausea , vomiting, dysphagia as well as Afib with RVR. During previous hospitalization , possibility if hospice care was discussed with the patient but patient is not ready for palliative care or hospice discussion. Pancreatic cancer, unresectable Recent history of dysphagia, intractable nausea vomiting. Improving. Intractable abdominal pain - left sided. Patient underwent G-J tube placement in the previous admission. She was on tube feed but started to tolerate oral feeding well She did not want to continue tube feed on discharge. Consulted dietitian for calorie count is pending. Patient agreed to meet with palliative care Continue Oxycodone, Dilaudid PRN. PT evaluated the patient, [facility] vs SNF, patient leaning towards [facility] at this time. D/W case management. Acute exacerbation of chronic systolic CHF with anasarca Started on IV Bumex with IV albumin per nephrology. Monitor I&Os, keep negative fluid balance. Monitor renal function CHEY hose for edema. Acute kidney injury Creatinine 1.35 on admission. Baseline is below 0.80. Creatinine slowly increasing, Patient with hyperkalemia. Discontinue potassium and continue Bumex Hypocalcemia Hypomagnesemia Calcium replaced with IV Calcium Gluconate x2. Received Magnesium with IV 2g as magnesium deficiency can cause hypocalcemia. Started PO Ca gluconate and mag ox Calcium improved Atrial fibrillation with RVR [id number] score 3 (female, age 65, DM). Continue Cardizem CD PO 240mg Qday. Continue Carvedilol, dose decreased from 12.5mg BID to 6.25mg BID with holding parameters. Continue Apixaban 2.5mg BID. Diabetes mellitus With episode of hypoglycemia Decreased Levemir to 20 units QHS, with good effect. Sliding scale insulin. No hyperglycemic switch to diabetic diet Hypothyroidism - continue [place] thyroid 45 mg by mouth twice a day. GERD - Protonix 40mg Qday. Left lower extremity cellulitis. Start Levaquin. Leg elevation. Monitor response. Full code. DVT ppx: Apixaban 2.5mg BID. Discharge Planning Not ready for discharge Problem Qualifiers (1) CHF (congestive heart failure): Qualified Code: I50.9 - Congestive heart failure, unspecified congestive heart failure chronicity, unspecified congestive heart failure type Syd Dave MD Aug 29, 2016 11:59
[2016-08-29] MEDS: LEVOFLOXACIN 750 MG TAB PO SCH (14:16)
[2016-08-29] MEDS: HYDROmorphone HCL PF 1 MG/ML VIAL IV PUSH PRN ×2 (16:45→21:36)
--- NOTE | 2016-08-29 17:40 | HHI.NPPN ---
Subjective History of Present Illness 65-year-old female with past medical history of ischemic heart disease, congestive heart failure, chronic kidney disease with history of acute kidney injury, generalized anasarca, recent diagnosis of pancreatic cancer who was admitted with shortness of breath, generalized edema and abdominal pain. I was called to see the patient because of elevated BUN and creatinine. The patient has history of acute kidney injury and the creatinine was as high as 1.6. Additional Remarks Patient is alert, sitting on bed, no SOB, still complaining of leg swelling. Review of Systems General Constitutional: Fatigue Respiratory Lungs: SOB Cardiovascular Cardiac: Edema, ROMO Objective Data Data 08/28/16 08/29/16 19:00 07:00 Intake Total 1440 ml 800 ml Output Total 600 ml 750 ml Balance 840 ml 50 ml Intake Oral 1440 ml 600 ml IV Total 0 ml Albumin 200 ml Output Urine Total 600 ml 750 ml # Bowel Movements 0 0 Vital Signs Date Time Temp Pulse Resp B/P Pulse Ox O2 Delivery O2 Flow Rate FiO2 08/29/16 16:00 97.3 82 18 110/75 95 08/29/16 12:00 96.9 79 19 113/63 94 08/29/16 08:00 97.7 75 21 110/56 95 08/29/16 04:00 97.0 63 18 120/60 95 08/29/16 00:00 96.9 67 18 114/54 96 08/28/16 20:00 98.0 83 18 117/59 96 08/28/16 20:00 74 08/28/16 18:55 20 -: 08/29/16 0625 08/29/16 0625 Physical Exam General Appearance: Well Nourished, No Acute Distress, Comfortable Eyes Eye Exam: Pupils Equal Throat Throat Exam: Oral Mucosa [place] & Moist Pulmonary Resp Exam: Breath Sounds Equal, Decreased Bases, Diminished Breath Sounds Cardiology CV Exam: Regular, Normal Sinus Rhythm Gastrointestinal/Abdomen GI Exam: Soft, Non-Tender, Distended Extremeties Extremities Exam: Moderate Edema, Pitting Edema, Dependent Edema Neurologic Neuro Exam: Alert, Awake, Oriented Psychiatric Psych Exam: Appropriate Responses Assessment/Plan Assessment Summary: RITCHIE/Acute Renal Failure, Fluid/Volume Overload Problem List: (1) Pancreatic cancer (2) Generalized weakness (3) Shortness of breath (4) Atrial fibrillation with RVR (5) CHF (congestive heart failure) (6) Anasarca (7) Acute kidney injury Plan Patient still has not adequate urine out put. Renal U/S noted. Creatinine is increasing. Edema is there. Started on IV Bumex and Albumin. Will add Metolazone. Try to keep in negative fluid balance. Seen by Palliative care also. Problem Qualifiers (1) CHF (congestive heart failure): Qualified Code: I50.9 - Congestive heart failure, unspecified congestive heart failure chronicity, unspecified congestive heart failure type Clyde Swanson MD Aug 29, 2016 17:40
[2016-08-29] MEDS: METOLAZONE 5 MG TAB PO SCH (21:33)
[2016-08-29] MEDS: INSULIN DETEMIR 100 UNITS/ML VIAL SQ SCH (21:35)
[2016-08-30] VITALS (7 sets, daily range): BP systolic 93–131; BP diastolic 50–65; PULSE 84–97; RESP 16–18; TEMP 96.4–98.6; O2SAT 96–100
[2016-08-30] MEDS: HYDROmorphone HCL PF 1 MG/ML VIAL IV PUSH PRN ×4 (02:21→17:25)
[2016-08-30 02:48] LABS: AUTOMATED NEUTROPHIL # 10.9 TH/MM3 (1.8-7.7); BASOPHIL # 0.1 TH/MM3 (0-0.2); BASOPHIL % 1.1 % (0.0-2.0); EOSINOPHIL % 0.2 % (0.0-4.0); HEMATOCRIT 28.2 % (35.0-46.0); HEMO FLAGS AUTO DIFF; LYMPH % 10.5 % (9.0-44.0); LYMPHOCYTE # 1.4 TH/MM3 (1.0-4.8); MEAN CELL VOLUME 91.4 FL (80.0-100.0); MEAN CORPUSCULAR HEMOGLOBIN 29.9 PG (27.0-34.0); MEAN CORPUSCULAR HGB CONC 32.7 % (32.0-36.0); MONO % 8.8 % (0.0-8.0); NEUT % 79.4 % (16.0-70.0); PLATELET COUNT 334 TH/MM3 (150-450); RED BLOOD COUNT 3.09 MIL/MM3 (4.00-5.30); WHITE BLOOD COUNT 13.7 TH/MM3 (4.0-11.0)
[2016-08-30 02:53] LABS: BICARBONATE 28.9 MEQ/L (21.0-32.0); MAGNESIUM 2.1 MG/DL (1.5-2.5); POTASSIUM 5.1 MEQ/L (3.5-5.1)
[2016-08-30 03:25] LABS: BANDS 2 % (0-6); METAMYELOCYTES 1 % (0-1); NEUTROPHIL # MANUAL DIFF 12.2 TH/MM3 (1.8-7.7); POLYS (SEG NEUTROPHILS) 86 % (16-70); SCAN/DIFF FINAL DIFF MANUAL; WBC DIFF SAMPLE 100
[2016-08-30 03:26] LABS: PLATELET ESTIMATE SMEAR NORMAL (NORMAL); PLATELET MORPHOLOGY NORMAL (NORMAL); TOXIC GRANULATION 1+ (NORMAL)
[2016-08-30] MEDS: ALBUMIN HUMAN 25% 25 GM/100 ML BAGP IV SCH ×2 (05:16→18:23)
[2016-08-30] MEDS: THYROID 15 MG TAB PO SCH ×2 (05:16→20:38)
[2016-08-30] MEDS: INSULIN ASPART SUPPLEMENTAL SCALE SQ SCH ×4 (05:32→22:59)
[2016-08-30] MEDS: CARVEDILOL 6.25 MG TAB PO SCH ×2 (08:05→20:31)
[2016-08-30] MEDS: DILTIAZEM-CD 240 MG CAP ER PO SCH (08:05)
[2016-08-30] MEDS: PANTOPRAZOLE SOD 40 MG DELAYED RELEASE TAB PO SCH (08:05)
[2016-08-30] MEDS: DOCUSATE SODIUM 100 MG CAP PO SCH ×2 (08:05→20:31)
[2016-08-30] MEDS: RANOLAZINE 500 MG EXTENDED RELEASE TAB PO SCH ×2 (08:05→20:38)
[2016-08-30] MEDS: CALCIUM CARBONATE 1.25 GM (CA 500 MG) TAB PO SCH ×2 (08:05→20:31)
[2016-08-30] MEDS: ESTRADIOL 1 MG TAB PO SCH (08:05)
[2016-08-30] MEDS: METOLAZONE 5 MG TAB PO SCH ×2 (08:06→20:31)
[2016-08-30] MEDS: MAGNESIUM OXIDE 400 MG TAB PO SCH ×2 (08:06→20:32)
[2016-08-30] MEDS: APIXABAN 2.5 MG TABLET PO SCH ×2 (08:06→20:31)
[2016-08-30] MEDS: BUMETANIDE INJ 1 MG/4 ML VIAL IV PUSH SCH ×2 (08:07→20:31)
[2016-08-30] MEDS: NYSTAT/DIPHENHY/LIDO MOUTHWASH (Adult) 120ML SWISH-SWAL SCH ×4 (08:07→20:30)
[2016-08-30] MEDS: MEGESTROL ACETATE SUSP 400 MG/10 ML CUP PO SCH (08:07)
[2016-08-30] MEDS: SODIUM CHLORIDE 0.9% FLUSH 5 ML FLUSH FLUSH SCH (08:07)
--- NOTE | 2016-08-30 11:05 | HHI.PR ---
Subjective Remarks Follow-up on anasarca. Reports fluids leaking of from her legs. Improving shortness of breath. She is diuresing on IV Bumex. Discussed with RN Objective Vitals Vital Signs Date Time Temp Pulse Resp B/P Pulse Ox O2 Delivery O2 Flow Rate FiO2 08/30/16 08:01 97 08/30/16 08:00 98.2 97 16 131/58 97 08/30/16 04:00 97.0 86 18 112/57 97 08/30/16 00:00 96.4 84 17 121/62 100 08/29/16 20:00 96.9 86 18 128/69 100 08/29/16 19:00 96 08/29/16 16:00 97.3 82 18 110/75 95 08/29/16 12:00 96.9 79 19 113/63 94 I/O 08/29/16 08/29/16 08/29/16 08/30/16 08/30/16 08/30/16 07:00 15:00 23:00 07:00 15:00 23:00 Intake Total 320 ml 180 ml 240 ml 240 ml Output Total 250 ml 250 ml 300 ml 550 ml 900 ml Balance 70 ml -70 ml -60 ml -310 ml -900 ml Intake Oral 120 ml 180 ml 240 ml 240 ml IV Total 0 ml Albumin 200 ml Output Urine Total 250 ml 250 ml 300 ml 550 ml 900 ml # Bowel Movements 0 0 Result Diagram: 08/30/16 0224 08/30/16 0224 Imaging Last Impressions Renal Ultrasound 08/28/16 0000 Signed Impressions: Service Date/Time: Sunday, August 28, 2016 23:02 - CONCLUSION: Negative exam. Both kidneys are sonographically intact. Vijay Goodrich MD Chest X-Ray 08/25/16 1043 Signed Impressions: Service Date/Time: Thursday, August 25, 2016 10:55 - CONCLUSION: Slight blunting of the right costophrenic sulcus suggesting small right pleural effusion. Otherwise, no acute finding is identified. Jono Balderrama MD Objective Remarks GENERAL: Pleasant. Chronically ill appearing. Well-developed well-nourished. In no acute distress. SKIN: Warm and dry.Thin scarce hair, loosing hair. Port in place on right chest wall. HEENT: Normocephalic. Pupils equal and round. Mucous membranes pink and moist. CARDIOVASCULAR: Regular rate and rhythm. No murmur appreciated. RESPIRATORY: No accessory muscle use. Clear to auscultation. Breath sounds equal bilaterally. GASTROINTESTINAL: Abdomen soft, non-tender, mildly distended distended. Bowel sounds x4. PEG tube in place. MUSCULOSKELETAL: No obvious deformities. No clubbing or cyanosis. Lower extremity extremity pitting edema with stable cellulitis left distal leg. Pitting edema all the way up to sacrum NEUROLOGICAL: Awake and alert. No focal neurological deficits. Moves upper and lower extremities spontaneously. Normal speech. PSYCHIATRIC: Appropriate mood and affect; insight and judgment normal. A/P Problem List: (1) CHF (congestive heart failure) ICD Code: I50.9 Status: Acute (2) Pancreatic cancer ICD Code: C25.9 Status: Acute Assessment and Plan Ms. Concepcion is a 65-year-old female with a history of unresectable pancreatic cancer who presented to the emergency department on 08/25/2016 with generalized weakness, shortness of breath, nausea. She was discharged from the hospital on 08/24/2016 with home health after being treated for intractable nausea , vomiting, dysphagia as well as Afib with RVR. During previous hospitalization , possibility if hospice care was discussed with the patient but patient is not ready for palliative care or hospice discussion. Pancreatic cancer, unresectable Recent history of dysphagia, intractable nausea vomiting. Improving. Intractable abdominal pain - left sided. Patient underwent G-J tube placement in the previous admission. She was on tube feed but started to tolerate oral feeding well She did not want to continue tube feed on discharge. Consulted dietitian for calorie count recommended to feeding if by mouth less than 50% but patient refusing Patient agreed to meet with palliative care Continue Oxycodone, Dilaudid PRN. PT evaluated the patient, [facility] vs SNF, patient leaning towards [facility] at this time. D/W case management. Acute exacerbation of chronic systolic CHF with anasarca Started on IV Bumex with IV albumin per nephrology. Monitor I&Os, keep negative fluid balance. Monitor renal function CHEY hose for edema. Acute kidney injury Creatinine 1.35 on admission. Baseline is below 0.80. Creatinine worsening but remains nonoliguric, further management per renal Patient with hyperkalemia. Improved Hypocalcemia Hypomagnesemia Calcium replaced with IV Calcium Gluconate x2. Received Magnesium with IV 2g as magnesium deficiency can cause hypocalcemia. Started PO Ca gluconate and mag ox Calcium improved Atrial fibrillation with RVR [id number] score 3 (female, age 65, DM). Continue Cardizem CD PO 240mg Qday. Continue Carvedilol, dose decreased from 12.5mg BID to 6.25mg BID with holding parameters. Continue Apixaban 2.5mg BID. Diabetes mellitus With episode of hypoglycemia Decreased Levemir to 20 units QHS, with good effect. Sliding scale insulin. No hyperglycemic switch to diabetic diet Hypothyroidism - continue [place] thyroid 45 mg by mouth twice a day. GERD - Protonix 40mg Qday. Left lower extremity cellulitis. Start Levaquin. Leg elevation. Monitor response. Full code. DVT ppx: Apixaban 2.5mg BID. Discharge Planning Not ready for discharge needs IV diuresis with close monitoring of renal function Problem Qualifiers (1) CHF (congestive heart failure): Qualified Code: I50.9 - Congestive heart failure, unspecified congestive heart failure chronicity, unspecified congestive heart failure type Syd Dave MD Aug 30, 2016 11:05
--- NOTE | 2016-08-30 13:44 | HHI.HCPN ---
Reason for visit a. To assist with evaluation and management of symptoms including: Pain, anxiety, dyspnea. Fatigue, nausea b. To assist medical decision maker(s) with: better understanding of current medical conditions; weighing benefits/burdens of medical treatment options; making medical treatment decisions. Subjective/Interval History Olesya is seen this morning without Don present. It is evident that she is trying to process where she is in her life relative to her cancer, afraid to live / afraid to , wanting to have chemotherapy but then wondering if she should. She reiterates that she wants to live and enjoy life; she wants to be comfortable with no pain; and just to feel better. She is tearful at times to the conversation. She really does not know how severe the cancer is. But indicated that she did not do well during the first course of treatment. She brought up the topic of CODE STATUS, as well, indicating that she wanted to be a full code because "whether his life, There is hope." We talked about belief systems as they pertain to life and , and this riggers of CPR. She remains with extensive ascites, peripheral edema in spite of diuretics. She is eating some. States her appetite is okay. Her biggest complaint is abdominal pain. Although she will also get short of breath with talking more with anxiety. She states that she is doing everything that she can to get better and does not know what else to do. As her 10 plus years ago from a small cancer. She is reliving his pain, physical and emotional, at the end of his life. She is angst and fearful in seeing that as her future. This is very scary to her and likely the impetus and wanting to have chemotherapy and "get better" Advance Directives Living Will: Copy in medical record Health Care Surrogate: Copy in medical record Advance Directive Specifics Health Care Surrogate(s): Pepe Leo [phone] . Significant other Documented care wishes: She is cleared today to indicate that she would like to have CPR in the event her heart was stopped as well as intubation in the event she was to have respiratory failure. She does have a health care surrogate appointed.Name,. Pepe Leo [phone] . Objective Vital Signs Date Time Temp Pulse Resp B/P Pulse Ox O2 Delivery O2 Flow Rate FiO2 08/30/16 12:00 98.6 92 17 107/58 98 08/30/16 08:01 97 08/30/16 08:00 98.2 97 16 131/58 97 08/30/16 04:00 97.0 86 18 112/57 97 08/30/16 00:00 96.4 84 17 121/62 100 08/29/16 20:00 96.9 86 18 128/69 100 08/29/16 19:00 96 08/29/16 16:00 97.3 82 18 110/75 95 Intake & Output 08/30/16 08/30/16 07:00 19:00 Intake Total 480 ml Output Total 850 ml 900 ml Balance -370 ml -900 ml Intake Oral 480 ml Output Urine Total 850 ml 900 ml Physical Exam CONSTITUTIONAL/GENERAL: This is an adequately nourished patient, with mildly labored breathing, anasarca, in no overt distress. TUBES/LINES/DRAINS: PEJ tube, right IJ, nasal cannula, SKIN: No jaundice, rashes, or lesions. Ecchymoses on upper extremities. No wounds seen anteriorly. Skin temperature appropriate. Not diaphoretic. HEAD: Atraumatic. Normocephalic. EYES: Pupils equal and round and reactive. Extraocular motions intact. No scleral icterus. No injection or drainage. Fundi not examined. ENT: Hearing grossly normal. Nose without bleeding or purulent drainage. Throat / mouth with visible erythema, NECK: Trachea midline. Supple, nontender. No palpable thyroid enlargement or nodularity. CARDIOVASCULAR: Regular rate and rhythm without murmurs, gallops, or rubs. No JVD. Peripheral pulses symmetric. Bilateral lower extremity edema RESPIRATORY/CHEST: Symmetric, mildly respirations. Scattered Coarse Breath sounds does not clear with cough, scattered rales at bases GASTROINTESTINAL: Abdomen soft,tender level 5\\10, distended. Unable to palpate masses. Bowel sounds present. GENITOURINARY: Without palpable bladder distension. MUSCULOSKELETAL: Extremities with weeping BLE edema from hip to toes No joint tenderness or effusion noted. No calf tenderness. No mottling or clubbing. LYMPHATICS: No palpable cervical or supraclavicular adenopathy. NEUROLOGICAL: Awake and alert. Thought process is slow. She forgets words, which was going to say. Motor and sensory grossly within normal limits. Follows commands. Moves all extremities. PSYCHIATRIC: Intermittent anxiety, no obvious depression; no apparent hallucinations or other psychotic thought process. Diagnostic Tests Laboratory Laboratory Tests Test 08/28/16 08/28/16 08/29/16 08/30/16 05:03 22:10 06:25 02:24 Sodium Level 134 MEQ/L 133 MEQ/L 134 MEQ/L (136-145) (136-145) (136-145) Potassium Level 5.1 MEQ/L 5.5 MEQ/L 5.1 MEQ/L (3.5-5.1) (3.5-5.1) (3.5-5.1) Chloride Level 97 MEQ/L 96 MEQ/L 96 MEQ/L (98-107) (98-107) (98-107) Carbon Dioxide Level 27.9 MEQ/L 27.3 MEQ/L 28.9 MEQ/L (21.0-32.0) (21.0-32.0) (21.0-32.0) Anion Gap 9 MEQ/L (5-15) 10 MEQ/L (5-15) 9 MEQ/L (5-15) Blood Urea Nitrogen 26 MG/DL (7-18) 33 MG/DL (7-18) 35 MG/DL (7-18) Creatinine 1.78 MG/DL 1.97 MG/DL 2.16 MG/DL (0.50-1.00) (0.50-1.00) (0.50-1.00) Estimat Glomerular Filtration 29 ML/MIN (>89) 25 ML/MIN (>89) 23 ML/MIN (>89) Rate Random Glucose 193 MG/DL 136 MG/DL 191 MG/DL (74-106) (74-106) (74-106) Calcium Level 8.1 MG/DL 8.4 MG/DL 8.7 MG/DL (8.5-10.1) (8.5-10.1) (8.5-10.1) B-Type Natriuretic Peptide 481 PG/ML (0-100) Urine Color YELLOW (YELLW/STRAW) Urine Turbidity CLEAR (CLEAR) Urine pH 6.5 (5.0-8.5) Urine Specific [place] 1.014 (1.002-1.035) Urine Protein TRACE mg/dL (NEG-TRACE) Urine Glucose (UA) NEG mg/dL (NEG) Urine Ketones NEG mg/dL (NEG) Urine Occult Blood NEG (NEG) Urine Nitrite NEG (NEG) Urine Bilirubin NEG (NEG) Urine Urobilinogen LESS THAN 2.0 MG/DL (LESS THAN 2.0) Urine Leukocyte Esterase NEG (NEG) Urine WBC 1 /hpf (0-5) Urine Squamous Epithelial 8 /hpf (0-5) Cells Urine Bacteria OCC /hpf (NONE) Urine Hyaline Casts 5 /lpf (RARE) Microscopic Urinalysis Comment CULT NOT INDICATED White Blood Count 11.5 TH/MM3 13.7 TH/MM3 (4.0-11.0) (4.0-11.0) Red Blood Count 2.84 MIL/MM3 3.09 MIL/MM3 (4.00-5.30) (4.00-5.30) Hemoglobin 8.6 GM/DL 9.2 GM/DL (11.6-15.3) (11.6-15.3) Hematocrit 26.0 % 28.2 % (35.0-46.0) (35.0-46.0) Mean Corpuscular Volume 91.6 FL 91.4 FL (80.0-100.0) (80.0-100.0) Mean Corpuscular Hemoglobin 30.4 PG 29.9 PG (27.0-34.0) (27.0-34.0) Mean Corpuscular Hemoglobin 33.2 % 32.7 % Concent (32.0-36.0) (32.0-36.0) Red Cell Distribution Width 16.1 % 16.0 % (11.6-17.2) (11.6-17.2) Platelet Count 254 TH/MM3 334 TH/MM3 (150-450) (150-450) Mean Platelet Volume 8.1 FL 7.8 FL (7.0-11.0) (7.0-11.0) Neutrophils (%) (Auto) 76.4 % 79.4 % (16.0-70.0) (16.0-70.0) Lymphocytes (%) (Auto) 12.8 % 10.5 % (9.0-44.0) (9.0-44.0) Monocytes (%) (Auto) 10.1 % 8.8 % (0.0-8.0) (0.0-8.0) Eosinophils (%) (Auto) 0.1 % (0.0-4.0) 0.2 % (0.0-4.0) Basophils (%) (Auto) 0.6 % (0.0-2.0) 1.1 % (0.0-2.0) Neutrophils # (Auto) 8.8 TH/MM3 10.9 TH/MM3 (1.8-7.7) (1.8-7.7) Lymphocytes # (Auto) 1.5 TH/MM3 1.4 TH/MM3 (1.0-4.8) (1.0-4.8) Monocytes # (Auto) 1.2 TH/MM3 1.2 TH/MM3 (0-0.9) (0-0.9) Eosinophils # (Auto) 0.0 TH/MM3 0.0 TH/MM3 (0-0.4) (0-0.4) Basophils # (Auto) 0.1 TH/MM3 0.1 TH/MM3 (0-0.2) (0-0.2) CBC Comment AUTO DIFF AUTO DIFF Differential Total Cells 100 100 Counted Neutrophils % (Manual) 81 % (16-70) 86 % (16-70) Band Neutrophils % 3 % (0-6) 2 % (0-6) Lymphocytes % 8 % (9-44) 6 % (9-44) Monocytes % 5 % (0-8) 5 % (0-8) Neutrophils # (Manual) 10.0 TH/MM3 12.2 TH/MM3 (1.8-7.7) (1.8-7.7) Metamyelocytes 1 % (0-1) 1 % (0-1) Myelocytes 2 % (0-0) Differential Comment FINAL DIFF FINAL DIFF MANUAL MANUAL Platelet Estimate NORMAL NORMAL (NORMAL) (NORMAL) Platelet Morphology Comment NORMAL NORMAL (NORMAL) (NORMAL) Magnesium Level 2.3 MG/DL 2.1 MG/DL (1.5-2.5) (1.5-2.5) Toxic Granulation 1+ (NORMAL) Result Diagram: 08/30/1622308/30/16223 Procedures PEG to PEJ tube 08/25/16 Assessment and Plan Disease Oriented Problem List: (1) Dysphagia Comment: Mucositis from chemotherapy. Improving. Able to tolerate some food and liquid (2) Pancreatic cancer Comment: Widely metastatic to lungs, liver, retroperitoneum (3) CAD (coronary artery disease) (4) CHF (congestive heart failure) Comment: Anasarca evident with hypo-albuminuria (5) Atrial fibrillation with RVR Comment: Controlled with medication (6) Chronic kidney disease (CKD) Comment: With acute kidney injury. GFR is trending down (7) Constipation Comment: States no BM in 10 days Symptom Scale: (1) Abdominal pain 0-10 Scale: 8 (2) Weakness 0-10 Scale: 9 (3) Anxiety 0-10 Scale: 8 Comment: With benefit from talking with counselor. Is friends with Jacoby Fenton (4) Shortness of breath Comment: with extension, talking or anxiety (5) Fatigue (6) Dysphagia 0-10 Scale: 4 (improving) Pertinent Non-Medical Issues Psychosocial: She is retired,Work for the [employer] in [employer], many years, has significant other, Pepe Leo Spiritual: Has an open belief system - spiritual not restorationism Legal:None evident Ethical issues impacting care: None evident. Important Contacts Pepe Leo [phone]. Prognosis Prognosis is guarded. Patient has advanced metastatic pancreatic cancer. She poorly tolerated the first round of chemotherapy developing nausea, vomiting, mucositis, dehydration, which subsequently led to atrial fibrillation and acute kidney injury with metabolic imbalances. Also, neutropenia with thrombocytopenia. At this point, she wants to remain hopeful and continue chemotherapy. However, hospice would be a reasonable alternative . Code Status: Full Code Plan Decision Maker: Pepe Leo [phone] [facility] Code Status: Full code Family Discussion: Reviewed. Patient's understanding of her disease process , as well as her personal goals which are to get better and resume lifestyle that is active. Reviewed advanced directives Symptoms: Pain, anxiety, dyspnea, weakness Palliative care phone number provided - will follow during hospital stay. Attestation To help prompt me to consider important information that might be impacting today's encounter and assessment, information from prior notes written by myself or my colleagues may have been "brought forward" into today's note. My signature on this note, however, is an attestation that I personally performed the exam, history, and/or decision-making noted today, and, unless otherwise indicated, the interactions with patient, family, and staff as well as the review of records all occurred today. I also attest that the listed assessment and stated plan reflect my best clinical judgment today based on the combination of historical information, prior notes, and today's exam/ interactions. When time spent is documented, it refers only to time spent today by the signer, or if indicated, combined time spent today by collaborating physician/nurse practitioner. Shefali Pichardo Aug 30, 2016 13:44
[2016-08-30] MEDS: clonazePAM 0.5 MG TAB PO PRN (16:12)
[2016-08-30] MEDS: BISACODYL 10 MG SUPP PR PRN (17:24)
--- NOTE | 2016-08-30 19:38 | HHI.NPPN ---
Subjective History of Present Illness 65-year-old female with past medical history of ischemic heart disease, congestive heart failure, chronic kidney disease with history of acute kidney injury, generalized anasarca, recent diagnosis of pancreatic cancer who was admitted with shortness of breath, generalized edema and abdominal pain. I was called to see the patient because of elevated BUN and creatinine. The patient has history of acute kidney injury and the creatinine was as high as 1.6. Additional Remarks Patient is alert, sitting on chair, swelling is slightly better, no SOB. Review of Systems General Constitutional: Fatigue Respiratory Lungs: SOB Cardiovascular Cardiac: Edema, ROMO Objective Data Data 08/29/16 08/30/16 19:00 07:00 Intake Total 180 ml 480 ml Output Total 250 ml 850 ml Balance -70 ml -370 ml Intake Oral 180 ml 480 ml IV Total 0 ml Output Urine Total 250 ml 850 ml # Bowel Movements 0 Vital Signs Date Time Temp Pulse Resp B/P Pulse Ox O2 Delivery O2 Flow Rate FiO2 08/30/16 16:00 96.9 94 18 127/65 98 08/30/16 12:00 98.6 92 17 107/58 98 08/30/16 08:01 97 08/30/16 08:00 98.2 97 16 131/58 97 08/30/16 04:00 97.0 86 18 112/57 97 08/30/16 00:00 96.4 84 17 121/62 100 08/29/16 20:00 96.9 86 18 128/69 100 -: 08/30/16 0224 08/30/16 0224 Physical Exam General Appearance: Well Nourished, No Acute Distress, Comfortable Eyes Eye Exam: Pupils Equal Throat Throat Exam: Oral Mucosa [place] & Moist Pulmonary Resp Exam: Breath Sounds Equal, Decreased Bases, Diminished Breath Sounds Cardiology CV Exam: Regular, Normal Sinus Rhythm Gastrointestinal/Abdomen GI Exam: Soft, Non-Tender, Distended Extremeties Extremities Exam: Moderate Edema, Pitting Edema, Dependent Edema Neurologic Neuro Exam: Alert, Awake, Oriented Psychiatric Psych Exam: Appropriate Responses Assessment/Plan Assessment Summary: RITCHIE/Acute Renal Failure, Fluid/Volume Overload Problem List: (1) Pancreatic cancer (2) Generalized weakness (3) Shortness of breath (4) Atrial fibrillation with RVR (5) CHF (congestive heart failure) (6) Anasarca (7) Acute kidney injury Plan Patient still has not adequate urine out put. Renal U/S noted. Creatinine continue to increase. Edema is slight;ly better. Started on IV Bumex and Albumin. and Metolazone. Try to keep in negative fluid balance. Seen by Palliative care also. Follow the urine out put and BUN/Creatinine. Problem Qualifiers (1) CHF (congestive heart failure): Qualified Code: I50.9 - Congestive heart failure, unspecified congestive heart failure chronicity, unspecified congestive heart failure type Clyde Swanson MD Aug 30, 2016 19:38
[2016-08-30] MEDS: INSULIN DETEMIR 100 UNITS/ML VIAL SQ SCH (20:32)
[2016-08-31] VITALS (8 sets, daily range): BP systolic 94–129; BP diastolic 51–69; PULSE 78–124; RESP 16–21; TEMP 95.3–97.7; O2SAT 95–97
[2016-08-31] MEDS: ALBUMIN HUMAN 25% 25 GM/100 ML BAGP IV SCH ×2 (05:38→17:48)
[2016-08-31] MEDS ORDERED: DOCUSATE SODIUM 50 MG/SENNA 8.6 MG TAB PO PRN (06:00)
[2016-08-31] MEDS ORDERED: LACTULOSE SYRUP 20 GM/30 ML CUP PO PRN (06:00)
[2016-08-31] MEDS: THYROID 15 MG TAB PO SCH ×2 (06:07→20:56)
[2016-08-31] MEDS: INSULIN ASPART SUPPLEMENTAL SCALE SQ SCH ×4 (07:00→20:57)
[2016-08-31 07:43] LABS: BICARBONATE 32.8 MEQ/L (21.0-32.0); MAGNESIUM 2.1 MG/DL (1.5-2.5); POTASSIUM 4.8 MEQ/L (3.5-5.1)
[2016-08-31] MEDS: DILTIAZEM-CD 240 MG CAP ER PO SCH (08:21)
[2016-08-31] MEDS: PANTOPRAZOLE SOD 40 MG DELAYED RELEASE TAB PO SCH (08:22)
[2016-08-31] MEDS: CALCIUM CARBONATE 1.25 GM (CA 500 MG) TAB PO SCH ×2 (08:22→20:45)
[2016-08-31] MEDS: APIXABAN 2.5 MG TABLET PO SCH ×2 (08:22→20:45)
[2016-08-31] MEDS: CARVEDILOL 6.25 MG TAB PO SCH ×2 (08:22→20:45)
[2016-08-31] MEDS: DOCUSATE SODIUM 100 MG CAP PO SCH ×2 (08:22→20:45)
[2016-08-31] MEDS: METOLAZONE 5 MG TAB PO SCH ×2 (08:22→20:45)
[2016-08-31] MEDS: ESTRADIOL 1 MG TAB PO SCH (08:23)
[2016-08-31] MEDS: MAGNESIUM OXIDE 400 MG TAB PO SCH ×2 (08:23→20:45)
[2016-08-31] MEDS: BUMETANIDE INJ 1 MG/4 ML VIAL IV PUSH SCH ×2 (08:23→20:45)
[2016-08-31] MEDS: SODIUM CHLORIDE 0.9% FLUSH 5 ML FLUSH FLUSH SCH ×2 (08:24→20:58)
[2016-08-31] MEDS: RANOLAZINE 500 MG EXTENDED RELEASE TAB PO SCH ×2 (08:24→20:45)
[2016-08-31] MEDS: POLYETHYLENE GLYCOL 17 GM PKG PO SCH (08:24)
[2016-08-31] MEDS: MEGESTROL ACETATE SUSP 400 MG/10 ML CUP PO SCH (08:24)
[2016-08-31] MEDS: SENNOSIDES 8.6 MG TAB PO SCH (08:24)
[2016-08-31] MEDS: NYSTAT/DIPHENHY/LIDO MOUTHWASH (Adult) 120ML SWISH-SWAL SCH ×4 (08:26→20:46)
[2016-08-31] MEDS: HYDROmorphone HCL PF 1 MG/ML VIAL IV PUSH PRN ×2 (08:26→16:35)
[2016-08-31] MEDS: clonazePAM 0.5 MG TAB PO PRN ×2 (11:16→17:47)
[2016-08-31] MEDS: LEVOFLOXACIN 750 MG TAB PO SCH (12:58)
--- NOTE | 2016-08-31 13:18 | HHI.NPPN ---
Subjective History of Present Illness 65-year-old female with past medical history of ischemic heart disease, congestive heart failure, chronic kidney disease with history of acute kidney injury, generalized anasarca, recent diagnosis of pancreatic cancer who was admitted with shortness of breath, generalized edema and abdominal pain. I was called to see the patient because of elevated BUN and creatinine. The patient has history of acute kidney injury and the creatinine was as high as 1.6. Additional Remarks Patient is alert, not in distress, clinically same. Review of Systems General Constitutional: Fatigue Respiratory Lungs: SOB Cardiovascular Cardiac: Edema, ROMO Objective Data Data 08/30/16 08/31/16 19:00 07:00 Intake Total 233 ml 480 ml Output Total 1300 ml 400 ml Balance -1067 ml 80 ml Intake Oral 120 ml 480 ml IV Total 113 ml Output Urine Total 1300 ml 400 ml # Voids 2 # Bowel Movements 0 Vital Signs Date Time Temp Pulse Resp B/P Pulse Ox O2 Delivery O2 Flow Rate FiO2 08/31/16 12:00 96.7 88 16 107/60 95 08/31/16 08:29 89 08/31/16 08:00 95.3 90 16 104/57 97 08/31/16 04:00 96.9 78 17 94/51 95 08/31/16 00:00 97.0 82 18 97/58 96 08/30/16 20:00 95 08/30/16 20:00 96.9 89 18 93/50 96 08/30/16 16:00 96.9 94 18 127/65 98 -: 08/30/16 0224 08/31/16 0630 Physical Exam General Appearance: Well Nourished, No Acute Distress, Comfortable Eyes Eye Exam: Pupils Equal Throat Throat Exam: Oral Mucosa [place] & Moist Pulmonary Resp Exam: Breath Sounds Equal, Decreased Bases, Diminished Breath Sounds Cardiology CV Exam: Regular, Normal Sinus Rhythm Gastrointestinal/Abdomen GI Exam: Soft, Non-Tender, Distended Extremeties Extremities Exam: Moderate Edema, Pitting Edema, Dependent Edema Neurologic Neuro Exam: Alert, Awake, Oriented Psychiatric Psych Exam: Appropriate Responses Assessment/Plan Assessment Summary: RITCHIE/Acute Renal Failure, Fluid/Volume Overload Problem List: (1) Pancreatic cancer (2) Generalized weakness (3) Shortness of breath (4) Atrial fibrillation with RVR (5) CHF (congestive heart failure) (6) Anasarca (7) Acute kidney injury Plan Patient still has not adequate urine out put. Renal U/S noted. Edema is slightly better. Started on IV Bumex and Albumin. and Metolazone. Try to keep in negative fluid balance. Palliative care following. Avoid Nephrotoxins and follow the BMP. Problem Qualifiers (1) CHF (congestive heart failure): Qualified Code: I50.23 - Acute on chronic systolic congestive heart failure Clyde Swanson MD Aug 31, 2016 13:18 Clyde Swanson MD Aug 31, 2016 13:18
--- NOTE | 2016-08-31 13:32 | HHI.HCPN ---
Reason for visit a. To assist with evaluation and management of symptoms including: Pain, anxiety, dyspnea. Fatigue, nausea b. To assist medical decision maker(s) with: better understanding of current medical conditions; weighing benefits/burdens of medical treatment options; making medical treatment decisions. Subjective/Interval History Olesya is seen this morning without Don present. She is considerably more sleepy and is not able stay awake during my visit. States she did not sleep well last night. She was given Clonopine 0.5mg just prior to my visit and may be the cause of her sleepiness. She remains w significant BLE edema. Labs reflect an increase in white blood cell count. She remains on Levaquin. Also noted is a ongoing decline of renal function , as well as hyponatremia. She is being followed by nephrology. She is eating very little. She also has a PEG tube that is currently not being utilized. She tells me she ate well last night, although in light of her current sleepiness/lethargy, not certain she is a reliable historian. She is not as clear cognitively. At this moment as she was yesterday afternoon She is not complaining of pain at this time. However, in review of records over the last 2 days, it is found that she is using 2.0 milligrams of IV Dilaudid in 24 hours and 45 mg of oxycodone in 24 hours. It would be appropriate to provide her with long-acting pain medication in light of her diagnosis and pain history. Advance Directives Living Will: Copy in medical record Health Care Surrogate: Copy in medical record Advance Directive Specifics Health Care Surrogate(s): Pepe Leo [phone] . Significant other Documented care wishes: She is cleared today to indicate that she would like to have CPR in the event her heart was stopped as well as intubation in the event she was to have respiratory failure. She does have a health care surrogate appointed.Name,. Pepe Leo [phone] . Objective Vital Signs Date Time Temp Pulse Resp B/P Pulse Ox O2 Delivery O2 Flow Rate FiO2 08/31/16 12:00 96.7 88 16 107/60 95 08/31/16 08:29 89 08/31/16 08:00 95.3 90 16 104/57 97 08/31/16 04:00 96.9 78 17 94/51 95 08/31/16 00:00 97.0 82 18 97/58 96 08/30/16 20:00 95 08/30/16 20:00 96.9 89 18 93/50 96 08/30/16 16:00 96.9 94 18 127/65 98 Intake & Output 08/31/16 08/31/16 07:00 19:00 Intake Total 480 ml Output Total 400 ml Balance 80 ml Intake Oral 480 ml Output Urine Total 400 ml # Voids 2 Physical Exam CONSTITUTIONAL/GENERAL: This is an adequately nourished patient, with mildly labored breathing, anasarca, very sleepy today TUBES/LINES/DRAINS: PEJ tube, right IJ, nasal cannula, SKIN: No jaundice, rashes, or lesions. Ecchymoses on upper extremities. No wounds seen anteriorly. Skin temperature appropriate. Not diaphoretic. HEAD: Atraumatic. Normocephalic. EYES: Pupils equal and round and reactive. Extraocular motions intact. No scleral icterus. No injection or drainage. Fundi not examined. ENT: Hearing grossly normal. Nose without bleeding or purulent drainage. Throat / mouth with visible erythema, NECK: Trachea midline. Supple, nontender. No palpable thyroid enlargement or nodularity. CARDIOVASCULAR: Regular rate and rhythm without murmurs, gallops, or rubs. No JVD. Peripheral pulses symmetric. severe BLE weeping edema RESPIRATORY/CHEST: Symmetric, mildly respirations. Scattered Coarse Breath sounds does not clear with cough, scattered rales at bases GASTROINTESTINAL: Abdomen soft,tender level 5\\10, distended. Unable to palpate masses. Bowel sounds present. GENITOURINARY: Without palpable bladder distension. MUSCULOSKELETAL: Extremities with weeping BLE edema from hip to toes No joint tenderness or effusion noted. No calf tenderness. No mottling or clubbing. LYMPHATICS: No palpable cervical or supraclavicular adenopathy. NEUROLOGICAL: Awake and sleepy Thought process is slower today - but I suspect it is due to medication Diagnostic Tests Laboratory Laboratory Tests Test 08/28/16 08/29/16 08/30/16 08/31/16 22:10 06:25 02:24 06:30 Urine Color YELLOW (YELLW/STRAW) Urine Turbidity CLEAR (CLEAR) Urine pH 6.5 (5.0-8.5) Urine Specific [place] 1.014 (1.002-1.035) Urine Protein TRACE mg/dL (NEG-TRACE) Urine Glucose (UA) NEG mg/dL (NEG) Urine Ketones NEG mg/dL (NEG) Urine Occult Blood NEG (NEG) Urine Nitrite NEG (NEG) Urine Bilirubin NEG (NEG) Urine Urobilinogen LESS THAN 2.0 MG/DL (LESS THAN 2.0) Urine Leukocyte Esterase NEG (NEG) Urine WBC 1 /hpf (0-5) Urine Squamous Epithelial 8 /hpf (0-5) Cells Urine Bacteria OCC /hpf (NONE) Urine Hyaline Casts 5 /lpf (RARE) Microscopic Urinalysis Comment CULT NOT INDICATED White Blood Count 11.5 TH/MM3 13.7 TH/MM3 (4.0-11.0) (4.0-11.0) Red Blood Count 2.84 MIL/MM3 3.09 MIL/MM3 (4.00-5.30) (4.00-5.30) Hemoglobin 8.6 GM/DL 9.2 GM/DL (11.6-15.3) (11.6-15.3) Hematocrit 26.0 % 28.2 % (35.0-46.0) (35.0-46.0) Mean Corpuscular Volume 91.6 FL 91.4 FL (80.0-100.0) (80.0-100.0) Mean Corpuscular Hemoglobin 30.4 PG 29.9 PG (27.0-34.0) (27.0-34.0) Mean Corpuscular Hemoglobin 33.2 % 32.7 % Concent (32.0-36.0) (32.0-36.0) Red Cell Distribution Width 16.1 % 16.0 % (11.6-17.2) (11.6-17.2) Platelet Count 254 TH/MM3 334 TH/MM3 (150-450) (150-450) Mean Platelet Volume 8.1 FL 7.8 FL (7.0-11.0) (7.0-11.0) Neutrophils (%) (Auto) 76.4 % 79.4 % (16.0-70.0) (16.0-70.0) Lymphocytes (%) (Auto) 12.8 % 10.5 % (9.0-44.0) (9.0-44.0) Monocytes (%) (Auto) 10.1 % 8.8 % (0.0-8.0) (0.0-8.0) Eosinophils (%) (Auto) 0.1 % (0.0-4.0) 0.2 % (0.0-4.0) Basophils (%) (Auto) 0.6 % (0.0-2.0) 1.1 % (0.0-2.0) Neutrophils # (Auto) 8.8 TH/MM3 10.9 TH/MM3 (1.8-7.7) (1.8-7.7) Lymphocytes # (Auto) 1.5 TH/MM3 1.4 TH/MM3 (1.0-4.8) (1.0-4.8) Monocytes # (Auto) 1.2 TH/MM3 1.2 TH/MM3 (0-0.9) (0-0.9) Eosinophils # (Auto) 0.0 TH/MM3 0.0 TH/MM3 (0-0.4) (0-0.4) Basophils # (Auto) 0.1 TH/MM3 0.1 TH/MM3 (0-0.2) (0-0.2) CBC Comment AUTO DIFF AUTO DIFF Differential Total Cells 100 100 Counted Neutrophils % (Manual) 81 % (16-70) 86 % (16-70) Band Neutrophils % 3 % (0-6) 2 % (0-6) Lymphocytes % 8 % (9-44) 6 % (9-44) Monocytes % 5 % (0-8) 5 % (0-8) Neutrophils # (Manual) 10.0 TH/MM3 12.2 TH/MM3 (1.8-7.7) (1.8-7.7) Metamyelocytes 1 % (0-1) 1 % (0-1) Myelocytes 2 % (0-0) Differential Comment FINAL DIFF FINAL DIFF MANUAL MANUAL Platelet Estimate NORMAL NORMAL (NORMAL) (NORMAL) Platelet Morphology Comment NORMAL NORMAL (NORMAL) (NORMAL) Sodium Level 133 MEQ/L 134 MEQ/L 131 MEQ/L (136-145) (136-145) (136-145) Potassium Level 5.5 MEQ/L 5.1 MEQ/L 4.8 MEQ/L (3.5-5.1) (3.5-5.1) (3.5-5.1) Chloride Level 96 MEQ/L 96 MEQ/L 91 MEQ/L (98-107) (98-107) (98-107) Carbon Dioxide Level 27.3 MEQ/L 28.9 MEQ/L 32.8 MEQ/L (21.0-32.0) (21.0-32.0) (21.0-32.0) Anion Gap 10 MEQ/L (5-15) 9 MEQ/L (5-15) 7 MEQ/L (5-15) Blood Urea Nitrogen 33 MG/DL (7-18) 35 MG/DL (7-18) 40 MG/DL (7-18) Creatinine 1.97 MG/DL 2.16 MG/DL 2.52 MG/DL (0.50-1.00) (0.50-1.00) (0.50-1.00) Estimat Glomerular Filtration 25 ML/MIN (>89) 23 ML/MIN (>89) 19 ML/MIN (>89) Rate Random Glucose 136 MG/DL 191 MG/DL 99 MG/DL (74-106) (74-106) (74-106) Calcium Level 8.4 MG/DL 8.7 MG/DL 8.8 MG/DL (8.5-10.1) (8.5-10.1) (8.5-10.1) Magnesium Level 2.3 MG/DL 2.1 MG/DL 2.1 MG/DL (1.5-2.5) (1.5-2.5) (1.5-2.5) Toxic Granulation 1+ (NORMAL) Result Diagram: 08/30/164 08/31/16 0630 Procedures PEG to PEJ tube 08/25/16 Assessment and Plan Disease Oriented Problem List: (1) Dysphagia Comment: Mucositis from chemotherapy. Improving. Able to tolerate some food and liquid (2) Pancreatic cancer Comment: Widely metastatic to lungs, liver, retroperitoneum (3) CAD (coronary artery disease) (4) CHF (congestive heart failure) Comment: Anasarca evident with hypo-albuminuria (5) Atrial fibrillation with RVR Comment: Controlled with medication (6) Chronic kidney disease (CKD) Comment: With acute kidney injury. GFR is trending down (7) Constipation Comment: States no BM in 10 days Symptom Scale: (1) Abdominal pain 0-10 Scale: 8 Comment: Review of pain med usage - Dilaudid 2.0mg IV in 24 hrs - Oxycodone 60mg in 24 hrs - Would do better with long acting agent in light of her Dx process and pain history. (2) Weakness 0-10 Scale: 9 (3) Anxiety 0-10 Scale: 8 Comment: Improved with use of prn Benzo's . Would also benefit from talking with counselor. Is friends with Jacoby Fenton [facility]. (4) Shortness of breath Comment: with extension, talking or anxiety - walking 10 ft yesterday. (5) Fatigue (6) Dysphagia 0-10 Scale: 4 (improving) Comment: eating some, states "good" - Pertinent Non-Medical Issues Psychosocial: She is retired,Work for the [employer] in [employer] systems, many years, has significant other, Pepe Leo [phone] Spiritual: Has an open belief system - spiritual not sabianist Legal:None evident Ethical issues impacting care: None evident. Important Contacts Pepe Leo [phone]. Prognosis Prognosis is guarded. Patient has advanced metastatic pancreatic cancer. She poorly tolerated the first round of chemotherapy developing nausea, vomiting, mucositis, dehydration, which subsequently led to atrial fibrillation and acute kidney injury with metabolic imbalances. Also, neutropenia with thrombocytopenia. At this point, she wants to remain hopeful and continue chemotherapy. However, hospice would be a reasonable alternative . Code Status: Full Code Plan Decision Maker: Peep Leo [phone] [facility] Code Status: Full code Family Discussion: Reviewed. Patient's understanding of her disease process , as well as her personal goals which are to get better and resume lifestyle that is active. Reviewed advanced directives Symptoms: Pain, anxiety, dyspnea, weakness Palliative care phone number provided - will follow during hospital stay. Attestation To help prompt me to consider important information that might be impacting today's encounter and assessment, information from prior notes written by myself or my colleagues may have been "brought forward" into today's note. My signature on this note, however, is an attestation that I personally performed the exam, history, and/or decision-making noted today, and, unless otherwise indicated, the interactions with patient, family, and staff as well as the review of records all occurred today. I also attest that the listed assessment and stated plan reflect my best clinical judgment today based on the combination of historical information, prior notes, and today's exam/ interactions. When time spent is documented, it refers only to time spent today by the signer, or if indicated, combined time spent today by collaborating physician/nurse practitioner. Shefali Pichardo Aug 31, 2016 13:32
[2016-08-31] MEDS: fentaNYL 25 MCG/HR PATCH TD SCH (14:18)
--- NOTE | 2016-08-31 15:11 | HHI.PR ---
Subjective Remarks Follow-up for anasarca. SO at bedside. The patient continues to have bilateral lower extremity seeping. Lower extremity swelling and cellulitis are mostly unchanged. Urinating okay. She follows with nephrology, Dr. Crain, as outpatient. Objective Vitals Vital Signs Date Time Temp Pulse Resp B/P Pulse Ox O2 Delivery O2 Flow Rate FiO2 08/31/16 12:00 96.7 88 16 107/60 95 08/31/16 08:29 89 08/31/16 08:00 95.3 90 16 104/57 97 08/31/16 04:00 96.9 78 17 94/51 95 08/31/16 00:00 97.0 82 18 97/58 96 08/30/16 20:00 95 08/30/16 20:00 96.9 89 18 93/50 96 08/30/16 16:00 96.9 94 18 127/65 98 I/O 08/30/16 08/30/16 08/30/16 08/31/16 08/31/16 08/31/16 07:00 15:00 23:00 07:00 15:00 23:00 Intake Total 240 ml 233 ml 240 ml 240 ml 240 ml Output Total 550 ml 1300 ml 400 ml 280 ml Balance -310 ml -1067 ml 240 ml -160 ml -40 ml Intake Oral 240 ml 120 ml 240 ml 240 ml 240 ml IV Total 113 ml Output Urine Total 550 ml 1300 ml 400 ml 280 ml # Voids 2 # Bowel Movements 0 0 Result Diagram: 08/30/16 0224 08/31/16 0630 Imaging Last Impressions Renal Ultrasound 08/28/16 0000 Signed Impressions: Service Date/Time: Sunday, August 28, 2016 23:02 - CONCLUSION: Negative exam. Both kidneys are sonographically intact. Vijay Goodrich MD Chest X-Ray 08/25/16 1043 Signed Impressions: Service Date/Time: Thursday, August 25, 2016 10:55 - CONCLUSION: Slight blunting of the right costophrenic sulcus suggesting small right pleural effusion. Otherwise, no acute finding is identified. Jono Balderrama MD Objective Remarks GENERAL: Pleasant. Chronically ill appearing. Well-developed well-nourished. In no acute distress. SKIN: Warm and dry. Thin scarce hair, loosing hair. Port in place on right chest wall. LLE erythema. HEENT: Normocephalic. Pupils equal and round. Mucous membranes pink and moist. CARDIOVASCULAR: Regular rate and rhythm. No murmur appreciated. RESPIRATORY: No accessory muscle use. Clear to auscultation. Breath sounds equal bilaterally. GASTROINTESTINAL: Abdomen soft, non-tender, mildly distended distended. Bowel sounds x4. PEG tube in place. MUSCULOSKELETAL: LLE distal cellulitis. No clubbing or cyanosis. No lower extremity edema. NEUROLOGICAL: Awake and alert. No focal neurological deficits. Moves upper and lower extremities spontaneously. Normal speech. PSYCHIATRIC: Appropriate mood and affect; insight and judgment normal. A/P Problem List: (1) CHF (congestive heart failure) ICD Code: I50.9 Status: Acute (2) Pancreatic cancer ICD Code: C25.9 Status: Chronic Assessment and Plan Assessment and Plan Ms. Concepcion is a 65-year-old female with a history of unresectable pancreatic cancer who presented to the emergency department on 08/25/2016 with generalized weakness, shortness of breath, nausea. She was discharged from the hospital on 08/24/2016 with home health after being treated for intractable nausea , vomiting, dysphagia as well as Afib with RVR. During previous hospitalization , possibility if hospice care was discussed with the patient but patient was not ready for palliative care or hospice discussion at that time. Pancreatic cancer, unresectable Recent history of dysphagia, intractable nausea vomiting. Improving. Intractable abdominal pain - left sided. Patient underwent G-J tube placement in the previous admission. She was on tube feed but started to tolerate oral feeding well She did not want to continue tube feed on discharge. Consulted dietitian for calorie count recommended to feeding if by mouth less than 50% but patient refusing Patient agreed to meet with palliative care, consulted Continue Oxycodone, Dilaudid PRN. Palliative care added fentanyl patch. PT evaluated the patient, [facility] vs SNF, patient leaning towards [facility] at this time. Acute exacerbation of chronic systolic CHF with anasarca Started on IV Bumex with IV albumin per nephrology. Monitor I&Os, keep negative fluid balance. Monitor renal function CHEY hose for edema. Acute kidney injury Creatinine 1.35 on admission. Baseline is below 0.80. Creatinine worsening with diuresis but remains nonoliguric, further diuresis/ management per renal decrease Bumex to 1 mg every 12 Hyperkalemia 08/29, improved Hypocalcemia Hypomagnesemia Calcium replaced with IV Calcium Gluconate x2. Received Magnesium with IV 2g as magnesium deficiency can cause hypocalcemia. Started PO Ca gluconate and mag ox Calcium improved Atrial fibrillation with RVR [id number] score 3 (female, age 65, DM). Continue Cardizem CD PO 240mg Qday. Continue Carvedilol, dose decreased from 12.5mg BID to 6.25mg BID with holding parameters. Continue Apixaban 2.5mg BID. Diabetes mellitus With episode of hypoglycemia Decreased Levemir to 20 units QHS, with good effect. Sliding scale insulin. Hypothyroidism - continue [place] thyroid 45 mg by mouth twice a day. GERD - Protonix 40mg Qday. Left lower extremity cellulitis - Started really adjusted Levaquin 08/29 Levaquin. Edema control, Leg elevation. Monitor response. Full code. DVT ppx: Apixaban 2.5mg BID. Written by Antonio Cummins, acting as scribe for Dr. Dave on 08/31/16 at 15:11. All or portions of this note were transcribed by scribe []. I, Dr. Syd Dave personally performed the history, physical exam, and medical decision making; and confirmed the accuracy of the information in the transcribed note. Authenticated by Dr. Syd Dave on 08/31/16 at 15:49. Discharge Planning Monitor clinical course. HHC vs SNF vs hospice Problem Qualifiers (1) CHF (congestive heart failure): Qualified Code: I50.23 - Acute on chronic systolic congestive heart failure Antonio Cummins Aug 31, 2016 15:11 Syd Dave MD Aug 31, 2016 15:50
[2016-08-31] MEDS: INSULIN DETEMIR 100 UNITS/ML VIAL SQ SCH (20:57)
[2016-09-01] VITALS (10 sets, daily range): BP systolic 88–147; BP diastolic 51–73; PULSE 80–150; RESP 16–20; TEMP 96.6–98.7; O2SAT 92–97
[2016-09-01] MEDS: THYROID 15 MG TAB PO SCH ×2 (05:24→20:10)
[2016-09-01] MEDS: BISACODYL 10 MG SUPP PR PRN (05:49)
[2016-09-01] MEDS: INSULIN ASPART SUPPLEMENTAL SCALE SQ SCH ×4 (05:53→20:24)
[2016-09-01] MEDS: ALBUMIN HUMAN 25% 25 GM/100 ML BAGP IV SCH ×2 (05:57→18:02)
[2016-09-01 07:11] LABS: BICARBONATE 30.5 MEQ/L (21.0-32.0); MAGNESIUM 2.1 MG/DL (1.5-2.5); POTASSIUM 4.3 MEQ/L (3.5-5.1)
[2016-09-01] MEDS: ESTRADIOL 1 MG TAB PO SCH (09:00)
[2016-09-01] MEDS: DOCUSATE SODIUM 100 MG CAP PO SCH ×2 (09:11→20:10)
[2016-09-01] MEDS: SENNOSIDES 8.6 MG TAB PO SCH (09:11)
[2016-09-01] MEDS: DILTIAZEM-CD 240 MG CAP ER PO SCH (09:11)
[2016-09-01] MEDS: CALCIUM CARBONATE 1.25 GM (CA 500 MG) TAB PO SCH ×2 (09:11→20:10)
[2016-09-01] MEDS: NYSTAT/DIPHENHY/LIDO MOUTHWASH (Adult) 120ML SWISH-SWAL SCH ×4 (09:11→20:28)
[2016-09-01] MEDS: PANTOPRAZOLE SOD 40 MG DELAYED RELEASE TAB PO SCH (09:12)
[2016-09-01] MEDS: MAGNESIUM OXIDE 400 MG TAB PO SCH ×2 (09:12→20:10)
[2016-09-01] MEDS: RANOLAZINE 500 MG EXTENDED RELEASE TAB PO SCH ×2 (09:12→20:10)
[2016-09-01] MEDS: APIXABAN 2.5 MG TABLET PO SCH ×2 (09:12→20:10)
[2016-09-01] MEDS: METOLAZONE 5 MG TAB PO SCH (09:12)
[2016-09-01] MEDS: POLYETHYLENE GLYCOL 17 GM PKG PO SCH (09:12)
[2016-09-01] MEDS: CARVEDILOL 6.25 MG TAB PO SCH (09:12)
[2016-09-01] MEDS: MEGESTROL ACETATE SUSP 400 MG/10 ML CUP PO SCH (09:12)
[2016-09-01] MEDS: BUMETANIDE INJ 1 MG/4 ML VIAL IV PUSH SCH (09:13)
[2016-09-01] MEDS: SODIUM CHLORIDE 0.9% FLUSH 5 ML FLUSH FLUSH SCH ×2 (09:13→20:21)
--- NOTE | 2016-09-01 12:47 | HHI.PR ---
Subjective Remarks Follow-up for CHF exacerbation and pancreatic cancer. SO and RN at bedside. RN reports patient had a fall overnight. The patient had some draining from around her PEG tube site earlier and the site is currently irritated and tender. The patient reports feeling sleepy and tired today. She reports drainage from lower extremity seems to be improving. Objective Vitals Vital Signs Date Time Temp Pulse Resp B/P Pulse Ox O2 Delivery O2 Flow Rate FiO2 09/01/16 12:00 96.6 132 16 147/59 93 09/01/16 10:11 20 09/01/16 08:00 97.6 149 17 143/73 92 09/01/16 04:00 97.6 80 20 111/62 97 09/01/16 00:00 97.0 116 20 107/57 95 08/31/16 20:45 96.0 104 20 122/69 95 08/31/16 20:00 124 08/31/16 20:00 97.7 121 21 129/69 97 08/31/16 16:00 96.6 78 16 95/61 95 I/O 08/31/16 08/31/16 08/31/16 09/01/16 09/01/16 09/01/16 07:00 15:00 23:00 07:00 15:00 23:00 Intake Total 240 ml 240 ml 320 ml 320 ml Output Total 400 ml 280 ml 2450 ml Balance -160 ml -40 ml 320 ml -2130 ml Intake Oral 240 ml 240 ml 320 ml 320 ml Output Urine Total 400 ml 280 ml 2450 ml # Voids 1 # Bowel Movements 0 0 0 Result Diagram: 08/30/16 0224 09/01/16 0600 Imaging Last Impressions Renal Ultrasound 08/28/16 0000 Signed Impressions: Service Date/Time: Sunday, August 28, 2016 23:02 - CONCLUSION: Negative exam. Both kidneys are sonographically intact. Vijay Goodrich MD Chest X-Ray 08/25/16 1043 Signed Impressions: Service Date/Time: Thursday, August 25, 2016 10:55 - CONCLUSION: Slight blunting of the right costophrenic sulcus suggesting small right pleural effusion. Otherwise, no acute finding is identified. Jono Balderrama MD Objective Remarks GENERAL: Chronically ill appearing. Well-developed well-nourished. In no acute distress. SKIN: Warm and dry. Thin scarce hair, loosing hair. Port in place on right chest wall. LLE erythema. HEENT: Normocephalic. Pupils equal and round. Mucous membranes pink and moist. CARDIOVASCULAR: Regular rate and rhythm. No murmur appreciated. RESPIRATORY: No accessory muscle use. Clear to auscultation. Breath sounds equal bilaterally. GASTROINTESTINAL: Abdomen soft, non-tender, mildly distended distended. Bowel sounds x4. PEG tube in place with surrounding erythema, no drainage. MUSCULOSKELETAL: LLE distal cellulitis. No clubbing or cyanosis. No lower extremity edema. NEUROLOGICAL: Awake and alert. No focal neurological deficits. Moves upper and lower extremities spontaneously. Normal speech. PSYCHIATRIC: Appropriate mood and affect; insight and judgment normal. A/P Problem List: (1) CHF (congestive heart failure) ICD Code: I50.9 Status: Acute (2) Pancreatic cancer ICD Code: C25.9 Status: Chronic Assessment and Plan Assessment and Plan Ms. Concepcion is a 65-year-old female with a history of unresectable pancreatic cancer who presented to the emergency department on 08/25/2016 with generalized weakness, shortness of breath, nausea. She was discharged from the hospital on 08/24/2016 with home health after being treated for intractable nausea , vomiting, dysphagia as well as Afib with RVR. During previous hospitalization , possibility if hospice care was discussed with the patient but patient was not ready for palliative care or hospice discussion at that time. Pancreatic cancer, unresectable Recent history of dysphagia, intractable nausea vomiting. Improving. Intractable abdominal pain - left sided. Patient underwent G-J tube placement in the previous admission. She was on tube feed but started to tolerate oral feeding well She did not want to continue tube feed on discharge. Consulted dietitian for calorie count recommended to feeding if by mouth less than 50% but patient refusing Patient agreed to meet with palliative care, consulted Continue Oxycodone, Dilaudid PRN. Palliative care added fentanyl patch. PT evaluated the patient, [facility] vs SNF, patient leaning towards [facility] at this time. Acute exacerbation of chronic systolic CHF with anasarca Started on IV Bumex with IV albumin per nephrology. Monitor I&Os, keep negative fluid balance. Monitor renal function CHEY hose for edema. Acute kidney injury Creatinine 1.35 on admission. Baseline is below 0.80. Creatinine worsening with diuresis, Bumex dose decreased, creatinine is slightly improved today Hyperkalemia 08/29, improved Hypocalcemia Hypomagnesemia Calcium replaced with IV Calcium Gluconate x2. Received Magnesium with IV 2g as magnesium deficiency can cause hypocalcemia. Started PO Ca gluconate and mag ox Calcium improved Atrial fibrillation with RVR [id number] score 3 (female, age 65, DM). Continue Cardizem CD PO 240mg Qday. Continue Carvedilol, dose decreased from 12.5mg BID to 6.25mg BID with holding parameters. Continue Apixaban 2.5mg BID. Diabetes mellitus With episode of hypoglycemia Decrease Levemir to 18 units QHS, with good effect. Sliding scale insulin. Hypothyroidism - continue [place] thyroid 45 mg by mouth twice a day. GERD - Protonix 40mg Qday. Left lower extremity cellulitis - Started really adjusted Levaquin 08/29 Levaquin. Edema control, Leg elevation. Monitor response. PEG tube irritation - Bactroban ointment Full code. DVT ppx: Apixaban 2.5mg BID. Written by Antonio Cummins, acting as scribe for Dr. Dave on 09/01/16 at 12:45. All or portions of this note were transcribed by scribe []. I, Dr. Syd Dave personally performed the history, physical exam, and medical decision making; and confirmed the accuracy of the information in the transcribed note. Authenticated by Dr. Syd Dave on 09/01/16 at 14:07. Discharge Planning Monitor clinical course. HHC vs SNF vs hospice Still has significant anasarca requiring IV diuresis Problem Qualifiers (1) CHF (congestive heart failure): Qualified Code: I50.23 - Acute on chronic systolic congestive heart failure Antonio Cummins Sep 01, 2016 12:47 Syd Dave MD Sep 01, 2016 14:07
--- NOTE | 2016-09-01 13:45 | HHI.NPPN ---
Subjective History of Present Illness 65-year-old female with past medical history of ischemic heart disease, congestive heart failure, chronic kidney disease with history of acute kidney injury, generalized anasarca, recent diagnosis of pancreatic cancer who was admitted with shortness of breath, generalized edema and abdominal pain. I was called to see the patient because of elevated BUN and creatinine. The patient has history of acute kidney injury and the creatinine was as high as 1.6. Additional Remarks Tired today, no acute complaints Review of Systems General Constitutional: Fatigue Respiratory Lungs: SOB Cardiovascular Cardiac: Edema, ROMO Objective Data Data 08/31/16 09/01/16 19:00 07:00 Intake Total 240 ml 640 ml Output Total 280 ml 2450 ml Balance -40 ml -1810 ml Intake Oral 240 ml 640 ml Output Urine Total 280 ml 2450 ml # Voids 1 # Bowel Movements 0 0 Vital Signs Date Time Temp Pulse Resp B/P Pulse Ox O2 Delivery O2 Flow Rate FiO2 09/01/16 12:00 96.6 132 16 147/59 93 09/01/16 10:11 20 09/01/16 08:00 97.6 149 17 143/73 92 09/01/16 04:00 97.6 80 20 111/62 97 09/01/16 00:00 97.0 116 20 107/57 95 08/31/16 20:45 96.0 104 20 122/69 95 08/31/16 20:00 124 08/31/16 20:00 97.7 121 21 129/69 97 08/31/16 16:00 96.6 78 16 95/61 95 -: 08/30/16 0224 09/01/16 0600 Physical Exam General Appearance: Well Nourished, No Acute Distress, Comfortable Eyes Eye Exam: Pupils Equal Throat Throat Exam: Oral Mucosa [place] & Moist Pulmonary Resp Exam: Breath Sounds Equal, Decreased Bases, Diminished Breath Sounds Cardiology CV Exam: Regular, Normal Sinus Rhythm Gastrointestinal/Abdomen GI Exam: Soft, Non-Tender, Distended Extremeties Extremities Exam: Moderate Edema, Pitting Edema, Dependent Edema Neurologic Neuro Exam: Alert, Awake, Oriented Psychiatric Psych Exam: Appropriate Responses Assessment/Plan Assessment Summary: RITCHIE/Acute Renal Failure, Fluid/Volume Overload Problem List: (1) Pancreatic cancer (2) Generalized weakness (3) Shortness of breath (4) Atrial fibrillation with RVR (5) CHF (congestive heart failure) (6) Anasarca (7) Acute kidney injury Plan Creatinine 2.5 -> 2.4 Started on IV Bumex 1mg q12 and Albumin, with Metolazone 5mg q 12. Increased UOP: 2.7L / 24 hours Continue diuresis Try to keep in negative fluid balance. Seen by Palliative care also. Follow the urine out put and BUN/Creatinine. Problem Qualifiers (1) CHF (congestive heart failure): Qualified Code: I50.23 - Acute on chronic systolic congestive heart failure Rayshawn Holden MD Sep 01, 2016 13:45
[2016-09-01] MEDS: MUPIROCIN 2% OINT 22 GM TUBE TOPICAL SCH ×2 (14:00→20:28)
[2016-09-01] MEDS ORDERED: SODIUM CHLORID 0.9% 500 ML INJ 500 ML IV ONE (17:00)
[2016-09-01 17:05] LABS: AUTOMATED NEUTROPHIL # 21.1 TH/MM3 (1.8-7.7); BASOPHIL # 0.1 TH/MM3 (0-0.2); BASOPHIL % 0.5 % (0.0-2.0); HEMATOCRIT 25.5 % (35.0-46.0); LYMPH % 1.9 % (9.0-44.0); LYMPHOCYTE # 0.4 TH/MM3 (1.0-4.8); MEAN CELL VOLUME 89.9 FL (80.0-100.0); MEAN CORPUSCULAR HEMOGLOBIN 29.8 PG (27.0-34.0); MEAN CORPUSCULAR HGB CONC 33.2 % (32.0-36.0); MONO % 4.8 % (0.0-8.0); NEUT % 92.8 % (16.0-70.0); PLATELET COUNT 330 TH/MM3 (150-450); RED BLOOD COUNT 2.84 MIL/MM3 (4.00-5.30); RED CELL DISTRIBUTION WIDTH 16.1 % (11.6-17.2); WHITE BLOOD COUNT 22.7 TH/MM3 (4.0-11.0)
[2016-09-01 17:11] LABS: HEMO FLAGS AUTO DIFF
[2016-09-01] MEDS ORDERED: AMIODARONE INJ 900 MG in D5W 500 ML (EXCEL BAG) 482 ML IV SCH (17:15)
[2016-09-01 17:43] LABS: BICARBONATE 29.3 MEQ/L (21.0-32.0); MAGNESIUM 2.2 MG/DL (1.5-2.5); POTASSIUM 4.9 MEQ/L (3.5-5.1)
[2016-09-01 17:47] LABS: BANDS 10 % (0-6); METAMYELOCYTES 2 % (0-1); NEUTROPHIL # MANUAL DIFF 21.8 TH/MM3 (1.8-7.7); PLATELET ESTIMATE SMEAR NORMAL (NORMAL); PLATELET MORPHOLOGY NORMAL (NORMAL); POLYS (SEG NEUTROPHILS) 84 % (16-70); SCAN/DIFF FINAL DIFF MANUAL; WBC DIFF SAMPLE 100
--- NOTE | 2016-09-01 18:35 | RADRPT ---
EXAM DATE/TIME: 09/01/2016 18:18 [place] COMPARISON: CHEST SINGLE AP, August 25, 2016, 10:55. INDICATIONS : Respiratory Distress MEDICAL HISTORY : Congestive heart failure. Myocardial infarction. Hypercholesterolemia. Carcinoma, SURGICAL HISTORY : Tonsillectomy. Appendectomy. Hysterectomy. Thyroidectomy. Blood transfusions. ENCOUNTER: Subsequent ACUITY: 4 - 6 days PAIN SCORE: 0/10 LOCATION: Bilateral chest FINDINGS: Trace basilar atelectasis, mainly on the right. A tiny right pleural effusion is suspected as well. N o pneumothorax seen. Heart size stable, upper limits of normal. Right IJ central venous catheter are again seen, tip in the superior vena cava. CONCLUSION: Trace bibasilar atelectasis and tiny right pleural effusion. Jono Bhatia MD on September 01, 2016 at 18:32 Board Certified Radiologist. This report was verified electronically.
[2016-09-01 18:52] LABS: BLOOD, URINE NEG (NEG); COMMENT (UR) CULTURE INDICATED; CULTURE IF INDICATED CULTURE INDICATED; GLUCOSE,URINE NEG (NEG); HYALINE CAST, URINE 7 /lpf (RARE); KETONE, URINE NEG (NEG); MUCUS URINE FEW /lpf (OCC); NITRITE,URINE NEG (NEG); SQUAMOUS EPITHELIAL CELL URINE 1 /hpf (0-5); URINE COLOR YELLOW (YELLW/STRAW)
[2016-09-01] MEDS: INSULIN DETEMIR 100 UNITS/ML VIAL SQ SCH (20:21)
[2016-09-01] MEDS: clonazePAM 0.5 MG TAB PO PRN (23:03)
[2016-09-02] VITALS (23 sets, daily range): BP systolic 106–147; BP diastolic 49–89; PULSE 79–109; RESP 16–20; TEMP 97.6–98.6; O2SAT 92–95
[2016-09-02 05:21] LABS: BICARBONATE 30.1 MEQ/L (21.0-32.0); MAGNESIUM 2.4 MG/DL (1.5-2.5); POTASSIUM 4.6 MEQ/L (3.5-5.1)
[2016-09-02] MEDS: ALBUMIN HUMAN 25% 25 GM/100 ML BAGP IV SCH ×2 (05:56→17:36)
[2016-09-02] MEDS: INSULIN ASPART SUPPLEMENTAL SCALE SQ SCH ×4 (05:57→22:38)
[2016-09-02] MEDS: THYROID 15 MG TAB PO SCH ×2 (05:59→22:25)
[2016-09-02] MEDS: SENNOSIDES 8.6 MG TAB PO SCH (07:59)
[2016-09-02] MEDS: MEGESTROL ACETATE SUSP 400 MG/10 ML CUP PO SCH (07:59)
[2016-09-02] MEDS: PANTOPRAZOLE SOD 40 MG DELAYED RELEASE TAB PO SCH (07:59)
[2016-09-02] MEDS: RANOLAZINE 500 MG EXTENDED RELEASE TAB PO SCH ×2 (07:59→21:43)
[2016-09-02] MEDS: CALCIUM CARBONATE 1.25 GM (CA 500 MG) TAB PO SCH ×2 (08:00→21:43)
[2016-09-02] MEDS: MAGNESIUM OXIDE 400 MG TAB PO SCH ×2 (08:00→21:43)
[2016-09-02] MEDS: DOCUSATE SODIUM 100 MG CAP PO SCH ×2 (08:00→21:43)
[2016-09-02] MEDS: APIXABAN 2.5 MG TABLET PO SCH ×2 (08:01→22:25)
[2016-09-02] MEDS: POLYETHYLENE GLYCOL 17 GM PKG PO SCH (08:02)
[2016-09-02] MEDS: NYSTAT/DIPHENHY/LIDO MOUTHWASH (Adult) 120ML SWISH-SWAL SCH ×4 (08:02→21:00)
[2016-09-02] MEDS: ESTRADIOL 1 MG TAB PO SCH (08:02)
[2016-09-02] MEDS: SODIUM CHLORIDE 0.9% FLUSH 5 ML FLUSH FLUSH SCH ×2 (08:02→21:48)
[2016-09-02] MEDS: clonazePAM 0.5 MG TAB PO PRN ×2 (08:03→22:28)
[2016-09-02] MEDS: MUPIROCIN 2% OINT 22 GM TUBE TOPICAL SCH ×2 (08:03→21:00)
--- NOTE | 2016-09-02 09:09 | HHI.PR ---
Subjective Remarks Follow up for CHF exacerbation, afib with RVR, pancreatic cancer, lower extremity edema/cellulitis. The patient reports worsening of the left leg erythema/edema. No fevers/chills. She had an episode of afib with RVR yesterday , transferred to [facility]. HR now wnl. Denies any other medical complaints. Objective Vitals Vital Signs Date Time Temp Pulse Resp B/P Pulse Ox O2 Delivery O2 Flow Rate FiO2 09/02/16 08:10 98.2 102 18 112/64 94 09/02/16 08:10 105 09/02/16 06:00 80 09/02/16 05:00 79 09/02/16 04:00 81 09/02/16 04:00 98.3 82 20 106/55 95 09/02/16 03:00 82 09/02/16 02:00 82 09/02/16 01:00 80 09/02/16 00:00 84 09/01/16 23:54 98.0 84 20 97/51 96 09/01/16 23:00 89 09/01/16 20:00 98.7 99 20 107/57 94 09/01/16 18:39 97.5 91 95/53 09/01/16 17:34 93 101/56 09/01/16 16:00 97.7 150 16 88/63 95 09/01/16 12:00 96.6 132 16 147/59 93 09/01/16 10:11 20 I/O 09/01/16 09/01/16 09/01/16 09/02/16 09/02/16 09/02/16 07:00 15:00 23:00 07:00 15:00 23:00 Intake Total 320 ml 240 ml 220 ml 242 ml Output Total 2450 ml 400 ml 100 ml 300 ml Balance -2130 ml -160 ml 120 ml -58 ml Intake Oral 320 ml 240 ml 120 ml 240 ml IV Total 2 ml Albumin 100 ml Output Urine Total 2450 ml 400 ml 100 ml 300 ml # Bowel Movements 0 1 0 0 Result Diagram: 09/01/16 1650 09/02/16 0345 Imaging Last Impressions Chest X-Ray 09/01/16 0000 Signed Impressions: Service Date/Time: Thursday, September 01, 2016 18:18 - CONCLUSION: Trace bibasilar atelectasis and tiny right pleural effusion. Jono Bhatia MD Renal Ultrasound 08/28/16 0000 Signed Impressions: Service Date/Time: Sunday, August 28, 2016 23:02 - CONCLUSION: Negative exam. Both kidneys are sonographically intact. Vijay Goodrich MD Objective Remarks GENERAL: Well-developed chronically ill appearing female patient in NAD. SKIN: Warm and dry. No rash. HEAD: Normocephalic. Atraumatic. Thinning hair. Port in place on right chest wall. EYES: Pupils equal and round. No scleral icterus. No injection or drainage. ENT: No nasal bleeding or discharge. Mucous membranes pink and moist. NECK: Supple. Trachea midline. CARDIOVASCULAR: Irregular rate and rhythm. S1, S2 noted. No murmur appreciated. RESPIRATORY: No accessory muscle use. Clear to auscultation. Breath sounds equal bilaterally. GASTROINTESTINAL: Abdomen soft, non-tender, nondistended. Normoactive bowel sounds x4. PEG tube in place with surrounding erythema, no drainage. MUSCULOSKELETAL: No obvious deformities. Bilateral lower extremities with distal erythema/edema/warmth, LLE significantly worse than the RLE, tender to palpation. NEUROLOGICAL: Awake and alert. No obvious cranial nerve deficits. Motor grossly within normal limits. Normal speech. PSYCHIATRIC: Appropriate mood and affect; insight and judgment normal. Medications and IVs Current Medications Medications (Trade) Dose Ordered Sig/Marilyn Route Start Time Stop Time Status Last Admin (NS Flush) 2 ml UNSCH PRN FLUSH 08/25/16 13:00 08/29/16 06:21 (NS Flush) 2 ml BID FLUSH 08/25/16 21:00 09/02/16 08:02 (Tylenol) 650 mg Q4H PRN PO 08/25/16 13:00 (Zofran Inj) 4 mg Q6H PRN IVP 08/25/16 13:00 08/25/16 15:44 (Reglan Inj) 5 mg Q6H PRN IV PUSH 08/25/16 13:00 (Compazine Supp) 25 mg Q12H PRN MA 08/25/16 13:00 (Dulcolax Supp) 10 mg DAILY PRN MA 08/25/16 13:00 09/01/16 05:49 (Narcan Inj) 0.4 mg UNSCH PRN IV 08/25/16 13:00 (Dilaudid Pf Inj) 0.5 mg Q4H PRN IV PUSH 08/25/16 13:30 08/31/16 16:35 (KlonoPIN) 0.5 mg TID PRN PO 08/25/16 15:30 09/02/16 08:03 (Estradiol) 2 mg DAILY PO 08/26/16 09:00 09/02/16 08:02 (Megace Liq) 400 mg DAILY PO 08/26/16 09:00 09/02/16 07:59 (Magic Mouthwash Adult Liq) 5 ml QID SWISH-SWAL 08/25/16 18:00 09/02/16 08:02 (Roxicodone) 15 mg Q6H PRN PO 08/25/16 15:30 09/02/16 08:04 (Protonix) 40 mg DAILY PO 08/26/16 09:00 09/02/16 07:59 (Ranexa) 500 mg BID PO 08/25/16 21:00 09/02/16 07:59 (D50w (Vial) Inj) 25 ml UNSCH PRN IV PUSH 08/25/16 15:45 (Glucagon Inj) 1 mg UNSCH PRN OTHER 08/25/16 15:45 (Eliquis) 2.5 mg BID PO 08/26/16 09:00 09/02/16 08:01 (Coreg) 6.25 mg BID PO 08/26/16 09:00 09/01/16 09:12 (Oscal) 500 mg Q12HR PO 08/26/16 09:00 09/02/16 08:00 (Mag-Ox) 400 mg Q12HR PO 08/26/16 09:00 09/02/16 08:00 ([place] Thyroid) 45 mg BID@06,21 PO 08/26/16 21:00 09/02/16 05:59 (Colace) 100 mg BID PO 08/27/16 21:00 09/02/16 08:00 (Compazine) 5 mg Q6H PRN PO 08/27/16 15:00 (Albumin 25% Inj) 25 gm Q12H IV 08/28/16 19:00 09/02/16 05:56 (Patti-Colace) 2 tab BID PRN PO 08/31/16 06:00 (Lactulose Liq) 30 ml TID PRN PO 08/31/16 06:00 08/31/16 16:35 (Miralax) 17 gm DAILY PO 08/31/16 09:00 09/01/16 09:12 (Senokot) 8.6 mg DAILY PO 08/31/16 09:00 09/01/16 09:11 (Bumex Inj) 1 mg Q12HR IV PUSH 08/31/16 21:00 09/01/16 09:13 (Duragesic 25 Mcg Patch.72 Hr) 1 patch Q3D TD 08/31/16 14:00 08/31/16 14:18 Miscellaneous Information 1 Q3D T-DERMAL 09/03/16 14:00 (Levemir Inj) 18 units HS SQ 09/01/16 21:00 09/01/16 20:21 (Bactroban 2% Oint) 1 applic Q12HR TOPICAL 09/01/16 14:00 09/02/16 08:03 (Cardizem Cd) 240 mg DAILY@10 PO 09/02/16 10:00 (Zaroxolyn) 5 mg BID@08,20 PO 09/02/16 20:00 Metolazone 5 mg 5 mg ONCE ONCE PO 09/02/16 10:00 09/02/16 10:01 Clindamycin Phosphate 600 mg/ Sodium Chloride 104 ml @ 208 mls/hr Q6H IV 09/02/16 10:00 (Zosyn 2.25 Gm Premix) 50 ml @ 100 mls/hr Q6H IV 09/02/16 11:00 Urinary Catheter: Yes Assessment to: Continue Date of Insertion: Sep 01, 2016 A/P Problem List: (1) CHF (congestive heart failure) ICD Code: I50.9 Status: Acute (2) Pancreatic cancer ICD Code: C25.9 Status: Chronic Assessment and Plan 65-year-old female with a history of unresectable pancreatic cancer who presented to the ED on 08/25/2016 with generalized weakness, shortness of breath, nausea. Discharged from the hospital on 08/24/2016 with [facility] after being treated for intractable nausea, vomiting, dysphagia as well as Afib with RVR. During previous hospitalization, possibility of hospice care was discussed with the patient but patient was not ready for palliative/hospice discussion at that time. Pancreatic cancer, unresectable Recent history of dysphagia, intractable nausea vomiting. Improving. Intractable abdominal pain - left sided. Patient underwent G-J tube placement in the previous admission. She was on tube feed but started to tolerate oral feeding well She did not want to continue tube feed on discharge. Consulted dietitian for calorie count recommended tube feeding if po intake less than 50% but patient refusing. Patient agreed to meet with palliative care, consulted, appreciate assistance. Continue Oxycodone, Dilaudid PRN. Palliative care added fentanyl patch. PT evaluated the patient, [facility] vs SNF, patient leaning towards [facility] at this time. Acute exacerbation of chronic systolic CHF with anasarca Started on IV Bumex with IV albumin and metolazone, per nephrology. Monitor I&Os, keep negative fluid balance. Monitor renal function CHEY hose for edema. Acute kidney injury Creatinine 1.35 on admission. Baseline is below 0.80. Creatinine worsening with diuresis, now Cr 2.89, Bumex dose decreased Hyperkalemia 08/29, improved Hypocalcemia Hypomagnesemia Calcium replaced with IV Calcium Gluconate x2. Received Magnesium with IV 2g as magnesium deficiency can cause hypocalcemia. Started PO Ca gluconate and mag ox Calcium improved Atrial fibrillation with RVR [id number] score 3 (female, age 65, DM). Continue Cardizem CD PO 240mg Qday. Continue Carvedilol, dose decreased from 12.5mg BID to 6.25mg BID with holding parameters. Continue Apixaban 2.5mg BID. 09/01 repeat episode of RVR overnight, considered starting amiodarone however HR improved on its own Monitor on telemetry Transient hypotension improved with fluid bolus. Restart Bumex, Coreg and Cardizem Diabetes mellitus With episode of hypoglycemia Decrease Levemir to 18 units QHS, with good effect. Sliding scale insulin. Hypothyroidism - continue [place] thyroid 45 mg by mouth twice a day. GERD - Protonix 40mg Qday. Left lower extremity cellulitis - Started renally adjusted Levaquin 08/29 however cellulitis worsening, changed antibiotics to IV Zosyn and Clinda today 09/02 Edema control, Leg elevation. Monitor for response. PEG tube irritation - Bactroban ointment Full code. DVT ppx: Apixaban 2.5mg BID. Written by Gayla Love, acting as scribe for Dr. Dave on 09/02/16 at 09: 01. All or portions of this note were transcribed by scribe []. I, Dr. Syd Dave personally performed the history, physical exam, and medical decision making; and confirmed the accuracy of the information in the transcribed note. Authenticated by Dr. Syd Dave on 09/02/16 at 15:51. Problem Qualifiers (1) CHF (congestive heart failure): Qualified Code: I50.23 - Acute on chronic systolic congestive heart failure Gayla Love PA-C Sep 02, 2016 09:09 Syd Dave MD Sep 02, 2016 15:51
[2016-09-02] MEDS ORDERED: METOLAZONE 5 MG TAB PO ONE (10:00)
[2016-09-02] MEDS: DILTIAZEM-CD 240 MG CAP ER PO SCH (10:39)
[2016-09-02] MEDS: BUMETANIDE INJ 1 MG/4 ML VIAL IV PUSH SCH ×2 (10:39→21:43)
[2016-09-02] MEDS: CARVEDILOL 6.25 MG TAB PO SCH ×2 (10:47→21:43)
[2016-09-02] MEDS: CLINDAMYCIN INJ 600 MG in SODIUM CHLORIDE 0.9% INJ 100 ML IV SCH ×3 (10:48→21:42)
[2016-09-02] MEDS: PIPERACIL-TAZO 2.25 GM PREMIX 50 ML IV SCH ×3 (10:48→22:24)
--- NOTE | 2016-09-02 14:21 | HHI.NPPN ---
Subjective History of Present Illness 65-year-old female with past medical history of ischemic heart disease, congestive heart failure, chronic kidney disease with history of acute kidney injury, generalized anasarca, recent diagnosis of pancreatic cancer who was admitted with shortness of breath, generalized edema and abdominal pain. I was called to see the patient because of elevated BUN and creatinine. The patient has history of acute kidney injury and the creatinine was as high as 1.6. Additional Remarks Transferred to telemetry yesterday for Afib with RVR NSR now Feels tired Review of Systems General Constitutional: Fatigue Respiratory Lungs: SOB Cardiovascular Cardiac: Edema, ROMO Objective Data Data 09/01/16 09/02/16 19:00 07:00 Intake Total 240 ml 462 ml Output Total 400 ml 400 ml Balance -160 ml 62 ml Intake Oral 240 ml 360 ml IV Total 2 ml Albumin 100 ml Output Urine Total 400 ml 400 ml # Bowel Movements 1 0 Vital Signs Date Time Temp Pulse Resp B/P Pulse Ox O2 Delivery O2 Flow Rate FiO2 09/02/16 14:09 92 09/02/16 13:14 92 09/02/16 12:53 98.6 91 16 114/57 92 09/02/16 12:53 92 09/02/16 11:00 97.6 79 16 147/89 93 09/02/16 11:00 89 09/02/16 10:00 96 09/02/16 09:00 95 09/02/16 08:10 98.2 102 18 112/64 94 09/02/16 08:10 105 09/02/16 08:00 91 09/02/16 07:00 80 09/02/16 06:00 80 09/02/16 05:00 79 09/02/16 04:00 81 09/02/16 04:00 98.3 82 20 106/55 95 09/02/16 03:00 82 09/02/16 02:00 82 09/02/16 01:00 80 09/02/16 00:00 84 09/01/16 23:54 98.0 84 20 97/51 96 09/01/16 23:00 89 09/01/16 20:00 98.7 99 20 107/57 94 09/01/16 18:39 97.5 91 95/53 09/01/16 17:34 93 101/56 09/01/16 16:00 97.7 150 16 88/63 95 -: 09/01/16 1650 09/02/16 0345 Microbiology 09/01/16 Urine Culture - Preliminary, Resulted NO GROWTH IN 24 HOURS. 09/01/16 Aerobic Blood Culture - Preliminary, Resulted NO GROWTH IN 1 DAY 09/01/16 Anaerobic Blood Culture - Preliminary, Resulted NO GROWTH IN 1 DAY 09/01/16 Aerobic Blood Culture - Preliminary, Resulted NO GROWTH IN 1 DAY 09/01/16 Anaerobic Blood Culture - Preliminary, Resulted NO GROWTH IN 1 DAY Physical Exam General Appearance: Well Nourished, No Acute Distress, Comfortable Eyes Eye Exam: Pupils Equal Throat Throat Exam: Oral Mucosa [place] & Moist Pulmonary Resp Exam: Breath Sounds Equal, Decreased Bases, Diminished Breath Sounds Cardiology CV Exam: Regular, Normal Sinus Rhythm Gastrointestinal/Abdomen GI Exam: Soft, Non-Tender, Distended Extremeties Extremities Exam: Moderate Edema, Pitting Edema, Dependent Edema Neurologic Neuro Exam: Alert, Awake, Oriented Psychiatric Psych Exam: Appropriate Responses Assessment/Plan Assessment Summary: RITCHIE/Acute Renal Failure, Fluid/Volume Overload Problem List: (1) Pancreatic cancer (2) Generalized weakness (3) Shortness of breath (4) Atrial fibrillation with RVR (5) CHF (congestive heart failure) (6) Anasarca (7) Acute kidney injury Plan Creatinine 2.5 -> 2.4 -> 2088 today Afib with RVR yesterday, with SBP in 80s at that time - improved today Continue IV Bumex 1mg q12 and Albumin, metolazone was held earlier. Closely monitor UOP and creatinine. Transient hypotension during Afib with RVR may have caused some transient decrease in renal perfusion. Try to keep in negative fluid balance. Seen by Palliative care also. Follow the urine out put and BUN/Creatinine. Problem Qualifiers (1) CHF (congestive heart failure): Qualified Code: I50.23 - Acute on chronic systolic congestive heart failure Rayshawn Holden MD Sep 02, 2016 14:21
[2016-09-02] MEDS: METOLAZONE 5 MG TAB PO SCH (21:44)
[2016-09-02] MEDS: INSULIN DETEMIR 100 UNITS/ML VIAL SQ SCH (21:44)
--- NOTE | 2016-09-02 22:07 | EKG ---
Date Performed: 09/01/2016 Time Performed: 16:47:26 PTAGE: 65 years EKG: ATRIAL FIBRILLATION WITH RAPID VENTRICULAR RESPONSE MARKED LEFT AXIS DEVIATION POSSIBLE ANT ERIOR MYOCARDIAL INFARCTION , OF INDETERMINATE AGE Compared to prior tracing no significant change AB NORMAL ECG PREVIOUS TRACING : 08/25/2016 11.05 DOCTOR: Evan Bradley Interpretating Date/Time 09/02/2016 22:05:45
[2016-09-03] VITALS (16 sets, daily range): BP systolic 80–124; BP diastolic 44–68; PULSE 84–132; RESP 16–27; TEMP 98.5–100.2; O2SAT 87–99
[2016-09-03] MEDS: CLINDAMYCIN INJ 600 MG in SODIUM CHLORIDE 0.9% INJ 100 ML IV SCH ×3 (03:56→16:27)
[2016-09-03] MEDS: PIPERACIL-TAZO 2.25 GM PREMIX 50 ML IV SCH ×3 (04:01→16:28)
[2016-09-03] MEDS: ALBUMIN HUMAN 25% 25 GM/100 ML BAGP IV SCH ×2 (05:30→18:07)
[2016-09-03] MEDS: THYROID 15 MG TAB PO SCH (05:30)
[2016-09-03] MEDS: INSULIN ASPART SUPPLEMENTAL SCALE SQ SCH ×3 (05:54→16:00)
[2016-09-03 06:55] LABS: AUTOMATED NEUTROPHIL # 11.9 TH/MM3 (1.8-7.7); BASOPHIL # 0.1 TH/MM3 (0-0.2); BASOPHIL % 0.5 % (0.0-2.0); EOSINOPHIL % 0.1 % (0.0-4.0); HEMATOCRIT 22.7 % (35.0-46.0); HEMO FLAGS DIFF FINAL; LYMPHOCYTE # 0.7 TH/MM3 (1.0-4.8); MEAN CELL VOLUME 90.4 FL (80.0-100.0); MEAN CORPUSCULAR HGB CONC 33.2 % (32.0-36.0); MONO % 6.7 % (0.0-8.0); NEUT % 87.7 % (16.0-70.0); PLATELET COUNT 230 TH/MM3 (150-450); RED BLOOD COUNT 2.51 MIL/MM3 (4.00-5.30); WHITE BLOOD COUNT 13.6 TH/MM3 (4.0-11.0)
[2016-09-03 07:24] LABS: BICARBONATE 28.7 MEQ/L (21.0-32.0); MAGNESIUM 2.4 MG/DL (1.5-2.5); POTASSIUM 4.1 MEQ/L (3.5-5.1)
[2016-09-03] MEDS: HYDROmorphone HCL PF 1 MG/ML VIAL IV PUSH PRN ×2 (08:04→14:11)
[2016-09-03] MEDS: DOCUSATE SODIUM 100 MG CAP PO SCH ×2 (09:00→10:35)
[2016-09-03] MEDS: PANTOPRAZOLE SOD 40 MG DELAYED RELEASE TAB PO SCH ×2 (09:00→10:35)
[2016-09-03] MEDS: MUPIROCIN 2% OINT 22 GM TUBE TOPICAL SCH (09:00)
[2016-09-03] MEDS: BUMETANIDE INJ 1 MG/4 ML VIAL IV PUSH SCH (10:34)
[2016-09-03] MEDS: RANOLAZINE 500 MG EXTENDED RELEASE TAB PO SCH (10:34)
[2016-09-03] MEDS: ESTRADIOL 1 MG TAB PO SCH (10:34)
[2016-09-03] MEDS: NYSTAT/DIPHENHY/LIDO MOUTHWASH (Adult) 120ML SWISH-SWAL SCH ×3 (10:34→18:00)
[2016-09-03] MEDS: MAGNESIUM OXIDE 400 MG TAB PO SCH (10:35)
[2016-09-03] MEDS: CALCIUM CARBONATE 1.25 GM (CA 500 MG) TAB PO SCH (10:35)
[2016-09-03] MEDS: SENNOSIDES 8.6 MG TAB PO SCH (10:35)
[2016-09-03] MEDS: DILTIAZEM-CD 240 MG CAP ER PO SCH (10:35)
[2016-09-03] MEDS: METOLAZONE 5 MG TAB PO SCH (10:35)
[2016-09-03] MEDS: CARVEDILOL 6.25 MG TAB PO SCH (10:35)
[2016-09-03] MEDS: APIXABAN 2.5 MG TABLET PO SCH (10:36)
[2016-09-03] MEDS: SODIUM CHLORIDE 0.9% FLUSH 5 ML FLUSH FLUSH SCH (10:36)
[2016-09-03] MEDS: MEGESTROL ACETATE SUSP 400 MG/10 ML CUP PO SCH (10:37)
[2016-09-03] MEDS: POLYETHYLENE GLYCOL 17 GM PKG PO SCH (10:37)
[2016-09-03] MEDS: DEXTROSE 50% IN WATER 50 ML VIAL(D50) IV PUSH PRN ×2 (11:30→16:27)
[2016-09-03 11:43] LABS: BLOOD GAS BASE EXCESS 1.7 mmol/L (-2-2); BLOOD GAS HCO3 26 mmol/L (22-26); BLOOD GAS METHEMOGLOBIN 0.9 % (0-2); BLOOD GAS O2 HGB SATURATION 92 % (90-100); BLOOD GAS PCO2 41 mmHg (38-42); BLOOD GAS PO2 79 mmHg (61-120); BLOOD GAS TOTAL HGB 7.7 G/DL (12.0-16.0); CRITICAL VALUE NO; OXYGEN DEVICE NONREBREATHER; TEMP CORR TO 98.6
[2016-09-03 11:44] LABS: DRAW SITE RT RADIAL; NUMBER OF ARTERIAL PUNCTURES 1; STAT YES; ULNAR PULSE PRESENT
--- NOTE | 2016-09-03 12:17 | HHI.PR ---
Subjective Remarks F/u CHF. Called urgently 2/2 AMS, pt Halicated. FS 55 hypotensive MAP 59. Pt lethargic on NRB. Dw RN and CCM. Significant other undecided leaning towards DNR , comfort measures and take pt home . Dw Palliative care. Seen in ICU Objective Vitals Vital Signs Date Time Temp Pulse Resp B/P Pulse Ox O2 Delivery O2 Flow Rate FiO2 09/03/16 07:56 98.5 118 20 114/56 91 09/03/16 06:00 86 09/03/16 05:00 108 09/03/16 04:00 104 09/03/16 03:42 99.0 104 20 124/68 96 09/03/16 03:00 85 09/03/16 02:00 91 09/03/16 01:00 86 09/03/16 00:00 98.8 96 20 92/57 95 09/03/16 00:00 84 09/02/16 23:00 80 09/02/16 22:00 89 09/02/16 21:00 86 09/02/16 20:00 101 09/02/16 20:00 98.0 109 18 119/69 93 09/02/16 18:22 86 09/02/16 17:18 93 09/02/16 15:00 98.1 102 18 115/49 93 09/02/16 15:00 88 09/02/16 14:09 92 09/02/16 13:14 92 09/02/16 12:53 98.6 91 16 114/57 92 09/02/16 12:53 92 I/O 09/02/16 09/02/16 09/02/16 09/03/16 09/03/16 09/03/16 07:00 15:00 23:00 07:00 15:00 23:00 Intake Total 242 ml 540 ml Output Total 300 ml 750 ml Balance -58 ml -210 ml Intake Oral 240 ml 240 ml IV Total 2 ml 300 ml Output Urine Total 300 ml 750 ml # Bowel Movements 0 0 Result Diagram: 09/03/16 0550 09/03/16 0550 Objective Remarks GENERAL: Chronically ill appearing. Well-developed well-nourished. In distress looks critically ill. SKIN: Warm and dry.Thin scarce hair, loosing hair. Port in place on right chest wall. HEENT: Normocephalic. Pupils equal and round. Mucous membranes pink and moist. CARDIOVASCULAR: Regular rate and rhythm. No murmur appreciated. RESPIRATORY: No accessory muscle use. Bibasal crackles. Breath sounds equal bilaterally. GASTROINTESTINAL: Abdomen soft, non-tender, mildly distended distended. Bowel sounds x4. PEG tube in place. MUSCULOSKELETAL: No obvious deformities. No clubbing or cyanosis. Lower extremity extremity pitting edema with worsening cellulitis left distal leg. Pitting edema all the way up to sacrum NEUROLOGICAL: Lethargic. No focal neurological deficits. Moves upper and lower extremities spontaneously. Procedures None Date of Insertion: Sep 01, 2016 A/P Problem List: (1) CHF (congestive heart failure) ICD Code: I50.9 Status: Acute (2) Pancreatic cancer ICD Code: C25.9 Status: Chronic Assessment and Plan 65-year-old female with a history of unresectable pancreatic cancer who presented to the ED on 08/25/2016 with generalized weakness, shortness of breath, nausea. Discharged from the hospital on 08/24/2016 with [facility] after being treated for intractable nausea, vomiting, dysphagia as well as Afib with RVR. During previous hospitalization, possibility of hospice care was discussed with the patient but patient was not ready for palliative/hospice discussion at that time. Pancreatic cancer, unresectable Recent history of dysphagia, intractable nausea vomiting. Improving. Intractable abdominal pain - left sided. Patient underwent G-J tube placement in the previous admission. She was on tube feed but started to tolerate oral feeding well She did not want to continue tube feed on discharge. Consulted dietitian for calorie count recommended tube feeding if po intake less than 50% but patient refusing. Patient agreed to meet with palliative care, consulted, appreciate assistance. Continue Oxycodone, Dilaudid PRN. Palliative care added fentanyl patch. PT evaluated the patient, [facility] vs SNF, patient leaning towards [facility] Acute exacerbation of chronic systolic CHF with anasarca Started on IV Bumex with IV albumin and metolazone, per nephrology. Monitor I&Os, keep negative fluid balance. Monitor renal function CHEY hose for edema. Worse today with hypoxia on NRB. ABG noted. Significant other(has no family, she is adopted) leaning towards hospice per pt's wishes. If he wants to continue aggressive treatment, patient will be kept in the ICU. Case discussed with critical care medicine who will then assume care. Follow-up repeat chest x -ray Acute kidney injury Creatinine 1.35 on admission. Baseline is below 0.80. Creatinine worsening with diuresis, now Cr 2.89, Bumex dose decreased Hyperkalemia 08/29, improved Hypocalcemia Hypomagnesemia Calcium replaced with IV Calcium Gluconate x2. Received Magnesium with IV 2g as magnesium deficiency can cause hypocalcemia. Started PO Ca gluconate and mag ox Calcium improved Atrial fibrillation with RVR [id number] score 3 (female, age 65, DM). Continue Cardizem CD PO 240mg Qday. Continue Carvedilol, dose decreased from 12.5mg BID to 6.25mg BID with holding parameters. Continue Apixaban 2.5mg BID. 09/01 repeat episode of RVR overnight, considered starting amiodarone however HR improved on its own Monitor on telemetry Transient hypotension improved with fluid bolus. Restart Bumex, Coreg and Cardizem with hold parameters 09/03. Amiodarone as needed unable to start Cardizem drip secondary to hypotension. Cannot give IV digoxin secondary to acute kidney injury Diabetes mellitus Hold Levemir for now secondary to recurrent hypoglycemia. Continue Sliding scale insulin. Hypothyroidism - continue [place] thyroid 45 mg by mouth twice a day. GERD - Protonix 40mg Qday. Left lower extremity cellulitis - Started renally adjusted Levaquin 08/29 however cellulitis worsening, changed antibiotics to IV Zosyn and Clinda 09/02 Edema control, Leg elevation. Monitor for response. PEG tube irritation - Bactroban ointment Full code. DVT ppx: Apixaban 2.5mg BID. Discharge Planning Monitor clinical course which is worsening. C vs SNF vs hospice Problem Qualifiers (1) CHF (congestive heart failure): Qualified Code: I50.23 - Acute on chronic systolic congestive heart failure Syd Dave MD Sep 03, 2016 12:16 Qualified Code: I50.23 - Acute on chronic systolic congestive heart failure Syd Dave MD Sep 03, 2016 12:16
[2016-09-03] MEDS ORDERED: AMIODARONE INJ 900 MG in D5W 500 ML (EXCEL BAG) 482 ML IV PRN (12:30)
--- NOTE | 2016-09-03 12:57 | RADRPT ---
EXAM DATE/TIME: 09/03/2016 11:26 [facility] COMPARISON: CHEST SINGLE AP, September 01, 2016, 18:18. INDICATIONS : Pulmonary Edema. MEDICAL HISTORY : None. CHF, Hypocalcemia, Renal insufficiency ENCOUNTER: Sequela PAIN SCORE: 0/10 FINDINGS: Colbert catheter is in good position. Mild interstitial edema is present, increasing from the compar junaid study. Heart is minimally enlarged. CONCLUSION: Increasing interstitial edema. Enzo Richmond MD FACR on September 03, 2016 at 12:49 Board Certified Radiologist. This report was verified electronically.
--- NOTE | 2016-09-03 13:12 | HHI.HCPN ---
Reason for visit a. To assist with evaluation and management of symptoms including: Pain, anxiety, dyspnea, Fatigue, b. To assist medical decision maker(s) with: better understanding of current medical conditions; weighing benefits/burdens of medical treatment options; making medical treatment decisions. Subjective/Interval History Olesya is seen this morning w MELISSA Tolbert present. Over the weekend she developed A Fib and was transferred to the telemetry unit. She also developed cellulitis on both legs. They remain w significant edema, although Tomasz reports they are improved. Olesya remains in A Fib. He color is slightly jaundiced. Her mentation is very in and out - she drifts off to sleep quickly, but when awake she is alert and mostly oriented. Tomasz is concerned about her current clinical state and wants to talk w me relative to what is going on. She was started on a Fentanyl patch last Saturday, and per Tomasz, appears to have helped with her pain. In ICU she is less engaged, waking only briefly. Tomasz agrees to Hospice and DNR status - orders placed for both Family/friend interactions Engaged in a family meeting w Tomasz for about 30 mins - discussed Code Status - CPR and intbations - and the decisions he would need to make. He stated that he would want her to be a full code if anything were to happen and that he wanted to be with her when she passed. Discussed the option of hospice in light of her overall clinical condition including the cancer, renal function, cardiac function. He told me initially he was not a believer in hospice and provided with his various reasons. Discussed her needs for pain management as well as other symptom management. Discussed her ability to go home, as well as the option of care center placement. At that time he was not open to the discussion of hospice. Shortly after our meeting a [facility] was called due to respiratory insufficiency and Olesya was transferred to the medical ICU. Met with Tomasz to further discuss CODE STATUS, intubation, and hospice. Now faced with the decisions in front of him. He agrees to hospice so that Olesya can be with her dog and him one last time. Advance Directives Living Will: Copy in medical record Health Care Surrogate: Copy in medical record Advance Directive Specifics Health Care Surrogate(s): Pepe Ahmet [phone] . Significant other Documented care wishes: DNR status-- .Name,. Pepe Ahmet [phone] . Objective Vital Signs Date Time Temp Pulse Resp B/P Pulse Ox O2 Delivery O2 Flow Rate FiO2 09/03/16 07:56 98.5 118 20 114/56 91 09/03/16 06:00 86 09/03/16 05:00 108 09/03/16 04:00 104 09/03/16 03:42 99.0 104 20 124/68 96 09/03/16 03:00 85 09/03/16 02:00 91 09/03/16 01:00 86 09/03/16 00:00 98.8 96 20 92/57 95 09/03/16 00:00 84 09/02/16 23:00 80 09/02/16 22:00 89 09/02/16 21:00 86 09/02/16 20:00 101 09/02/16 20:00 98.0 109 18 119/69 93 09/02/16 18:22 86 09/02/16 17:18 93 09/02/16 15:00 98.1 102 18 115/49 93 09/02/16 15:00 88 09/02/16 14:09 92 09/02/16 13:14 92 09/02/16 12:53 98.6 91 16 114/57 92 09/02/16 12:53 92 Intake & Output 09/03/16 09/03/16 07:00 19:00 Intake Total 540 ml Output Total 750 ml Balance -210 ml Intake Oral 240 ml IV Total 300 ml Output Urine Total 750 ml # Bowel Movements 0 Physical Exam CONSTITUTIONAL/GENERAL: This is an adequately nourished patient, with mildly labored breathing, anasarca, very sleepy today TUBES/LINES/DRAINS: PEJ tube, right IJ, nasal cannula, SKIN: Mild jaundice, cellulitis bilateral lower extremities, . HEAD: Atraumatic. Normocephalic. EYES: Pupils equal and round and reactive. Extraocular motions intact. No scleral icterus. No injection or drainage. Fundi not examined. ENT: Hearing grossly normal. e. Throat/ mouth with visible erythema, NECK: Trachea midline. Supple, nontender. No palpable thyroid enlargement or nodularity. CARDIOVASCULAR: A. fib and RVR. No JVD. Peripheral pulses symmetric. severe BLE weeping edema RESPIRATORY/CHEST: Symmetric, mildly respirations. Clear diminished bases GASTROINTESTINAL: Abdomen soft,tender level 5\\10, distended. PEG tube, Bowel sounds present. GENITOURINARY: Without palpable bladder distension. Kasper catheter MUSCULOSKELETAL: Extremities with cellulitis weeping BLE; edema from hip to toes LYMPHATICS: No palpable cervical or supraclavicular adenopathy. NEUROLOGICAL: Mostly sleepy; Thought process is slower Diagnostic Tests Laboratory Laboratory Tests Test 09/01/16 09/01/16 09/01/16 09/02/16 06:00 16:50 18:30 03:45 Sodium Level 133 MEQ/L 130 MEQ/L 133 MEQ/L (136-145) (136-145) (136-145) Potassium Level 4.3 MEQ/L 4.9 MEQ/L 4.6 MEQ/L (3.5-5.1) (3.5-5.1) (3.5-5.1) Chloride Level 92 MEQ/L 89 MEQ/L 92 MEQ/L (98-107) (98-107) (98-107) Carbon Dioxide Level 30.5 MEQ/L 29.3 MEQ/L 30.1 MEQ/L (21.0-32.0) (21.0-32.0) (21.0-32.0) Anion Gap 11 MEQ/L (5-15) 12 MEQ/L (5-15) 11 MEQ/L (5-15) Blood Urea Nitrogen 40 MG/DL (7-18) 45 MG/DL (7-18) 49 MG/DL (7-18) Creatinine 2.45 MG/DL 2.95 MG/DL 2.89 MG/DL (0.50-1.00) (0.50-1.00) (0.50-1.00) Estimat Glomerular Filtration 20 ML/MIN (>89) 16 ML/MIN (>89) 16 ML/MIN (>89) Rate Random Glucose 63 MG/DL 192 MG/DL 184 MG/DL (74-106) (74-106) (74-106) Calcium Level 8.9 MG/DL 8.6 MG/DL 8.6 MG/DL (8.5-10.1) (8.5-10.1) (8.5-10.1) Magnesium Level 2.1 MG/DL 2.2 MG/DL 2.4 MG/DL (1.5-2.5) (1.5-2.5) (1.5-2.5) White Blood Count 22.7 TH/MM3 (4.0-11.0) Red Blood Count 2.84 MIL/MM3 (4.00-5.30) Hemoglobin 8.5 GM/DL (11.6-15.3) Hematocrit 25.5 % (35.0-46.0) Mean Corpuscular Volume 89.9 FL (80.0-100.0) Mean Corpuscular Hemoglobin 29.8 PG (27.0-34.0) Mean Corpuscular Hemoglobin 33.2 % Concent (32.0-36.0) Red Cell Distribution Width 16.1 % (11.6-17.2) Platelet Count 330 TH/MM3 (150-450) Mean Platelet Volume 7.4 FL (7.0-11.0) Neutrophils (%) (Auto) 92.8 % (16.0-70.0) Lymphocytes (%) (Auto) 1.9 % (9.0-44.0) Monocytes (%) (Auto) 4.8 % (0.0-8.0) Eosinophils (%) (Auto) 0.0 % (0.0-4.0) Basophils (%) (Auto) 0.5 % (0.0-2.0) Neutrophils # (Auto) 21.1 TH/MM3 (1.8-7.7) Lymphocytes # (Auto) 0.4 TH/MM3 (1.0-4.8) Monocytes # (Auto) 1.1 TH/MM3 (0-0.9) Eosinophils # (Auto) 0.0 TH/MM3 (0-0.4) Basophils # (Auto) 0.1 TH/MM3 (0-0.2) CBC Comment AUTO DIFF Differential Total Cells 100 Counted Neutrophils % (Manual) 84 % (16-70) Band Neutrophils % 10 % (0-6) Lymphocytes % 1 % (9-44) Monocytes % 3 % (0-8) Neutrophils # (Manual) 21.8 TH/MM3 (1.8-7.7) Metamyelocytes 2 % (0-1) Differential Comment FINAL DIFF MANUAL Platelet Estimate NORMAL (NORMAL) Platelet Morphology Comment NORMAL (NORMAL) Red Cell Morphology Comment NORMAL (NORMAL) Urine Color YELLOW (YELLW/STRAW) Urine Turbidity CLEAR (CLEAR) Urine pH 7.0 (5.0-8.5) Urine Specific [place] 1.013 (1.002-1.035) Urine Protein NEG mg/dL (NEG-TRACE) Urine Glucose (UA) NEG mg/dL (NEG) Urine Ketones NEG mg/dL (NEG) Urine Occult Blood NEG (NEG) Urine Nitrite NEG (NEG) Urine Bilirubin NEG (NEG) Urine Urobilinogen LESS THAN 2.0 MG/DL (LESS THAN 2.0) Urine Leukocyte Esterase TRACE (NEG) Urine RBC 4 /hpf (0-3) Urine WBC 10 /hpf (0-5) Urine Squamous Epithelial 1 /hpf (0-5) Cells Urine Hyaline Casts 7 /lpf (RARE) Urine Mucus FEW /lpf (OCC) Microscopic Urinalysis Comment CULTURE INDICATED Test 09/03/16 09/03/16 05:50 11:35 White Blood Count 13.6 TH/MM3 (4.0-11.0) Red Blood Count 2.51 MIL/MM3 (4.00-5.30) Hemoglobin 7.5 GM/DL (11.6-15.3) Hematocrit 22.7 % (35.0-46.0) Mean Corpuscular Volume 90.4 FL (80.0-100.0) Mean Corpuscular Hemoglobin 30.0 PG (27.0-34.0) Mean Corpuscular Hemoglobin 33.2 % Concent (32.0-36.0) Red Cell Distribution Width 16.0 % (11.6-17.2) Platelet Count 230 TH/MM3 (150-450) Mean Platelet Volume 7.9 FL (7.0-11.0) Neutrophils (%) (Auto) 87.7 % (16.0-70.0) Lymphocytes (%) (Auto) 5.0 % (9.0-44.0) Monocytes (%) (Auto) 6.7 % (0.0-8.0) Eosinophils (%) (Auto) 0.1 % (0.0-4.0) Basophils (%) (Auto) 0.5 % (0.0-2.0) Neutrophils # (Auto) 11.9 TH/MM3 (1.8-7.7) Lymphocytes # (Auto) 0.7 TH/MM3 (1.0-4.8) Monocytes # (Auto) 0.9 TH/MM3 (0-0.9) Eosinophils # (Auto) 0.0 TH/MM3 (0-0.4) Basophils # (Auto) 0.1 TH/MM3 (0-0.2) CBC Comment DIFF FINAL Differential Comment Sodium Level 130 MEQ/L (136-145) Potassium Level 4.1 MEQ/L (3.5-5.1) Chloride Level 89 MEQ/L (98-107) Carbon Dioxide Level 28.7 MEQ/L (21.0-32.0) Anion Gap 12 MEQ/L (5-15) Blood Urea Nitrogen 52 MG/DL (7-18) Creatinine 2.84 MG/DL (0.50-1.00) Estimat Glomerular Filtration 17 ML/MIN (>89) Rate Random Glucose 252 MG/DL (74-106) Calcium Level 8.1 MG/DL (8.5-10.1) Magnesium Level 2.4 MG/DL (1.5-2.5) Blood Gas Puncture Site RT RADIAL Blood Gas Patient Temperature 98.6 Blood Gas HCO3 26 mmol/L (22-26) Blood Gas Base Excess 1.7 mmol/L (-2-2) Blood Gas Oxygen Saturation 92 % (90-100) Arterial Blood pH 7.42 (7.380-7.420) Arterial Blood Partial 41 mmHg (38-42) Pressure CO2 Arterial Blood Partial 79 mmHg Pressure O2 (61-120) Arterial Blood Oxygen Content 10.0 Vol % (12.0-20.0) Arterial Blood 0.0 % (0-4) Carboxyhemoglobin Arterial Blood Methemoglobin 0.9 % (0-2) Blood Gas Hemoglobin 7.7 G/DL (12.0-16.0) Oxygen Delivery Device NONREBREATHER Result Diagram: 09/03/16 0550 09/03/16 0550 Microbiology Microbiology Date/Time Procedure Status Source Growth 09/01/16 18:30 Urine Culture - Final Complete Urine Clean Catch NO GROWTH IN 48 HOURS. 09/01/16 22:00 Aerobic Blood Culture - Preliminary Resulted Blood Peripheral NO GROWTH IN 2 DAYS 09/01/16 22:00 Anaerobic Blood Culture - Preliminary Resulted Blood Peripheral NO GROWTH IN 2 DAYS 09/01/16 22:05 Aerobic Blood Culture - Preliminary Resulted Blood Peripheral NO GROWTH IN 2 DAYS 09/01/16 22:05 Anaerobic Blood Culture - Preliminary Resulted Blood Peripheral NO GROWTH IN 2 DAYS Imaging Last 72 hours Impressions Chest X-Ray 09/01/16 0000 Signed Impressions: Service Date/Time: Thursday, September 01, 2016 18:18 - CONCLUSION: Trace bibasilar atelectasis and tiny right pleural effusion. Jono Bhatia MD Last 72 hours Impressions Chest X-Ray 09/01/16 0000 Signed Impressions: Service Date/Time: Thursday, September 01, 2016 18:18 - CONCLUSION: Trace bibasilar atelectasis and tiny right pleural effusion. Jono Bhatia MD Procedures PEG to PEJ tube 08/25/16 Assessment and Plan Disease Oriented Problem List: (1) Pancreatic cancer Comment: Widely metastatic to lungs, liver, retroperitoneum (2) Atrial fibrillation with RVR (3) CAD (coronary artery disease) (4) CHF (congestive heart failure) Comment: Anasarca evident with hypo-albuminuria (5) Chronic kidney disease (CKD) Comment: With acute kidney injury. GFR is trending down Symptom Scale: (1) Abdominal pain 0-10 Scale: 8 Comment: Review of pain med usage - Dilaudid 2.0mg IV in 24 hrs - Oxycodone 60mg in 24 hrs - Fentanyl 25 g started on 08/31/16 (2) Shortness of breath (3) Weakness 0-10 Scale: Unable to quantify (4) Anxiety 0-10 Scale: Unable to quantify Comment: Improved with use of prn Benzo's . (5) Fatigue 0-10 Scale: Unable to quantify (6) Dysphagia 0-10 Scale: 5 (Has a PEG) Pertinent Non-Medical Issues Psychosocial: She is retired,Work for the department of [employer] in [email or web address], many years, has significant other, Pepe Leo [phone] Spiritual: Has an open belief system - spiritual not congregation Legal:None evident Ethical issues impacting care: None evident. Important Contacts Pepe Ahmet [phone]. Prognosis Prognosis is poor. Patient has advanced metastatic pancreatic cancer. She poorly tolerated the first round of chemotherapy developing nausea, vomiting, mucositis, dehydration, which subsequently led to atrial fibrillation and acute kidney injury with metabolic imbalances. Also, neutropenia with thrombocytopenia. Discussed hospice with significant other. Patient developed hypotension with hypoxiatransferred to the ICU. Don agreed to hospice placement Code Status: No Code Plan Decision Maker: Pepe Leo [phone] [facility] Code Status: NO CODE DNR Family Discussion: Reviewed. Patient's understanding of her disease process , as well as her personal goals which are to get better and resume lifestyle that is active. Reviewed advanced directives Hospice consulted with Care Center Placement Symptoms: Pain, anxiety, dyspnea, weakness Palliative care phone number provided - will follow during hospital stay. Time Spent Time Periods: Face to Face CIC 30 min - GOC discussion Face to Face IMC - 40 min - Code status and hospice >50% Counseling/Coord of Care: Yes Attestation To help prompt me to consider important information that might be impacting today's encounter and assessment, information from prior notes written by myself or my colleagues may have been "brought forward" into today's note. My signature on this note, however, is an attestation that I personally performed the exam, history, and/or decision-making noted today, and, unless otherwise indicated, the interactions with patient, family, and staff as well as the review of records all occurred today. I also attest that the listed assessment and stated plan reflect my best clinical judgment today based on the combination of historical information, prior notes, and today's exam/ interactions. When time spent is documented, it refers only to time spent today by the signer, or if indicated, combined time spent today by collaborating physician/nurse practitioner. Shefali Pichardo Sep 03, 2016 13:12
[2016-09-03] MEDS ORDERED: REMOVE OLD PATCH T-DERMAL SCH (14:00)
[2016-09-03] MEDS: fentaNYL 25 MCG/HR PATCH TD SCH (14:46)
--- NOTE | 2016-09-03 16:21 | HHI.DS ---
Discharge Summary Admission Date Aug 25, 2016 at 15:32 Discharge Date: Sep 03, 2016 Admitting Diagnosis CHF, hypocalcemia, renal insufficiency, abdominal pain (1) CHF (congestive heart failure) ICD Code: I50.9 Diagnosis: Principal (2) Pancreatic cancer ICD Code: C25.9 Diagnosis: Principal Procedures None Brief History - From Admission Ms. Concepcion is a pleasant 65 year old female with a history of unresectable pancreatic cancer, Afib who presents to the ED one day after being discharged with generalized weakness, shortness of breath, left sided abdominal pain. Patient was recently admitted on 08/16/2016 and discharged on 08/24/2016 from the hospital - she was admitted for generalized weakness, dysphagia. Patient had intractable nausea, vomiting in the recent admission. She also developed Afib with RVR and her rate was controlled. After discussing with cardiology and Oncology, patient was discharged home with home health. Ms. Concepcion felt that she could take care of herself with help of the neighbors. However, now she feels that it would be better for her to stay at the hospital longer and possibly go to a rehab. She denies any chest pain, fever, chills. CBC/BMP: 09/03/16 0550 09/03/16 0550 Significant Findings Laboratory Tests Test 09/01/16 09/01/16 09/01/16 09/02/16 06:00 16:50 18:30 03:45 Sodium Level 133 MEQ/L 130 MEQ/L 133 MEQ/L (136-145) (136-145) (136-145) Chloride Level 92 MEQ/L 89 MEQ/L 92 MEQ/L (98-107) (98-107) (98-107) Blood Urea Nitrogen 40 MG/DL (7-18) 45 MG/DL (7-18) 49 MG/DL (7-18) Creatinine 2.45 MG/DL 2.95 MG/DL 2.89 MG/DL (0.50-1.00) (0.50-1.00) (0.50-1.00) Estimat Glomerular Filtration 20 ML/MIN (>89) 16 ML/MIN (>89) 16 ML/MIN (>89) Rate Random Glucose 63 MG/DL 192 MG/DL 184 MG/DL (74-106) (74-106) (74-106) White Blood Count 22.7 TH/MM3 (4.0-11.0) Red Blood Count 2.84 MIL/MM3 (4.00-5.30) Hemoglobin 8.5 GM/DL (11.6-15.3) Hematocrit 25.5 % (35.0-46.0) Neutrophils (%) (Auto) 92.8 % (16.0-70.0) Lymphocytes (%) (Auto) 1.9 % (9.0-44.0) Neutrophils # (Auto) 21.1 TH/MM3 (1.8-7.7) Lymphocytes # (Auto) 0.4 TH/MM3 (1.0-4.8) Monocytes # (Auto) 1.1 TH/MM3 (0-0.9) Neutrophils % (Manual) 84 % (16-70) Band Neutrophils % 10 % (0-6) Lymphocytes % 1 % (9-44) Neutrophils # (Manual) 21.8 TH/MM3 (1.8-7.7) Metamyelocytes 2 % (0-1) Urine Leukocyte Esterase TRACE (NEG) Urine RBC 4 /hpf (0-3) Urine WBC 10 /hpf (0-5) Urine Mucus FEW /lpf (OCC) Test 09/03/16 09/03/16 05:50 11:35 White Blood Count 13.6 TH/MM3 (4.0-11.0) Red Blood Count 2.51 MIL/MM3 (4.00-5.30) Hemoglobin 7.5 GM/DL (11.6-15.3) Hematocrit 22.7 % (35.0-46.0) Neutrophils (%) (Auto) 87.7 % (16.0-70.0) Lymphocytes (%) (Auto) 5.0 % (9.0-44.0) Neutrophils # (Auto) 11.9 TH/MM3 (1.8-7.7) Lymphocytes # (Auto) 0.7 TH/MM3 (1.0-4.8) Sodium Level 130 MEQ/L (136-145) Chloride Level 89 MEQ/L (98-107) Blood Urea Nitrogen 52 MG/DL (7-18) Creatinine 2.84 MG/DL (0.50-1.00) Estimat Glomerular Filtration 17 ML/MIN (>89) Rate Random Glucose 252 MG/DL (74-106) Calcium Level 8.1 MG/DL (8.5-10.1) Arterial Blood Oxygen Content 10.0 Vol % (12.0-20.0) Blood Gas Hemoglobin 7.7 G/DL (12.0-16.0) Imaging Last Impressions Chest X-Ray 09/01/16 0000 Signed Impressions: Service Date/Time: Thursday, September 01, 2016 18:18 - CONCLUSION: Trace bibasilar atelectasis and tiny right pleural effusion. Jono Bhatia MD Renal Ultrasound 08/28/16 0000 Signed Impressions: Service Date/Time: Sunday, August 28, 2016 23:02 - CONCLUSION: Negative exam. Both kidneys are sonographically intact. Vijay Goodrich MD PE at Discharge GENERAL: Chronically ill appearing. Well-developed well-nourished. In distress looks critically ill. SKIN: Warm and dry.Thin scarce hair, loosing hair. Port in place on right chest wall. HEENT: Normocephalic. Pupils equal and round. Mucous membranes pink and moist. CARDIOVASCULAR: Regular rate and rhythm. No murmur appreciated. RESPIRATORY: No accessory muscle use. Bibasal crackles. Breath sounds equal bilaterally. GASTROINTESTINAL: Abdomen soft, non-tender, mildly distended distended. Bowel sounds x4. PEG tube in place. MUSCULOSKELETAL: No obvious deformities. No clubbing or cyanosis. Lower extremity extremity pitting edema with worsening cellulitis left distal leg. Pitting edema all the way up to sacrum NEUROLOGICAL: Lethargic. No focal neurological deficits. Moves upper and lower extremities spontaneously. Hospital Course 65-year-old female with a history of unresectable pancreatic cancer who presented to the ED on 08/25/2016 with generalized weakness, shortness of breath, nausea. Discharged from the hospital on 08/24/2016 with [facility] after being treated for intractable nausea, vomiting, dysphagia as well as Afib with RVR. During previous hospitalization, possibility of hospice care was discussed with the patient but patient was not ready for palliative/hospice discussion at that time. Pancreatic cancer, unresectable Recent history of dysphagia, intractable nausea vomiting. Improving. Intractable abdominal pain - left sided. Patient underwent G-J tube placement in the previous admission. She was on tube feed but started to tolerate oral feeding well She did not want to continue tube feed on discharge. Consulted dietitian for calorie count recommended tube feeding if po intake less than 50% but patient refusing. Patient agreed to meet with palliative care, consulted, appreciate assistance. Continue Oxycodone, Dilaudid PRN. Palliative care added fentanyl patch. Acute exacerbation of chronic systolic CHF with anasarca Started on IV Bumex with IV albumin and metolazone, per nephrology. Monitor I&Os, keep negative fluid balance. Monitor renal function CHEY hose for edema. Worse today with hypoxia on NRB. ABG noted. Significant other(has no family, she is adopted) leaning towards hospice per pt's wishes. If he wants to continue aggressive treatment, patient will be kept in the ICU. Case discussed with critical care medicine who will then assume care. Follow-up repeat chest x -ray Acute kidney injury Creatinine 1.35 on admission. Baseline is below 0.80. Creatinine worsening with diuresis, now Cr 2.89, Bumex dose decreased Hyperkalemia 08/29, improved Hypocalcemia Hypomagnesemia Calcium replaced with IV Calcium Gluconate x2. Received Magnesium with IV 2g as magnesium deficiency can cause hypocalcemia. Started PO Ca gluconate and mag ox Calcium improved Atrial fibrillation with RVR [id number] score 3 (female, age 65, DM). Continue Cardizem CD PO 240mg Qday. Continue Carvedilol, dose decreased from 12.5mg BID to 6.25mg BID with holding parameters. Continue Apixaban 2.5mg BID. 09/01 repeat episode of RVR overnight, considered starting amiodarone however HR improved on its own Monitor on telemetry Transient hypotension improved with fluid bolus. Restart Bumex, Coreg and Cardizem with hold parameters 09/03. Amiodarone as needed unable to start Cardizem drip secondary to hypotension. Cannot give IV digoxin secondary to acute kidney injury Diabetes mellitus Hold Levemir for now secondary to recurrent hypoglycemia. Continue Sliding scale insulin. Hypothyroidism - continue Bradley thyroid 45 mg by mouth twice a day. GERD - Protonix 40mg Qday. Left lower extremity cellulitis - Started renally adjusted Levaquin 08/29 however cellulitis worsening, changed antibiotics to IV Zosyn and Clinda 09/02 Edema control, Leg elevation. Monitor for response. PEG tube irritation - Bactroban ointment Full code. DVT ppx: Apixaban 2.5mg BID. Addendum: Syd Dave MD on 09/03/16 @ 16:17 Significant other has elected to enroll patient under hospice. Comfort measures. We'll cancel critical care medicine consult. Patient to be discharged to hospice care Center when arranged Pt Condition on Discharge: Deteriorating Discharge Disposition: Hospice/Med Facility Discharge Time: > 30 minutes Discharge Instructions DIET: Follow Instructions for: Heart Healthy Diet, Diabetic Diet Activities you can perform: Regular-No Restrictions Activities to Avoid: Driving Follow up Referrals: Appointment for Follow Up - Today with Hospice Additional Information Comfort meds per Hospice Syd Dave MD Sep 03, 2016 16:21
--- NOTE | 2016-09-04 15:01 | EKG ---
Date Performed: 09/03/2016 Time Performed: 12:12:52 PTAGE: 65 years EKG: ATRIAL FIBRILLATION WITH RAPID VENTRICULAR RESPONSE MARKED LEFT AXIS DEVIATION POSSIBLE ANT ERIOR MYOCARDIAL INFARCTION , OF INDETERMINATE AGE Compared to prior tracing no significant change AB NORMAL ECG PREVIOUS TRACING : 09/01/2016 16.47 DOCTOR: Asa Pablo Interpretating Date/Time 09/04/2016 14:57:09
== END 2016-09-03 19:40 | disposition hospice, inpatient (51) | DRG 435 ==
LOC: NEPC 10:27 → NEDA 12:48 → NEPGCP 14:20 → OBSVTOIN 15:32 → N07A 08-27 22:52 → HCIS 09-01 22:17 → HIMN 09-03 12:00
PROVIDERS: ADMIT Internal Medicine; ATTEND Internal Medicine
DX: C25.9 Malignant neoplasm of pancreas, unspecified (principal); I50.23 Acute on chronic systolic (congestive) heart failure; N17.9 Acute kidney failure, unspecified; C78.00 Secondary malignant neoplasm of unspecified lung; C78.7 Secondary malignant neoplasm of liver and intrahepatic bile duct; C78.6 Secondary malignant neoplasm of retroperitoneum and peritoneum; I95.9 Hypotension, unspecified; E11.649 Type 2 diabetes mellitus with hypoglycemia without coma; L03.116 Cellulitis of left lower limb; I48.91 Unspecified atrial fibrillation; E83.42 Hypomagnesemia; E83.51 Hypocalcemia; E87.5 Hyperkalemia; R13.10 Dysphagia, unspecified; K12.31 Oral mucositis (ulcerative) due to antineoplastic therapy; T45.1X5A Adverse effect of antineoplastic and immunosuppressive drugs, initial encounter; Z43.4 Encounter for attention to other artificial openings of digestive tract; R11.2 Nausea with vomiting, unspecified; E03.9 Hypothyroidism, unspecified; K21.9 Gastro-esophageal reflux disease without esophagitis; R09.02 Hypoxemia; Z51.5 Encounter for palliative care; Z66 Do not resuscitate; K59.00 Constipation, unspecified; R60.0 Localized edema; Z79.84 Long term (current) use of oral hypoglycemic drugs; Z79.4 Long term (current) use of insulin; Z85.048 Personal history of other malignant neoplasm of rectum, rectosigmoid junction, and anus; Z87.891 Personal history of nicotine dependence; I25.10 Atherosclerotic heart disease of native coronary artery without angina pectoris; Z95.5 Presence of coronary angioplasty implant and graft; E78.5 Hyperlipidemia, unspecified
CPT/HCPCS: 36600; 71010; 76775; 80048; 80053; 81001; 82550; 82805; 82948; 83735; 83880; 84155; 84484; 85007; 85025; 85027; 85610; 85730; 87040; 87086; 87641; 93005; J0610; J1170; J1610; J1815; J1940; J2405; J2543; J3475; J7040; P9047